=== PATIENT | female | born 1950 | race Caucasian/White ===

== ENCOUNTER → 2019-12-17 10:20 | Outpatient (CLI) | payer MEDICARE, OTHER, SELFPAY ==
--- NOTE | 2019-12-17 10:40 | RAD_ITS ---
STUDY: X-RAY - LUMBAR SPINE REASON FOR EXAM: Female, 69 years old. pain in lower back for approx 2 weeks; worsening with sleeping and sitting TECHNIQUE: 3 view(s) of the lumbar spine were obtained. COMPARISON: None FINDINGS: Normal lumbar lordosis. There is no substantial scoliosis. There is a normal alignment of the vertebrae. Normal vertebral bodies. There is multilevel spondylosis.. There is multi-level degenerative disc disease with multi-level disc space narrowing. There is multilevel degenerative arthrosis of the facet joints, most prominent at the L5-S1 level. The soft tissue structures are unremarkable. RAD/Lumbar Spine 2 or 3 Views IMPRESSION: Degenerative changes of the spine, as detailed above. No demonstrated fracture or subluxation. Electronically Signed: Real Castro MD at 5:15 EDT , Service support ,
== END ==
PROVIDERS: PCP Internal Medicine; Referring Provider Anesthesiology Pain Medicine; Visit Provider Anesthesiology Pain Medicine
DX: M54.9 Dorsalgia, unspecified (principal)
CPT/HCPCS: 72100

== ENCOUNTER 2021-03-04 16:58 | Emergency (ER) | payer MEDICARE, OTHER, SELFPAY ==
[2021-03-02 09:26] VITALS: BMI 29.7
[2021-03-04 16:59] VITALS: BP 126/66; PULSE 88; RESP 16; TEMP 36.2; O2SAT 95; BMI 30.2
--- NOTE | 2021-03-04 18:00 | EX.ED.DYSGE1 ---
HPI History of Present Illness Chief Complaint: Palpitations Informant: patient Onset/Context/Timing Timing: Intermittent Quality: Palpitations Current Severity: Gone Worsened by: Nothing Relieved by: Nothing Associated Symptoms Associated Symptoms: None Narrative Narrative: Patient was referred to the emergency department by her dieing out machine operator for palpitations. He saw her when she arrived to the ED. He noted that she had atrial fibrillation. He is planning to work this up as an outpatient. He would like a Holter monitor. He will be calling in a prescription for Toprol to her pharmacy. He is planning to follow-up with her tomorrow. She has an echo scheduled for tomorrow. He did not want any diagnostic testing. The patient symptoms have currently resolved. 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) Osteopenia Paroxysmal atrial fibrillation (03/04/21) Home Medications alendronate 70 mg tablet 70 mg PO QWEEK 07/21/20 [History Last Taken Unknown] aspirin 81 mg tablet,delayed release 81 mg PO DAILY 07/21/20 [History Last Taken Unknown] atorvastatin 80 mg tablet 80 mg PO DAILY 07/21/20 [History Last Taken Unknown] coenzyme Q10 30 mg capsule 30 mg PO DAILY 07/21/20 [History Last Taken Unknown] ezetimibe 10 mg tablet 10 mg PO DAILY 07/21/20 [History Last Taken Unknown] levothyroxine 100 mcg tablet 100 mcg PO DAILY 07/21/20 [History Last Taken Unknown] lisinopril 2.5 mg tablet 2.5 mg PO DAILY 07/21/20 [History Last Taken Unknown] nitroglycerin 0.4 mg sublingual tablet 0.4 mg SUBLINGUAL Q5M PRN 07/21/20 [History Last Taken Unknown] anastrozole 1 mg tablet 1 mg PO DAILY tab 03/02/21 [History Last Taken Unknown] pantoprazole 40 mg tablet,delayed release 40 mg PO DAILY tab 03/02/21 [History Last Taken Unknown] metoprolol tartrate 25 mg tablet 25 mg PO BID #60 tab 03/04/21 [Rx Last Taken Unknown] Allergy/AdvReac Type Severity Reaction Status Date / Time iodine AdvReac Intermediate Itching Verified 03/04/21 17:02 tamoxifen AdvReac hair Verified 03/04/21 17:02 loss/abnormal discharge Surgical History H/O left mastectomy (03/2018) History of coronary artery stent placement (03/22/17) History of tonsillectomy Social History Smoking Status: Former smoker alcohol intake: never substance use type: does not use ROS ROS ED Constitutional Constitutional ED: Denies chills or fever(s) Eyes Eyes: Denies change in vision ENT ENT ED: Denies ear pain Cardiovascular Cardiovascular: Reports palpitations; Denies chest pain or racing heartbeat Respiratory/Chest Respiratory/Chest: Denies cough or dyspnea Gastrointestinal Gastrointestinal: Denies abdominal pain, nausea or vomiting Genitourinary Genitourinary ED: Denies dysuria Musculoskeletal Musculoskeletal: Denies myalgias Integumentary Denies rash Neurologic Neurologic: Denies headache(s) Psychiatric Psychiatric: Denies depression Endocrine Endocrinology: Denies polyuria Allergic/Immunologic Allergic/Immunologic ED: Denies urticaria EXAM Physical Exam Const Vital Signs: 03/04/21 16:59 03/04/21 17:40 Temperature 97.2 F L Temperature Source Temporal Pulse Rate 88 Respiratory Rate 16 Respiratory Effort Normal Non-Labored Blood Pressure 126/66 H Blood Pressure Mean 86 Pulse Ox 95 Oxygen Delivery Method Room Air Positive well nourished and well developed General Appearance ED: well developed HEENT Negative for trauma Eyes EOMs intact bilaterally Neck supple Resp normal respiratory effort and clear to auscultation bilaterally Cardio regular rate and regular rhythm Extremity normal to inspection General Extremety ED: Negative for edema, tenderness or other findings General Extremity: Negative for edema or other findings Neuro oriented x3 Sensorium / Orientation: alert Psych mental status grossly normal Skin no rashes or lesions noted MDM MDM MDM Narrative Medical decision making narrative: Patient is currently in sinus rhythm. She has no symptoms. She has a new diagnosis of atrial fibrillation. She is on aspirin. Her dieing out machine operator is going to start her on rate control medication. He will follow up with her tomorrow. She has an echo tomorrow. We will order the Holter monitor. Patient will return for any complications. Discharge Plan Triage Chief Complaint: Palpitations ED Provider: Braulio Nathan Dx/Rx/DC Orders Clinical Impression: Paroxysmal atrial fibrillation Instructions: ED AFIB Prescriptions: No Action alendronate 70 mg tablet 70 mg PO QWEEK RF: 0 aspirin 81 mg tablet,delayed release (DR/EC) 81 mg PO DAILY RF: 0 atorvastatin 80 mg tablet 80 mg PO DAILY RF: 0 coenzyme Q10 [CoQ-10] 30 mg capsule 30 mg PO DAILY RF: 0 ezetimibe 10 mg tablet 10 mg PO DAILY RF: 0 levothyroxine 100 mcg tablet 100 mcg PO DAILY RF: 0 lisinopril 2.5 mg tablet 2.5 mg PO DAILY RF: 0 nitroglycerin 0.4 mg tablet, sublingual 0.4 mg SUBLINGUAL Q5M PRN (Reason: Pain) RF: 0 pantoprazole 40 mg tablet,delayed release (DR/EC) 40 mg PO DAILY RF: 0 anastrozole 1 mg tablet 1 mg PO DAILY RF: 0 metoprolol tartrate 25 mg tablet 25 mg PO BID Qty: 60 RF: 8 Primary Care Provider: Christopher Abreu Referrals: Narendra Triplett MD [STAFF PHYSICIAN] - (follow up tomorrow) Disposition Disposition: Home, self care
== END 2021-03-04 19:01 | disposition home or self-care (01) ==
LOC: ED 18:15
PROVIDERS: Emergency Provider Emergency Medicine; PCP Internal Medicine
DX: I48.0 Paroxysmal atrial fibrillation (principal); I25.10 Atherosclerotic heart disease of native coronary artery without angina pectoris; E03.9 Hypothyroidism, unspecified; E78.5 Hyperlipidemia, unspecified; K21.9 Gastro-esophageal reflux disease without esophagitis; Z87.891 Personal history of nicotine dependence; Z79.82 Long term (current) use of aspirin; Z79.899 Other long term (current) drug therapy
CPT/HCPCS: 99282

== ENCOUNTER → 2021-03-04 18:03 | Outpatient (CLI) | payer MEDICARE, OTHER, SELFPAY ==
[2021-03-04 16:59] VITALS: BMI 30.2
== END ==
PROVIDERS: PCP Internal Medicine; Visit Provider Internal Medicine Interventional Cardiology
DX: R00.2 Palpitations (principal); I48.0 Paroxysmal atrial fibrillation; I25.10 Atherosclerotic heart disease of native coronary artery without angina pectoris; E03.9 Hypothyroidism, unspecified; E78.5 Hyperlipidemia, unspecified; K21.9 Gastro-esophageal reflux disease without esophagitis; Z87.891 Personal history of nicotine dependence; Z79.82 Long term (current) use of aspirin; Z79.899 Other long term (current) drug therapy
CPT/HCPCS: 93225; 93226; 99282

== ENCOUNTER → 2021-03-05 08:58 | Outpatient (CLI) | payer MEDICARE, OTHER, SELFPAY ==
[2021-03-02 09:26] VITALS: BMI 29.7
[2021-03-02 11:04] LABS: Anion Gap 5 (5-15); BUN 11 mg/dL (7-18); BUN/Creat Ratio 11.1 RATIO (10-20); Calcium,Total 9.4 mg/dL (8.5-10.1); Chloride 109 mmol/L (98-107); Creatinine, Serum 0.99 mg/dL (0.55-1.02); EST Glomerular Filtration Rate 58 mL/min (>60); Est Glom Filt Rate - Afr Amer 71 mL/min (>60); Glucose 107 mg/dL (74-106); Magnesium 2.2 mg/dL (1.6-2.6); Potassium 3.8 mmol/L (3.5-5.1); Sodium Level 141 mmol/L (136-145); Thyroid Stim Hormone (TSH) 0.75 uIU/mL (0.358-3.74)
[2021-03-04 16:59] VITALS: BMI 30.2
--- NOTE | 2021-03-05 09:00 | ECHOD_ITS ---
Version 2 Reason For Study: Arrhythmia Procedure This was a 2D Doppler, Color Flow transthoracic echocardiogram. Exam performed in department. Left Ventricle Normal LV size. Left ventricular systolic function is normal. The estimated ejection fraction is 60 %. No regional wall motion abnormalities noted. Right Ventricle Normal RV size. Normal systolic function. Atria Normal left atrium. Normal right atrium. Mitral Valve Normal mitral valve. Tricuspid Valve Normal tricuspid valve. Mild tricuspid valve insufficiency. Aortic Valve Normal aortic valve. Trisinus/trileaflet aortic valve. Pulmonic Valve Normal pulmonic valve. Great Vessels Normal aortic root. The pulmonary artery is normal size. Normal inferior vena cava. Pericardium/Pleural No pericardial effusion. MMode/2D Measurements & Calculations LVIDd: 4.2 cm IVSd: 1.3 cm LA dimension: 3.5 cm LVIDs: 2.7 cm LVPWd: 1.1 cm FS: 35.2 % LAV(MOD-bp): 49.7 ml LA A4 area: 18.0 cm2 RA A4 area: 16.4 cm2 LAV(MOD-bp) Indexed: 26.8 ml/m2 LAV(MOD-sp2): 46.9 ml LAV(MOD-sp4): 50.8 ml Time Measurements MV dec time: 0.24 sec Doppler Measurements & Calculations MV E max holden: 101.9 cm/sec Lat Peak E' Holden: 9.0 cm/sec Med Peak E' Holden: 8.8 cm/sec MV A max holden: 76.6 cm/sec E/E' lat: 11.4 E/E' med: 11.6 MV E/A: 1.3 MV V2 max: 126.8 cm/sec MV P1/2t max holden: 127.5 cm/sec Ao V2 max: 126.8 cm/sec MV max P.4 mmHg MV P1/2t: 77.1 msec Ao max P.4 mmHg MV V2 mean: 61.3 cm/sec MV dec slope: 484.5 cm/sec2 MV mean P.8 mmHg MVA(P1/2t): 2.9 cm2 MV V2 VTI: 35.3 cm LV V1 max: 114.6 cm/sec PA V2 max: 87.6 cm/sec TR max holden: 271.3 cm/sec LV V1 max P.3 mmHg TR max P.4 mmHg ECHO/Echo Complete Interpretation Summary Normal LV size. Left ventricular systolic function is normal. The estimated ejection fraction is 60 %. Mild tricuspid valve insufficiency. Structurally normal valves. Ordering Physician: Narendra Triplett Referring Physician: Christopher Abreu Performed By: Leandro Meadows RCS
== END ==
PROVIDERS: PCP Internal Medicine; Referring Provider Internal Medicine Cardiovascular Disease; Visit Provider Internal Medicine Cardiovascular Disease
DX: I25.10 Atherosclerotic heart disease of native coronary artery without angina pectoris (principal); R00.2 Palpitations; E03.9 Hypothyroidism, unspecified; I25.2 Old myocardial infarction
CPT/HCPCS: 36415; 80048; 83735; 84443; 93306

== ENCOUNTER → 2021-03-18 09:45 | Outpatient (CLI) | payer MEDICARE, OTHER, SELFPAY ==
[2021-03-18 08:52] VITALS: BMI 30.4
--- NOTE | 2021-03-18 09:49 | RAD_ITS ---
STUDY: X-RAY CHEST REASON FOR EXAM: Female, 70 years old. cad TECHNIQUE: PA and lateral views of the chest. COMPARISON: None. FINDINGS: The lungs are clear and expanded. There is no demonstrated pleural abnormality. Normal size heart. Normal mediastinum and michelle. Normal visualized pulmonary arteries. Normal visualized aortic arch and descending thoracic aorta. Normal visualized thoracic spine. Normal visualized ribs, clavicles, and shoulders. There is no demonstrated abnormality of the visualized soft tissue structures of the upper abdomen. RAD/Chest PA and Lateral IMPRESSION: Normal x-ray examination of the chest. Electronically Signed: Lorenzo Carmen DO at 6:33 EDT Tel , Service support ,
[2021-03-18 10:47] LABS: AST(SGOT) 46 U/L (15-37); Alanine Aminotransfer ALT/SGPT 61 U/L (13-56); Albumin, Serum 3.6 g/dL (3.2-5.0); Alkaline Phosphatase 96 U/L (45-117); Bilirubin, Direct 0.23 mg/dL (0.00-0.30); Cholesterol 124 mg/dL (200); Globulin 3.3 g/dL (2.2-4.2); High Density Lipoprotein 63 mg/dL; Protein, Total 6.9 g/dL (6.4-8.2); Triglycerides 42 mg/dL; Very Low Density Lipoprotein 8 mg/dL (5-40)
== END ==
PROVIDERS: PCP Internal Medicine; Referring Provider Internal Medicine Cardiovascular Disease; Visit Provider Internal Medicine Cardiovascular Disease
DX: E78.00 Pure hypercholesterolemia, unspecified (principal); E78.5 Hyperlipidemia, unspecified; Z95.5 Presence of coronary angioplasty implant and graft
CPT/HCPCS: 36415; 71046; 80061; 80076

== ENCOUNTER → 2021-05-24 | Outpatient (CLI) | payer MEDICARE, OTHER, SELFPAY ==
[2021-05-24 10:05] VITALS: BMI 30.4
== END | disposition home or self-care (01) ==
PROVIDERS: PCP Internal Medicine; Referring Provider Obstetrics & Gynecology; Visit Provider Obstetrics & Gynecology
DX: N76.0 Acute vaginitis (principal)
CPT/HCPCS: 87070; 87205

== ENCOUNTER → 2021-06-01 10:12 | Outpatient (CLI) | payer MEDICARE, OTHER, SELFPAY ==
[2021-06-01 12:29] LABS: Absolute Lymphocyte Count 2.03 X10^3/uL (0.83-4.51); Absolute Neutrophil Count 4.9 X10^3/uL (2.0-7.7); Basophil# 0.04 X10^3/uL; Basophil% 0.5 % (0-1); Eosinophil# 0.16 X10^3/uL; Eosinophils% 2.1 % (0-5); Hematocrit 38.6 % (37-47); Hemoglobin 12.2 g/dL (12.0-15.0); Lymphocyte # 2.03 X10^3/ul (0.83-4.51); Mean Corp Hgb Conc 31.6 g/dL (32-36); Mean Corpuscular Hgb 28.8 pg (27.0-32.0); Mean Corpuscular Volume 91.3 fL (81-99); Mean Platelet Vol. 10.2 fl (6.2-12.0); Monocyte# 0.67 X10^3/uL; Monocyte% 8.6 % (0-10); NRBC Flagged by Analyzer 0 % (0-5); Neutrophil # 4.86 X10^3/uL (2.7-7.7); Neutrophil % 62.3 % (47-70); Platelet Count 255 K/mm3 (150-450); RBC Distribution Width CV 14.1 % (11.6-14.6); RBC Distribution Width SD 47.4 fl (35.1-43.9); Red Blood Count 4.23 M/mm3 (4.2-5.4); White Blood Count 7.8 K/mm3 (4.4-11.0)
== END ==
PROVIDERS: PCP Internal Medicine; Referring Provider Internal Medicine; Visit Provider Internal Medicine
DX: E78.5 Hyperlipidemia, unspecified (principal); E03.9 Hypothyroidism, unspecified
CPT/HCPCS: 36415; 85025

== ENCOUNTER → 2021-06-02 08:30 | Outpatient (CLI) | payer MEDICARE, OTHER, SELFPAY ==
[2021-05-24 10:05] VITALS: BMI 30.4
--- NOTE | 2021-06-02 08:33 | US_ITS ---
STUDY: ULTRASOUND TRANSVAGINAL CLINICAL: Female, 70 years old. RLQ pain TECHNIQUE: Transvaginal COMPARISON: None. FINDINGS: Normal uterine size measuring 8.4 x 4.6 x 4.5 cm in maximal craniocaudal dimension. There is a fibroid measuring 1.6 x 1.2 x 1 cm. Normal endometrial thickness measuring 9 mm. There are no endometrial masses, and there is no fluid in the endometrial cavity. Normal uterine cervix. Normal right ovary, measuring 3.3 x 2.8 x 1.6 cm. There are multiple follicles without a dominant cyst. Normal left ovary, measuring 3 x 2.6 x 2 cm. There are multiple follicles without a dominant cyst. There is no free fluid in the pelvis. US/Pelvic (Non ) IMPRESSION: Thickened endometrial lining for stated age and small intrauterine fibroid.. Normal size bilateral ovaries Electronically Signed: Anam Calderon MD at 16:52 EDT , Service support ,
--- NOTE | 2021-06-02 08:33 | US_ITS ---
STUDY: ULTRASOUND TRANSVAGINAL CLINICAL: Female, 70 years old. RLQ pain TECHNIQUE: Transvaginal COMPARISON: None. FINDINGS: Normal uterine size measuring 8.4 x 4.6 x 4.5 cm in maximal craniocaudal dimension. There is a fibroid measuring 1.6 x 1.2 x 1 cm. Normal endometrial thickness measuring 9 mm. There are no endometrial masses, and there is no fluid in the endometrial cavity. Normal uterine cervix. Normal right ovary, measuring 3.3 x 2.8 x 1.6 cm. There are multiple follicles without a dominant cyst. Normal left ovary, measuring 3 x 2.6 x 2 cm. There are multiple follicles without a dominant cyst. There is no free fluid in the pelvis. US/Transvaginal Non- IMPRESSION: Thickened endometrial lining for stated age and small intrauterine fibroid.. Normal size bilateral ovaries Electronically Signed: Anam Calderon MD at 16:52 EDT , Service support ,
== END ==
PROVIDERS: PCP Internal Medicine; Referring Provider Obstetrics & Gynecology; Visit Provider Obstetrics & Gynecology
DX: R10.31 Right lower quadrant pain (principal)
CPT/HCPCS: 76830; 76856; 93976

== ENCOUNTER → 2021-08-10 08:06 | Outpatient (CLI) | payer MEDICARE, OTHER, SELFPAY ==
--- NOTE | 2021-08-11 14:23 | PFT ---
INTRODUCTION: The patient is a 71-year-old female that presents for pulmonary function studies secondary to a diagnosis of high risk medication use. Respiratory therapy reported good patient effort. Bronchodilators were used during testing. INTERPRETATION: Forced expiration spirometry demonstrates no evidence of a large airways obstructive ventilatory defect. There was no significant response to aerosolized bronchodilators. Spirograms are of good quality and plateau normally. Body plethysmography was performed and reveals lung volumes to be within normal limits. Diffusing capacity by single breath CO is also within normal limits. IMPRESSION: Grossly normal pulmonary function studies.
== END ==
PROVIDERS: PCP Internal Medicine; Referring Provider Internal Medicine Cardiovascular Disease; Visit Provider Internal Medicine Cardiovascular Disease
DX: I48.0 Paroxysmal atrial fibrillation (principal)
CPT/HCPCS: 94060; 94726; 94729

== ENCOUNTER → 2021-09-13 11:25 | Outpatient (CLI) | payer MEDICARE, OTHER, SELFPAY ==
--- NOTE | 2021-09-13 11:26 | US_ITS ---
STUDY: ULTRASOUND OF THE FEMALE PELVIS - COMPLETE REASON FOR EXAM: Female, 71 years old. Postmenopausal bleeding. LMP: Patient is postmenopausal. TECHNIQUE: Transabdominal and Transvaginal TECHNICAL QUALITY: Adequate. COMPARISON: Comparison is made with prior study dated 06/02/2021. FINDINGS: The uterus is anteverted and is in a midline position. The uterus measures 7.5 cm x 5 cm x 3.4 cm. Normal uterine cervix. The endometrium measures 6.4 mm in thickness, and is hyperechoic. There is no demonstrated endometrial mass. There is a 1.3 cm x 0.9 cm fundal fibroid. I.U.D. - The patient does not have an I.U.D. The right ovary is non-visualized. The left ovary is visualized. The left ovary measures 3 cm x 1.5 cm x 0.9 cm. There is no left ovarian cyst or ovarian mass. There is no visualized left adnexal mass or complex lesion. There is normal arterial and normal venous vascularity. There is no fluid in the cul-de-sac. The pre void volume of the bladder was 480 ml. US/Pelvic (Non ) IMPRESSION: Endometrial thickening. Small uterine fibroid. Electronically Signed: Deniz Esqueda MD at 15:44 EST , Service support ,
--- NOTE | 2021-09-13 11:26 | US_ITS ---
STUDY: ULTRASOUND OF THE FEMALE PELVIS - COMPLETE REASON FOR EXAM: Female, 71 years old. Postmenopausal bleeding. LMP: Patient is postmenopausal. TECHNIQUE: Transabdominal and Transvaginal TECHNICAL QUALITY: Adequate. COMPARISON: Comparison is made with prior study dated 06/02/2021. FINDINGS: The uterus is anteverted and is in a midline position. The uterus measures 7.5 cm x 5 cm x 3.4 cm. Normal uterine cervix. The endometrium measures 6.4 mm in thickness, and is hyperechoic. There is no demonstrated endometrial mass. There is a 1.3 cm x 0.9 cm fundal fibroid. I.U.D. - The patient does not have an I.U.D. The right ovary is non-visualized. The left ovary is visualized. The left ovary measures 3 cm x 1.5 cm x 0.9 cm. There is no left ovarian cyst or ovarian mass. There is no visualized left adnexal mass or complex lesion. There is normal arterial and normal venous vascularity. There is no fluid in the cul-de-sac. The pre void volume of the bladder was 480 ml. US/Transvaginal Non- IMPRESSION: Endometrial thickening. Small uterine fibroid. Electronically Signed: Deniz Esqueda MD at 15:44 EST , Service support ,
== END ==
PROVIDERS: PCP Internal Medicine; Referring Provider Obstetrics & Gynecology; Visit Provider Obstetrics & Gynecology
DX: N76.0 Acute vaginitis (principal)
CPT/HCPCS: 76830; 76856

== ENCOUNTER 2021-12-28 20:02 | Outpatient (CLI) | payer MEDICARE, OTHER, SELFPAY | END 2021-12-28 23:59 | disposition home or self-care (01) | PROVIDERS: PCP Internal Medicine; Visit Provider Internal Medicine | DX: G47.33 Obstructive sleep apnea (adult) (pediatric) (principal) | CPT/HCPCS: 95810 ==

== ENCOUNTER → 2022-04-20 | Outpatient (CLI) | payer MEDICARE, OTHER, SELFPAY ==
--- NOTE | 2022-04-20 11:15 | RAD_ITS ---
STUDY: X-RAY - PELVIS AND RIGHT HIP REASON FOR EXAM: Female, 71 years old. HIP PAIN TECHNIQUE: 3 views of the pelvis and hip. COMPARISON: None. FINDINGS: There is a non-specific bowel gas pattern. Normal visualized soft tissue structures. Normal bilateral iliac wings, sacroiliac joints and visualized sacrum. Normal bilateral superior and inferior pubic rami. Normal pubic symphysis. Normal bilateral ischial tuberosities. Normal visualized femoral head. Normal acetabulum. There is moderate articular joint space narrowing of the hip. RAD/HIP, UNI W/ Pelvis 2-3 Views IMPRESSION: Moderate] joint space narrowing with no evidence of underlying acute osseous fracture. Electronically Signed: Jaspal Martínez DO at 18:18 EDT ,
== END | disposition home or self-care (01) ==
LOC: RAD 11:12
PROVIDERS: PCP Internal Medicine; Referring Provider Anesthesiology Pain Medicine; Visit Provider Anesthesiology Pain Medicine
DX: M25.551 Pain in right hip (principal)
CPT/HCPCS: 73502

== ENCOUNTER → 2022-05-17 | Outpatient (CLI) | payer MEDICARE, OTHER, SELFPAY ==
[2022-05-17 12:16] LABS: Absolute Lymphocyte Count 1.87 X10^3/uL (0.83-4.51); Absolute Neutrophil Count 5.3 X10^3/uL (2.0-7.7); Basophil# 0.05 X10^3/uL; Basophil% 0.6 % (0-1); Eosinophil# 0.22 X10^3/uL; Eosinophils% 2.7 % (0-5); Hematocrit 36.8 % (37-47); Hemoglobin 12.1 g/dL (12.0-15.0); Lymphocyte # 1.87 X10^3/ul (0.83-4.51); Lymphocyte % 23.1 % (19-41); Mean Corp Hgb Conc 32.9 g/dL (32-36); Mean Corpuscular Hgb 31.3 pg (27.0-32.0); Mean Corpuscular Volume 95.3 fL (81-99); Monocyte# 0.63 X10^3/uL; Monocyte% 7.8 % (0-10); NRBC Flagged by Analyzer 0 % (0-5); Neutrophil % 65.4 % (47-70); Platelet Count 261 K/mm3 (150-450); RBC Distribution Width CV 13.8 % (11.6-14.6); RBC Distribution Width SD 48.3 fl (35.1-43.9); Red Blood Count 3.86 M/mm3 (4.2-5.4); White Blood Count 8.1 K/mm3 (4.4-11.0)
[2022-05-17 12:54] LABS: AST(SGOT) 22 U/L (15-37); Alanine Aminotransfer ALT/SGPT 36 U/L (13-56); Albumin, Serum 3.3 g/dL (3.2-5.0); Alkaline Phosphatase 88 U/L (45-117); Anion Gap 5 (5-15); BUN 14 mg/dL (7-18); BUN/Creat Ratio 11.2 RATIO (10-20); Calcium,Total 8.8 mg/dL (8.5-10.1); Chloride 109 mmol/L (98-107); Cholesterol 154 mg/dL (200); Creatinine, Serum 1.25 mg/dL (0.55-1.02); EST Glomerular Filtration Rate 45 mL/min (>60); Est Glom Filt Rate - Afr Amer 54 mL/min (>60); Globulin 3.4 g/dL (2.2-4.2); Glucose 115 mg/dL (74-106); High Density Lipoprotein 69 mg/dL; Potassium 4.4 mmol/L (3.5-5.1); Protein, Total 6.7 g/dL (6.4-8.2); Sodium Level 139 mmol/L (136-145); Thyroid Stim Hormone (TSH) 2.46 uIU/mL (0.358-3.74); Triglycerides 49 mg/dL; Very Low Density Lipoprotein 10 mg/dL (5-40)
== END | disposition home or self-care (01) ==
LOC: BIMLAB 10:05
PROVIDERS: PCP Internal Medicine; Referring Provider Internal Medicine; Visit Provider Internal Medicine
DX: E03.9 Hypothyroidism, unspecified (principal); E78.5 Hyperlipidemia, unspecified
CPT/HCPCS: 36415; 80053; 80061; 84443; 85025

== ENCOUNTER → 2022-09-22 | Outpatient (CLI) | payer MEDICARE, OTHER, SELFPAY ==
--- NOTE | 2022-09-22 12:53 | PFT ---
INTRODUCTION: The patient is a 72-year-old female that presents for pulmonary function studies secondary to a diagnosis of atrial fibrillation. Respiratory therapy reported good patient effort. Bronchodilators were used during testing. INTERPRETATION: Forced expiration spirometry demonstrates no evidence of a large airways obstructive ventilatory defect. There was no significant response to aerosolized bronchodilators. Spirograms are of good quality and plateau normally. Body plethysmography was performed and demonstrated lung volumes to be within normal limits. Diffusing capacity by single breath CO was also within normal limits. IMPRESSION: Grossly normal pulmonary function studies.
== END | disposition home or self-care (01) ==
LOC: PSN 08:06
PROVIDERS: PCP Internal Medicine; Visit Provider Physician Assistant Medical
DX: I48.0 Paroxysmal atrial fibrillation (principal)
CPT/HCPCS: 94060; 94726; 94729

== ENCOUNTER → 2022-11-30 | Outpatient (CLI) | payer MEDICARE, OTHER, SELFPAY ==
[2022-11-30 13:25] LABS: ALB/GLOB Ratio 1.2 RATIO (0.9-2.4); AST(SGOT) 29 U/L (15-37); Alanine Aminotransfer ALT/SGPT 36 U/L (13-56); Albumin, Serum 3.6 g/dL (3.2-5.0); Alkaline Phosphatase 99 U/L (45-117); Anion Gap 8 (5-15); BUN 15 mg/dL (7-18); BUN/Creat Ratio 14.7 RATIO (10-20); Calcium,Total 9.2 mg/dL (8.5-10.1); Chloride 107 mmol/L (98-107); Creatinine, Serum 1.02 mg/dL (0.55-1.02); EST Glomerular Filtration Rate 56 mL/min (>60); Est Glom Filt Rate - Afr Amer 68 mL/min (>60); Glucose 127 mg/dL (74-106); Potassium 4.3 mmol/L (3.5-5.1); Protein, Total 6.6 g/dL (6.4-8.2); Sodium Level 141 mmol/L (136-145)
== END | disposition home or self-care (01) ==
LOC: BIMLAB 10:11
PROVIDERS: PCP Internal Medicine; Referring Provider Internal Medicine; Visit Provider Internal Medicine
DX: N18.30 Chronic kidney disease, stage 3 unspecified (principal); E78.5 Hyperlipidemia, unspecified
CPT/HCPCS: 36415; 80053

== ENCOUNTER → 2023-06-14 | Outpatient (CLI) | payer MEDICARE, OTHER, SELFPAY ==
[2023-06-14 16:40] LABS: Absolute Lymphocyte Count 2.18 X10^3/uL (0.83-4.51); Absolute Neutrophil Count 4.9 X10^3/uL (2.0-7.7); Basophil# 0.05 X10^3/uL; Basophil% 0.6 % (0-1); Eosinophil# 0.15 X10^3/uL; Eosinophils% 1.9 % (0-5); Hematocrit 38.1 % (37-47); Hemoglobin 12.4 g/dL (12.0-15.0); Lymphocyte # 2.18 X10^3/ul (0.83-4.51); Lymphocyte % 27.9 % (19-41); Mean Corp Hgb Conc 32.5 g/dL (32-36); Mean Corpuscular Volume 95.3 fL (81-99); Mean Platelet Vol. 10.3 fl (6.2-12.0); Monocyte# 0.54 X10^3/uL; Monocyte% 6.9 % (0-10); NRBC Flagged by Analyzer 0 % (0-5); Neutrophil # 4.86 X10^3/uL (2.7-7.7); Neutrophil % 62.3 % (47-70); Platelet Count 230 K/mm3 (150-450); RBC Distribution Width CV 13.5 % (11.6-14.6); RBC Distribution Width SD 48.1 fl (35.1-43.9); White Blood Count 7.8 K/mm3 (4.4-11.0)
[2023-06-14 17:11] LABS: Vitamin B12 327 pg/mL (211-911)
[2023-06-14 17:29] LABS: AST(SGOT) 61 U/L (15-37); Alanine Aminotransfer ALT/SGPT 92 U/L (13-56); Albumin, Serum 3.6 g/dL (3.2-5.0); Alkaline Phosphatase 96 U/L (45-117); Anion Gap 8 (5-15); BUN 16 mg/dL (7-18); BUN/Creat Ratio 13.7 RATIO (10-20); Chloride 104 mmol/L (98-107); Cholesterol 129 mg/dL (200); Creatinine, Serum 1.17 mg/dL (0.55-1.02); EST Glomerular Filtration Rate 48 mL/min (>60); Est Glom Filt Rate - Afr Amer 58 mL/min (>60); Globulin 3.5 g/dL (2.2-4.2); Glucose 90 mg/dL (74-106); High Density Lipoprotein 58 mg/dL; Potassium 3.8 mmol/L (3.5-5.1); Protein, Total 7.1 g/dL (6.4-8.2); Sodium Level 137 mmol/L (136-145); Thyroid Stim Hormone (TSH) 1.28 uIU/mL (0.358-3.74); Triglycerides 74 mg/dL; Very Low Density Lipoprotein 15 mg/dL (5-40)
== END | disposition home or self-care (01) ==
LOC: BIMLAB 15:20
PROVIDERS: PCP Internal Medicine; Visit Provider Internal Medicine
DX: E03.9 Hypothyroidism, unspecified (principal); E78.5 Hyperlipidemia, unspecified
CPT/HCPCS: 36415; 80053; 80061; 82607; 84443; 85025

== ENCOUNTER → 2023-09-21 | Outpatient (CLI) | payer MEDICARE, OTHER, SELFPAY ==
[2023-09-21 16:35] LABS: AST(SGOT) 40 U/L (15-37); Alanine Aminotransfer ALT/SGPT 54 U/L (13-56); Albumin, Serum 3.6 g/dL (3.2-5.0); Alkaline Phosphatase 101 U/L (45-117); Anion Gap 4 (5-15); BUN 13 mg/dL (7-18); Calcium,Total 9.1 mg/dL (8.5-10.1); Chloride 104 mmol/L (98-107); Creatinine, Serum 1.18 mg/dL (0.55-1.02); EST Glomerular Filtration Rate 47 mL/min (>60); Est Glom Filt Rate - Afr Amer 57 mL/min (>60); Globulin 3.5 g/dL (2.2-4.2); Glucose 103 mg/dL (74-106); Protein, Total 7.1 g/dL (6.4-8.2); Sodium Level 136 mmol/L (136-145)
== END | disposition home or self-care (01) ==
LOC: BIMLAB 13:35
PROVIDERS: PCP Internal Medicine; Visit Provider Internal Medicine
DX: R74.8 Abnormal levels of other serum enzymes (principal)
CPT/HCPCS: 36415; 80053

== ENCOUNTER → 2023-12-04 | Outpatient (CLI) | payer MEDICARE, OTHER, SELFPAY ==
--- OUTSIDE RECORDS SUMMARY | 2023-12-04 07:20 | XMS RPT_ITS | CCD ---
Author Name Unknown Address [address] [place] [address] [address] [place] [address] Organization [facility] Care Team Providers Care Environmental Management Specialist Name Role Phone RADHAMES VELAZQUEZ Unavailable Unavailable IMCA Unavailable Unavailable IMCA Unavailable Unavailable RADHAMES VELAZQUEZ Unavailable Unavailable SHAYY GALINDO Unavailable Unavailable IMCA Unavailable Unavailable KEI RODRIGUEZ Unavailable Unavailable KEI RODRIGUEZ Unavailable Unavailable Christopher bAreu MD Primary Care Provider [phone] Unavailable Primary Care Provider UnavailCaterina Richter MD Primary Care Provider [phone] JIMI MORSE Attending Unavailable OLEGHE, EFEWONGBE B Primary Care Unavailable MATTO, HASEEB Referring Unavailable OLEGHE, EFEWONGBE B Primary Care Unavailable MATCARLA, HASEEB Attending Unavailable OLEGHE, EFEWONGBE B Primary Care Unavailable ALI, WAN BRENT Referring Unavailable OLEGHE, EFEWONGBE B Primary Care Unavailable ALI, WAN BRENT Referring Unavailable OLEGHE, EFEWONGBE B Primary Care Unavailable OLEGHE, EFEWONGBE B Primary Care Unavailable ALI, WAN BRENT Attending Unavailable ALI, WAN BRENT Referring Unavailable OLEGHE, EFEWONGBE B Primary Care Unavailable ALI, WAN BRENT Attending Unavailable ALI, WAN BRENT Referring Unavailable Allergies Allergy Classification Reported Allergen(s) Allergy Type Date of Onset Reaction(s) Facility (20 sources) iodine; Translations: [IODINE] Drug Allergy 12-15-2017 Itching [facility] Repository Medications Current Medications Medication Drug Class(es) Dates Sig (Normalized) Sig (Original) anastrozole 1 mg oral tablet (16 sources) Aromatase Inhibitor Start: 11-26-2021 End: 11-09-2023 take 1 tablet by mouth once daily anastrozole (ARIMIDEX) 1 mg tablet Take 1 tablet by mouth once daily. 90 tablet 3 11/14/2022 11/09/2023 Active Completed/Discontinued Medications Medication Drug Class(es) Dates Sig (Normalized) Sig (Original) alendronic acid 70 mg oral tablet (3 sources) Bisphosphonate Start: 05-21-2021 End: 05-21-2022 take 1 tablet by mouth every week alendronate (FOSAMAX) 70 mg tablet Take 1 tablet by mouth one time a week. 12 tablet 3 05/21/2021 03/25/2022 Discontinued (Course of therapy completed) Problems Active Problems Problem Classification Problem Date Documented Da te Episodic/Chronic Cancer of breast (20 sources) Malignant neoplasm of female breast; Translations: [Malignant neoplasm of nipple and areola, left female breast] Onset: 01-12-2018 Chronic Cardiac dysrhythmias (12 sources) Paroxysmal atrial fibrillation; Translations: [Paroxysmal atrial fibrillation] Onset: 09-21-2022 Chronic Coronary atherosclerosis and other heart disease (19 sources) Coronary atherosclerosis; Translations: [Atherosclerotic heart disease of [place] coronary artery without angina pectoris] Onset: 03-22-2017 03-28-2017 Chronic Disorders of lipid metabolism (20 sources) Mixed hyperlipidemia; Translations: [Mixed hyperlipidemia] Onset: 03-22-2017 03-27-2017 Chronic Osteoporosis (2 sources) Senile osteoporosis; Translations: [Age-related osteoporosis without current pathological fracture] Onset: 07-17-2023 Chronic Other aftercare (1 source) Long-term current use of aromatase inhibitor; Translations: [joint terminal attack controller (current) use of aromatase inhibitors] Episodic Other lower respiratory disease (1 source) Multiple nodules of lung; Translations: [Other nonspecific abnormal finding of lung field] Episodic Other nutritional; endocrine; and metabolic disorders (18 sources) Obese class I; Translations: [Obesity, unspecified] Onset: 11-11-2019 11-11-2019 Chronic Other nutritional; endocrine; and metabolic disorders (1 source) Obesity, unspecified; Translations: [Obesity, Class I, BMI 30-34.9] Onset: 11-11-2019 Chronic Other screening for suspected conditions (not mental disorders or infectious disease) (8 sources) Patient encounter status; Translations: [Encounter for screening mammogram for malignant neoplasm of breast] Onset: 07-17-2023 Episodic Other skin disorders (2 sources) Mass of thoracic structure; Translations: [Localized swelling, mass and lump, trunk] Episodic Residual codes; unclassified (19 sources) Obstructive sleep apnea syndrome; Translations: [Obstructive sleep apnea (adult) (pediatric)] Onset: 09-25-2017 09-25-2017 Chronic Residual codes; unclassified (1 source) Obstructive sleep apnea (adult) (pediatric); Translations: [SNEHA (obstructive sleep apnea)] Onset: 09-25-2017 Chronic Thyroid disorders (17 sources) Acquired hypothyroidism; Translations: [Hypothyroidism, unspecified] Onset: 03-22-2017 03-27-2017 Chronic Unclassified (1 source) Unknown / UNK(Unknown) Onset: 01-03-2018 Past or Other Problems Problem Classification Problem Date Documented Da te Episodic/Chronic Coronary atherosclerosis and other heart disease (18 sources) Patient post percutaneous transluminal coronary angioplasty; Translations: [Coronary angioplasty status] Onset: 03-28-2017 03-28-2017 Episodic Inflammation; infection of eye (except that caused by tuberculosis or sexually transmitteddisease) (17 sources) Superficial keratitis of right eye; Translations: [Unspecified superficial keratitis, right eye] Onset: 11-21-2018 11-21-2018 Episodic Malaise and fatigue (17 sources) Fatigue; Translations: [Other fatigue] Onset: 03-27-2017 03-28-2017 Episodic Residual codes; unclassified (7 sources) Other specified personal risk factors, not elsewhere classified; Translations: [Other specified personal history presenting hazards to health] Onset: 11-18-2022 Episodic Residual codes; unclassified (2 sources) Estrogen receptor positive status [ER+]; Translations: [Malignant neoplasm of left breast in female, estrogen receptor positive, unspecified site of breast (HCC)] Onset: 01-12-2018 Episodic Results Test Name Value Interpretation Reference Range Facil ity Vital Signs Date Time Vital Sign Value Performing Clinician Faci lity 11-18-2022 09:57-0500 Body height 162.6 cm Jimi Morse APRN.CNP Work Phone: [facility] 11-18-2022 09:57-0500 Body weight 83.01 kg Jimi Morse APRN.CNP Work Phone: [facility] 11-18-2022 09:57-0500 Diastolic blood pressure 82 mm[Hg] Jimi Morse APRN.CNP Work Phone: [facility] 11-18-2022 09:57-0500 Heart rate 64 /min Jimi Linardi SUPERVISOR [employer].BLOOD BANK CALENDAR CONTROL CLERK Work Phone: [facility] 11-18-2022 09:57-0500 Respiratory rate 18 /min Jimi Red SUPERVISOR [employer]ATTO[employer].BLOOD BANK CALENDAR CONTROL CLERK Work Phone: [facility] 11-18-2022 09:57-0500 SaO2% (BldA) [Mass fraction] 98 % Jimi Linardi SUPERVISOR [employer]ATTO[employer].BLOOD BANK CALENDAR CONTROL CLERK Work Phone: [facility] 11-18-2022 09:57-0500 Systolic blood pressure 126 mm[Hg] Jimi Linardi SUPERVISOR ABATTOIR.BLOOD BANK CALENDAR CONTROL CLERK Work Phone: [facility] 11-14-2022 09:43-0500 Body weight 83.46 kg Wan Knight MD Work Phone: [facility] 11-14-2022 09:43-0500 Diastolic blood pressure 80 mm[Hg] Wan Knight MD Work Phone: [facility] 11-14-2022 09:43-0500 Heart rate 66 /min Wan Knight MD Work Phone: [facility] 11-14-2022 09:43-0500 Respiratory rate 18 /min Wan Knight MD Work Phone: [facility] 11-14-2022 09:43-0500 SaO2% (BldA) [Mass fraction] 99 % Wan Knight MD Work Phone: [facility] 11-14-2022 09:43-0500 Systolic blood pressure 133 mm[Hg] Wan Knight MD Work Phone: [facility] 09-21-2022 08:12-0500 Body height 162.6 cm Haseeb Ibanez MD Work Phone: [facility] 09-21-2022 08:12-0500 Body weight 80.29 kg Haseeb Ibanez MD Work Phone: [facility] 09-21-2022 08:12-0500 Diastolic blood pressure 85 mm[Hg] Haseeb Ibanez MD Work Phone: [facility] 09-21-2022 08:12-0500 Heart rate 63 /min Haseeb Ibanez MD Work Phone: [facility] 09-21-2022 08:12-0500 SaO2% (BldA) [Mass fraction] 96 % Haseeb Ibanez MD Work Phone: [facility] 09-21-2022 08:12-0500 Systolic blood pressure 143 mm[Hg] Haseeb Ibanez MD Work Phone: [facility] 05-12-2022 08:41-0400 Body weight 78.47 kg Wan Knight MD Work Phone: [facility] 05-12-2022 08:41-0400 Diastolic blood pressure 75 mm[Hg] Wan Knight MD Work Phone: [facility] 05-12-2022 08:41-0400 Heart rate 54 /min Wan Knight MD Work Phone: [facility] 05-12-2022 08:41-0400 Respiratory rate 18 /min Wan Knight MD Work Phone: [facility] 05-12-2022 08:41-0400 SaO2% (BldA) [Mass fraction] 98 % Wan Knight MD Work Phone: [facility] 05-12-2022 08:41-0400 Systolic blood pressure 127 mm[Hg] Wan Knight MD Work Phone: [facility] 03-25-2022 08:59-0400 Body temperature 98.01 [degF] Aleida Roca MD Work Phone: [facility] 03-25-2022 08:59-0400 Body weight 81.65 kg Aleida Roca MD Work Phone: [facility] 03-25-2022 08:59-0400 Diastolic blood pressure 70 mm[Hg] Aleida Roca MD Work Phone: [facility] 03-25-2022 08:59-0400 Heart rate 68 /min Aleida Roca MD Work Phone: [facility] 03-25-2022 08:59-0400 Respiratory rate 18 /min Aleida Roca MD Work Phone: [facility] 03-25-2022 08:59-0400 SaO2% (BldA) [Mass fraction] 99 % Aleida Roca MD Work Phone: [facility] 03-25-2022 08:59-0400 Systolic blood pressure 136 mm[Hg] Aleida Roca MD Work Phone: [facility] 12-30-2021 11:01-0400 Body temperature 97.59 [degF] Wan Knight MD Work Phone: [facility] 12-30-2021 11:01-0400 Diastolic blood pressure 75 mm[Hg] Wan Knight MD Work Phone: [facility] 12-30-2021 11:01-0400 Heart rate 58 /min Wan Knight MD Work Phone: [facility] 12-30-2021 11:01-0400 Respiratory rate 14 /min Wan Knight MD Work Phone: [facility] 12-30-2021 11:01-0400 SaO2% (BldA) [Mass fraction] 99 % Wan Knight MD Work Phone: [facility] 12-30-2021 11:01-0400 Systolic blood pressure 125 mm[Hg] Wan Knight MD Work Phone: [facility] Encounters Encounter Date Encounter Type Care Provider Facility Start: 08-07-2023 End: 08-07-2023 ambulatory CATERINA GARCIA Facility:[facility] Start: 07-26-2023 Documentation procedure Mammog luis Coordinator [facility] Start: 07-26-2023 Letter encounter Mammography Coordinator [facility] Department Start: 07-25-2023 ambulatory WAN KNIGHT Facility :[facility] Start: 07-25-2023 End: 07-25-2023 Subsequent hospital visit by physician Screen/Diagnostic Mammo 2 [facility] Work Phone: Mammography Procedures Date Procedure Procedure Detail Performing Clinician Start: 11-18-2022 Ecg routine ecg w/le ast 12 lds w/i&r Jimi Pinondiane CRISTOBAL Work Phone: Start: 04-15-2022 Ct thorax w/o contra st material Aleida Roca MD Work Phone: Start: 04-01-2022 DEV SCREENING W MILI Mi r Brent Knight MD Work Phone: Start: 04-01-2022 Mammography [facility] Work Phone: Start: 03-24-2022 Adult depression screening assessment [facility] Work Phone: Start: 12-29-2021 Adult depression screening assessment Wan Knight MD Work Phone: Start: 03-19-2021 Mammography Wan Knight MD Work Phone: Start: 10-05-2020 Lipid 1996 panel - Serum or Plasma [facility] Work Phone: Start: 12-05-2018 Colonoscopy Wan Knight MD Work Phone: Start: 04-27-2017 History of placement of stent for coronary artery disease S/P primary angioplasty with coronary stent Wan Knight MD Work Phone: History of placement of stent for coronary artery disease S/P primary angioplasty with coronary stent Haseeb Ibanez MD Work Phone: Plan of Treatment Date Care Activity Detail Author Start: 10-23-2029 Urine microalbumin profile [facility] Start: 10-05-2025 Lipid 1996 panel - Serum or Plasma Lipid Screening [facility] Start: 10-05-2025 LIPID SCREEN LIPID SCREEN [facility] Start: 12-30-2024 DIABETES SCREEN DIABETES SCREEN [facility] Start: 12-30-2024 Diabetes Screening Diabetes Screening [facility] Start: 04-01-2024 Mammography MAMMOGRAM [facility] Start: 07-14-2023 End: 09-13-2023 CBC W Auto Differential panel - Blood CBC + DIFF Lab Routine Malignant neoplasm of left breast in female, estrogen receptor positive, unspecified site of breast (HCC) Encounter for screening for osteoporosis Expected: 07/14/2023, Expires: 09/13/2023 [facility] Work Phone: Immunizations Immunization Date Immunization Notes Care Provider Fa cility 06-14-2021 influenza virus vacc ine, unspecified formulation Wan Knight MD Work Phone: [facility] 06-19-2020 influenza, injectabl e, quadrivalent, contains preservative Wan Knight MD Work Phone: [facility] 10-23-2019 tetanus toxoid, redu gill diphtheria toxoid, and acellular pertussis vaccine, adsorbed Wan Knight MD Work Phone: [facility] 09-27-2017 influenza, high dose seasonal, preservative-free Wan Knight MD Work Phone: [facility] 08-29-2016 influenza, seasonal, injectable, preservative free Wan Knight MD Work Phone: [facility] 08-18-2015 influenza, seasonal, injectable, preservative free Wan Knight MD Work Phone: [facility] 08-18-2015 pneumococcal conjuga te vaccine, 13 valent Wan Knight MD Work Phone: [facility] 08-07-2014 influenza, seasonal, injectable Wan Knight MD Work Phone: [facility] 08-26-2013 pneumococcal polysaccharide vaccine, 23 valent Wan Knight MD Work Phone: [facility] 12-07-2007 tetanus and diphther ia toxoids, adsorbed, preservative free, for adult use (2 Lf of tetanus toxoid and 2 Lf of diphtheria toxoid) Wan Knight MD Work Phone: [facility] Payers Date Payer Category Payer Private Health Insurance [facility] AARP SUPPLEMENT [id number] 2018-Present [phone] [address] [place] [address] Indemnity [id number] 2018 Private Health Insurance [facility] A[employer] SUPPLEMENT [id number] 2018-Present [phone] [address] [place] [address] Indemnity [id number] 2018 Unknown [id number] 2013 Medicare MEDICARE MEDICAR E A AND B [id number] 2013-Present [phone] [place] [address] Medicare [id number] 2013 Medicare MEDICARE MEDICAR E A AND B [id number] 2013-Present [phone] [place] [address] Medicare [id number] 2013 Medicare [id number] Medicare [id number] Social History Date Type Detail Facility Start: 03-27-2017 End: 09-21-2022 Tobacco smoking status NHIS Ex-smoker [facility] End: 03-27-1989 History of tobacco use Current smoker [facility] End: 03-27-1989 History of tobacco use Cigarette Smoker [facility] Start: 03-27-2017 End: 07-25-2023 Cigarettes smoked current (pack per day) - Reported 1 [facility] Start: 03-27-2017 End: 09-21-2022 Tobacco use and exposure Smokeless tobacco non-user [facility] Start: 09-07-2020 End: 11-18-2022 Alcohol intake Current non-drinker of alcohol (finding) [facility] Start: 1950 Sex Assigned At Not on file C [facility] Start: 12-20-2021 End: 04-15-2022 Exposure to SARS-CoV-2 (event) Not sure [facility] Start: 11-18-2022 End: 07-25-2023 Tobacco use panel [facility] Adult Depression Scr eening Assessment 0 [facility] Clinical Notes 12-06-2018 to 09-02-2023 Letter - Coordinator, Mammography - 07/26/2023 9:39 PM EDTTelephone Encounter - Jimi Morse APRN.JOAN - 11/18/2022 10:30 AM Radha Morse APRN.BLOOD BANK CALENDAR CONTROL CLERK - 11/18/2022 10:00 AM ESTPatient Instructions Note Date & Type Note Facility 09-02-2023 Note HNO ID: [id number] Author: Wan Knight MD Service: ? Author Type: Physician Type: Progress Notes Filed: 09/02/2023 9:21 AM Note Text: Part of this note is carried forward from note dictated: 11/14/22. It is appropriately updated. Melissa Mitchell is a 73 year old female a diagnosis of left-sided breast cancer. ER ND positive HER-2 negative disease. Oncotype DX score of 11. Status post mastectomy. The patient diagnosed in December 2017. She was put on a 3-month course of a aromatase inhibitor as the patient had a repeat myocardial infarction with stent placements. At that time they wanted dual antiplatelet therapy. She was taken off her antiplatelet therapy and taken for surgery. Underwent a left-sided mastectomy. She was noted to have 2 nodules 1 of them measuring 1.1 cm in size and the other measured 2.8 cm in size. The lesions were ER ND positive HER-2 negative. Oncotype DX testing from both of these lesions showed a recurrence score of 11. The patient did not get any adjuvant radiation. She was put on the aromatase inhibitor. Subsequently developed GI bleed with a drop of hemoglobin secondary to a bleeding AVM lesion that was cauterized. Then switched to tamoxifen because the Arimidex was causing vaginal dryness. She could not handle the tamoxifen because of increased vaginal discharge which she did not like. She was switched back on the aromatase inhibitor in late 2019. She has been on this tolerating it relatively well. Recently noticed to have a nodule or a growth along the lower left chest wall area. She was evaluated by my partner. No abnormality was identified on physical exam. A CAT scan of the chest was performed by the emergency room [04/15/2022]. This was personally reviewed and no abnormality identified both on the subcutaneous plane as well as no evidence of any bone lesions to suggest metastasis. The patient had a CTA dated 11/10/2022 of the chest. This was reviewed. No evidence of any bony destructive lesions. No evidence of any pulmonary nodules. No evidence of any liver metastasis. No intra-abdominal abnormality noted. Tolerating the aromatase inhibitor well. Mammogram from 07/25/2023 reviewed. Negative for any malignancy. Bone density of -1.6 as of 07/17/2023. Review Of Systems: General: Denies any fatigue. No fever, chills, night sweats, weight loss, headaches or loss of appetite. Stamina intact. HEENT/Neck: No hearing/vision changes; no pain, masses, or swelling. No evidence of sores in the mouth. Respiratory: No cough, productive sputum, hemoptysis, chest pain, shortness of breath or wheezing. Cardiovascular: No palpatations, chest pain,shotness or breath, exertional dyspnea or leg swelling. Gastrointestinal: No nausea, vomiting, dysphagia, abdominal pain,melana or hematochezia. No diahrea orconstipation. No change in the bowel habbits. Genitourinary: No dysuria, nocturia, frequency, urgency, hematuria or incontinence. Musculoskeletal: No joint or pain bone pain: No limitation of motion. No problems with the gait. Neurological: No sensory or motor abnormalities; no headaches or dizziness. Dermatologic: No rash, skin lesions or itching. Psychiatric: No sleep disturbances, mood disorders, depression, etc. Hematologic: No bleeding, bruising or echymisis. Lymphatic System: No new lymph gland enlargement or and new lumps of bumps in the body. Endocrine: No heat or cold intolerance, diabetes or other abnormalities The rest of systems reviewed and essentially unremarkable. Physical Examination: BP 132/78 Pulse 60 Temp 36.7 ?C (98.1 ?F) Wt 71.4 kg (157 lb 6.5 oz) LMP (LMP Unknown) SpO2 98% BMI 27.02 kg/m? The patient was awake alert oriented. Didn't appear to be in acute distress. HEENT: No pallor, icterus, cyanosis, oral cavity shows no evidence of mucositis, lesions, or ulcers. Trachea midline. No JVD, carotid bruit, thyromegaly, cervical lymphadenopathy or supra-infraclavicular lymphadenopathy. CVS: S1-S2 heard no S3 no murmurs or pericardial rub. No peripheral edema. Lungs: Chest wall nontender. No dullness to percussion. Clear to auscultation bilaterally. No rhonchi or rales noted. No pleural rub or at it sounds noted. Abdomen: Normal inspection, nondistended no dilated veins. Soft nontender no organomegaly. No palpable masses noted. Hem/ Lymph: No peripheral lymphadenopathy or any palpable masses. Neuro Exam: High mental functions were normal. Cranial nerves II through XII are normal. No gross abnormality noted on sensory or motor system exam. Musculoskeletal: No joint deformities noted. No evidence of synovitis, swelling or tenderness in the joints or bursitis. Skin: No evidence to suggest any bruising, ecchymosis, petechiae and symptoms of hand-foot syndrome. Breast examination. Scar of mastectomy noted along the left chest wall. No cutaneous lesions identified. No lymphadenopathy in the left axilla. (more content not included)... [facility] 08-07-2023 Note HNO ID: [id number] Author: Georgina Hernandez Ma Service: ? Author Type: ? Type: Progress Notes Filed: 09/02/2023 9:21 AM Note Text: Sign and Print RX for patient. [facility] 07-26-2023 Miscellaneous Notes July 27, 2023 PID: [id number] Melissa Mitchell [address] [place] [address] [place] [address] Dear Ms. Mitchell, We are pleased to inform you that the results of your recent breast imaging exam on 07/25/2023 are normal. Your mammogram demonstrates that you have dense breast tissue, which could hide abnormalities. Dense breast tissue, in and of itself, is a relatively common condition. Therefore, this information is not provided to cause undue concern; rather, it is to raise your awareness and promote discussion with your health care provider regarding the presence of dense breast tissue in addition to other risk factors. Early detection of cancer is very important. We also understand recommendations regarding breast cancer screening are controversial. Please discuss with your primary care provider which strategy is best for you and whether a mammogram is right for you. Your imaging studies and report will be kept on file at [facility] as part of your permanent medical record and are available for your continuing care. Thank you for allowing us to help in meeting your health care needs. Sincerely, Dr. Gross Interpreting Radiologist [facility] (Normal over 40) documented in this encounter [facility] 07-17-2023 Note HNO ID: [id number] Author: Karly Gunn CT Service: Radiology Author Type: Technologist Type: Progress Notes Filed: 07/17/2023 8:39 AM Note Text: Radiology Service Progress Note PATIENT NAME: Melissa Mitchell DATE OF SERVICE: July 17, 2023 TIME: 8:39 AM PATIENT IDENTITY VERIFICATION COMPLETED USING TWO (2) IDENTIFIERS: Name and Date of confirmed by patient verbally. FALL SCREENING: Has the patient had 2 falls in the last year or 1 fall with injury or currently using an Ambulatory Assistive Device (Walker, Cane, Wheelchair, Crutches, etc.)? No PATIENT GENDER DATA: Female. status: : No status: NO. PATIENT RELEVANT IMPLANT DATA REVIEWED: Not Applicable RADIOLOGY DEPARTMENT: Bone Density PERIPHERAL IV DATA: Not applicable SIGNED BY: CHRISTINA Yoon July 17, 2023 8:39 AM [facility] 11-18-2022 Note HNO ID: [id number] Author: Jimi Morse APRN.JOAN Service: ? Author Type: Nurse Practitioner Type: Progress Notes Filed: 11/18/2022 10:29 AM Note Text: [facility] General Cardiology Electrophysiology PRIMARY CARE PHYSICIAN: Caterina Garcia (Jacquelyn) [phone] [phone] CHIEF COMPLAINT: History and physical update for PVI on 11/[address] Ibanez. HISTORY OF PRESENT ILLNESS (copied from Dr. Ibanez's office note on 09/21/2022): Ms. Mitchell is a 72 year old female who presents today to establish care with EP clinic at [facility] [facility]. 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 She was started on eliquis and amiodarone at this time. She had an echocardiogram prior to this which demonstrated a normal ejection fraction of 60% and a Holter monitor demonstrated 8.9% A. fib burden. She has not had any breakthrough episodes of atrial fibrillation while on the amiodarone. She however continues to complain of shortness of breath with exertion, mostly while climbing stairs or with moderate exertion. She is using an oral device for sleep apnea. She had a recent discussion with her seo engineer, she has decided to proceed to ablation with the goal of getting off amiodarone. She reports a cough that has been bothering her for the last 9 days and she is supposed to get imaging and PFT for further evaluation. She did have a inferior wall STEMI in March 2017 and had a PCI of her left circumflex. She also has a history of left-sided breast carcinoma and had a left-sided mastectomy and remains on aromatase inhibitor. She denies chest pain, orthopnea, edema, palpitations, PND, lightheadedness or syncope. I have confirmed and edited as necessary, the PFSH and ROS obtained by others. Interval History: Melissa is a pleasant 72-year-old female who presents today for history and physical update prior to PVI on 11/21/[address] Ibanez. Patient reports overall she has felt quite well. She denies any episodes of AF. Previously her amiodarone was reduced to 100 mg daily. She is also compliant with her Lopressor and Eliquis. She wears a mouthguard for SNEHA. Twelve-lead performed in office showed normal sinus rhythm with a ventricular rate of 65. Upon discussing overview of procedure patient inquired if she could come off of her Eliquis after the PVI. I informed her that it is normal for us to keep patients on their medications after an ablation. Specifically mentioned she is a [id number] of 3 secondary to age, NV, and gender. Discussed importance of remaining on Eliquis secondary to stroke prevention. Patient appeared to become frustrated. She indicated she saw no point in having ablation if she cannot come off of her medications. Despite reiterating several times that undergoing PVI would make her less likely to go out of rhythm long-term patient indicated she was no longer interested. Patient was not receptive and indicated she no longer wanted to have the procedure done. She is requesting attending reach out to her personally to discuss. 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 use of blood thinners 2017 on Plavix NV 03/2017 off 09/26 Hypercholesteremia Hypothyroid Migraine, intractable SNEHA (obstructive sleep apnea) Osteopenia Sleep apnea with use of continuous positive airway pressure (CPAP) Venous insufficiency PAST SURGICAL HISTORY Procedure Laterality Date COLONOSCOPY 2018 no polyps previous one due 2017 but had NV not completed ([facility]) LAPAROSCOPIC TUBAL LIGATION/RING/CLIP Bilateral 1980 MAMMOTOME BIOPSY LEFT Left 12/25/2017 MASTECTOMY HX Left 03/19/2018 NEUROPLASTY AND/TRANSPOS MEDIAN NRV CARPAL TUNNE Bilateral 1993 OSTECTOMY CALCANEUS SPUR W/WO PLNTAR FASCIAL RLS Bilateral REVISE MEDIAN N/CARPAL TUNNEL SURG STENT - CORONARY 03/22/2017 100% blockage, w clot visible, cath'd on mar 22. TONSILLECTOMY HX Childhood Social History Tobacco Use Smoking status: Former Packs/day: 1.00 Years: 15.00 Pack years: 15.00 Types: Cigarettes Quit date: 03/27/1989 Years since quittin.6 Smokeless tobacco: Never Vaping Use Vaping Use: Never used Substance Use Topics Alcohol use: No Drug use: No Family History Problem Relation Age of Onse (more content not included)... [facility] 11-18-2022 Miscellaneous Notes Please see my note from 11/18/2022. Upon reviewing procedure patient became frustrated upon learning that she would have to remain on her medications including her Eliquis. I attempted to reason. Explained that she is a [id number] of 3 and this warrants oral anticoagulation. I advised her it is standard protocol to keep patients on their medications post PVI. Advised her the one we would likely stop eventually being amiodarone. Despite several attempts patient became frustrated and voiced that she did not want to have the ablation since she could not come off of her medications. She is requesting a call from attending. Thanks, Jimi Morse APRN.[employer] BANK CALENDAR CONTROL CLERK November 18, 2022 10:31 AM documented in this encounter [facility] 11-18-2022 History of Present illness Narrative [facility] General Cardiology Electrophysiology PRIMARY CARE PHYSICIAN: Caterina Garcia ([facility]) [address] [place] [address] CHIEF COMPLAINT: History and physical update for PVI on 11/[address] Ibanez. HISTORY OF PRESENT ILLNESS (copied from Dr. Ibanez's office note on 09/21/2022): Ms. Mitchell is a 72 year old female who presents today to establish care with EP clinic at [facility]. 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 She was started on eliquis and amiodarone at this time. She had an echocardiogram prior to this which demonstrated a normal ejection fraction of 60% and a Holter monitor demonstrated 8.9% A. fib burden. She has not had any breakthrough episodes of atrial fibrillation while on the amiodarone. She however continues to complain of shortness of breath with exertion, mostly while climbing stairs or with moderate exertion. She is using an oral device for sleep apnea. She had a recent discussion with her seo engineer, she has decided to proceed to ablation with the goal of getting off amiodarone. She reports a cough that has been bothering her for the last 9 days and she is supposed to get imaging and PFT for further evaluation. She did have a inferior wall STEMI in March 2017 and had a PCI of her left circumflex. She also has a history of left-sided breast carcinoma and had a left-sided mastectomy and remains on aromatase inhibitor. She denies chest pain, orthopnea, edema, palpitations, PND, lightheadedness or syncope. I have confirmed and edited as necessary, the PFSH and ROS obtained by others. Interval History: Melissa is a pleasant 72-year-old female who presents today for history and physical update prior to PVI on 11/21/[address] Ibanez. Patient reports overall she has felt quite well. She denies any episodes of AF. Previously her amiodarone was reduced to 100 mg daily. She is also compliant with her Lopressor and Eliquis. She wears a mouthguard for SNEHA. Twelve-lead performed in office showed normal sinus rhythm with a ventricular rate of 65. Upon discussing overview of procedure patient inquired if she could come off of her Eliquis after the PVI. I informed her that it is normal for us to keep patients on their medications after an ablation. Specifically mentioned she is a [id number] of 3 secondary to age, NV, and gender. Discussed importance of remaining on Eliquis secondary to stroke prevention. Patient appeared to become frustrated. She indicated she saw no point in having ablation if she cannot come off of her medications. Despite reiterating several times that undergoing PVI would make her less likely to go out of rhythm long-term patient indicated she was no longer interested. Patient was not receptive and indicated she no longer wanted to have the procedure done. She is requesting attending reach out to her personally to discuss. 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 use of blood thinners 2017 on Plavix NV 03/2017 off 09/26 Hypercholesteremia Hypothyroid Migraine, intractable SNEHA (obstructive sleep apnea) Osteopenia Sleep apnea with use of continuous positive airway pressure (CPAP) Venous insufficiency PAST SURGICAL HISTORY Procedure Laterality Date COLONOSCOPY 2018 no polyps previous one due 2017 but had NV not completed ([facility]) LAPAROSCOPIC TUBAL LIGATION/RING/CLIP Bilateral 1980 MAMMOTOME BIOPSY LEFT Left 12/25/2017 MASTECTOMY HX Left 03/19/2018 NEUROPLASTY &/TRANSPOS MEDIAN NRV CARPAL TUNNE Bilateral 1993 OSTECTOMY CALCANEUS SPUR W/WO PLNTAR FASCIAL RLS Bilateral REVISE MEDIAN N/CARPAL TUNNEL SURG STENT - CORONARY 03/22/2017 100% blockage, w clot visible, cath'd on mar 22. TONSILLECTOMY HX Childhood Social History Tobacco Use Smoking status: Former Packs/day: 1.00 Years: 15.00 Pack years: 15.00 Types: Cigarettes Quit date: 03/27/1989 Years since quittin.6 Smokeless tobacco: Never Vaping Use Vaping Use: Never used Substance Use Topics Alcohol use: No Drug use: No Family History Problem Relation Age of Onset Coronary Artery Disease Sister 54 [id number] Coronary Artery Disease Brother 47 fatal NV at 47 Alzheimer's Disease Mother age 81 Ischemic Heart Disease Father age 67 (NV) Coronary Artery Disease Brother 47 fatal NV at 47 Cervical Cancer No Family History Ovarian cancer No Family History Uterine Cancer No Family History Colon Cancer No Family History Pancreatic Cancer No Family History Prostate Cancer No Family History ALLERGIES Allergen Reactions Iodine Itching MEDICATIONS: MULTI-VITAMIN ORAL Take by mouth once daily. anastrozole (ARIMIDEX) 1 mg tablet Take 1 tablet by mouth once daily. pantoprazole DR (PROTONIX) 40 mg tablet Take 1 tablet by mouth once daily. amiodarone (PACERONE) 200 mg tablet Take 200 mg by mouth once daily. ELIQUIS 5 mg tab(s) Take 5 mg by mouth twice daily. metoprolol tartrate, short acting, (LOPRESSOR) 25 mg tablet Take 25 mg by mouth twice daily. ezetimibe (ZETIA) 10 mg tablet Take 1 tablet by mouth once daily. levothyroxine (SYNTHROID) 100 mcg tablet Take 1 tablet by mouth DAILY (6 AM). atorvastatin (LIPITOR) 80 mg tablet Take 1 tablet by mouth once daily. ubidecarenone (COQ-10 ORAL) Take by mouth once daily. aspirin, enteric coated (ASPIR-LOW) 81 mg EC tablet Take 1 tablet by mouth once daily. REVIEW OF SYSTEMS: Review of Systems Constitutional: Negative for chills, fatigue and fever. Respiratory: Negative for apnea, cough, chest tightness, shortness of breath and wheezing. Cardiovascular: Negative for chest pain, palpitations and leg swelling. Gastrointestinal: Negative for abdominal distention, abdominal pain, constipation, diarrhea, nausea and vomiting. Genitourinary: Negative for difficulty urinating, dysuria and hematuria. Musculoskeletal: Negative for arthralgias. Neurological: Negative for dizziness, weakness, light-headedness and headaches. Psychiatric/Behavioral: Negative for agitation, behavioral problems, confusion and suicidal ideas. PHYSICAL EXAMINATION: BP 126/82 Pulse 64 Resp 18 Ht 5' 4 (1.63m) Wt 183 lb (83.0kg) SpO2 98[room air]% BMI 31.40 kg/(m^2). Physical Exam Constitutional: Appearance: Normal appearance. She is obese. Cardiovascular: Rate and Rhythm: Normal rate and regular rhythm. Pulses: Normal pulses. Radial pulses are 2+ on the right side and 2+ on the left side. Posterior tibial pulses are 2+ on the right side and 2+ on the left side. Heart sounds: Normal heart sounds, S1 normal and S2 normal. Comments: Normal sinus rhythm with a ventricular rate of 65. Pulmonary: Effort: Pulmonary effort is normal. Breath sounds: Normal breath sounds. Abdominal: General: Bowel sounds are normal. Palpations: Abdomen is soft. Musculoskeletal: Right lower leg: No edema. Left lower leg: No edema. Skin: General: Skin is warm and dry. Neurological: Mental Status: She is alert and oriented to person, place, and time. Psychiatric: Mood and Affect: Mood normal. Behavior: Behavior normal. CARDIOVASCULAR MEDICINE TESTING: EKG 09/21/2022 Sinus bradycardia with a ventricular rate of 59. ND 208. QRS 90. QT/QTc 452/447. Echo 03/05/2021 Normal LV size. Left ventricular systolic function is normal with an ejection fraction of 60%. Mild tricuspid valve insufficiency. Structurally normal valves. I have personally reviewed the EKG and echo PLAN AND RECOMMENDATIONS: ASSESSMENT/PLAN: 1. Paroxysmal atrial fibrillation (HCC) - ICD9: 427.31, ICD10: I48.0 (primary diagnosis) [id number] of 3 secondary to gender, age, and history of CAD. Current treatment regimen includes amiodarone 200 mg daily, Eliquis 5 mg twice daily, and Lopressor 25 mg twice daily. Echo from 03/05/2021 revealed an ejection fraction of 60%. 2. SNEHA (obstructive sleep apnea) - ICD9: 327.23, ICD10: G47.33 Patient wears mouthguard at night. 3. Obesity, Class I, BMI 30-34.9 - ICD9: 278.00, ICD10: E66.9 Historical BMI listed at 31.58 4. At risk for stroke - ICD9: V15.89, ICD10: Z91.89 As above. Return in about 3 months (around 02/15/2023) for Follow up with Dr. Ibanez.. Jimi Morse APRN.BLOOD BANK CALENDAR CONTROL CLERK documented in this encounter [facility] 11-18-2022 Nurse Note Patient denies any cardiac issues or symptoms. documented in this encounter [facility] 11-14-2022 Note HNO ID: [id number] Author: Wan Knight MD Service: ? Author Type: Physician Type: Progress Notes Filed: 11/14/2022 10:21 AM Note Text: Part of this note is carried forward from note dictated: 05/12/22. It is appropriately updated. Melissa Mitchell is a 70 year old female a diagnosis of left-sided breast cancer. ER ND positive HER-2 negative disease. Oncotype DX score of 11. Status post mastectomy. The patient diagnosed in December 2017. She was put on a 3-month course of a aromatase inhibitor as the patient had a repeat myocardial infarction with stent placements. At that time they wanted dual antiplatelet therapy. She was taken off her antiplatelet therapy and taken for surgery. Underwent a left-sided mastectomy. She was noted to have 2 nodules 1 of them measuring 1.1 cm in size and the other measured 2.8 cm in size. The lesions were ER ND positive HER-2 negative. Oncotype DX testing from both of these lesions showed a recurrence score of 11. The patient did not get any adjuvant radiation. She was put on the aromatase inhibitor. Subsequently developed GI bleed with a drop of hemoglobin secondary to a bleeding AVM lesion that was cauterized. Then switched to tamoxifen because the Arimidex was causing vaginal dryness. She could not handle the tamoxifen because of increased vaginal discharge which she did not like. She was switched back on the aromatase inhibitor in late 2019. She has been on this tolerating it relatively well. Recently noticed to have a nodule or a growth along the lower left chest wall area. She was evaluated by my partner. No abnormality was identified on physical exam. A CAT scan of the chest was performed by the emergency room [04/15/2022]. This was personally reviewed and no abnormality identified both on the subcutaneous plane as well as no evidence of any bone lesions to suggest metastasis. Screening mammogram dated was reviewed. Unremarkable. The patient had a CTA of the chest. This was reviewed. No evidence of any bony destructive lesions. No evidence of any pulmonary nodules. No evidence of any liver metastasis. No intra-abdominal abnormality noted. Tolerating the aromatase inhibitor well. Review Of Systems: General: Denies any fatigue. No fever, chills, night sweats, weight loss, headaches or loss of appetite. Stamina intact. HEENT/Neck: No hearing/vision changes; no pain, masses, or swelling. No evidence of sores in the mouth. Respiratory: No cough, productive sputum, hemoptysis, chest pain, shortness of breath or wheezing. Cardiovascular: No palpatations, chest pain,shotness or breath, exertional dyspnea or leg swelling. Gastrointestinal: No nausea, vomiting, dysphagia, abdominal pain,melana or hematochezia. No diahrea orconstipation. No change in the bowel habbits. Genitourinary: No dysuria, nocturia, frequency, urgency, hematuria or incontinence. Musculoskeletal: No joint or pain bone pain: No limitation of motion. No problems with the gait. Neurological: No sensory or motor abnormalities; no headaches or dizziness. Dermatologic: No rash, skin lesions or itching. Psychiatric: No sleep disturbances, mood disorders, depression, etc. Hematologic: No bleeding, bruising or echymisis. Lymphatic System: No new lymph gland enlargement or and new lumps of bumps in the body. Endocrine: No heat or cold intolerance, diabetes or other abnormalities The rest of systems reviewed and essentially unremarkable. Physical Examination: BP 133/80 Pulse 66 Resp 18 Wt 83.5 kg (184 lb) LMP (LMP Unknown) SpO2 99% BMI 31.58 kg/m? The patient was awake alert oriented. Didn't appear to be in acute distress. HEENT: No pallor, icterus, cyanosis, oral cavity shows no evidence of mucositis, lesions, or ulcers. Trachea midline. No JVD, carotid bruit, thyromegaly, cervical lymphadenopathy or supra-infraclavicular lymphadenopathy. CVS: S1-S2 heard no S3 no murmurs or pericardial rub. No peripheral edema. Lungs: Chest wall nontender. No dullness to percussion. Clear to auscultation bilaterally. No rhonchi or rales noted. No pleural rub or at it sounds noted. Abdomen: Normal inspection, nondistended no dilated veins. Soft nontender no organomegaly. No palpable masses noted. Hem/ Lymph: No peripheral lymphadenopathy or any palpable masses. Neuro Exam: High mental functions were normal. Cranial nerves II through XII are normal. No gross abnormality noted on sensory or motor system exam. Musculoskeletal: No joint deformities noted. No evidence of synovitis, swelling or tenderness in the joints or bursitis. Skin: No evidence to suggest any bruising, ecchymosis, petechiae and symptoms of hand-foot syndrome. Breast examination. Scar of mastectomy noted along the left chest wall. No cutaneous lesions. No evidence of any lymphadenopathy in the left axilla. The right breast normal inspection palpation without any evidence of right (more content not included)... [facility] 11-14-2022 Instructions Wan Brent Knight MD - 11/14/2022 10:13 AM EST BONE MINERAL DENSITY PATIENT INSTRUCTIONS ======= Bone mineral density testing measures the amount of calcium in certain parts of your bones. This information determines how strong your bones are. The test is used to detect osteoporosis, a disease in which the bone's mineral content and density are low, increasing a person's risk of fractures. The lumbar spine (lower back) and the hip are the skeletal sites usually examined. For the test, remember that: 1. You cannot take this test if you are . 2. Eat a normal diet on the day of the test. 3. Take your medications as you normally would. 4. DO NOT take calcium supplements (such as Tums) for 24 hours before the test. 5. On the day of the test, leave valuables (jewelry or credit cards) at home. 6. The test should be performed prior to oral, rectal or IV contrast studies, or at least 7 days after any of these studies. For the test, you may be asked to wear a hospital gown. You will lie on your back, on a padded table, in a comfortable position. Generally, you can resume your usual activities immediately. documented in this encounter [facility] 11-14-2022 History of Present illness Narrative Part of this note is carried forward from note dictated: 05/12/22. It is appropriately updated. Melissa Mitchell is a 70 year old female a diagnosis of left-sided breast cancer. ER ND positive HER-2 negative disease. Oncotype DX score of 11. Status post mastectomy. The patient diagnosed in December 2017. She was put on a 3-month course of a aromatase inhibitor as the patient had a repeat myocardial infarction with stent placements. At that time they wanted dual antiplatelet therapy. She was taken off her antiplatelet therapy and taken for surgery. Underwent a left-sided mastectomy. She was noted to have 2 nodules 1 of them measuring 1.1 cm in size and the other measured 2.8 cm in size. The lesions were ER ND positive HER-2 negative. Oncotype DX testing from both of these lesions showed a recurrence score of 11. The patient did not get any adjuvant radiation. She was put on the aromatase inhibitor. Subsequently developed GI bleed with a drop of hemoglobin secondary to a bleeding AVM lesion that was cauterized. Then switched to tamoxifen because the Arimidex was causing vaginal dryness. She could not handle the tamoxifen because of increased vaginal discharge which she did not like. She was switched back on the aromatase inhibitor in late 2019. She has been on this tolerating it relatively well. Recently noticed to have a nodule or a growth along the lower left chest wall area. She was evaluated by my partner. No abnormality was identified on physical exam. A CAT scan of the chest was performed by the emergency room [04/15/2022]. This was personally reviewed and no abnormality identified both on the subcutaneous plane as well as no evidence of any bone lesions to suggest metastasis. Screening mammogram dated was reviewed. Unremarkable. The patient had a CTA of the chest. This was reviewed. No evidence of any bony destructive lesions. No evidence of any pulmonary nodules. No evidence of any liver metastasis. No intra-abdominal abnormality noted. Tolerating the aromatase inhibitor well. Review Of Systems: General: Denies any fatigue. No fever, chills, night sweats, weight loss, headaches or loss of appetite. Stamina intact. HEENT/Neck: No hearing/vision changes; no pain, masses, or swelling. No evidence of sores in the mouth. Respiratory: No cough, productive sputum, hemoptysis, chest pain, shortness of breath or wheezing. Cardiovascular: No palpatations, chest pain,shotness or breath, exertional dyspnea or leg swelling. Gastrointestinal: No nausea, vomiting, dysphagia, abdominal pain,melana or hematochezia. No diahrea orconstipation. No change in the bowel habbits. Genitourinary: No dysuria, nocturia, frequency, urgency, hematuria or incontinence. Musculoskeletal: No joint or pain bone pain: No limitation of motion. No problems with the gait. Neurological: No sensory or motor abnormalities; no headaches or dizziness. Dermatologic: No rash, skin lesions or itching. Psychiatric: No sleep disturbances, mood disorders, depression, etc. Hematologic: No bleeding, bruising or echymisis. Lymphatic System: No new lymph gland enlargement or and new lumps of bumps in the body. Endocrine: No heat or cold intolerance, diabetes or other abnormalities The rest of systems reviewed and essentially unremarkable. Physical Examination: BP 133/80 Pulse 66 Resp 18 Wt 83.5 kg (184 lb) LMP (LMP Unknown) SpO2 99% BMI 31.58 kg/m The patient was awake alert oriented. Didn't appear to be in acute distress. HEENT: No pallor, icterus, cyanosis, oral cavity shows no evidence of mucositis, lesions, or ulcers. Trachea midline. No JVD, carotid bruit, thyromegaly, cervical lymphadenopathy or supra-infraclavicular lymphadenopathy. CVS: S1-S2 heard no S3 no murmurs or pericardial rub. No peripheral edema. Lungs: Chest wall nontender. No dullness to percussion. Clear to auscultation bilaterally. No rhonchi or rales noted. No pleural rub or at it sounds noted. Abdomen: Normal inspection, nondistended no dilated veins. Soft nontender no organomegaly. No palpable masses noted. Hem/ Lymph: No peripheral lymphadenopathy or any palpable masses. Neuro Exam: High mental functions were normal. Cranial nerves II through XII are normal. No gross abnormality noted on sensory or motor system exam. Musculoskeletal: No joint deformities noted. No evidence of synovitis, swelling or tenderness in the joints or bursitis. Skin: No evidence to suggest any bruising, ecchymosis, petechiae and symptoms of hand-foot syndrome. Breast examination. Scar of mastectomy noted along the left chest wall. No cutaneous lesions. No evidence of any lymphadenopathy in the left axilla. The right breast normal inspection palpation without any evidence of right axillary lymphadenopathy. Labs: DATA: Diagnostic tests reviewed for today's visit: Most recent labs and imaging results. CBC: WBC (k/uL) Date Value 12/30/2021 7.20 07/01/2021 7.76 RBC (m/uL) Date Value 12/30/2021 3.86 07/01/2021 4.13 Hemoglobin (g/dL) Date Value 12/30/2021 11.8 07/01/2021 12.3 Hematocrit (%) Date Value 12/30/2021 36.7 07/01/2021 37.8 Platelet Count (k/uL) Date Value 12/30/2021 213 07/01/2021 229 MCV (fL) Date Value 12/30/2021 95.1 07/01/2021 91.5 MCH Date Value 12/30/2021 30.6 pg 07/01/2021 29.8 pG MPV (fL) Date Value 12/30/2021 9.8 07/01/2021 9.5 CMP: Sodium (mmol/L) Date Value 12/30/2021 138 07/01/2021 139 Chloride (mmol/L) Date Value 12/30/2021 104 07/01/2021 104 CO2 (mmol/L) Date Value 12/30/2021 25 07/01/2021 23 BUN (mg/dL) Date Value 12/30/2021 14 07/01/2021 18 Creatinine (mg/dL) Date Value 12/30/2021 1.06 07/01/2021 1.12 Glucose (mg/dL) Date Value 12/30/2021 123 07/01/2021 94 Protein, Total (g/dL) Date Value 12/30/2021 6.8 07/01/2021 7.2 Calcium (mg/dL) Date Value 07/01/2021 9.5 Calcium, Total (mg/dL) Date Value 12/30/2021 9.5 Magnesium (mg/dL) Date Value 03/28/2017 2.1 Bilirubin, Total (mg/dL) Date Value 12/30/2021 0.5 07/01/2021 0.9 Alkaline Phosphatase (U/L) Date Value 12/30/2021 95 07/01/2021 74 ALT (U/L) Date Value 12/30/2021 31 07/01/2021 23 AST (U/L) Date Value 12/30/2021 32 07/01/2021 26 Anion Gap (mmol/L) Date Value 12/30/2021 9 07/01/2021 12 Imaging Studies: Reviewed Assessment: 1. 72 year old female with a diagnosis of a left-sided breast cancer. T2 disease. Largest lesion 2.8 cm in size. Total of 2 of them noted. ER/ND positive HER2 negative disease. Oncotype DX score of 11. S/p neoadjuvant aromatase inhibitor for 3 months followed by surgery followed by continuation of antiestrogen therapy. 2. The patient doing relatively well. Scans reviewed. No abnormality noted along the ribs. No abnormality within the chest abdomen or pelvis. Repeat bone density and blood work along with a mammogram on her next visit. Wan Knight MD documented in this encounter [facility] 11-03-2022 Miscellaneous Notes Pt's name has been added to waters procedure board. Monique Bro RN Patient is scheduled for a PVAI Ablation on 11/[address] Ibanez. The hospital will call the day before between 2-5pm with your arrival time. Patient should not eat or drink after midnight the day before the procedure. Patient will need a shuttle truck driver when released from the hospital. You will stay overnight for observation. Patient should continue to take medications as prescribed the morning of the procedure with just a sip of water unless otherwise instructed. H&P update on 11/18 at 10am with Jimi Morse. Spoke with patient and she verbalized understanding of all instructions Meghann Coles documented in this encounter [facility] 09-27-2022 Miscellaneous Notes Patient needs Chest CT (already ordered) complete prior to procedure. Kathryn Houston Patient is scheduled for Complete EPS & PVI Ablation on 10/13/[address] Ibanez. The hospital will call the day before between 2-5pm with your arrival time. Patient should not eat or drink after midnight the day before the procedure. Patient will need a shuttle truck driver when released from the hospital. You will stay overnight for observation. Patient should continue to take medications as prescribed the morning of the procedure with just a sip of water unless otherwise instructed. LVM for patient to return call to confirm. Kathryn Houston documented in this encounter [facility] 09-21-2022 Note HNO ID: [id number] Author: Haseeb Ibanez MD Service: ? Author Type: Physician Type: Progress Notes Filed: 09/21/2022 4:27 PM Note Text: PRIMARY CARE PHYSICIAN: To use this Smartlink, specify the provider ID whose address you want to display, e.g., .[email or web address][1 (where 1 is the provider ID). REFERRING PHYSICIAN: SELF Patient Care Team: Caterina Garcia MD as PCP - General (Internal Medicine) Dwight Vera as Physician (Radiation Oncology) CHIEF COMPLAINT: Paroxysmal AF HISTORY OF PRESENT ILLNESS: Ms. Mitchell is a 72 year old female who presents today to establish care with EP clinic at [facility]. 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 She was started on eliquis and amiodarone at this time. She had an echocardiogram prior to this which demonstrated a normal ejection fraction of 60% and a Holter monitor demonstrated 8.9% A. fib burden. She has not had any breakthrough episodes of atrial fibrillation while on the amiodarone. She however continues to complain of shortness of breath with exertion, mostly while climbing stairs or with moderate exertion. She is using an oral device for sleep apnea. She had a recent discussion with her seo engineer, she has decided to proceed to ablation with the goal of getting off amiodarone. She reports a cough that has been bothering her for the last 9 days and she is supposed to get imaging and PFT for further evaluation. She did have a inferior wall STEMI in March 2017 and had a PCI of her left circumflex. She also has a history of left-sided breast carcinoma and had a left-sided mastectomy and remains on aromatase inhibitor. She denies chest pain, orthopnea, edema, palpitations, PND, lightheadedness or syncope. I have confirmed and edited as necessary, the PFSH and ROS obtained by others. 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 use of blood thinners 2017 on Plavix NV 03/2017 off 09/26 Hypercholesteremia Hypothyroid Migraine, intractable SNEHA (obstructive sleep apnea) Osteopenia Sleep apnea with use of continuous positive airway pressure (CPAP) Venous insufficiency PAST SURGICAL HISTORY Procedure Laterality Date COLONOSCOPY 2018 no polyps previous one due 2017 but had NV not completed (Latesha) LAPAROSCOPIC TUBAL LIGATION/RING/CLIP Bilateral 1980 MAMMOTOME BIOPSY LEFT Left 12/25/2017 MASTECTOMY HX Left 03/19/2018 NEUROPLASTY AND/TRANSPOS MEDIAN NRV CARPAL TUNNE Bilateral 1993 OSTECTOMY CALCANEUS SPUR W/WO PLNTAR FASCIAL RLS Bilateral REVISE MEDIAN N/CARPAL TUNNEL SURG STENT - CORONARY 03/22/2017 100% blockage, w clot visible, cath'd on mar 22. TONSILLECTOMY HX Childhood SOCIAL HISTORY Social History Tobacco Use Smoking status: Former Packs/day: 1.00 Years: 15.00 Pack years: 15.00 Types: Cigarettes Quit date: 03/27/1989 Years since quittin.5 Smokeless tobacco: Never Vaping Use Vaping Use: Never used Substance Use Topics Alcohol use: No Drug use: No FAMILY HISTORY Problem Relation Age of Onset Coronary Artery Disease Sister 54 [id number] Coronary Artery Disease Brother 47 fatal NV at 47 Alzheimer's Disease Mother age 81 Ischemic Heart Disease Father age 67 (NV) Coronary Artery Disease Brother 47 fatal NV at 47 Cervical Cancer No Family History Ovarian cancer No Family History Uterine Cancer No Family History Colon Cancer No Family History Pancreatic Cancer No Family History Prostate Cancer No Family History ALLERGIES: ALLERGIES Allergen Reactions Iodine Itching MEDICATIONS: anastrozole (ARIMIDEX) 1 mg tablet Take 1 tablet by mouth once daily. ELIQUIS 5 mg tab(s) Take 5 mg by mouth twice daily. metoprolol tartrate, short acting, (LOPRESSOR) 25 mg tablet Take 25 mg by mouth twice daily. ezetimibe (ZETIA) 10 mg tablet Take 1 tablet by mouth once daily. levothyroxine (SYNTHROID) 100 mcg tablet Take 1 tablet by mouth DAILY (6 AM). atorvastatin (LIPITOR) 80 mg tablet Take 1 tablet by mouth once daily. ubidecarenone (COQ-10 ORAL) Take by mouth once daily. aspirin, enteric coated (ASPIR-LOW) 81 mg EC tablet Take 1 tablet by mouth once daily. pantoprazole DR (PROTONIX) 40 mg tablet Take 1 tablet by mouth once daily. amiodarone (PACERONE) 200 mg tablet Take 200 mg by mouth once daily. REVIEW OF SYSTEMS: GENERAL: Negati (more content not included)... [facility] 09-21-2022 Instructions Haseeb Ibanez MD - 09/21/2022 8:50 AM EST Atrial Fibrillation What is atrial fibrillation? Atrial fibrillation (also called A-fib) is a fast or irregular heartbeat that starts in the upper chambers of the heart. The abnormal heartbeat affects the ability of the heart to pump blood to the rest of the body. What is the cause? An electrical signal in your heart starts each heartbeat, causing the heart muscle to squeeze (contract). Normally, this signal starts in the upper right chamber of the heart (the right atrium) at a place called the sinus node. The signal then follows normal pathways to the upper left atrium and to the lower chambers of the heart (the ventricles). When you have atrial fibrillation, electrical signals don t start in the normal place in the right atrium and don t travel normally. This can cause the upper chambers of the heart (atria) to beat very fast and not in a normal pattern. Common causes of heart rhythm problems are conditions that damage the heart, like coronary artery disease, heart attack, or heart failure. Problems with the heart valves are another common cause. The heart has 4 valves that open and close with each heartbeat to help blood flow in the right direction through the heart. Other causes of atrial fibrillation include: Health problems, such as a stroke, lung disease, diabetes, overactive thyroid gland, or high blood pressure Abuse of alcohol or drugs, such as cocaine Sometimes no cause can be found. What are the symptoms? Some people don t have any symptoms. When atrial fibrillation does cause symptoms, the most common ones are: Feeling like your heart is beating too fast or too hard or skipping beats or fluttering Feeling tired or weak all the time Symptoms that are more serious include: Chest pain Trouble breathing Lightheadedness or dizziness Confusion How is it diagnosed? Your healthcare provider will ask about your symptoms and medical history and examine you. Tests may include: An ECG (also called an EKG), which measures and records your heartbeat. You may have an ECG while you are resting or while you exercise on a treadmill. You may also be asked to wear a small portable ECG monitor for a few days or sometimes a couple weeks. Blood tests An echocardiogram, which uses sound waves (ultrasound) to show the structures of the heart, like the valves How is it treated? The goal of treatment is to help the heart keep a normal rhythm. Your treatment depends on the cause of the atrial fibrillation, how often you have symptoms, and the severity of your symptoms. If you have no symptoms, or your symptoms are fairly mild, you may not need treatment. For some people atrial fibrillation lasts just a short time and the heart goes back to a normal rhythm on its own. If you keep having spells of atrial fibrillation, treatment may help keep you from having so many spells. If a health problem like a leaky heart valve is causing the atrial fibrillation, treating the health problem may also treat the fast or irregular heartbeat. Other possible treatments are: Medicine: Your provider may prescribe medicine to slow or restore a normal heart rate and rhythm. You may also need medicine to prevent blood clots because when the heart beats irregularly, some of the blood can stay in the upper chambers too long. This makes it easier for blood clots to form, increasing your risk of having a stroke or heart attack. Electrical cardioversion: First, you will be given medicine called anesthesia to keep you from feeling pain during the procedure. Then your chest will be given an electrical shock. The electrical shock should make your heart start beating normally again. You may need medicine to keep your heart rhythm normal after this procedure. Ablation: Ablation is a procedure that uses a small tube called a catheter to deliver energy to the inside of the heart. The energy (usually radio waves) scars small areas of heart tissue. The scars block abnormal electrical pathways and help you have a normal heart rhythm. With some types of ablation treatment, you will also need a pacemaker. A pacemaker is an electronic device put under the skin of your chest to help control the heartbeat. How can I take care of myself? Take your medicines as prescribed. Keep your appointments for follow-up blood tests. Make sure your healthcare provider knows about changes in your diet or medical condition. Your provider also needs to know about all prescription and nonprescription medicines, herbs, or supplements that you are taking. Some medicines may interact with your heart medicine or increase your risk for atrial fibrillation. If you want to drink alcohol, ask your provider how much is safe for you to drink. Follow your healthcare provider's instructions. Ask your provider: ?How and when you will hear your test results ?How long it will take to recover ?What activities you should avoid and when you can return to your normal activities ?How to take care of yourself at home ?What symptoms or problems you should watch for and what to do if you have them Make sure you know when you should come back for a checkup. How can I help prevent atrial fibrillation? The best prevention is to have a heart-healthy lifestyle. Keep a healthy weight. Eat a healthy diet that is low in sodium and saturated and trans fat. Stay fit with the right kind of exercise for you. Decrease stress. Don t smoke. Limit your use of alcohol. If you have heart disease or high blood pressure, follow your healthcare provider's instructions for treatment. Developed by [employer]. Published by [employer]. Copyright 2014 [employer] and/or one of its subsidiaries. All rights reserved. documented in this encounter [facility] 09-21-2022 History of Present illness Narrative Images from the original note were not included. PRIMARY CARE PHYSICIAN: To use this Smartlink, specify the provider ID whose address you want to display, e.g., .PROVADDR[1 (where 1 is the provider ID). REFERRING PHYSICIAN: SELF Patient Care Team: Caterina Garcia MD as PCP - General (Internal Medicine) Dwight Vera as Physician (Radiation Oncology) CHIEF COMPLAINT: Paroxysmal AF HISTORY OF PRESENT ILLNESS: Ms. Mitchell is a 72 year old female who presents today to establish care with EP clinic at [facility]. 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 She was started on eliquis and amiodarone at this time. She had an echocardiogram prior to this which demonstrated a normal ejection fraction of 60% and a Holter monitor demonstrated 8.9% A. fib burden. She has not had any breakthrough episodes of atrial fibrillation while on the amiodarone. She however continues to complain of shortness of breath with exertion, mostly while climbing stairs or with moderate exertion. She is using an oral device for sleep apnea. She had a recent discussion with her seo engineer, she has decided to proceed to ablation with the goal of getting off amiodarone. She reports a cough that has been bothering her for the last 9 days and she is supposed to get imaging and PFT for further evaluation. She did have a inferior wall STEMI in March 2017 and had a PCI of her left circumflex. She also has a history of left-sided breast carcinoma and had a left-sided mastectomy and remains on aromatase inhibitor. She denies chest pain, orthopnea, edema, palpitations, PND, lightheadedness or syncope. I have confirmed and edited as necessary, the PFSH and ROS obtained by others. 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 use of blood thinners 2017 on Plavix NV 03/2017 off 09/26 Hypercholesteremia Hypothyroid Migraine, intractable SNEHA (obstructive sleep apnea) Osteopenia Sleep apnea with use of continuous positive airway pressure (CPAP) Venous insufficiency PAST SURGICAL HISTORY Procedure Laterality Date COLONOSCOPY 2018 no polyps previous one due 2017 but had NV not completed (Latesha) LAPAROSCOPIC TUBAL LIGATION/RING/CLIP Bilateral 1980 MAMMOTOME BIOPSY LEFT Left 12/25/2017 MASTECTOMY HX Left 03/19/2018 NEUROPLASTY &/TRANSPOS MEDIAN NRV CARPAL TUNNE Bilateral 1993 OSTECTOMY CALCANEUS SPUR W/WO PLNTAR FASCIAL RLS Bilateral REVISE MEDIAN N/CARPAL TUNNEL SURG STENT - CORONARY 03/22/2017 100% blockage, w clot visible, cath'd on mar 22. TONSILLECTOMY HX Childhood SOCIAL HISTORY Social History Tobacco Use Smoking status: Former Packs/day: 1.00 Years: 15.00 Pack years: 15.00 Types: Cigarettes Quit date: 03/27/1989 Years since quittin.5 Smokeless tobacco: Never Vaping Use Vaping Use: Never used Substance Use Topics Alcohol use: No Drug use: No FAMILY HISTORY Problem Relation Age of Onset Coronary Artery Disease Sister 54 3VCABG Coronary Artery Disease Brother 47 fatal NV at 47 Alzheimer's Disease Mother age 81 Ischemic Heart Disease Father age 67 (NV) Coronary Artery Disease Brother 47 fatal NV at 47 Cervical Cancer No Family History Ovarian cancer No Family History Uterine Cancer No Family History Colon Cancer No Family History Pancreatic Cancer No Family History Prostate Cancer No Family History ALLERGIES: ALLERGIES Allergen Reactions Iodine Itching MEDICATIONS: anastrozole (ARIMIDEX) 1 mg tablet Take 1 tablet by mouth once daily. ELIQUIS 5 mg tab(s) Take 5 mg by mouth twice daily. metoprolol tartrate, short acting, (LOPRESSOR) 25 mg tablet Take 25 mg by mouth twice daily. ezetimibe (ZETIA) 10 mg tablet Take 1 tablet by mouth once daily. levothyroxine (SYNTHROID) 100 mcg tablet Take 1 tablet by mouth DAILY (6 AM). atorvastatin (LIPITOR) 80 mg tablet Take 1 tablet by mouth once daily. ubidecarenone (COQ-10 ORAL) Take by mouth once daily. aspirin, enteric coated (ASPIR-LOW) 81 mg EC tablet Take 1 tablet by mouth once daily. pantoprazole DR (PROTONIX) 40 mg tablet Take 1 tablet by mouth once daily. amiodarone (PACERONE) 200 mg tablet Take 200 mg by mouth once daily. REVIEW OF SYSTEMS: GENERAL: Negative for: Weight loss or gain, Fever or Chills, Weakness and Sleep difficulties. HEENT: Negative for: Headache, Impaired Vision, Glasses, Hearing Impairment, Ringing in Ears, Nosebleeds, Poor dental care, Bleeding Gums, Dentures NECK: Negative for: Swelling, Pain, Stiffness RESPIRATORY: Negative for: Blood in Sputum, Wheezing, Apnea. + for Cough, SOB GASTROINTESTINAL: Negative for: Trouble swallowing, Heartburn, Change in bowel habits, Blood in stool, Dark black stools MUSCULOSKELETAL: Negative for: Muscle or joint pain, Stiffness , Joint swelling NEUROLOGIC/PSYCHIATRIC: Negative for: Weakness, Paralysis, Numbness, Tingling, Tremor, Nervousness, Depressed mood, Memory loss SKIN: Negative for: Rashes, Itching HEMATOLOGICAL/LYMPHATIC: Negative for: Easy bruising , Easy bleeding ENDOCRINE: Negative for: Heat or cold intolerance, Excessive sweating, Frequent urination, Frequent thirst PHYSICAL EXAMINATION: BP 143/85 Pulse 63 Ht 5' 4 (1.63m) Wt 177 lb (80.3kg) SpO2 96% BMI 30.37 kg/(m^2). General: Well appearing, in no acute distress. Skin: No clubbing, no cyanosis. Eyes: Extra ocular movements intact Oropharynx: Teeth in good repair. Neck: No jugular venous distention, no carotid bruits, carotids have a normal upstroke, no palpable thyromegaly. Lungs: Clear to auscultation bilaterally, no wheezing or rhonchi. Heart: Regular rhythm, PMI not displaced, S1, S2 normal, no S3, no S4, no heaves, no rub and no murmur. Abdomen: Soft, nontender, bowel sounds normal, no palpable organomegaly, no bruits. Extremities: No peripheral edema . Grade 2/4 distal pulses bilaterally. Neuro: Oriented to person, place and time, alert, cooperative, gait coordinated. CARDIOVASCULAR MEDICINE TESTING: Electrocardiogram: Sinus Bradycardia Echocardiogram: 02/2021 Holter Monitor: I have personally reviewed the Electrocardiogram, Echocardiogram, and Holter. ASSESSMENT/PLAN: 1. Paroxysmal atrial fibrillation (HCC) - ICD9: 427.31, ICD10: I48.0 (primary diagnosis) - ECG B/O W INTERP (MED OFFICE) - CTA CHEST (GATED) W IVCON - CREATININE BLD - SURGICAL REQUEST - ELECTIVE (05/2020) 2. Atherosclerosis of [place] coronary artery of [place] heart without angina pectoris - ICD9: 414.01, ICD10: I25.10 3. Mixed hyperlipidemia - ICD9: 272.2, ICD10: E78.2 4. S/P primary angioplasty with coronary stent - ICD9: V45.82, ICD10: Z95.5 5. SNEHA (obstructive sleep apnea) - ICD9: 327.23, ICD10: G47.33 6. Hypothyroidism IMPRESSION: Ms. Mitchell is a 72 year old female with PMH significant for Hypothyroidism, Hyperlipidemia, Inferior wall NV(02/22), SNEHA, paroxysmal atrial fibrillation(02/2021) on amiodarone and eliquis. AF remains well controlled on amiodarone. She is interested in pursuing an ablation procedure with the goal of stopping amiodarone therapy, as she has been lately developing worsening side effects as SOB and intractable cough. PLAN AND RECOMMENDATIONS: -Plan for cryoablation, CT chest to review PV anatomy and AMY appendage prior. -Continue amiodarone 100 mg daily and hold 2 weeks prior to ablation procedure. Will need 1 month of amiodarone post ablation and a 30 day event monitor evaluation 6 weeks after. -Continue metoprolol 25 mg bid. -Continue eliquis and hold 1 day prior. INFORMED CONSENT The risks, benefits and anticipated outcomes of the procedure, the risks and benefits of the alternatives to the procedure and the roles and tasks of the personnel to be involved were discussed with the patient. Consent for the procedure and agreement to proceed has been obtained. Return for Afib follow up. Haseeb Ibanez MD documented in this encounter [facility] 05-12-2022 History of Present illness Narrative Part of this note is carried forward from note dictated: 07/01/2021. It is appropriately updated. Melissa Mitchell is a 70 year old female a diagnosis of left-sided breast cancer. ER ND positive HER-2 negative disease. Oncotype DX score of 11. Status post mastectomy. The patient diagnosed in December 2017. She was put on a 3-month course of a aromatase inhibitor as the patient had a repeat myocardial infarction with stent placements. At that time they wanted dual antiplatelet therapy. She was taken off her antiplatelet therapy and taken for surgery. Underwent a left-sided mastectomy. She was noted to have 2 nodules 1 of them measuring 1.1 cm in size and the other 1 2.8 cm in size. The lesions were ER ND positive HER-2 negative. Oncotype DX testing from both of these lesions showed a recurrence score of 11. The patient did not get any adjuvant radiation. She was put on the aromatase inhibitor. Subsequently developed GI bleed with a drop of hemoglobin secondary to a bleeding AVM lesion that was cauterized. Then switched to tamoxifen because the Arimidex was causing vaginal dryness. She could not handle the tamoxifen because of increased vaginal discharge which she did not like. She was switched back on the aromatase inhibitor in late 2019. She has been on this tolerating it relatively well. Recently noticed to have a nodule or a growth along the lower left chest wall area. She was evaluated by my partner. No abnormality was identified on physical exam. A CAT scan of the chest was performed by the emergency room [04/15/2022]. This was personally reviewed and no abnormality identified both on the subcutaneous plane as well as no evidence of any bone lesions to suggest metastasis. Screening mammogram dated 04/01 22 was reviewed. Unremarkable. Review Of Systems: General: Denies any fatigue. No fever, chills, night sweats, weight loss, headaches or loss of appetite. Stamina intact. HEENT/Neck: No hearing/vision changes; no pain, masses, or swelling. No evidence of sores in the mouth. Respiratory: No cough, productive sputum, hemoptysis, chest pain, shortness of breath or wheezing. Cardiovascular: No palpatations, chest pain,shotness or breath, exertional dyspnea or leg swelling. Gastrointestinal: No nausea, vomiting, dysphagia, abdominal pain,melana or hematochezia. No diahrea orconstipation. No change in the bowel habbits. Genitourinary: No dysuria, nocturia, frequency, urgency, hematuria or incontinence. Musculoskeletal: No joint or pain bone pain: No limitation of motion. No problems with the gait. Neurological: No sensory or motor abnormalities; no headaches or dizziness. Dermatologic: No rash, skin lesions or itching. Psychiatric: No sleep disturbances, mood disorders, depression, etc. Hematologic: No bleeding, bruising or echymisis. Lymphatic System: No new lymph gland enlargement or and new lumps of bumps in the body. Endocrine: No heat or cold intolerance, diabetes or other abnormalities The rest of systems reviewed and essentially unremarkable. Physical Examination: BP 127/75 Pulse (!) 54 Resp 18 Wt 78.5 kg (173 lb) LMP (LMP Unknown) SpO2 98% BMI 29.70 kg/m The patient was awake alert oriented. Didn't appear to be in acute distress. HEENT: No pallor, icterus, cyanosis, oral cavity shows no evidence of mucositis, lesions, or ulcers. Trachea midline. No JVD, carotid bruit, thyromegaly, cervical lymphadenopathy or supra-infraclavicular lymphadenopathy. CVS: S1-S2 heard no S3 no murmurs or pericardial rub. No peripheral edema. Lungs: Chest wall nontender. No dullness to percussion. Clear to auscultation bilaterally. No rhonchi or rales noted. No pleural rub or at it sounds noted. Abdomen: Normal inspection, nondistended no dilated veins. Soft nontender no organomegaly. No palpable masses noted. Hem/ Lymph: No peripheral lymphadenopathy or any palpable masses. Neuro Exam: High mental functions were normal. Cranial nerves II through XII are normal. No gross abnormality noted on sensory or motor system exam. Musculoskeletal: No joint deformities noted. No evidence of synovitis, swelling or tenderness in the joints or bursitis. Skin: No evidence to suggest any bruising, ecchymosis, petechiae and symptoms of hand-foot syndrome. Breast examination. Scar of mastectomy noted along the left chest wall. No cutaneous lesions. No tenderness along the rib cage. Slightly prominent left rib anteriorly [clinically appears to be the ninth rib] no lymphadenopathy in the left axilla. The right breast normal inspection palpation without any evidence of right axillary lymphadenopathy. Labs: DATA: Diagnostic tests reviewed for today's visit: Most recent labs and imaging results. CBC: WBC (k/uL) Date Value 12/30/2021 7.20 07/01/2021 7.76 RBC (m/uL) Date Value 12/30/2021 3.86 07/01/2021 4.13 Hemoglobin (g/dL) Date Value 12/30/2021 11.8 07/01/2021 12.3 Hematocrit (%) Date Value 12/30/2021 36.7 07/01/2021 37.8 Platelet Count (k/uL) Date Value 12/30/2021 213 07/01/2021 229 MCV (fL) Date Value 12/30/2021 95.1 07/01/2021 91.5 MCH Date Value 12/30/2021 30.6 pg 07/01/2021 29.8 pG MPV (fL) Date Value 12/30/2021 9.8 07/01/2021 9.5 CMP: Sodium (mmol/L) Date Value 12/30/2021 138 07/01/2021 139 Chloride (mmol/L) Date Value 12/30/2021 104 07/01/2021 104 CO2 (mmol/L) Date Value 12/30/2021 25 07/01/2021 23 BUN (mg/dL) Date Value 12/30/2021 14 07/01/2021 18 Creatinine (mg/dL) Date Value 12/30/2021 1.06 07/01/2021 1.12 Glucose (mg/dL) Date Value 12/30/2021 123 07/01/2021 94 Protein, Total (g/dL) Date Value 12/30/2021 6.8 07/01/2021 7.2 Calcium (mg/dL) Date Value 07/01/2021 9.5 Calcium, Total (mg/dL) Date Value 12/30/2021 9.5 Magnesium (mg/dL) Date Value 03/28/2017 2.1 Bilirubin, Total (mg/dL) Date Value 12/30/2021 0.5 07/01/2021 0.9 Alkaline Phosphatase (U/L) Date Value 12/30/2021 95 07/01/2021 74 ALT (U/L) Date Value 12/30/2021 31 07/01/2021 23 AST (U/L) Date Value 12/30/2021 32 07/01/2021 26 Anion Gap (mmol/L) Date Value 12/30/2021 9 07/01/2021 12 Imaging Studies: Scans reviewed as highlighted above Assessment: 1. 71 year old female with a diagnosis of a left-sided breast cancer. T2 disease 2 primaries 1 being 2.8 the other being 1.1 cm in size both of them being ER/ND positive and HER2 negative. Oncotype DX score of 11 for both of them. S/p neoadjuvant aromatase inhibition for 3 months followed by surgery followed by the antiestrogen therapy. The patient 5 years from his surgery. 2. Clinically no evidence of any recurrence of disease. The growth/abnormality that the patient is feeling appears to be a prominent rib. 3. Had a lengthy discussion with her today. In my opinion she should continue with prolonged aromatase inhibitor for a total of 10 years. Wan Knight MD documented in this encounter [facility] 04-28-2022 Miscellaneous Notes As instructed by Dr Roca, pt was called and a message was left Chanelle had said, On clinical exam there was no mass: I described as nonspecific nodularity at the rib area under mastectomy scar. CT chest on 04/15/2022 showed no evidence of cancer. Please let her know. Left this message with a phone number to return call if further questions. documented in this encounter [facility] 04-15-2022 Miscellaneous Notes Radiology Service Progress Note PATIENT NAME: Melissa Mitchell DATE OF SERVICE: April 15, 2022 TIME: 8:44 AM PATIENT IDENTITY VERIFICATION COMPLETED USING TWO (2) IDENTIFIERS: Name and Date of confirmed by patient verbally and Name and Date of confirmed by identification band. FALL SCREENING: Has the patient had 2 falls in the last year or 1 fall with injury or currently using an Ambulatory Assistive Device (Walker, Cane, Wheelchair, Crutches, etc.)? No PATIENT GENDER DATA: Female. status: : No status: NO. PATIENT RELEVANT IMPLANT DATA REVIEWED: Not Applicable RADIOLOGY DEPARTMENT: CT; Exam(s) Completed: Chest PERIPHERAL IV DATA: Not applicable SIGNED BY: RT Adrianna(R) April 15, 2022 8:44 AM documented in this encounter [facility] 04-01-2022 Miscellaneous Notes April 01, 2022 PID: [id number] Melissa Morelelise [address] [place] [address] [place] [address] Dear Ms. Morelelise, We are pleased to inform you that the results of your recent breast imaging exam on 04/01/2022 are normal. Your mammogram demonstrates that you have dense breast tissue, which could hide abnormalities. Dense breast tissue, in and of itself, is a relatively common condition. Therefore, this information is not provided to cause undue concern; rather, it is to raise your awareness and promote discussion with your health care provider regarding the presence of dense breast tissue in addition to other risk factors. Early detection of cancer is very important. We also understand recommendations regarding breast cancer screening are controversial. Please discuss with your primary care provider which strategy is best for you and whether a mammogram is right for you. Your imaging studies and report will be kept on file at [facility] as part of your permanent medical record and are available for your continuing care. Thank you for allowing us to help in meeting your health care needs. Sincerely, Dr. Cline Interpreting Radiologist [facility] (Normal over 40) documented in this encounter [facility] 04-01-2022 History of Present illness Narrative Radiology Service Progress Note PATIENT NAME: Melissa Mitchell DATE OF SERVICE: April 01, 2022 TIME: 10:09 AM PATIENT IDENTITY VERIFICATION COMPLETED USING TWO (2) IDENTIFIERS: Name and Date of confirmed by patient verbally. FALL SCREENING: Has the patient had 2 falls in the last year or 1 fall with injury or currently using an Ambulatory Assistive Device (Walker, Cane, Wheelchair, Crutches, etc.)? No PATIENT GENDER DATA: Female. status: : No status: NO. PATIENT RELEVANT IMPLANT DATA REVIEWED: Not Applicable RADIOLOGY DEPARTMENT: Mammography PERIPHERAL IV DATA: Not applicable SIGNED BY: RT Chiquis(R) April 01, 2022 10:09 AM documented in this encounter [facility] 03-25-2022 History of Present illness Narrative Primary hem/oncologist: Wan Knight MD Presenting complaint: Patient Melissa Mitchell returns for follow-up on breast cancer. She called on 03/22/2022 because she found the lump where she had her mastectomy. ASSESSMENT: (C50.012, Z17.0) Malignant neoplasm of nipple of left breast in female, estrogen receptor positive (HCC) (primary encounter diagnosis) Comment: Patient is a delightful 71 year old lady who had screening mammogram on 11/28/2017 with multiple indeterminate lesions in the left breast mediolateral oblique view. Diagnostic mammogram no 12/08/2017 showed multiple microcalcifications in left breast upper central and upper outer quadrant. US left breast showed multiple hypoechoic areas of 2 largest measuring 11 mm [address] Rodriguez with surgery performed a stereotactic core biopsy on 12/25/2017 revealing invasive ductal carcinoma with grade 1, ER+ status at 95%, ND+ status at 90%, HER2 non amplified status by FISH. MRI breast on 01/03/2018 showed biopsy proven breast cancer at 3:00 position, multiple enhancing masses scattered throughout the upper left breast. There was incidental note of probably lymph node anterior to liver with recommendations for CT imaging. CT chest abdomen and pelvis on 01/19/2018 showed indeterminate pulmonary nodules with largest measuring 6 mm, tree in bud right upper lobe changes. There were no abnormalities in abdomen or pelvis. PET/CT on 01/30/2018 showed hypermetabolic left breast nodule, non-hypermetabolic lung nodules and diffuse thyroid update suggestive thyroiditis or abnormal thyroid function. Prior TSH was normal on 03/22/2017. Oncotype DX score was low at 11. Patient began anastrozole on 02/02/2018 as neoadjuvant systemic endocrine therapy. Patient underwent left simple mastectomy with sentinel lymph node biopsy on 03/19/2018. Pathology revealed multifocal invasive ductal carcinoma with two foci: 2.8 cm and 1.1 cm. Grade was 2. Surgical margins were negative. There was no lymphovascular invasion. One sentinel lymph node was negative. Patient called on 03/22/2022 because she found the lump where she had her mastectomy. On clinical exam nonspecific nodularity at the rib area under mastectomy scar Plan: CT CHEST WO IVCON in 2-3 weeks. Follow-up wit Dr. Knight on 05/12/2022. (R22.2) Lump in chest Comment: Patient called on 03/22/2022 because she found the lump where she had her mastectomy. On clinical exam nonspecific nodularity at the rib area under mastectomy scar Plan: CT CHEST WO IVCON in 2-3 weeks. Follow-up with Dr. Knight on 05/12/2022. (R91.8) Lung nodules Comment: CT chest abdomen and pelvis on 01/19/2018 showed indeterminate pulmonary nodules with largest measuring 6 mm, tree in bud right upper lobe changes. There were no abnormalities in abdomen or pelvis. PET/CT on 01/30/2018 showed hypermetabolic left breast nodule, non-hypermetabolic lung nodules and diffuse thyroid update suggestive thyroiditis or abnormal thyroid function. CT chest on 11/05/2018 with stable lung nodules Plan: obtain CT chest in 2-3 weeks (Z79.811) [facility] (current) use of aromatase inhibitors Comment: on anastrozole since 02/02/2018 Plan: continue anastrozole. Return in about 7 weeks (around 05/12/2022) for follow-up with provider. Follow-up with Dr. Knight on 05/12/2022 Moderate complexity decision making/ counseling/ care I spent 30 minutes in the visit, with more than 50% of the total [id number] time of the visit in counseling / coordination of care. HPI: Patient is a delightful 71 year old lady who had screening mammogram on 11/28/2017 with multiple indeterminate lesions in the left breast mediolateral oblique view. Diagnostic mammogram no 12/08/2017 showed multiple microcalcifications in left breast upper central and upper outer quadrant. US left breast showed multiple hypoechoic areas of 2 largest measuring 11 mm [address] Rodriguez with surgery performed a stereotactic core biopsy on 12/25/2017 revealing invasive ductal carcinoma with grade 1, ER+ status at 95%, ND+ status at 90%, HER2 non amplified status by FISH. MRI breast on 01/03/2018 showed biopsy proven breast cancer at 3:00 position, multiple enhancing masses scattered throughout the upper left breast. There was incidental note of probably lymph node anterior to liver with recommendations for CT imaging. CT chest abdomen and pelvis on 01/19/2018 showed indeterminate pulmonary nodules with largest measuring 6 mm, tree in bud right upper lobe changes. There were no abnormalities in abdomen or pelvis. PET/CT on 01/30/2018 showed hypermetabolic left breast nodule, non-hypermetabolic lung nodules and diffuse thyroid update suggestive thyroiditis or abnormal thyroid function. Prior TSH was normal on 03/22/2017. Oncotype DX score was low at 11. Patient began anastrozole on 02/02/2018 as neoadjuvant systemic endocrine therapy. Patient underwent left simple mastectomy with sentinel lymph node biopsy on 03/19/2018. Pathology revealed multifocal invasive ductal carcinoma with two foci: 2.8 cm and 1.1 cm. Grade was 2. Surgical margins were negative. There was no lymphovascular invasion. One sentinel lymph node was negative. Patient called on 03/22/2022 because she found the lump where she had her mastectomy. On clinical exam nonspecific nodularity at the rib area under mastectomy scar PAST MEDICAL HISTORY Diagnosis Date Aromatase inhibitor use Arimadex 01/24 to 09/26 Arthritis Breast cancer (HCC) 03/2018 left Constipation Coronary artery disease Former smoker 1 PPDx15 years quit 1988 Heart attack (HCC) 03/2017 Hemorrhoids History of postmenopausal HRT 3 years Hx of half-way use of blood thinners 2016 on Plavix [place] 03/2017 off 09/26 Hypercholesteremia Hypothyroid Sleep apnea with use of continuous positive airway pressure (CPAP) PAST SURGICAL HISTORY Procedure Laterality Date COLONOSCOPY 2018 no polyps previous one due 2017 but had NV not completed ([place]) LAPAROSCOPIC TUBAL LIGATION/RING/CLIP Bilateral 1980 MAMMOTOME BIOPSY LEFT Left 12/25/2017 MASTECTOMY HX Left 03/19/2018 NEUROPLASTY &/TRANSPOS MEDIAN NRV CARPAL TUNNE Bilateral 1993 OSTECTOMY CALCANEUS SPUR W/WO PLNTAR FASCIAL RLS Bilateral STENT - CORONARY 03/22/2017 100% blockage, w clot visible, cath'd on mar 22. TONSILLECTOMY HX Childhood FAMILY HISTORY Problem Relation Age of Onset Coronary Artery Disease Sister 54 [id number] Coronary Artery Disease Brother 47 fatal NV at 47 Alzheimer's Disease Mother age 81 Ischemic Heart Disease Father age 67 (NV) Coronary Artery Disease Brother 47 fatal NV at 47 Cervical Cancer No Family History Ovarian cancer No Family History Uterine Cancer No Family History Colon Cancer No Family History Pancreatic Cancer No Family History Prostate Cancer No Family History SOCIAL HISTORY Social History Tobacco Use Smoking status: Former Smoker Packs/day: 1.00 Years: 15.00 Pack years: 15.00 Types: Cigarettes Quit date: 03/27/1989 Years since quittin.0 Smokeless tobacco: Never Used Vaping Use Vaping Use: Never used Substance Use Topics Alcohol use: No Drug use: No ALLERGIES: ALLERGIES Allergen Reactions Iodine Itching MEDICATIONS: Current Outpatient Medications Medication Sig amiodarone (PACERONE) 200 mg tablet Take 200 mg by mouth once daily. ELIQUIS 5 mg tab(s) Take 5 mg by mouth twice daily. metoprolol tartrate, short acting, (LOPRESSOR) 25 mg tablet Take 25 mg by mouth twice daily. anastrozole (ARIMIDEX) 1 mg tablet Take 1 tablet by mouth once daily. ezetimibe (ZETIA) 10 mg tablet Take 1 tablet by mouth once daily. levothyroxine (SYNTHROID) 100 mcg tablet Take 1 tablet by mouth DAILY (6 AM). atorvastatin (LIPITOR) 80 mg tablet Take 1 tablet by mouth once daily. nitroglycerin sublingual (NITROSTAT) 0.4 mg SL tablet Dissolve 1 tablet under the tongue every 5 minutes as needed. pantoprazole DR (PROTONIX) 20 mg tablet Take 1 tablet by mouth once daily. ubidecarenone (COQ-10 ORAL) Take by mouth once daily. aspirin, enteric coated (ASPIR-LOW) 81 mg EC tablet Take 1 tablet by mouth once daily. No current facility-administered medications for this visit. REVIEW OF SYSTEMS: Review of Systems Constitutional: Negative for chills and fatigue. HENT: Negative for mouth sores and trouble swallowing. Eyes: Negative for eye problems and icterus. Respiratory: Negative for chest tightness, cough, hemoptysis and shortness of breath. Cardiovascular: Negative for chest pain and palpitations. Lump where she had her mastectomy. Gastrointestinal: Negative for abdominal pain and blood in stool. Endocrine: Negative for hot flashes. Genitourinary: Negative for difficulty urinating and hematuria. Musculoskeletal: Negative for back pain, gait problem and neck pain. Skin: Negative for itching, rash and wound. Neurological: Negative for gait problem and light-headedness. Hematological: Negative for adenopathy. Does not bruise/bleed easily. Psychiatric/Behavioral: Negative for decreased concentration and depression. PHYSICAL EXAMINATION: VITALS: BP 136/70 Pulse 68 Temp (Src) 98 (Temporal) Resp 18 Wt 180 lb (81.6kg) SpO2 99% Physical Exam Vitals and nursing note reviewed. Constitutional: General: She is not in acute distress. Appearance: She is not toxic-appearing or diaphoretic. HENT: Head: Normocephalic and atraumatic. Eyes: General: No scleral icterus. Conjunctiva/sclera: Conjunctivae normal. Cardiovascular: Rate and Rhythm: Normal rate and regular rhythm. Heart sounds: Normal heart sounds. No murmur heard. Comments: On clinical exam nonspecific nodularity at the rib area under mastectomy scar Pulmonary: Effort: Pulmonary effort is normal. No respiratory distress. Breath sounds: Normal breath sounds. Abdominal: General: There is no distension. Tenderness: There is no abdominal tenderness. Musculoskeletal: General: Tenderness present. No swelling. Cervical back: Neck supple. Skin: Coloration: Skin is not jaundiced or pale. Neurological: Mental Status: She is alert. Mental status is at baseline. Psychiatric: Mood and Affect: Mood normal. Behavior: Behavior normal. Thought Content: Thought content normal. Judgment: Judgment normal. LABS: 1. WBC Date Value Ref Range Status 12/30/2021 7.20 3.70 - 11.00 k/uL Final RBC Date Value Ref Range Status 12/30/2021 3.86 (L) 3.90 - 5.20 m/uL Final Hemoglobin Date Value Ref Range Status 12/30/2021 11.8 11.5 - 15.5 g/dL Final Hematocrit Date Value Ref Range Status 12/30/2021 36.7 36.0 - 46.0 % Final MCV Date Value Ref Range Status 12/30/2021 95.1 80.0 - 100.0 fL Final MCH Date Value Ref Range Status 12/30/2021 30.6 26.0 - 34.0 pg Final MCHC Date Value Ref Range Status 12/30/2021 32.2 30.5 - 36.0 g/dL Final RDW-CV Date Value Ref Range Status 12/30/2021 13.3 11.5 - 15.0 % Final Platelet Count Date Value Ref Range Status 12/30/2021 213 150 - 400 k/uL Final MPV Date Value Ref Range Status 12/30/2021 9.8 9.0 - 12.7 fL Final Abs Neut Date Value Ref Range Status 12/30/2021 4.31 1.45 - 7.50 k/uL Final Lymph% Date Value Ref Range Status 12/30/2021 28.9 % Final Abs Lymph Date Value Ref Range Status 12/30/2021 2.08 1.00 - 4.00 k/uL Final Jerome% Date Value Ref Range Status 12/30/2021 7.1 % Final Abs Jerome Date Value Ref Range Status 12/30/2021 0.51 <0.87 k/uL Final Eosin% Date Value Ref Range Status 12/30/2021 2.9 % Final Abs Eosin Date Value Ref Range Status 12/30/2021 0.21 <0.46 k/uL Final Baso% Date Value Ref Range Status 12/30/2021 0.7 % Final Abs Baso Date Value Ref Range Status 12/30/2021 0.05 <0.11 k/uL Final 2. Glucose (mg/dL) Date Value 12/30/2021 123 07/01/2021 94 Potassium (mmol/L) Date Value 12/30/2021 4.4 07/01/2021 4.4 Sodium (mmol/L) Date Value 12/30/2021 138 07/01/2021 139 Chloride (mmol/L) Date Value 12/30/2021 104 07/01/2021 104 CO2 (mmol/L) Date Value 12/30/2021 25 07/01/2021 23 Creatinine (mg/dL) Date Value 12/30/2021 1.06 07/01/2021 1.12 BUN (mg/dL) Date Value 12/30/2021 14 07/01/2021 18 Anion Gap (mmol/L) Date Value 12/30/2021 9 07/01/2021 12 Calcium (mg/dL) Date Value 07/01/2021 9.5 Calcium, Total (mg/dL) Date Value 12/30/2021 9.5 Protein, Total (g/dL) Date Value 12/30/2021 6.8 07/01/2021 7.2 Albumin (g/dL) Date Value 12/30/2021 4.3 07/01/2021 4.5 Bilirubin, Total (mg/dL) Date Value 12/30/2021 0.5 07/01/2021 0.9 Alkaline Phosphatase (U/L) Date Value 12/30/2021 95 07/01/2021 74 AST (U/L) Date Value 12/30/2021 32 07/01/2021 26 ALT (U/L) Date Value 12/30/2021 31 07/01/2021 23 Aleida Roca MD Cc: Wan Knight MD documented in this encounter [facility] 03-22-2022 Miscellaneous Notes Summary: Lump found Sada, Unsure who to get this PT with. She said she found a lump where she had her masectomy and since Antonia is out for 3 weeks, what do we do or who do we get her in with? or Chanelle? Mireya, Mikey documented in this encounter [facility] 12-30-2021 History of Present illness Narrative Melissa Mitchell is a 71 year old female diagnosis of a left-sided breast cancer. ER/ND positive HER-2 negative disease. S/p mastectomy. Oncotype DX score of 11. Currently on Arimidex. Patient was changed over back from tamoxifen to Arimidex because of vaginal discharge. Complaining of occasional headaches in the occipital area. Symptoms suggestive of tension headaches. Part of this note is carried forward from note dictated: 07/01/2021. It is appropriately updated. Melissa Mitchell is a 70 year old female a diagnosis of left-sided breast cancer. ER ND positive HER-2 negative disease. Oncotype DX score of 11. Status post mastectomy. The patient diagnosed in December 2017. She was put on a 3-month course of a aromatase inhibitor as the patient had a repeat myocardial infarction with stent placements. At that time they wanted dual antiplatelet therapy. She was taken off her antiplatelet therapy and taken for surgery. Underwent a left-sided mastectomy. She was noted to have 2 nodules 1 of them measuring 1.1 cm in size and the other 1 2.8 cm in size. The lesions were ER ND positive HER-2 negative. Oncotype DX testing from both of these lesions showed a recurrence score of 11. The patient did not get any adjuvant radiation. She was put on the aromatase inhibitor. Subsequently developed GI bleed with a drop of hemoglobin secondary to a bleeding AVM lesion that was cauterized. Then switched to tamoxifen because the Arimidex was causing vaginal dryness. She could not handle the tamoxifen because of increased vaginal discharge which she did not like. On her last visit 6 months ago the patient was changed back to Armidex. No acute issues at this time. Review Of Systems: General: Denies any fatigue. No fever, chills, night sweats, weight loss, headaches or loss of appetite. Stamina intact. HEENT/Neck: No hearing/vision changes; no pain, masses, or swelling. No evidence of sores in the mouth. Respiratory: No cough, productive sputum, hemoptysis, chest pain, shortness of breath or wheezing. Cardiovascular: No palpatations, chest pain,shotness or breath, exertional dyspnea or leg swelling. Gastrointestinal: No nausea, vomiting, dysphagia, abdominal pain,melana or hematochezia. No diahrea orconstipation. No change in the bowel habbits. Genitourinary: No dysuria, nocturia, frequency, urgency, hematuria or incontinence. Musculoskeletal: No joint or pain bone pain: No limitation of motion. No problems with the gait. Neurological: No sensory or motor abnormalities; no headaches or dizziness. Dermatologic: No rash, skin lesions or itching. Psychiatric: No sleep disturbances, mood disorders, depression, etc. Hematologic: No bleeding, bruising or echymisis. Lymphatic System: No new lymph gland enlargement or and new lumps of bumps in the body. Endocrine: No heat or cold intolerance, diabetes or other abnormalities The rest of systems reviewed and essentially unremarkable. Physical Examination: BP 125/75 Pulse (!) 58 Temp 36.4 C (97.6 F) Resp 14 LMP (LMP Unknown) SpO2 99% The patient was awake alert oriented. Didn't appear to be in acute distress. HEENT: No pallor, icterus, cyanosis, oral cavity shows no evidence of mucositis, lesions, or ulcers. Trachea midline. No JVD, carotid bruit, thyromegaly, cervical lymphadenopathy or supra-infraclavicular lymphadenopathy. CVS: S1-S2 heard no S3 no murmurs or pericardial rub. No peripheral edema. Lungs: Chest wall nontender. No dullness to percussion. Clear to auscultation bilaterally. No rhonchi or rales noted. No pleural rub or at it sounds noted. Abdomen: Normal inspection, nondistended no dilated veins. Soft nontender no organomegaly. No palpable masses noted. Hem/ Lymph: No peripheral lymphadenopathy or any palpable masses. Neuro Exam: High mental functions were normal. Cranial nerves II through XII are normal. No gross abnormality noted on sensory or motor system exam. Musculoskeletal: No joint deformities noted. No evidence of synovitis, swelling or tenderness in the joints or bursitis. Skin: No evidence to suggest any bruising, ecchymosis, petechiae and symptoms of hand-foot syndrome. Breast examination. S/p left-sided mastectomy. No evidence of any palpable skin nodules. No lymphadenopathy in the left axilla. The right breast normal inspection palpation without any evidence of right axillary lymphadenopathy. Labs: DATA: Diagnostic tests reviewed for today's visit: Most recent labs and imaging results. CBC: WBC (k/uL) Date Value 07/01/2021 7.76 RBC (m/uL) Date Value 07/01/2021 4.13 Hemoglobin (g/dL) Date Value 07/01/2021 12.3 Hematocrit (%) Date Value 07/01/2021 37.8 Platelet Count (k/uL) Date Value 07/01/2021 229 MCV (fL) Date Value 07/01/2021 91.5 MCH (pG) Date Value 07/01/2021 29.8 MPV (fL) Date Value 07/01/2021 9.5 CMP: Sodium (mmol/L) Date Value 07/01/2021 139 Chloride (mmol/L) Date Value 07/01/2021 104 CO2 (mmol/L) Date Value 07/01/2021 23 BUN (mg/dL) Date Value 07/01/2021 18 Creatinine (mg/dL) Date Value 07/01/2021 1.12 Glucose (mg/dL) Date Value 07/01/2021 94 Protein, Total (g/dL) Date Value 07/01/2021 7.2 Calcium (mg/dL) Date Value 07/01/2021 9.5 Magnesium (mg/dL) Date Value 03/28/2017 2.1 Bilirubin, Total (mg/dL) Date Value 07/01/2021 0.9 Alkaline Phosphatase (U/L) Date Value 07/01/2021 74 ALT (U/L) Date Value 07/01/2021 23 AST (U/L) Date Value 07/01/2021 26 Anion Gap (mmol/L) Date Value 07/01/2021 12 Imaging Studies: Mammogram has been ordered. Assessment: 1. 71 year old female with a diagnosis of a left-sided breast cancer. 2 primaries one of them 2.8 and the other 1.1 cm in size both of them being ER/ND positive HER-2 negative. Oncotype score of 11 for both of them. The patient underwent neoadjuvant aromatase inhibitors for about 3 months which we continue to her surgery. 2. The patient doing relatively well. 3. Having symptoms of tension headaches which we have educated her about. Wan Knight MD Melisas Mitchell is a 71 year old female diagnosis of a left-sided breast cancer. ER/ND positive HER-2 negative disease Oncotype score of 11. S/p mastectomy. Aromatase inhibitor. Part of this note is carried forward from note dictated: December 31, 2020. It is appropriately updated. Melissa Mitchell is a 70 year old female a diagnosis of left-sided breast cancer. ER ND positive HER-2 negative disease. Oncotype DX score of 11. Status post mastectomy. The patient diagnosed in December 2017. She was put on a 3-month course of a aromatase inhibitor as the patient had a repeat myocardial infarction with stent placements. At that time they wanted dual antiplatelet therapy. She was taken off her antiplatelet therapy and taken for surgery. Underwent a left-sided mastectomy. She was noted to have 2 nodules 1 of them measuring 1.1 cm in size and the other 1 2.8 cm in size. The lesions were ER ND positive HER-2 negative. Oncotype DX testing from both of these lesions showed a recurrence score of 11. The patient did not get any adjuvant radiation. She was put on the aromatase inhibitor. Subsequently developed GI bleed with a drop of hemoglobin secondary to a bleeding AVM lesion that was cauterized. Then switched to tamoxifen because the Arimidex was causing vaginal dryness. The patient is currently doing relatively well. Energy level fair no loss of appetite. No acute issues. Review Of Systems: General: Denies any fatigue. No fever, chills, night sweats, weight loss, headaches or loss of appetite. Stamina intact. HEENT/Neck: No hearing/vision changes; no pain, masses, or swelling. No evidence of sores in the mouth. Respiratory: No cough, productive sputum, hemoptysis, chest pain, shortness of breath or wheezing. Cardiovascular: No palpatations, chest pain,shotness or breath, exertional dyspnea or leg swelling. Gastrointestinal: No nausea, vomiting, dysphagia, abdominal pain,melana or hematochezia. No diahrea orconstipation. No change in the bowel habbits. Genitourinary: No dysuria, nocturia, frequency, urgency, hematuria or incontinence. Musculoskeletal: No joint or pain bone pain: No limitation of motion. No problems with the gait. Neurological: No sensory or motor abnormalities; no headaches or dizziness. Dermatologic: No rash, skin lesions or itching. Psychiatric: No sleep disturbances, mood disorders, depression, etc. Hematologic: No bleeding, bruising or echymisis. Lymphatic System: No new lymph gland enlargement or and new lumps of bumps in the body. Endocrine: No heat or cold intolerance, diabetes or other abnormalities The rest of systems reviewed and essentially unremarkable. Physical Examination: BP 125/75 Pulse (!) 58 Temp 36.4 C (97.6 F) Resp 14 LMP (LMP Unknown) SpO2 99% The patient was awake alert oriented. Didn't appear to be in acute distress. HEENT: No pallor, icterus, cyanosis, oral cavity shows no evidence of mucositis, lesions, or ulcers. Trachea midline. No JVD, carotid bruit, thyromegaly, cervical lymphadenopathy or supra-infraclavicular lymphadenopathy. CVS: S1-S2 heard no S3 no murmurs or pericardial rub. No peripheral edema. Lungs: Chest wall nontender. No dullness to percussion. Clear to auscultation bilaterally. No rhonchi or rales noted. No pleural rub or at it sounds noted. Abdomen: Normal inspection, nondistended no dilated veins. Soft nontender no organomegaly. No palpable masses noted. Hem/ Lymph: No peripheral lymphadenopathy or any palpable masses. Neuro Exam: High mental functions were normal. Cranial nerves II through XII are normal. No gross abnormality noted on sensory or motor system exam. Musculoskeletal: No joint deformities noted. No evidence of synovitis, swelling or tenderness in the joints or bursitis. Skin: No evidence to suggest any bruising, ecchymosis, petechiae and symptoms of hand-foot syndrome. Breast examination. Scar of mastectomy noted along the left chest wall. No cutaneous lesions. No evidence of lymphadenopathy in the left axilla. The right breast normal inspection palpation without any evidence of lymphadenopathy. Labs: DATA: Diagnostic tests reviewed for today's visit: Most recent labs and imaging results. CBC: WBC (k/uL) Date Value 07/01/2021 7.76 RBC (m/uL) Date Value 07/01/2021 4.13 Hemoglobin (g/dL) Date Value 07/01/2021 12.3 Hematocrit (%) Date Value 07/01/2021 37.8 Platelet Count (k/uL) Date Value 07/01/2021 229 MCV (fL) Date Value 07/01/2021 91.5 MCH (pG) Date Value 07/01/2021 29.8 MPV (fL) Date Value 07/01/2021 9.5 CMP: Sodium (mmol/L) Date Value 07/01/2021 139 Chloride (mmol/L) Date Value 07/01/2021 104 CO2 (mmol/L) Date Value 07/01/2021 23 BUN (mg/dL) Date Value 07/01/2021 18 Creatinine (mg/dL) Date Value 07/01/2021 1.12 Glucose (mg/dL) Date Value 07/01/2021 94 Protein, Total (g/dL) Date Value 07/01/2021 7.2 Calcium (mg/dL) Date Value 07/01/2021 9.5 Magnesium (mg/dL) Date Value 03/28/2017 2.1 Bilirubin, Total (mg/dL) Date Value 07/01/2021 0.9 Alkaline Phosphatase (U/L) Date Value 07/01/2021 74 ALT (U/L) Date Value 07/01/2021 23 AST (U/L) Date Value 07/01/2021 26 Anion Gap (mmol/L) Date Value 07/01/2021 12 Imaging Studies: Mamogram from 03/19/21 IMPRESSION: NEGATIVE There is no mammographic evidence of malignancy. A 1 year screening mammogram is recommended. Assessment: 1. 71 year old female with diagnosis of a left-sided breast cancer. 2 primary lesions. One of them 2.8 the other 1.1 cm in size both of them ER/ND positive HER-2 negative. Both of them having an Oncotype DX score of 11. She underwent neoadjuvant aromatase inhibitor therapy followed by a mastectomy. She then went on to receive post surgical antiestrogen therapy currently on a aromatase inhibitor. 2. A bone density study was ordered. Shows a T score of -1.4. Continue with the Fosamax. Wan Knight MD documented in this encounter [facility] documented as of this encounter (statuses as of 12/30/2021) [facility] History of Past illness Narrative* Problem Noted Date Resolved Date Trigger finger 12/06/2018 12/06/2018 Chronic diastolic heart failure 03/28/2017 03/12/2018 Overview: Recent NV w echo showing normal systolic function and stage I DD. Admitted with fatigue, exertional short of breath but CXR does not suggest decompensated heart failure. NT pro BNP is 1454. Most likely s/p from NV last week. Does not need diuretic Plan: Attend heart failure class, continue BB. No ACEI due to borderline BP NSVT (nonsustained ventricular tachycardia) 03/0911/20/2017 Overview: Hx of NSVT started on metoprolol last admission Plan: Monitor, continue metoprolol at reduced dose due to fatigue. 03/28/2017 only asymptomatic 4 beat PVC seen on tele. PLan: continue metoprolol. SUMMARY 03/22/2017 05/17/2017 Overview: 60 yo F with PMHx of HLD, former smoker (20 pack years), hypothyroidism who presented to [place] [facility] with STEMI and was transferred to [facility] for further management documented as of this encounter (statuses as of 03/23/2022) [facility] History of Past illness Narrative* Problem Noted Date Resolved Date Trigger finger 12/06/2018 12/06/2018 Chronic diastolic heart failure 03/28/2017 03/12/2018 Overview: Recent NV w echo showing normal systolic function and stage I DD. Admitted with fatigue, exertional short of breath but CXR does not suggest decompensated heart failure. NT pro BNP is 1454. Most likely s/p from NV last week. Does not need diuretic Plan: Attend heart failure class, continue BB. No ACEI due to borderline BP NSVT (nonsustained ventricular tachycardia) 03/0911/20/2017 Overview: Hx of NSVT started on metoprolol last admission Plan: Monitor, continue metoprolol at reduced dose due to fatigue. 03/28/2017 only asymptomatic 4 beat PVC seen on tele. PLan: continue metoprolol. SUMMARY 03/22/2017 05/17/2017 Overview: 60 yo F with PMHx of HLD, former smoker (20 pack years), hypothyroidism who presented to [place] [facility] with STEMI and was transferred to [facility] for further management documented as of this encounter (statuses as of 04/02/2022) [facility] History of Past illness Narrative* Problem Noted Date Resolved Date Trigger finger 12/06/2018 12/06/2018 Chronic diastolic heart failure 03/28/2017 03/12/2018 Overview: Recent NV w echo showing normal systolic function and stage I DD. Admitted with fatigue, exertional short of breath but CXR does not suggest decompensated heart failure. NT pro BNP is 1454. Most likely s/p from NV last week. Does not need diuretic Plan: Attend heart failure class, continue BB. No ACEI due to borderline BP NSVT (nonsustained ventricular tachycardia) 03/0911/20/2017 Overview: Hx of NSVT started on metoprolol last admission Plan: Monitor, continue metoprolol at reduced dose due to fatigue. 03/28/2017 only asymptomatic 4 beat PVC seen on tele. PLan: continue metoprolol. SUMMARY 03/22/2017 05/17/2017 Overview: 60 yo F with PMHx of HLD, former smoker (20 pack years), hypothyroidism who presented to [place] [facility] with STEMI and was transferred to [facility] for further management documented as of this encounter (statuses as of 04/05/2022) [facility] History of Past illness Narrative* Problem Noted Date Resolved Date Trigger finger 12/06/2018 12/06/2018 Chronic diastolic heart failure 03/28/2017 03/12/2018 Overview: Recent NV w echo showing normal systolic function and stage I DD. Admitted with fatigue, exertional short of breath but CXR does not suggest decompensated heart failure. NT pro BNP is 1454. Most likely s/p from NV last week. Does not need diuretic Plan: Attend heart failure class, continue BB. No ACEI due to borderline BP NSVT (nonsustained ventricular tachycardia) 03/0911/20/2017 Overview: Hx of NSVT started on metoprolol last admission Plan: Monitor, continue metoprolol at reduced dose due to fatigue. 03/28/2017 only asymptomatic 4 beat PVC seen on tele. PLan: continue metoprolol. SUMMARY 03/22/2017 05/17/2017 Overview: 60 yo F with PMHx of HLD, former smoker (20 pack years), hypothyroidism who presented to [place] [facility] with STEMI and was transferred to [facility] for further management documented as of this encounter (statuses as of 04/11/2022) [facility] History of Past illness Narrative* Problem Noted Date Resolved Date Trigger finger 12/06/2018 12/06/2018 Chronic diastolic heart failure 03/28/2017 03/12/2018 Overview: Recent NV w echo showing normal systolic function and stage I DD. Admitted with fatigue, exertional short of breath but CXR does not suggest decompensated heart failure. NT pro BNP is 1454. Most likely s/p from NV last week. Does not need diuretic Plan: Attend heart failure class, continue BB. No ACEI due to borderline BP NSVT (nonsustained ventricular tachycardia) 03/0911/20/2017 Overview: Hx of NSVT started on metoprolol last admission Plan: Monitor, continue metoprolol at reduced dose due to fatigue. 03/28/2017 only asymptomatic 4 beat PVC seen on tele. PLan: continue metoprolol. SUMMARY 03/22/2017 05/17/2017 Overview: 60 yo F with PMHx of HLD, former smoker (20 pack years), hypothyroidism who presented to [place] [facility] with STEMI and was transferred to [facility] for further management documented as of this encounter (statuses as of 04/16/2022) [facility] History of Past illness Narrative* Problem Noted Date Resolved Date Trigger finger 12/06/2018 12/06/2018 Chronic diastolic heart failure 03/28/2017 03/12/2018 Overview: Recent NV w echo showing normal systolic function and stage I DD. Admitted with fatigue, exertional short of breath but CXR does not suggest decompensated heart failure. NT pro BNP is 1454. Most likely s/p from NV last week. Does not need diuretic Plan: Attend heart failure class, continue BB. No ACEI due to borderline BP NSVT (nonsustained ventricular tachycardia) 03/0911/20/2017 Overview: Hx of NSVT started on metoprolol last admission Plan: Monitor, continue metoprolol at reduced dose due to fatigue. 03/28/2017 only asymptomatic 4 beat PVC seen on tele. PLan: continue metoprolol. SUMMARY 03/22/2017 05/17/2017 Overview: 60 yo F with PMHx of HLD, former smoker (20 pack years), hypothyroidism who presented to [place] [facility] with STEMI and was transferred to [facility] for further management documented as of this encounter (statuses as of 04/28/2022) [facility] History of Past illness Narrative* Problem Noted Date Resolved Date Trigger finger 12/06/2018 12/06/2018 Chronic diastolic heart failure 03/28/2017 03/12/2018 Overview: Recent NV w echo showing normal systolic function and stage I DD. Admitted with fatigue, exertional short of breath but CXR does not suggest decompensated heart failure. NT pro BNP is 1454. Most likely s/p from NV last week. Does not need diuretic Plan: Attend heart failure class, continue BB. No ACEI due to borderline BP NSVT (nonsustained ventricular tachycardia) 03/0911/20/2017 Overview: Hx of NSVT started on metoprolol last admission Plan: Monitor, continue metoprolol at reduced dose due to fatigue. 03/28/2017 only asymptomatic 4 beat PVC seen on tele. PLan: continue metoprolol. SUMMARY 03/22/2017 05/17/2017 Overview: 60 yo F with PMHx of HLD, former smoker (20 pack years), hypothyroidism who presented to [place] [facility] with STEMI and was transferred to [facility] for further management documented as of this encounter (statuses as of 05/12/2022) [facility] History of Past illness Narrative* Problem Noted Date Resolved Date Trigger finger 12/06/2018 12/06/2018 Chronic diastolic heart failure 03/28/2017 03/12/2018 Overview: Recent NV w echo showing normal systolic function and stage I DD. Admitted with fatigue, exertional short of breath but CXR does not suggest decompensated heart failure. NT pro BNP is 1454. Most likely s/p from NV last week. Does not need diuretic Plan: Attend heart failure class, continue BB. No ACEI due to borderline BP NSVT (nonsustained ventricular tachycardia) 03/0911/20/2017 Overview: Hx of NSVT started on metoprolol last admission Plan: Monitor, continue metoprolol at reduced dose due to fatigue. 03/28/2017 only asymptomatic 4 beat PVC seen on tele. PLan: continue metoprolol. SUMMARY 03/22/2017 05/17/2017 Overview: 60 yo F with PMHx of HLD, former smoker (20 pack years), hypothyroidism who presented to [place] [facility] with STEMI and was transferred to [facility] for further management documented as of this encounter (statuses as of 09/21/2022) [facility] History of Past illness Narrative* Problem Noted Date Resolved Date Trigger finger 12/06/2018 12/06/2018 Chronic diastolic heart failure 03/28/2017 03/12/2018 Overview: Recent NV w echo showing normal systolic function and stage I DD. Admitted with fatigue, exertional short of breath but CXR does not suggest decompensated heart failure. NT pro BNP is 1454. Most likely s/p from NV last week. Does not need diuretic Plan: Attend heart failure class, continue BB. No ACEI due to borderline BP NSVT (nonsustained ventricular tachycardia) 03/0911/20/2017 Overview: Hx of NSVT started on metoprolol last admission Plan: Monitor, continue metoprolol at reduced dose due to fatigue. 03/28/2017 only asymptomatic 4 beat PVC seen on tele. PLan: continue metoprolol. SUMMARY 03/22/2017 05/17/2017 Overview: 60 yo F with PMHx of HLD, former smoker (20 pack years), hypothyroidism who presented to [place] [facility] with STEMI and was transferred to [facility] for further management documented as of this encounter (statuses as of 09/27/2022) [facility] History of Past illness Narrative* Problem Noted Date Resolved Date Trigger finger 12/06/2018 12/06/2018 Chronic diastolic heart failure 03/28/2017 03/12/2018 Overview: Recent NV w echo showing normal systolic function and stage I DD. Admitted with fatigue, exertional short of breath but CXR does not suggest decompensated heart failure. NT pro BNP is 1454. Most likely s/p from NV last week. Does not need diuretic Plan: Attend heart failure class, continue BB. No ACEI due to borderline BP NSVT (nonsustained ventricular tachycardia) 03/0911/20/2017 Overview: Hx of NSVT started on metoprolol last admission Plan: Monitor, continue metoprolol at reduced dose due to fatigue. 03/28/2017 only asymptomatic 4 beat PVC seen on tele. PLan: continue metoprolol. SUMMARY 03/22/2017 05/17/2017 Overview: 60 yo F with PMHx of HLD, former smoker (20 pack years), hypothyroidism who presented to [place] [facility] with STEMI and was transferred to [facility] for further management documented as of this encounter (statuses as of 11/03/2022) [facility] History of Past illness Narrative* Problem Noted Date Resolved Date Trigger finger 12/06/2018 12/06/2018 Chronic diastolic heart failure 03/28/2017 03/12/2018 Overview: Recent NV w echo showing normal systolic function and stage I DD. Admitted with fatigue, exertional short of breath but CXR does not suggest decompensated heart failure. NT pro BNP is 1454. Most likely s/p from NV last week. Does not need diuretic Plan: Attend heart failure class, continue BB. No ACEI due to borderline BP NSVT (nonsustained ventricular tachycardia) 03/0911/20/2017 Overview: Hx of NSVT started on metoprolol last admission Plan: Monitor, continue metoprolol at reduced dose due to fatigue. 03/28/2017 only asymptomatic 4 beat PVC seen on tele. PLan: continue metoprolol. SUMMARY 03/22/2017 05/17/2017 Overview: 60 yo F with PMHx of HLD, former smoker (20 pack years), hypothyroidism who presented to [place] [facility] with STEMI and was transferred to [facility] for further management documented as of this encounter (statuses as of 11/14/2022) [facility] History of Past illness Narrative* Problem Noted Date Resolved Date Trigger finger 12/06/2018 12/06/2018 Chronic diastolic heart failure 03/28/2017 03/12/2018 Overview: Recent NV w echo showing normal systolic function and stage I DD. Admitted with fatigue, exertional short of breath but CXR does not suggest decompensated heart failure. NT pro BNP is 1454. Most likely s/p from NV last week. Does not need diuretic Plan: Attend heart failure class, continue BB. No ACEI due to borderline BP NSVT (nonsustained ventricular tachycardia) 03/0911/20/2017 Overview: Hx of NSVT started on metoprolol last admission Plan: Monitor, continue metoprolol at reduced dose due to fatigue. 03/28/2017 only asymptomatic 4 beat PVC seen on tele. PLan: continue metoprolol. SUMMARY 03/22/2017 05/17/2017 Overview: 60 yo F with PMHx of HLD, former smoker (20 pack years), hypothyroidism who presented to [place] [facility] with STEMI and was transferred to [facility] for further management documented as of this encounter (statuses as of 11/18/2022) [facility] History of Past illness Narrative* Problem Noted Date Resolved Date Trigger finger 12/06/2018 12/06/2018 Chronic diastolic heart failure 03/28/2017 03/12/2018 Overview: Recent NV w echo showing normal systolic function and stage I DD. Admitted with fatigue, exertional short of breath but CXR does not suggest decompensated heart failure. NT pro BNP is 1454. Most likely s/p from NV last week. Does not need diuretic Plan: Attend heart failure class, continue BB. No ACEI due to borderline BP NSVT (nonsustained ventricular tachycardia) 03/0911/20/2017 Overview: Hx of NSVT started on metoprolol last admission Plan: Monitor, continue metoprolol at reduced dose due to fatigue. 03/28/2017 only asymptomatic 4 beat PVC seen on tele. PLan: continue metoprolol. SUMMARY 03/22/2017 05/17/2017 Overview: 60 yo F with PMHx of HLD, former smoker (20 pack years), hypothyroidism who presented to [place] [facility] with STEMI and was transferred to [facility] for further management documented as of this encounter (statuses as of 11/18/2022) [facility] History of Past illness Narrative* Problem Noted Date Resolved Date Trigger finger 12/06/2018 12/06/2018 Chronic diastolic heart failure 03/28/2017 03/12/2018 Overview: Recent NV w echo showing normal systolic function and stage I DD. Admitted with fatigue, exertional short of breath but CXR does not suggest decompensated heart failure. NT pro BNP is 1454. Most likely s/p from NV last week. Does not need diuretic Plan: Attend heart failure class, continue BB. No ACEI due to borderline BP NSVT (nonsustained ventricular tachycardia) 03/0911/20/2017 Overview: Hx of NSVT started on metoprolol last admission Plan: Monitor, continue metoprolol at reduced dose due to fatigue. 03/28/2017 only asymptomatic 4 beat PVC seen on tele. PLan: continue metoprolol. SUMMARY 03/22/2017 05/17/2017 Overview: 60 yo F with PMHx of HLD, former smoker (20 pack years), hypothyroidism who presented to [place] [facility] with STEMI and was transferred to [facility] for further management documented as of this encounter (statuses as of 04/10/2023) [facility] History of Past illness Narrative* Problem Noted Date Diagnosed Date Resolved Date Trigger finger 12/06/2018 12/06/2018 Chronic diastolic heart failure 03/28/2017 03/12/2018 Overview: Recent NV w echo showing normal systolic function and stage I DD. Admitted with fatigue, exertional short of breath but CXR does not suggest decompensated heart failure. NT pro BNP is 1454. Most likely s/p from NV last week. Does not need diuretic Plan: Attend heart failure class, continue BB. No ACEI due to borderline BP NSVT (nonsustained ventricular tachycardia) 03/24/2017 11/20/2017 Overview: Hx of NSVT started on metoprolol last admission Plan: Monitor, continue metoprolol at reduced dose due to fatigue. 03/28/2017 only asymptomatic 4 beat PVC seen on tele. PLan: continue metoprolol. SUMMARY 03/22/2017 05/17/2017 Overview: 60 yo F with PMHx of HLD, former smoker (20 pack years), hypothyroidism who presented to [place] [facility] with STEMI and was transferred to [facility] for further management documented as of this encounter (statuses as of 07/26/2023) [facility] History of Past illness Narrative* Problem Noted Date Diagnosed Date Resolved Date Trigger finger 12/06/2018 12/06/2018 Chronic diastolic heart failure 03/28/2017 03/12/2018 Overview: Recent NV w echo showing normal systolic function and stage I DD. Admitted with fatigue, exertional short of breath but CXR does not suggest decompensated heart failure. NT pro BNP is 1454. Most likely s/p from NV last week. Does not need diuretic Plan: Attend heart failure class, continue BB. No ACEI due to borderline BP NSVT (nonsustained ventricular tachycardia) 03/24/2017 11/20/2017 Overview: Hx of NSVT started on metoprolol last admission Plan: Monitor, continue metoprolol at reduced dose due to fatigue. 03/28/2017 only asymptomatic 4 beat PVC seen on tele. PLan: continue metoprolol. SUMMARY 03/22/2017 05/17/2017 Overview: 60 yo F with PMHx of HLD, former smoker (20 pack years), hypothyroidism who presented to [place] [facility] with STEMI and was transferred to [facility] for further management documented as of this encounter (statuses as of 07/28/2023) [facility] Diagnosis Malignant neoplasm of nipple of left breast in female, estrogen receptor positive (HCC)- Primary Encounter for screening mammogram for malignant neoplasm of breast Other screening mammogram [facility] Diagnosis Malignant neoplasm of nipple of left breast in female, estrogen receptor positive (HCC) Encounter for screening mammogram for malignant neoplasm of breast Other screening mammogram [facility] Diagnosis Malignant neoplasm of nipple of left breast in female, estrogen receptor positive (HCC)- Primary Lump in chest Swelling, mass, or lump in chest Lung nodules Other nonspecific abnormal finding of lung field [facility] (current) use of aromatase inhibitors [facility] Diagnosis Malignant neoplasm of nipple of left breast in female, estrogen receptor positive (HCC) Lump in chest Swelling, mass, or lump in chest [facility] Diagnosis Malignant neoplasm of nipple of left breast in female, unspecified estrogen receptor status (HCC)- Primary [facility] [place] [facility]* Diagnosis Paroxysmal atrial fibrillation (HCC)- Primary Atrial fibrillation Atherosclerosis of [place] coronary artery of [place] heart without angina pectoris Mixed hyperlipidemia S/P primary angioplasty with coronary stent Postsurgical percutaneous transluminal coronary angioplasty status SNEHA (obstructive sleep apnea) Obstructive sleep apnea (adult) (pediatric) documented [facility] [place] [facility]* Diagnosis Malignant neoplasm of left breast in female, estrogen receptor positive, unspecified site of breast (HCC)- Primary Encounter for screening for osteoporosis Special screening for osteoporosis Age-related osteoporosis without current pathological fracture Senile osteoporosis Encounter for screening mammogram for malignant neoplasm of breast Other screening mammogram Paroxysmal atrial fibrillation (HCC) Atrial fibrillation [facility] [place] [facility]* Diagnosis Paroxysmal atrial fibrillation (HCC)- Primary Atrial fibrillation SNEHA (obstructive sleep apnea) Obstructive sleep apnea (adult) (pediatric) Obesity, Class I, BMI 30-34.9 Obesity, unspecified At risk for stroke Other specified personal history presenting hazards to health Pre-operative cardiovascular examination [facility] Diagnosis Malignant neoplasm of left breast in female, estrogen receptor positive, unspecified site of breast (HCC) Encounter for screening for osteoporosis Special screening for osteoporosis Encounter for screening mammogram for malignant neoplasm of breast Other screening mammogram documented in this encounter [facility] for referral (narrative)* Diagnostic Procedure Only (Routine) - Authorized Specialty Diagnoses / Procedures Referred By Contac t Referred To Contact [facility] Diagnoses Malignant neoplasm of nipple of left breast in female, estrogen receptor positive (HCC) Encounter for screening mammogram for malignant neoplasm of breast Procedures DEV SCREENING W MILI SCREENING DIGITAL BREAST TOMOSYNTHESIS BI SCREENING MAMMOGRAPHY BI 2-[place] [address] [place] [address] [facility] [address] [place] [address] Referral ID Status Reason Start Date Expiration Date Visits Requested Visits Authorized [id number] Authorized Auto-Generat ed Referral 12/30/2021 01/29/2023 1 1 T [facility] for referral (narrative)* Diagnostic Procedure Only (Routine) - Closed Specialty Diagnoses / Procedures Referred By Jarek quinonez Referred To Contact [facility] Diagnoses Malignant neoplasm of nipple of left breast in female, estrogen receptor positive (HCC) Encounter for screening mammogram for malignant neoplasm of breast Procedures DEV SCREENING W MILI SCREENING DIGITAL BREAST TOMOSYNTHESIS BI SCREENING MAMMOGRAPHY BI 2-[place] [address] [id number] [facility] [address] [place] [address] Referral ID Status Reason Start Date Expiration Date V isits Requested Visits Authorized [id number] Closed Auto-Generate d Referral 12/30/2021 01/29/2023 1 1 T [facility] for referral (narrative)* Diagnostic Procedure Only (Routine) - Authorized Specialty Diagnoses / Procedures Referred By Jarek quinonez Referred To Contact [facility] Diagnoses Malignant neoplasm of left breast in female, estrogen receptor positive, unspecified site of breast (HCC) Encounter for screening for osteoporosis Encounter for screening mammogram for malignant neoplasm of breast Procedures DEV SCREENING W MILI SCREENING DIGITAL BREAST TOMOSYNTHESIS BI SCREENING MAMMOGRAPHY BI 2-[place] [address] [place] [address] [facility] [address] [place] [address] Referral ID Status Reason Start Date Expiration Date Visits Requested Visits Authorized [id number] Authorized Auto-Generat ed Referral 07/14/2023 12/14/2023 1 1 [facility] for visit Narrative* Diagnostic Procedure Only (Routine) - Closed Specialty Diagnoses / Procedures Referred By Jarek quinonez Referred To Contact [facility] Diagnoses Malignant neoplasm of nipple of left breast in female, estrogen receptor positive (HCC) Encounter for screening mammogram for malignant neoplasm of breast Procedures DEV SCREENING W MILI SCREENING DIGITAL BREAST TOMOSYNTHESIS BI SCREENING MAMMOGRAPHY BI 2-[place] [address] [place] [address] [facility] [address] [facility] [place] [address] Referral ID Status Reason Start Date Expiration Date V isits Requested Visits Authorized [id number] Closed Auto-Generate d Referral 12/30/2021 01/29/2023 1 1 [facility] for visit Narrative* Diagnostic Procedure Only (Routine) - Closed Specialty Diagnoses / Procedures Referred By Jarek quinonez Referred To Contact [facility] Diagnoses Malignant neoplasm of left breast in female, estrogen receptor positive, unspecified site of breast (HCC) Encounter for screening for osteoporosis Encounter for screening mammogram for malignant neoplasm of breast Procedures DEV SCREENING W MILI SCREENING DIGITAL BREAST TOMOSYNTHESIS BI SCREENING MAMMOGRAPHY BI 2-[place] [address] [place] [address] [facility] [address] [place] [address] Referral ID Status Reason Start Date Expiration Date V isits Requested Visits Authorized [id number] Closed Auto-Generate d Referral 07/14/2023 12/14/2023 1 1 [facility] Summary Purpose Family History No Family History Records FoundNo Family History Records FoundNo Family History Records FoundNo Family History Records FoundNo Family History Records Found Advance Directives No Advanced Directives Records FoundDocuments on File Type Date Recorded 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 Advance Directive(s) Advance Directive(s) 03/10/2021 8:07 AM Advance Directive(s) 12/06/2018 11:21 AM Advance Directive(s) 09/19/2018 1:45 AM Advance Directive(s) 03/19/2018 7:35 AM Advance Directive(s) 03/28/2017 3:33 PM Advance Directive(s) 03/27/2017 9:19 AM Advance Directive(s) 03/23/2017 2:57 PM Advance Directive(s) 03/22/2017 5:17 PM Documents on File Type Date Recorded 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 Advance Directive(s) Advance Directive(s) 03/10/2021 8:07 AM Advance Directive(s) 12/06/2018 11:21 AM Advance Directive(s) 09/19/2018 1:45 AM Advance Directive(s) 03/19/2018 7:35 AM Advance Directive(s) 03/28/2017 3:33 PM Advance Directive(s) 03/27/2017 9:19 AM Advance Directive(s) 03/23/2017 2:57 PM Advance Directive(s) 03/22/2017 5:17 PM Reason for Referral Specialty Diagnoses / Procedures Referred By Contac t Referred To Contact CT IMAGING Diagnoses Malignant neoplasm of nipple of left breast in female, estrogen receptor positive (HCC) Lump in chest Procedures CT CHEST WO IVCON DIAGNOSTIC COMPUTED TOMOGRAPHY THORAX W/[place] [id number] [facility] Referral ID Status Reason Start Date Expiration Date Visits Requested Visits Authorized [id number] Authorized Auto-Generat ed Referral 04/08/2022 04/24/2023 1 1 Referral ID Status Reason Start Date Expiration Date V isits Requested Visits Authorized [id number] Closed Auto-Generate d Referral 04/08/2022 04/24/2023 1 1 Specialty Diagnoses / Procedures Referred By Contac t Referred To Contact CT IMAGING Diagnoses Paroxysmal atrial fibrillation (HCC) Procedures CTA CHEST (GATED) W IVCON CT ANGIOGRAPHY CHEST W/CONTRAST/NONCONTRAST Haseeb Ibanez MD [address] [place] [address] Ct Imaging Referral ID Status Reason Start Date Expiration Date Visits Requested Visits Authorized [id number] Pending Review Auto-Generat ed Referral 2 10/21/2023 1 1 Additional Source Comments INFORMATION SOURCE (unrecogn ized section and content) DATE CREATED AUTHOR AUTHOR'S ORGANIZ ATION 03/30/2018 [facility] DATE CREATED AUTHOR AUTHOR'S ORGANIZ ATION 11/22/2022 [facility] DATE CREATED AUTHOR AUTHOR'S ORGANIZ ATION 07/28/2023 [facility] DATE CREATED AUTHOR AUTHOR'S ORGANIZ ATION 09/03/2023 [facility] Source Comments (unrecognize d section and content) In the event this informatio n is protected by the Federal Confidentiality of Alcohol and Drug Abuse Patient Records regulations: The Federal rules restrict any use of the information to criminally investigate or prosecute any alcohol or drug abuse patient.[facility] the event this information is protected by the Federal Confidentiality of Alcohol and Drug Abuse Patient Records regulations: The Federal rules restrict any use of the information to criminally investigate or prosecute any alcohol or drug abuse patient.[facility] the event this information is protected by the Federal Confidentiality of Alcohol and Drug Abuse Patient Records regulations: The Federal rules restrict any use of the information to criminally investigate or prosecute any alcohol or drug abuse patient.[facility] the event this information is protected by the Federal Confidentiality of Alcohol and Drug Abuse Patient Records regulations: The Federal rules restrict any use of the information to criminally investigate or prosecute any alcohol or drug abuse patient.[facility] the event this information is protected by the Federal Confidentiality of Alcohol and Drug Abuse Patient Records regulations: The Federal rules restrict any use of the information to criminally investigate or prosecute any alcohol or drug abuse patient.[facility] the event this information is protected by the Federal Confidentiality of Alcohol and Drug Abuse Patient Records regulations: The Federal rules restrict any use of the information to criminally investigate or prosecute any alcohol or drug abuse patient.[facility] the event this information is protected by the Federal Confidentiality of Alcohol and Drug Abuse Patient Records regulations: The Federal rules restrict any use of the information to criminally investigate or prosecute any alcohol or drug abuse patient.[facility] the event this information is protected by the Federal Confidentiality of Alcohol and Drug Abuse Patient Records regulations: The Federal rules restrict any use of the information to criminally investigate or prosecute any alcohol or drug abuse patient.[facility] the event this information is protected by the Federal Confidentiality of Alcohol and Drug Abuse Patient Records regulations: The Federal rules restrict any use of the information to criminally investigate or prosecute any alcohol or drug abuse patient.[facility] the event this information is protected by the Federal Confidentiality of Alcohol and Drug Abuse Patient Records regulations: The Federal rules restrict any use of the information to criminally investigate or prosecute any alcohol or drug abuse patient.[facility] the event this information is protected by the Federal Confidentiality of Alcohol and Drug Abuse Patient Records regulations: The Federal rules restrict any use of the information to criminally investigate or prosecute any alcohol or drug abuse patient.[facility] the event this information is protected by the Federal Confidentiality of Alcohol and Drug Abuse Patient Records regulations: The Federal rules restrict any use of the information to criminally investigate or prosecute any alcohol or drug abuse patient.[facility] the event this information is protected by the Federal Confidentiality of Alcohol and Drug Abuse Patient Records regulations: The Federal rules restrict any use of the information to criminally investigate or prosecute any alcohol or drug abuse patient.[facility] the event this information is protected by the Federal Confidentiality of Alcohol and Drug Abuse Patient Records regulations: The Federal rules restrict any use of the information to criminally investigate or prosecute any alcohol or drug abuse patient.[facility] the event this information is protected by the Federal Confidentiality of Alcohol and Drug Abuse Patient Records regulations: The Federal rules restrict any use of the information to criminally investigate or prosecute any alcohol or drug abuse patient.[facility] the event this information is protected by the Federal Confidentiality of Alcohol and Drug Abuse Patient Records regulations: The Federal rules restrict any use of the information to criminally investigate or prosecute any alcohol or drug abuse patient.[facility] the event this information is protected by the Federal Confidentiality of Alcohol and Drug Abuse Patient Records regulations: The Federal rules restrict any use of the information to criminally investigate or prosecute any alcohol or drug abuse patient.[facility] Reason for Visit (unrecogniz ed section and content) Reason Comments Lump found at Masectomy Site Reason Comments Breast Cancer Established Patient Specialty Diagnoses / Procedures Referred By Contac t Referred To Contact CT IMAGING Diagnoses Malignant neoplasm of nipple of left breast in female, estrogen receptor positive (HCC) Lump in chest Procedures CT CHEST WO IVCON DIAGNOSTIC COMPUTED TOMOGRAPHY THORAX W/[place] [address] [place] [address] Ct Imaging Referral ID Status Reason Start Date Expiration Date V isits Requested Visits Authorized [id number] Closed Auto-Generate d Referral 04/08/2022 04/24/2023 1 1 Reason Comments Results Reason Comments Follow Up Reason Comments New Patient Evaluation afib Reason Comments Preparations For Procedures Complete EPS & PVI Ablation Reason Comments Preparations For Procedures Reason Comments Follow Up Reason Comments Cardiology Follow Up PRE OP UDATE Reason Comments Appointment Reason Onset Date Comments Refill Request 04/09/2023 Care Teams (unrecognized sec tion and content) Environmental Management Specialist Relationship Specialty Start Date End Date Dwight Vassil Physician Radiation Oncology 02/07/18 Environmental Management Specialist Relationship Specialty Start Date End Date Dwight Vassil Physician Radiation Oncology 02/07/18 Environmental Management Specialist Relationship Specialty Start Date End Date Dwight Vassil Physician Radiation Oncology 02/07/18 Environmental Management Specialist Relationship Specialty Start Date End Date Dwight Vassil Physician Radiation Oncology 02/07/18 Environmental Management Specialist Relationship Specialty Start Date End Date Dwight Vassil Physician Radiation Oncology 02/07/18 Environmental Management Specialist Relationship Specialty Start Date End Date Dwight Vassil Physician Radiation Oncology 02/07/18 Environmental Management Specialist Relationship Specialty Start Date End Date Caterina Garcia MD [address] [place], [place] [id number] PCP - General Internal Medicine 09/21/22 Dwight Vassil Physician Radiation Oncology 02/07/18 Environmental Management Specialist Relationship Specialty Start Date End Date Caterina Garcia MD [address] [place], [place] [id number] PCP - General Internal Medicine 09/21/22 Dwight Vassil Physician Radiation Oncology 02/07/18 Environmental Management Specialist Relationship Specialty Start Date End Date Caterina Garcia MD [address] [place] [address] PCP - General Internal Medicine 09/21/22 Dwight Vassil Physician Radiation Oncology 02/07/18 Environmental Management Specialist Relationship Specialty Start Date End Date Caterina Garcia MD [address] [place] [address] PCP - General Internal Medicine 09/21/22 Dwight Vassil Physician Radiation Oncology 02/07/18 Environmental Management Specialist Relationship Specialty Start Date End Date Caterina Garcia MD [address] [place] [address] PCP - General Internal Medicine 09/21/22 Dwight Vassil Physician Radiation Oncology 02/07/18 Environmental Management Specialist Relationship Specialty Start Date End Date Caterina Garcia MD [address] [place] [address] PCP - General Internal Medicine 09/21/22 Dwight Vassil Physician Radiation Oncology 02/07/18 Environmental Management Specialist Relationship Specialty Start Date End Date Caterina Garcia MD [address] [place] [address] PCP - General Internal Medicine 09/21/22 Dwight Vassil Physician Radiation Oncology 02/07/18 Environmental Management Specialist Relationship Specialty Start Date End Date Caterina Garcia MD [address] [place] [address] PCP - General Internal Medicine 09/21/22 Dwight Vera Physician Radiation Oncology 02/07/18 FOR RECORDS PERTAINING TO PATIENTS WHO ARE OR HAVE BEEN ENROLLED IN A CHEMICAL DEPENDENCY/SUBSTANCEABUSE PROGRAM, SOME INFORMATION MAY BE OMITTED. This clinical summary was aggregated from multiple sources. Caution should be exercised in using it in the provision of clinical care. This summary normalizes information from multiple sources, and as a consequence, information in this document may materially change the coding, format and clinical context of patient data. In addition, data may be omitted in some cases. CLINICAL DECISIONS SHOULD BE BASED ON THE PRIMARY CLINICAL RECORDS. [facility] [employer] [facility]. provides no warranty or guarantee of the accuracy or completeness of information in this document.
--- NOTE | 2023-12-04 10:54 | STRESSREP_ITS ---
Stress Test Report Exercise myocardial perfusion stress test. 73-year-old lady with a history of coronary disease Stress protocol: Resting EKG demonstrates normal sinus rhythm with a rate of 64 bpm resting blood pressure is 122/70 mmHg. The patient exercised according to the regular Axel protocol for a total duration of 9 minutes attaining a maximum heart rate of 137 bpm which was 94% of maximum predicted heart rate; the maximum workload was 10.1 metabolic equivalents. At rest there were no ST or T wave changes noted to suggest ischemia and at peak exercise upsloping and nonspecific ST changes only were noted which did not meet the criteria for ischemia. No clinical angina was noted the test was terminated due to the target heart rate being achiev ed/fatigue. The peak blood pressure was 168/70 mmHg. Rate-pressure product was 22,500. Myocardial perfusion protocol. 11.3 mCi of technetium 99m sestamibi was injected at rest. The patient exercis ed according to regular Axel protocol for total duration of 9 minutes and at peak exercise 33.9 mCi of technetium 99m sestamibi was injected stress images were obtained stress and rest images were reconstructed in comparing the short axis vertical long and horizontal long axis. Gated images were also obtained. Perfusion SPECT analysis: Review of the stress images demonstrate normal uptake of tracer noted in all areas of the myocardium. The resting images similarly demonstrate normal uptake of tracer noted in all areas of the myocardium. No areas of reversibility are noted to suggest ischemia no previous infarct was noted. Gated SPECT analysis: The gated ejection fraction is 71%. Conclusion: Normal exercise myocardial perfusion stress test at a high workload Preserved ejection fraction.
== END | disposition home or self-care (01) ==
LOC: CVS 07:04
PROVIDERS: PCP Internal Medicine; Referring Provider Internal Medicine Cardiovascular Disease; Visit Provider Internal Medicine Cardiovascular Disease
DX: I25.10 Atherosclerotic heart disease of native coronary artery without angina pectoris (principal); I48.0 Paroxysmal atrial fibrillation; I25.2 Old myocardial infarction; E78.5 Hyperlipidemia, unspecified; Z95.5 Presence of coronary angioplasty implant and graft
CPT/HCPCS: 78452; 93017; A9500; A4216

== ENCOUNTER → 2024-03-22 | Outpatient (CLI) | payer MEDICARE, OTHER, SELFPAY ==
[2024-03-22 15:44] LABS: Absolute Lymphocyte Count 2.35 X10^3/uL (0.83-4.51); Absolute Neutrophil Count 3.3 X10^3/uL (2.0-7.7); Basophil# 0.05 X10^3/uL; Basophil% 0.8 % (0-1); Eosinophil# 0.18 X10^3/uL; Eosinophils% 2.8 % (0-5); Hematocrit 35.6 % (37-47); Hemoglobin 11.4 g/dL (12.0-15.0); Lymphocyte # 2.35 X10^3/ul (0.83-4.51); Lymphocyte % 36.5 % (19-41); Mean Corpuscular Hgb 30.2 pg (27.0-32.0); Mean Corpuscular Volume 94.2 fL (81-99); Mean Platelet Vol. 9.7 fl (6.2-12.0); Monocyte# 0.57 X10^3/uL; Monocyte% 8.9 % (0-10); NRBC Flagged by Analyzer 0 % (0-5); Neutrophil # 3.27 X10^3/uL (2.7-7.7); Neutrophil % 50.8 % (47-70); Platelet Count 238 K/mm3 (150-450); RBC Distribution Width SD 44.7 fl (35.1-43.9); Red Blood Count 3.78 M/mm3 (4.2-5.4); White Blood Count 6.4 K/mm3 (4.4-11.0)
[2024-03-22 16:13] LABS: Vitamin D,25 Hydroxy 41.8 ng/mL
[2024-03-23 01:43] LABS: ALB/GLOB Ratio 1.2 RATIO (0.9-2.4); AST(SGOT) 30 U/L (15-37); Alanine Aminotransfer ALT/SGPT 31 U/L (13-56); Albumin, Serum 3.7 g/dL (3.2-5.0); Alkaline Phosphatase 94 U/L (45-117); Anion Gap 8 (5-15); BUN 18 mg/dL (7-18); BUN/Creat Ratio 17.1 RATIO (10-20); Calcium,Total 9.1 mg/dL (8.5-10.1); Chloride 102 mmol/L (98-107); Cholesterol 128 mg/dL (200); Creatinine, Serum 1.05 mg/dL (0.55-1.02); EST Glomerular Filtration Rate 54 mL/min (>60); Est Glom Filt Rate - Afr Amer 66 mL/min (>60); Globulin 3.2 g/dL (2.2-4.2); Glucose 87 mg/dL (74-106); High Density Lipoprotein 59 mg/dL; Protein, Total 6.9 g/dL (6.4-8.2); Sodium Level 136 mmol/L (136-145); Thyroid Stim Hormone (TSH) 1.89 uIU/mL (0.358-3.74); Triglycerides 38 mg/dL; Very Low Density Lipoprotein 8 mg/dL (5-40)
== END | disposition home or self-care (01) ==
LOC: BIMLAB 14:08
PROVIDERS: PCP Internal Medicine; Visit Provider Internal Medicine
DX: E03.9 Hypothyroidism, unspecified (principal); M85.80 Other specified disorders of bone density and structure, unspecified site
CPT/HCPCS: 36415; 80053; 80061; 82306; 84443; 85025

== ENCOUNTER → 2024-09-23 | Outpatient (CLI) | payer MEDICARE, OTHER, SELFPAY ==
[2024-09-23 15:07] LABS: Absolute Lymphocyte Count 2.14 X10^3/uL (0.83-4.51); Absolute Neutrophil Count 4.3 X10^3/uL (2.0-7.7); Basophil# 0.05 X10^3/uL; Basophil% 0.7 % (0-1); Eosinophil# 0.15 X10^3/uL; Eosinophils% 2.1 % (0-5); Hematocrit 35.9 % (37-47); Hemoglobin 11.6 g/dL (12.0-15.0); Lymphocyte # 2.14 X10^3/ul (0.83-4.51); Lymphocyte % 30.1 % (19-41); Mean Corp Hgb Conc 32.3 g/dL (32-36); Mean Corpuscular Hgb 30.7 pg (27.0-32.0); Mean Platelet Vol. 10.1 fl (6.2-12.0); Monocyte# 0.51 X10^3/uL; Monocyte% 7.2 % (0-10); NRBC Flagged by Analyzer 0 % (0-5); Neutrophil # 4.25 X10^3/uL (2.7-7.7); Neutrophil % 59.6 % (47-70); Platelet Count 217 K/mm3 (150-450); RBC Distribution Width SD 44.9 fl (35.1-43.9); Red Blood Count 3.78 M/mm3 (4.2-5.4); White Blood Count 7.1 K/mm3 (4.4-11.0)
[2024-09-23 15:58] LABS: ALB/GLOB Ratio 1.2 RATIO (0.9-2.4); AST(SGOT) 26 U/L (15-37); Alanine Aminotransfer ALT/SGPT 31 U/L (13-56); Albumin, Serum 3.5 g/dL (3.2-5.0); Alkaline Phosphatase 88 U/L (45-117); Anion Gap 6 (5-15); BUN 12 mg/dL (7-18); BUN/Creat Ratio 10.7 RATIO (10-20); Calcium,Total 8.9 mg/dL (8.5-10.1); Chloride 107 mmol/L (98-107); Creatinine, Serum 1.12 mg/dL (0.55-1.02); EST Glomerular Filtration Rate 50 mL/min (>60); Est Glom Filt Rate - Afr Amer 61 mL/min (>60); Glucose 97 mg/dL (74-106); Potassium 3.9 mmol/L (3.5-5.1); Protein, Total 6.5 g/dL (6.4-8.2); Sodium Level 138 mmol/L (136-145)
== END | disposition home or self-care (01) ==
LOC: BIMLAB 13:24
PROVIDERS: PCP Internal Medicine; Referring Provider Internal Medicine; Visit Provider Internal Medicine
DX: D64.9 Anemia, unspecified (principal); N18.30 Chronic kidney disease, stage 3 unspecified; E03.9 Hypothyroidism, unspecified
CPT/HCPCS: 36415; 80053; 84443; 85025

== ENCOUNTER → 2024-10-31 | Outpatient (CLI) | payer MEDICARE, OTHER, SELFPAY ==
--- NOTE | 2024-10-31 10:41 | RAD_ITS ---
STUDY: X-RAY - PELVIS AND LEFT HIP REASON FOR EXAM: Female, 74 years old. Hip injury. TECHNIQUE: 3 views of the pelvis and left hip. COMPARISON: None. FINDINGS: There is a non-specific bowel gas pattern. Normal visualized soft tissue structures. Normal bilateral iliac wings, sacroiliac joints and visualized sacrum. Normal bilateral superior and inferior pubic rami. 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 Normal bilateral ischial tuberosities. Normal visualized femoral head. Normal acetabulum. Normal hip joint. There is no demonstrated acute fracture. RAD/HIP, UNI W/ Pelvis 2-3 Views IMPRESSION: Mild pubic symphysis arthrosis. No demonstrated acute fracture. Electronically Signed: Tello Ledesma MD at 10:53 EST ,
== END | disposition home or self-care (01) ==
LOC: MTRAD 10:40
PROVIDERS: PCP Internal Medicine; Referring Provider Physician Assistant Surgical; Visit Provider Physician Assistant Surgical
DX: S76.912A Strain of unspecified muscles, fascia and tendons at thigh level, left thigh, initial encounter (principal)
CPT/HCPCS: 73502

== ENCOUNTER → 2025-01-22 | Outpatient (CLI) | payer MEDICARE, OTHER, SELFPAY ==
[2025-01-24 08:08] LABS: Rubeola IgG Ab > 300.0 AU/mL (Immune >16.4)
== END | disposition home or self-care (01) ==
LOC: BIMLAB 13:22
PROVIDERS: PCP Internal Medicine; Referring Provider Internal Medicine; Visit Provider Internal Medicine
DX: Z01.84 Encounter for antibody response examination (principal)
CPT/HCPCS: 36415; 86765

== ENCOUNTER → 2025-04-22 | Outpatient (CLI) | payer MEDICARE, OTHER, SELFPAY ==
--- NOTE | 2025-04-22 15:27 | MRI_ITS ---
PROCEDURE: SPINE LUMBAR (ROUTINE) 04/22/2025 REASON FOR EXAM: PAIN, DDD TECHNIQUE: SPINE LUMBAR (ROUTINE) COMPARISON: Lumbar spine x-ray, 04/16/2025. FINDINGS: Vertebrae: There are no compression fractures. Alignment: There is loss of the normal lumbar lordosis. Conus Medullaris: The conus medullaris terminates normally at the T12-L1 level. There are Schmorl's nodes on both of the vertebral endplates T11-12 and T12-L1 with associated loss of disc height. There are Tarlov cysts, bilaterally, at the T11-12 and T12-L1 levels. L1-2: There is mild disc degeneration. There are Schmorl's nodes in the vertebral endplates endplate with associated disc height loss. There is a broad-based central and left central disc protrusion. There is bilateral facet arthropathy with ligamentum flavum bulging. There is mild compression of the thecal sac. There is a Tarlov cyst on the left. L2-3: There is mild disc degeneration. There are Schmorl's nodes in the vertebral endplates on either side of the intervertebral disc. There is almost complete loss of the intervertebral disc height. There is a broad-based central disc protrusion. There is moderate bilateral facet arthropathy with ligamentum flavum bulging. There is a centrally oriented spur from the right facet joint. There is compression of the thecal sac, and there is central canal stenosis with the AP dimension of the spinal canal measuring 9 mm. There is moderate lateral recess stenosis and foraminal narrowing bilaterally. L3-4: There is a broad-based central disc protrusion. There is a left lateral recess disc extrusion which extends 6 mm inferiorly behind the L4 vertebral body. The disc extrusion measures 9 mm in transverse dimension and 6 mm in AP dimension. There is moderate bilateral facet arthropathy with ligamentum flavum bulging. There is compression of the thecal sac without central canal stenosis. There is 4 mm of degenerative retrolisthesis of L3 on L4. There is abnormal endplate signal on either side of the intervertebral disc consistent with bone marrow edema (type 1 Modic signal). There is severe lateral recess stenosis and medial displacement of the left L4 nerve root sleeve. There is moderate lateral recess stenosis on the right. There is moderate foraminal narrowing, bilaterally. L4-5: There is moderate disc degeneration. There is a broad-based central disc protrusion. There is moderate bilateral facet arthropathy with ligamentum flavum bulging. There is compression of the thecal sac without central canal stenosis. There is mild lateral recess stenosis and moderate foraminal narrowing bilaterally. L5-S1: There is minimal disc degeneration. There is moderate bilateral facet arthropathy with ligamentum flavum bulging. There is no central canal stenosis, lateral recess stenosis or foraminal narrowing. Sacrum: The visualized portion of the sacrum is unremarkable. The paravertebral soft tissues appear unremarkable. MRI/Spine Lumbar (Routine) IMPRESSION: 1. Schmorl's nodes at the vertebral endplates T11-12 through L2-3 with associa aure loss in disc height. 2. There are disc protrusions at L2-3 through L4-5 with central canal stenosis at the L2-3 level. 3. There is multilevel facet arthropathy with compression of the thecal sac. 4. There is degenerative grade 1 retrolisthesis of L3 on L4 with associated en dplate bone marrow edema, which can be symptomatic. 5. There is lateral recess stenosis and/or foraminal narrowing at multiple lev els as described. 6. There are Tarlov cysts, on the left, at the T11-12 through L1-2 levels and on the right at the T11-12 and T12-L1 levels. These are perineural cysts which are usually asymptomatic, but which can cause neurologic symptoms. Reading Location: [place] [id number]
== END | disposition home or self-care (01) ==
LOC: MRI 15:26
PROVIDERS: PCP Internal Medicine; Referring Provider Student in an Organized Health Care Education/Training Program; Visit Provider Student in an Organized Health Care Education/Training Program
DX: M51.362 Other intervertebral disc degeneration, lumbar region with discogenic back pain and lower extremity pain (principal)
CPT/HCPCS: 72148

== ENCOUNTER → 2025-05-22 | Outpatient (CLI) | payer MEDICARE, OTHER, SELFPAY ==
--- OUTSIDE RECORDS SUMMARY | 2025-05-22 06:54 | XMS RPT_ITS | CCD ---
Author Organization [facility]iniSym[facility] Care Team Providers Care Soaker Helper Name Role Phone RADHAMES VELAZQUEZ Unavailable Unavailable IMCA Unavailable Unavailable IMCA Unavailable Unavailable RADHAMES VELAZQUEZ Unavailable Unavailable DANITZA GALINDO Unavailable Unavailable IMCA Unavailable Unavailable KEI RODRIGUEZ Unavailable Unavailable KEI RODRIGUEZ Unavailable Unavailable Christopher Abreu MD Primary Care Provider [phone] Dr. Caterina Garcia Primary Care Provider [phone] Dr. Caterina Garcia Referring Provider [phone] Dr. Charlene Mckenzie Attending Provider [phone] Dr. Caterina Garcia Attending Provider [phone] Unavailable Primary Care Provider Unavailabl e Dr. Caterina Garcia Primary Care Provider [phone] Dr. Caterina Garcia Referring Provider [phone] Dixon HONG, WEB USER EXPERIENCE STRATEGIST-C Jose David Attending Provider [phone] Dr. Naerndra Triplett Attending Provider Dr. Caterina Garcia Attending Provider [phone] Dr. Caterina Garcia Primary Care Provider [phone] Dr. Caterina Garcia Referring Provider [phone] Dr. Mery Casas Attending Provider Caterina Garcia MD Primary Care Provider [phone] Dr. Caterina Garcia Primary Care Provider [phone] Dr. Caterina Garcia Referring Provider [phone] Dr. Mery Casas Attending Provider JOSSELIN Ureña Attending Provider JOSSELIN Ureña Referring Provider JOSSELIN Ureña Other Provider Dr. Michael Lima Attending Provider JIMI MOON Attending Unavailable OLEGHE, EFEWONGBE B Primary Care Unavailable MATTO, HASEEB Referring Unavailable OLEGHE, EFEWONGBE B Primary Care Unavailable MATTO, HASEEB Attending Unavailable JOSE, EFEWONGBE B Primary Care Unavailable Dr. Caterina Garcia Primary Care Provider [phone] Dr. Caterina Garcia Referring Provider [phone] Dr. Caterina Garcia Attending Provider [phone] Dr. Caterina Garcia Primary Care Provider [phone]) Dr. Caterina Garcia Attending Provider [phone] Dr. Caterina Garcia Referring Provider [phone] Dr. Caterina Garcia Primary Care Provider [phone]) Dr. Caterina Garcia Attending Provider [phone] Dr. Caterina Garcia Referring Provider [phone] Dr. Narendra Triplett Attending Provider [phone] Dr. Narendra Triplett Referring Provider [phone] Dr. Narendra Triplett Other Provider Caterina Garcia MD Primary Care Provider 1([phone] Caterina Garcia MD Primary Care Provider [phone] Dr. Caterina Garcia MD Primary Care Provider Dr. Caterina Garcia MD Referring Provider [phone] Dr. Narendra Triplett MD Attending Provider Titus Ambriz Attending Provider Titus Ambriz Referring Provider Drake Waddell Attending Provider [phone] Jose LESLIE, Dr. Diggs Attending Provider [phone] Jose LESLIE, Dr. Diggs Primary Care Provider Jose LESLIE, Dr. Diggs Referring Provider [phone] Uziel LESLIE, Dr. Mackey Attending Provider [phone] Jose LESLIE, Dr. Diggs Primary Care Provider Jose LESLIE, Dr. Diggs Referring Provider [phone] Corie Reddy Attending Provider [phone] Uziel LESLIE, Dr. Mackey Attending Provider MOIZ, TANVI Referring Unavailable OLEGHE, EFEWONGBE B Primary Care Unavailable URI HARRINGTON Attending Unavailable OLEGHE, EFEWONGBE B Primary Care Unavailable Corie Reddy Referring Provider OLEGHE, EFEWONGBE B Primary Care Unavailable RIHCIE KNIGHT Attending Unavailable YISSEL ELLSWORTH Attending Unavailable OLEGHE, EFEWONGBE B Primary Care Unavailable MOIZ, TANVI Referring Unavailable OLEGHE, EFEWONGBE B Primary Care Unavailable MOIZ, TANVI Attending Unavailable OLEGHE, EFEWONGBE B Primary Care Unavailable Richardson LESLIE, Dr. Juarez Attending Provider Oleghe, Efewongbe Primary Care Unavailable Carlos A Gonzalez Attending Unavailabl e Carlos A Gonzalez Referring Unavailabl Corie Canas Attending Unavailable Corie Mulligan Referring Unavailable Oleghe, Efewongbe Primary Care Unavailable Oleghe, Efewongbe Primary Care Unavailable Oleghe, Efewongbe Attending Unavailable Oleghe, Efewongbe Referring Unavailable Oleghe, Efewongbe Primary Care Unavailable Titus Ambriz Attending Unavailable Titus Ambriz Referring Unavailable Oleghe, Efewongbe Primary Care Unavailable Oleghe, Efewongbe Attending Unavailable Oleghe, Efewongbe Referring Unavailable Oleghe, Efewongbe Primary Care Unavailable Oleghe, Efewongbe Attending Unavailable Oleghe, Efewongbe Referring Unavailable Oleghe, Efewongbe Referring Unavailable Corie Mulligan Attending Unavailable Oleghe, Efewongbe Primary Care Unavailable Uziel, [place] Attending Unavailable Oleghe, Efewongbe Primary Care Unavailable Oleghe, Efewongbe Primary Care Unavailable Oleghe, Efewongbe Referring Unavailable Ngoc Baiag Attending Unavailable Oleghe, Efewongbe Primary Care Unavailable Oleghe, Efewongbe Attending Unavailable Oleghe, Efewongbe Referring Unavailable Uziel, [place] Attending Unavailable Oleghe, Efewongbe Primary Care Unavailable Oleghe, Efewongbe Referring Unavailable Oleghe, Efewongbe Primary Care Unavailable Titus Ambriz Attending Unavailable Oleghe, Efewongbe Referring Unavailable Drake Waddell Attending Unavailable Oleghe, Efewongbe Primary Care Unavailable Oleghe, Efewongbe Referring Unavailable Oleghe, Efewongbe Primary Care Unavailable Uziel, [place] Attending Unavailable Allergies Allergy Classification Reported Allergen(s) Allergy Type Date of Onset Reaction(s) Facility (20 sources) iodine; Translations: [IODINE] Drug Allergy 8 Itching [facility] (14 sources) Tamoxifen Drug Allergy 2 hair loss/abnormal discharge [facility] (1 source) Tamoxifen Drug Allergy 5 [facility] Medications Current Medications Medication Drug Class(es) Dates Sig (Normalized) Sig (Original) anastrozole 1 mg oral tablet (20 sources) Aromatase Inhibitor Start: 03-02-2021 End: 02-21-2026 take 1 tablet by mouth once daily Anastrozole 1 mg tablet Active 1 mg PO DAILY May 24, 2021 10:00am Comment on above: Take 1 tablet by michaela th once daily. aspirin 81 mg delayed release oral tablet (20 sources) Platelet Aggregation Inhibitor, Nonsteroidal Anti-inflammatory Drug Start: 05-17-2017 take 1 tablet by mouth once daily Aspirin 81 mg tablet,delayed release (DR/EC) Active 81 mg PO DAILY July 21, 2020 12:00am Comment on above: Take 1 tablet by michaela th once daily. exemestane 25 mg oral tablet (1 source) Aromatase Inhibitor Start: 05-02-2025 End: 07-31-2025 take 1 tablet by mouth once daily exemestane (AROMASIN) 25 mg tablet Take 1 tablet by mouth once daily. 90 tablet 3 05/02/2025 07/31/2025 Active MULTI-VITAMIN ORAL (11 sources) MULTI-VITAMIN ORAL Take by mouth once daily. Active MULTI-VITAMIN OR AL Take by mouth once daily. 0 Active Comment on above: Take by mouth once d aily. Oral Sleep Appliance (14 sources) Start: 07-13-2021 Oral Sleep Appliance Active 0 .Route .MEDSUPPLY 1 July 13, 2021 3:50pm As directed Start: 07-13-2021 Oral Sleep Nakita liance Active 0 .Route .MEDSUPPLY 1 July 13, 2021 12:00am Obstructive sleep apnea syndrome Obstructive sleep apnea (adult) (pediatric) As directed Start: 07-13-2021 Oral Sleep Nakita liance Active 0 .Route .MEDSUPPLY July 12, 2021 11:00pm As directed Start: 07-13-2021 Oral Sleep Nakita liance Active 0 .Route .MEDSUPPLY July 13, 2021 12:00am As directed pantoprazole 40 mg delayed release oral tablet (20 sources) Proton Pump Inhibitor Start: 03-24-2025 take 1 tablet by mouth once daily Pantoprazole 40 mg tablet,delayed release (DR/EC) Active 40 mg PO DAILY March 24, 2025 1:09pm Start: 03-21-2023 End: 03-24-2025 Pantoprazole 40 mg tablet,de layed release (DR/EC) Discontinued 20 mg PO DAILY March 21, 2023 2:45pm March 24, 2025 1:09pm Start: 03-21-2023 take 20 mg by mouth once daily Pantoprazole Active 20 MG PO DAILY March 21, 2023 1:45pm Start: 09-21-2022 End: 03-21-2023 take 1 tablet by mouth once daily Pantoprazole 40 mg tablet,delayed release (DR/EC) Discontinued 40 mg PO DAILY October 14, 2022 1:00am March 21, 2023 2:45pm Start: 03-02-2021 End: 07-13-2022 take 1 tablet by mouth once daily Pantoprazole 40 mg tablet,delayed release (DR/EC) Discontinued 40 mg PO DAILY March 02, 2021 12:00am July 13, 2022 3:41pm Start: 04-03-2018 End: 10-14-2022 take 1 tablet by mouth once daily Pantoprazole 20 mg tablet,delayed release (DR/EC) Discontinued 20 mg PO DAILY July 13, 2022 12:00am October 14, 2022 2:37pm Comment on above: Take 1 tablet by michaela th once daily. ubidecarenone 30 mg oral capsule (14 sources) Start: 07-21-2020 Coenzyme Q10 (Coq-10) 30 mg capsule Active 30 mg PO DAILY July 21, 2020 12:00am ubidecarenone (COQ-10 ORAL) (20 sources) ubidecarenone (C OQ-10 ORAL) Take by mouth once daily. Active ubidecarenone (C OQ-10 ORAL) Take by mouth once daily. 0 Active Comment on above: Take by mouth once d aily. Completed/Discontinued Medications Medication Drug Class(es) Dates Sig (Normalized) Sig (Original) acetaminophen 500 mg oral tablet (13 sources) Start: 01-27-2022 End: 09-07-2022 take 1 tablet by mouth every six hours as needed Acetaminophen (Tylenol Extra Strength) 500 mg tablet Discontinued 500 mg PO EVERY 6 HOURS as needed January 27, 2022 12:00am September 07, 2022 11:50am alendronic acid 70 mg oral tablet (17 sources) Bisphosphonate Start: 07-21-2020 End: 05-21-2022 take 1 tablet by mouth every week Alendronate 70 mg tablet Discontinued 70 mg PO EVERY WEEK July 21, 2020 12:00am July 28, 2021 9:04am Comment on above: Take 1 tablet by michaela one time a week. amiodarone hydrochloride 200 mg oral tablet (20 sources) Antiarrhythmic Start: 09-07-2022 End: 08-13-2024 Amiodarone 200 mg tablet Discontinued 100 mg PO DAILY 45 3 August 24, 2023 1:39pm August 13, 2024 1:47pm Start: 09-07-2022 End: 08-24-2023 take 100 mg by mouth once daily Amiodarone Discontinue d 100 MG PO DAILY February 16, 2023 12:49pm August 24, 2023 12:39pm Start: 03-05-2021 End: 09-07-2022 take 1 tablet by mouth once daily Amiodarone 200 mg tablet Discontinued 200 mg PO DAILY 90 March 08, 2022 11:11am September 07, 2022 12:21pm Start: 03-05-2021 End: 03-18-2021 take 1 tablet by mouth twice daily, then take 1 tablet by mouth once daily Amiodarone 200 mg tablet Discontinued 200 mg PO TWICE A DAY 28 March 05, 2021 12:00am March 18, 2021 9:05am Take one tablet by mouth twice daily for 14 days then one tablet daily Comment on above: Take 200 mg by mouth once daily. apixaban 5 mg oral tablet (20 sources) Factor Xa Inhibitor Start: End: take 1 tablet by mouth twice daily Apixaban (Eliquis) 5 mg tablet Discontinued 5 mg PO TWICE A DAY 180 November 17, 2023 11:45am October 29, 2024 11:09am Comment on above: Take 5 mg by mouth t wice daily. atorvastatin 40 mg oral tablet (20 sources) HMG-CoA Reductase Inhibitor Start: End: take 1 tablet by mouth once daily Atorvastatin 40 mg tablet Discontinued 40 mg PO DAILY 90 November 17, 2023 2:05pm November 04, 2024 10:40am Start: 03-08-2022 End: 09-07-2022 take 1 tablet by mouth once daily Atorvastatin 20 mg tablet Discontinued 20 mg PO DAILY March 08, 2022 11:10am September 07, 2022 12:21pm Start: 04-06-2020 End: 03-08-2022 take 1 tablet by mouth once daily Atorvastatin 80 mg tablet Discontinued 80 mg PO DAILY March 18, 2021 9:06am March 08, 2022 11:11am Comment on above: Take 1 tablet by michaela th once daily. biotin 5 mg oral capsule (17 sources) Start: 04-14-2021 End: 05-24-2021 take 1 capsule by mouth once daily Biotin 5 mg capsule Discontinued 5 mg PO DAILY April 14, 2021 12:00am May 24, 2021 9:59am End: 03-25-2022 BIOTIN ORAL Take by mouth. 0 03/25/2022 Discontinued (Course of therapy completed) BIOTIN ORAL Take by mouth. 0 Active Comment on above: Take by mouth. COMPOUNDED PRESCRIPTION (3 sources) Start: 07-21-2017 End: 03-25-2022 COMPOUNDED PRESCRIPTION CPAP 8 cmH2O with humidification. A small ResMed AirFit F10 full face mask without chin strap is preferred but patient preference is ok. INclude all related material tubing, filters, etc. Refills: lifetime 1 Device 07/21/2017 03/25/2022 Discontinued (Course of therapy completed) Start: 07-21-2017 COMPOUNDED PRE SCRIPTION CPAP 8 cmH2O with humidification. A small ResMed AirFit F10 full face mask without chin strap is preferred but patient preference is ok. INclude all related material tubing, filters, etc. Refills: lifetime 1 Device 07/21/2017 Active Comment on above: CPAP 8 cmH2O with hu midification. A small ResMed AirFit F10 full face mask without chin strap is preferred but patient preference is ok. INclude all related material tubing, filters, etc. Refills: lifetime cyclobenzaprine hydrochloride 10 mg oral tablet (14 sources) Muscle Relaxant Start: 022 End: 023 take 5-10 mg by mouth at bedtime as needed for muscle spasms Cyclobenzaprine 10 mg tablet Discontinued 5 - 10 mg PO BEDTIME as needed for muscle spasm 30 January 27, 2022 12:00am March 21, 2023 2:45pm Start: 01-27-2022 End: 03-21-2023 take 5-10 mg by mouth at bedtime Cyclobenzaprine Discontinued 5 - 10 MG PO BEDTIME January 26, 2022 11:00pm March 21, 2023 1:45pm Comment on above: Take by mouth. ezetimibe 10 mg oral tablet (20 sources) Dietary Cholesterol Absorption Inhibitor Start: 2019 End: 2024 take 1 tablet by mouth once daily Ezetimibe 10 mg tablet Discontinued 10 mg PO DAILY 90 3 November 17, 2023 2:34pm January 21, 2025 9:04am Comment on above: Take 1 tablet by michaela th once daily. levothyroxine sodium 0.1 mg oral tablet (20 sources) l-Thyroxine Start: 2019 End: 2023 take 1 tablet by mouth once daily Levothyroxine 100 mcg tablet Discontinued 100 ug PO DAILY 90 3 October 12, 2023 12:45pm September 25, 2024 1:20pm Comment on above: Take 1 tablet by michaela th DAILY (6 AM). lisinopril 2.5 mg oral tablet (17 sources) Angiotensin Converting Enzyme Inhibitor Start: 2019 End: 2021 take 1 tablet by mouth once daily Lisinopril 2.5 mg tablet Discontinued 2.5 mg PO DAILY July 21, 2020 12:00am March 18, 2021 9:08am Comment on above: Take 1 tablet by michaela th once daily. methylPREDNISolone 4 mg oral tablet (6 sources) Corticosteroid Start: 2024 End: 2024 take 1 tablet by mouth once Methylprednisolone (Medrol (Gatito)) 4 mg tablets,dose pack Discontinued 4 mg PO per package directions 21 6 0 October 31, 2024 1:00am November 05, 2024 1:00am November 06, 2024 1:09am metoprolol tartrate 25 mg oral tablet (20 sources) beta-Adrenergic Bree Start: 2020 End: 2024 take 1 tablet by mouth twice daily Metoprolol Tartrate 25 mg tablet Discontinued 25 mg PO TWICE A DAY 180 3 April 01, 2024 8:24am March 10, 2025 9:02am Comment on above: Take 25 mg by mouth twice daily. metroNIDAZOLE 500 mg oral tablet (20 sources) Nitroimidazole Antimicrobial Start: 2020 End: 2020 take 1 tablet by mouth twice daily Metronidazole 500 mg tablet Discontinued 500 mg PO TWICE A DAY 14 7 0 September 20, 2021 1:00am September 26, 2021 1:00am September 27, 2021 1:01am Start: 05-24-2021 End: 05-31-2021 take 1 tablet by mouth twice daily Metronidazole (Flagyl) 500 mg tablet Discontinued 500 mg PO TWICE A DAY 14 7 0 May 24, 2021 12:00am May 30, 2021 12:00am May 31, 2021 12:01am nitroglycerin 0.4 mg sublingual tablet (20 sources) Nitrate Vasodilator Start: 09-03-2019 End: 04-16-2025 Nitroglycerin 0.4 mg tablet, sublingual Discontinued 0.4 mg SL every 5 to 15 minutes as needed for chest pain 25 2 March 21, 2023 2:46pm April 16, 2025 2:05pm do not exceed 3 doses per episode Comment on above: Dissolve 1 tablet un pérez the tongue every 5 minutes as needed. ofloxacin 3 mg/ml ophthalmic solution (14 sources) Quinolone Antimicrobial Start: 07-28-2021 End: 05-17-2022 take 0.3 drop(s) into the eye(s) twice daily Ofloxacin 0.3 % drops Discontinued 1 NMA OPHTHALMIC TWICE A DAY July 28, 2021 12:00am May 17, 2022 9:40am tamoxifen 20 mg oral tablet (14 sources) Estrogen Agonist/Antagonist Start: 07-21-2020 End: 03-02-2021 take 1 tablet by mouth once daily Tamoxifen 20 mg tablet Discontinued 20 mg PO DAILY July 21, 2020 12:00am March 02, 2021 9:10am Problems Active Problems Problem Classification Problem Date Documented Date Episodic/Chronic Abdominal pain (14 sources) Right lower quadrant pain; Translations: [Right lower quadrant pain] 06-20-2021 Episodic Comment on above: pelvic us reviewed, pain resolved Cancer of breast (20 sources) Malignant neoplasm of female breast; Translations: [Malignant neoplasm of nipple and areola, left female breast] Onset: 01-12-2018 Chronic Comment on above: Left Cardiac dysrhythmias (20 sources) Paroxysmal atrial fibrillation; Translations: [Paroxysmal atrial fibrillation] Onset: 03-24-2017 Resolved: 11-20-2017 Chronic Cardiac dysrhythmias (14 sources) Intermittent palpitations; Translations: [Palpitations] 07-26-2021 Episodic Chronic kidney disease (15 sources) Chronic kidney disease stage 3; Translations: [Stage 3 chronic kidney disease] Chronic Chronic kidney disease (1 source) Chronic kidney disease; Translations: [Chronic kidney disease, stage 3 unspecified] Onset: 09-23-2024 Congestive heart failure; nonhypertensive (6 sources) Chronic diastolic heart failure; Translations: [Chronic diastolic (congestive) heart failure] Onset: 03-28-2017 Resolved: 03-12-2018 03-12-2018 Chronic Coronary atherosclerosis and other heart disease (20 sources) Coronary atherosclerosis; Translations: [Atherosclerotic heart disease of [place] coronary artery without angina pectoris] Onset: 03-22-2017 03-28-2017 Chronic Deficiency and other anemia (6 sources) Anemia; Translations: [Anemia, unspecified] 03-25-2024 Episodic Diseases of mouth; excluding dental (9 sources) Oral lesion; Translations: [Unspecified lesions of oral mucosa] 06-14-2023 Episodic Disorders of lipid metabolism (20 sources) Mixed hyperlipidemia; Translations: [Mixed hyperlipidemia] Onset: 03-22-2017 03-27-2017 Chronic Esophageal disorders (11 sources) Gastroesophageal reflux disease; Translations: [Gastro-esophageal reflux disease without esophagitis] Onset: 09-23-2024 09-23-2024 Chronic Headache; including migraine (15 sources) Chronic tension-type headache; Translations: [Chronic tension-type headache, not intractable] Chronic Inflammatory diseases of female pelvic organs (15 sources) Vaginitis; Translations: [Acute vaginitis] Episodic Comment on above: ? sec to SERM. ie wed US and declined surgery at this time. Osteoporosis (3 sources) Senile osteoporosis; Translations: [Age-related osteoporosis without current pathological fracture] Onset: 02-26-2025 Chronic Other acquired deformities (2 sources) Retrolisthesis; Translations: [Spondylolisthesis, site unspecified] 05-06-2025 Episodic Other aftercare (2 sources) Long-term current use of aromatase inhibitor; Translations: [exterminator (current) use of aromatase inhibitors] Episodic Other aftercare (1 source) halfway (current) use of aromatase inhibitors; Translations: [halfway (current) use of aromatase inhibitors] Onset: 02-26-2025 Episodic Other bone disease and musculoskeletal deformities (14 sources) Osteopenia with high fracture risk; Translations: [Other specified disorders of bone density and structure, unspecified site] 11-30-2021 Episodic Other bone disease and musculoskeletal deformities (2 sources) Other specified disorders of bone density and structure, unspecified site; Translations: [Disorder of bone and cartilage, unspecified] Episodic Other bone disease and musculoskeletal deformities (4 sources) Bone density below reference range; Translations: [Disorder of bone density and structure, unspecified] 04-16-2025 Episodic Other connective tissue disease (6 sources) Thigh pain; Translations: [Pain in left thigh] 02-20-2024 Episodic Other connective tissue disease (8 sources) Trochanteric bursitis; Translations: [Trochanteric bursitis, left hip] 12-11-2024 Episodic Other connective tissue disease (8 sources) Iliotibial band friction syndrome of left knee; Translations: [Iliotibial band syndrome, left leg] 12-11-2024 Episodic Other diseases of veins and lymphatics (14 sources) Vascular insufficiency; Translations: [Venous insufficiency (chronic) (peripheral)] 04-14-2021 Episodic Other liver diseases (8 sources) Elevated liver enzymes level; Translations: [Abnormal levels of other serum enzymes] 2023 Episodic Other liver diseases (2 sources) Abnormal levels of other serum enzymes; Translations: [Other nonspecific abnormal serum enzyme levels] 09-21-2023 Episodic Other lower respiratory disease (1 source) Multiple nodules of lung; Translations: [Other nonspecific abnormal finding of lung field] Episodic Other nervous system disorders (1 source) Other chronic pain; Translations: [Other chronic pain] Onset: 12-11-2024 Chronic Other nervous system disorders (11 sources) Other disturbances of skin sensation; Translations: [Burning sensation of mouth] 09-21-2023 Episodic Other non-traumatic joint disorders (8 sources) Hip pain; Translations: [Pain in left hip] 12-11-2024 Episodic Other nutritional; endocrine; and metabolic disorders (20 sources) Obese class I; Translations: [Obesity, unspecified] Onset: 11-11-2019 11-11-2019 Chronic Other nutritional; endocrine; and metabolic disorders (1 source) Obesity, unspecified; Translations: [Obesity, Class I, BMI 30-34.9] Onset: 11-11-2019 Chronic Other screening for suspected conditions (not mental disorders or infectious disease) (15 sources) Endometrium thickened; Translations: [Abnormal findings on diagnostic imaging of other specified body structures] Chronic Comment on above: 05/29- 8mm 09/28- 6.5 heterogenous. desires exp management. repeat us in 4-6 mo, d and c hysteroscopy if desired, has any bleeding, or increased thickness Other screening for suspected conditions (not mental disorders or infectious disease) (9 sources) Patient encounter status; Translations: [Encounter for screening mammogram for malignant neoplasm of breast] Onset: 02-26-2025 Episodic Other skin disorders (2 sources) Mass of thoracic structure; Translations: [Localized swelling, mass and lump, trunk] Episodic Residual codes; unclassified (20 sources) Obstructive sleep apnea syndrome; Translations: [Obstructive sleep apnea (adult) (pediatric)] Onset: 09-25-2017 09-25-2017 Chronic Residual codes; unclassified (4 sources) Obstructive sleep apnea (adult) (pediatric); Translations: [Obstructive sleep apnea (adult)(pediatric)] Onset: 09-25-2017 Chronic Spondylosis; intervertebral disc disorders; other back problems (5 sources) Degeneration of lumbar intervertebral disc; Translations: [Degenerative disc disease (DDD) of lumbar region with discogenic back pain and leg pa] 04-16-2025 Chronic Spondylosis; intervertebral disc disorders; other back problems (20 sources) Low back pain; Translations: [Low back pain] Onset: 04-16-2025 12-11-2024 Episodic Superficial injury; contusion (8 sources) Contusion of hip; Translations: [Contusion of left hip, initial encounter] Onset: 10-21-2024 11-01-2024 Episodic Thyroid disorders (20 sources) Acquired hypothyroidism; Translations: [Hypothyroidism, unspecified] Onset: 03-22-2017 03-27-2017 Chronic Unclassified (1 source) Unknown / UNK(Unknown) Onset: 01-03-2018 Unclassified (2 sources) M76.32 - Iliotibial band syndrome, left leg,M70.62 - Trochanteric bursitis, left hip,M54.50 - Low back pain, unspecified,G89.29 - Other chronic pain Unclassified (1 source) Other intervertebral disc degeneration, lumbar region with discogenic back pain and lower extremity pain; Translations: [Other intervertebral disc degeneration, lumbar region with discogenic back pain and lower extremity pain] Onset: 04-28-2025 Unclassified (1 source) Low back pain, unspecified; Translations: [Low back pain, unspecified] Onset: 12-16-2024 Past or Other Problems Problem Classification Problem Date Documented Da te Episodic/Chronic Coronary atherosclerosis and other heart disease (20 sources) Patient post percutaneous transluminal coronary angioplasty; Translations: [Coronary angioplasty status] Onset: 03-22-2017 03-28-2017 Episodic Deficiency and other anemia (1 source) Anemia, unspecified; Translations: [Anemia, unspecified] Onset: 10-22-2024 Episodic Inflammation; infection of eye (except that caused by tuberculosis or sexually transmitteddisease) (20 sources) Superficial keratitis of right eye; Translations: [Unspecified superficial keratitis, right eye] Onset: 11-21-2018 11-21-2018 Episodic Malaise and fatigue (20 sources) Fatigue; Translations: [Other fatigue] Onset: 03-27-2017 03-28-2017 Episodic Other connective tissue disease (6 sources) Triggering of digit; Translations: [Trigger finger, unspecified finger] Onset: 12-06-2018 Resolved: 12-06-2018 12-06-2018 Episodic Other connective tissue disease (1 source) Iliotibial band syndrome, left leg; Translations: [Iliotibial band syndrome, left leg] Onset: 12-11-2024 Episodic Other connective tissue disease (1 source) Trochanteric bursitis, left hip; Translations: [Trochanteric bursitis, left hip] Onset: 12-11-2024 Episodic Other injuries and conditions due to external causes (1 source) Unspecified injury of head, initial encounter; Translations: [Injury of head, initial encounter] Onset: 10-21-2024 Episodic Other injuries and conditions due to external causes (1 source) Unspecified injury of unspecified hip, initial encounter; Translations: [Unspecified injury of unspecified hip, initial encounter] Onset: 10-31-2024 Episodic Other non-traumatic joint disorders (9 sources) Pain in left knee; Translations: [Left knee pain] Onset: 12-16-2024 12-11-2024 Episodic Residual codes; unclassified (13 sources) Other specified personal risk factors, not elsewhere classified; Translations: [Other specified personal history presenting hazards to health] Onset: 11-18-2022 Episodic Residual codes; unclassified (2 sources) Estrogen receptor positive status [ER+]; Translations: [Malignant neoplasm of left breast in female, estrogen receptor positive, unspecified site of breast (HCC)] Onset: 01-12-2018 Episodic Sprains and strains (1 source) Strain of unspecified muscles, fascia and tendons at thigh level, left thigh, initial encounter; Translations: [Strain of unspecified muscles, fascia and tendons at thigh level, left thigh, initial encounter] Onset: 11-18-2024 Episodic Unclassified (6 sources) SUMMARY Onset: 03-22-2017 Resolved: 05-17-2017 05-17-2017 Results Test Name Value Interpretation Reference Range Facility Orthopedic Visit Reporton Orthopedic Visit Report [facility] [address] [place] [address] [address] [place] [address] OFFICE VISIT Date of Service: 05/06/25 MR#: [id number] Acct: [id number] Name: MELISSA PERRY Rep #: [id number] : 1950 Provider: Dr. Larry Bai MD Age/Sex: 74/F Location: [facility] Status: Signed Intake Vital Signs 04/16/25 14:04 05/06/25 10:25 Height 5 ft 4 in 5 ft 4 in Weight: 158 lb 6 oz 160 lb BMI 27.1 27.4 Intake Visit Reasons: LUMBAR SPINE Chief Complaint: Lumbar Spine Pain Accompanied by: Self Is patient in pain?: Yes Pain scale (1-10): 8 Allergies tamoxifen Adverse Reaction (Mild, Verified 05/06/25 10:30) hair loss/abnormal discharge Medications ???Medication ???Instructions ???Recorded ???Confirmed ???Type aspirin 81 mg tablet,delayed 81 mg PO DAILY 07/21/20 05/06/25 H istory release coenzyme Q10 30 mg capsule (CoQ-10) 30 mg PO DAILY 07/21/20 5 History anastrozole 1 mg tablet 1 mg PO DAILY 05/24/21 05/06/25 Hi story Oral Sleep Appliance #1 ea 07/13/21 05/06/25 Rx amiodarone 200 mg tablet 100 mg (1/2 x 200 mg) PO DAILY #45 08/13/24 05/06/25 Rx tabs levothyroxine 100 mcg tablet 100 mcg PO DAILY #90 tabs 09/25/24 05/06/25 Rx apixaban 5 mg tablet (Eliquis) 5 mg PO BID #180 tabs 10/29/24 Rx atorvastatin 40 mg tablet 40 mg PO DAILY #90 tabs 11/04/24 0 05/06/25 Rx ezetimibe 10 mg tablet 10 mg PO DAILY #90 tabs 01/21/25 0 05/06/25 Rx metoprolol tartrate 25 mg tablet 25 mg PO BID #180 tabs 03/10/25 Rx pantoprazole 40 mg tablet,delayed 40 mg PO DAILY 03/24/25 05/06/25 History release Have you fallen in the past year?: Yes PFSH Medical History (Updated 05/06/25 @ 10:58 by Danitza Rockwell RN) Foraminal stenosis of lumbar region Retrolisthesis Immunity status testing Left thigh pain Elevated liver enzymes Burning sensation of mouth Oral lesion 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 CKD (chronic kidney disease), stage III Tension headache, chronic Osteopenia with high risk of fracture SNEHA (obstructive sleep apnea) Venous insufficiency Paroxysmal atrial fibrillation (03/04/21) 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) History of ST elevation myocardial infarction (STEMI) (03/22/17) Atherosclerotic heart disease of [place] coronary artery without angina pectoris Hypothyroidism Carpal tunnel syndrome Heel spur GERD (gastroesophageal reflux disease) Osteopenia Hyperlipidemia Migraine Breast cancer Breast lump Hx of back injury Arthritis Anemia Surgical History History of carpal tunnel release of both wrists History of tubal ligation H/O left mastectomy (03/2018) History of coronary artery stent placement (03/22/17) History of tonsillectomy Family History Mother Alzheimer disease Brother Heart disease Myocardial infarction Sister S/P triple vessel bypass Breast cancer, Onset Age: 80 Father Myocardial infarction Heart disease Grandmother Heart disease Myocardial infarction Uncle Myocardial infarction Heart disease Unknown Heart disease Myocardial infarction nephew cousin Other History of coronary artery stent placement Social History household members: spouse number of children: 1 current occupational status: retired Smoking Status: Former smoker quit date: 10/09/88 pack-years: 15 Tobacco: How many years used: 15 how long ago did patient quit smoking: >30 years, [id number] alcohol intake: never substance use type: does not use caffeine: Yes what type of physical activity do you participate in: none seatbelt use: always do you feel safe at home: Yes additional social history: Gale- both are retired HPI LUMBAR SPINE Details: This documentation accurately reflects the service provided and the decisions made by me, Dr. Larry Bai MD 05/06/25 1025. Part of today???s visit was documented by Jenaro Ulrich MA and Danitza Rockwell RN, acting as scribe. MELISSA PERRY is a 74 year old F here today for lumbar spine MRI review. Patient would like to go over the MRI results to discuss what the next step would be. She saw Dr. Rock for an injections about 4-5 months ago. Patient states that the injection she had worked for about 2 days, and then the pain came back. She hasn't done any physical therapy. Patient looked up some exercises on the internet to do, and none of them work. She states that she is starting to get sharp pains in her lower back. Last night was a bad night. Everyday when she gets up, she states that it's hard for her to stand up straight. She states that when she lays down that's when the pain starts to act u (more content not included)... Normal [facility] CNOVSPon 05-02-2025 CNOVS Visit (SP) Office (HEMMED) -------- MELISSA PERRY ([id number]) 1950 F Date Time Provider Department 05/02/25 8:40 AM RICHIE KNIGHT [place] During your visit today, we recorded the following information about you: Pulse Respiration Blood pressure Weight 53/minute 20/minute 124/67 72.6 kg Richie Knight MD 05/02/2025 3:45 PM Signed History of Diagnosis: Patient was diagnosed with left-sided breast cancer in 2018. Tumors were ER/MD positive and HER2 negative, with two lesions measuring 2.8 cm and 1 cm. She underwent three months of neoadjuvant aromatase inhibitor therapy, followed by a left-sided mastectomy. Oncotype DX score was 11. Recent History: Patient was initially started on anastrozole but experienced significant vaginal discharge, leading to a switch to tamoxifen. Due to intolerable side effects, she was transitioned back to anastrozole. Four weeks ago, anastrozole was discontinued to assess if it was the cause of severe thigh pain, which subsequently resolved. She is currently taking iron supplements every other day. Recent lab work showed a hemoglobin level of 12 g/dL and a creatinine level of 0.98 mg/dL. Assessment and Plan: 1. 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 Treated with 3 months of neoadjuvant aromatase inhibitor followed by left-sided mastectomy. Oncotype DX score of 11. Initially on Arimidex, then tamoxifen due to side effects, but returned to Arimidex. Recently experienced severe thigh pain, likely a side effect of Arimidex, which resolved after discontinuation for 4 weeks. - Educated patient on recent studies showing that 7 years of anti-estrogen therapy may be as effective as 10 years. - Advised a 4-week hiatus from Arimidex to ensure complete resolution of symptoms. - Prescribed Aromasin to be started after the 4-week hiatus. - Discussed potential side effects of Aromasin and the importance of maintaining quality of life. - Reviewed recent lab work showing creatinine at 0.98 mg/dL and hemoglobin at 12 g/dL; no evidence of anemia. - Continue current iron supplementation every other day. - Scheduled follow-up appointment in August to assess tolerance to Aromasin and overall progress. 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 - anastrozole (ARIMIDEX) 1 mg tablet Take 1 tablet by mouth once daily. - MULTI-VITAMIN ORAL Take by mouth once daily. - pantoprazole DR (PROTONIX) 40 mg tablet Take 1 tablet by mouth once daily. - amiodarone (PACERONE) 200 mg tablet Take 200 mg by mouth once daily. - ELIQUIS 5 mg tab(s) Take 5 mg by mouth twice daily. - metoprolol tartrate, short acting, (LOPRESSOR) 25 mg tablet Take 25 mg by mouth twice daily. - ezetimibe (ZETIA) 10 mg tablet Take 1 tablet by mouth once daily. - levothyroxine (SYNTHROID) 100 mcg tablet Take 1 tablet by mouth DAILY (6 AM). - atorvastatin (LIPITOR) 80 mg tablet Take 1 tablet by mouth once daily. - ubidecarenone (COQ-10 ORAL) Take by mouth once daily. - aspirin, enteric coated (ASPIR-LOW) 81 mg EC tablet Take 1 tablet by mouth once daily. Meds Comments as of 03/27/2017: meds given back to spouse Problem List As Of Date 05/02/2025 Noted Resolved Atherosclerosis of [place] coronary artery of na*03/22/2017 SUMMARY 03/22/2017 05/17/2017 Acquired hypothyroidism [E03.9] 03/22/2017 Mixed hyperlipidemia [E78.2] 03/22/2017 NSVT (nonsustained ventricular tachycardia) (HC*03/24/2017 11/20/2017 Fatigue [R53.83] 03/27/2017 Chronic diastolic heart failure (HCC) [I50.32] 03/28/2017 03/12/2018 Post PTCA [Z98.61] 03/28/2017 Pure hypercholesterolemia [E78.00] 04/27/2017 S/P primary angioplasty with coronary stent [Z9*04/27/2017 SNEHA (obstructive sleep apnea) [G47.33] 09/25/2017 Breast cancer (HCC) [C50.919] 01/12/2018 Breast cancer, left breast (HCC) [C50.912] 02/15/2018 Superficial keratitis of right eye [H16.101] 11/21/2018 Trigger finger [M65.30] 12/06/2018 12/06/2018 Obesity, Class I, BMI 30-34.9 [E66.811] 11/11/2019 Paroxysmal atrial fibrillation (HCC) [I48 (more content not included)... Normal [facility] Magnetic resonance imaging r eportOrdered By: Judson Moulton on 04-25-2025 Study report [facility] Imaging Services [address] [place] [address] Spine Lumbar (Routine) MR#: [id number] Acct: [id number] Name: MELISSA PERRY Rep #: [id number] : 1950 F 74 From: Edi Moulton MD PCP: Dr. Caterina Garcia MD Status: R EG CLI Study:Spine Lumbar (Routine) Date of Exam: 04/22/25 Exam# [id number] Ordering Dr: David Mulligan PROCEDURE: SPINE LUMBAR (ROUTINE) 04/22/2025 REASON FOR EXAM: PAIN, DDD TECHNIQUE: SPINE LUMBAR (ROUTINE) COMPARISON: Lumbar spine x-ray, 04/16/2025. FINDINGS: Vertebrae: There are no compression fractures. Alignment: There is loss of the normal lumbar lordosis. Conus Medullaris: The conus medullaris terminates normally at the T12-L1 level. There are Schmorl's nodes on both of the vertebral endplates T11-12 and T12-L1 with associated loss of disc height. There are Tarlov cysts, bilaterally, at the T11-12 and T12-L1 levels. L1-2: There is mild disc degeneration. There are Schmorl's nodes in the vertebral endplates endplate with associated disc height loss. There is a broad-based central and left central disc protrusion. There is bilateral facet arthropathy with ligamentum flavum bulging. There is mild compression of the thecal sac. There is a Tarlovcyst on the left. L2-3: There is mild disc degeneration. There are Schmorl's nodes in the vertebral endplates on either side of the intervertebral disc. There is almost complete loss of the intervertebral disc height. There is a broad-based central disc protrusion. There is moderate bilateral facet arthropathy with ligamentum flavum bulging. There is a centrally oriented spur from the right facet joint. There is compression of the thecal sac, and there is central canal stenosis with the AP dimension of the spinal canal measuring 9 mm. There is moderate lateral recess stenosis and foraminal narrowing bilaterally. L3-4: There is a broad-based central disc protrusion. There is a left lateral recess disc extrusion which extends 6 mm inferiorly behind the L4 vertebral body. The disc extrusion measures 9 mm in transverse dimension and 6 mm in AP dimension. There is moderate bilateral facet arthropathy with ligamentum flavum bulging. There is compression of the thecal sac without central canal stenosis. There is 4 mm of degenerative retrolisthesis of L3 on L4. There is abnormal endplate signal on either side of the intervertebral disc consistent with bone marrow edema (type 1 Modic signal). There is severe lateral recess stenosis and medial displacement of the left L4 nerve root sleeve. There is moderate lateral recess stenosis on the right. There is moderate foraminal narrowing, bilaterally. L4-5: There is moderate disc degeneration. There is a broad-based central disc protrusion. There is moderate bilateral facet arthropathy with ligamentum flavum bulging. There is compression of the thecal sac without central canal stenosis. There is mild lateral recess stenosis and moderate foraminal narrowing bilaterally. L5-S1: There is minimal disc degeneration. There is moderate bilateral facet arthropathy with ligamentum flavum bulging. There is no central canal stenosis, lateral recess stenosis or foraminal narrowing. Sacrum: The visualized portion of the sacrum is unremarkable. The paravertebral soft tissues appear unremarkable. MRI/Spine Lumbar (Routine) IMPRESSION: 1. Schmorl's nodes at the vertebral endplates T11-12 through L2-3 with associated loss in disc height. 2. There are disc protrusions at L2-3 through L4-5 with central canal stenosis at the L2-3 level. 3. There is multilevel facet arthropathy with compression of the thecal sac. 4. There is degenerative grade 1 retrolisthesis of L3 on L4 with associated endplate bone marrow edema, which can be symptomatic. 5. There is lateral recess stenosis and/or foraminal narrowing at multiple levels as described. 6. There are Tarlov cysts, on the left, at the T11-12 through L1-2 levels and on the right at the T11-12 and T12-L1 levels. These are perineural cysts which are usually asymptomatic, but which can cause neurologic symptoms. Reading Location: [place] [address] CC: JOSSELIN Chambers; Dr. Caterina Garcia MD ~ Clinical Resource Coordinator: Signed [facility] Work Phone: CBC W Auto Differential pane l (Bld)on 04-22-2025 Basophils (Bld) [#/Vol] 0.05 10*3/uL Normal <0.11 [facility] Comment on above: Order Comment: Speci men Type: BLOOD SPECIMEN Ordering Facility: [facility] Address: [address] [place] [address] Performed By: #### 5 7021-8 #### [facility] CLIA [id number] [address] [place] [address] [place] Basophils/100 WBC (Bld) 0.7 % Normal [facility] Comment on above: Order Comment: Speci men Type: BLOOD SPECIMEN Ordering Facility: [facility] Address: [address] [place] [address] Performed By: #### 5 7021-8 #### [facility] CLIA [id number] [address] [place] [address] [place] Differential cell count method Nom (Bld) Auto Normal [facility] Comment on above: Order Comment: Speci men Type: BLOOD SPECIMEN Ordering Facility: [facility] Address: [address] [place] [address] Performed By: #### 5 7021-8 #### [facility] CLIA [id number] [address] [place] [address] [place] Eosinophils (Bld) [#/Vol] 0.12 10*3/uL Normal <0.46 [facility] Comment on above: Order Comment: Speci men Type: BLOOD SPECIMEN Ordering Facility: [facility] Address: [address] [place] [address] Performed By: #### 5 7021-8 #### [facility] CLIA [id number] [address] [place] [address] [place] Eosinophils/100 WBC (Bld) 1.8 % Normal [facility] Comment on above: Order Comment: Speci men Type: BLOOD SPECIMEN Ordering Facility: [facility] Address: [address] [place] [address] Performed By: #### 5 7021-8 #### [facility] CLIA [id number] [address] [place] [address] [place] Erythrocyte distribution width (RBC) [Ratio] 12.5 % Normal 11.5-15.0 [facility] Comment on above: Order Comment: Speci men Type: BLOOD SPECIMEN Ordering Facility: [facility] Address: [address] [place] [address] Performed By: #### 5 7021-8 #### [facility] CLIA [id number] [address] [place] Hematocrit (Bld) [Volume fraction] 36.6 % Normal 36.0-46.0 [facility] Comment on above: Order Comment: Speci men Type: BLOOD SPECIMEN Ordering Facility: [facility] Address: [address] [place] [address] Performed By: #### 5 7021-8 #### [facility] CLIA [id number] [address] [place] Hemoglobin (Bld) [Mass/Vol] 12.0 g/dL Normal 11.5-15.5 [facility] Comment on above: Order Comment: Speci men Type: BLOOD SPECIMEN Ordering Facility: [facility] Address: [address] [place] [address] Performed By: #### 5 7021-8 #### [facility] CLIA [id number] [address] [place] Immature granulocytes (Bld) [#/Vol] 10*3/uL Normal <0.10 [facility] Comment on above: Order Comment: Speci men Type: BLOOD SPECIMEN Ordering Facility: [facility] Address: [address] [place] [address] Performed By: #### 5 7021-8 #### [facility] CLIA [id number] [address] Immature granulocytes/100 WBC (Bld) 0.3 % Normal [facility] Comment on above: Order Comment: Speci men Type: BLOOD SPECIMEN Ordering Facility: [facility] Address: [address] [place] [address] Performed By: #### 5 7021-8 #### [facility] CLIA [id number] [address] [place] Lymphocytes (Bld) [#/Vol] 1.99 10*3/uL Normal 1.00-4.00 [facility] Comment on above: Order Comment: Speci men Type: BLOOD SPECIMEN Ordering Facility: [facility] Address: [address] [place] [address] Performed By: #### 5 7021-8 #### [facility] CLIA [id number] [address] Lymphocytes/100 WBC (Bld) 29.8 % Normal [facility] Comment on above: Order Comment: Speci men Type: BLOOD SPECIMEN Ordering Facility: [facility] Address: [address] [place] [address] Performed By: #### 5 7021-8 #### [facility] CLIA [id number] [address] MCH (RBC) [Entitic mass] 30.5 pg Normal 26.0-34.0 [facility] Comment on above: Order Comment: Speci men Type: BLOOD SPECIMEN Ordering Facility: [facility] Address: [address] [place] [address] Performed By: #### 5 7021-8 #### [facility] CLIA [id number] [address] STATES OF [facility] MCHC (RBC) [Mass/Vol] 32.8 g/dL Normal 30.5-36.0 [facility] Comment on above: Order Comment: Speci men Type: BLOOD SPECIMEN Ordering Facility: [facility] Address: [address] [place] [address] Performed By: #### 5 7021-8 #### [facility] CLIA [id number] [address] [place] MCV (RBC) [Entitic vol] 93.1 fL Normal 80.0-100.0 [facility] Comment on above: Order Comment: Speci men Type: BLOOD SPECIMEN Ordering Facility: [facility] Address: [address] [place] [address] Performed By: #### 5 7021-8 #### [facility] CLIA [id number] [address] [place] Monocytes (Bld) [#/Vol] 0.57 10*3/uL Normal <0.87 [facility] Comment on above: Order Comment: Speci men Type: BLOOD SPECIMEN Ordering Facility: [facility] Address: [address] [place] [address] Performed By: #### 5 7021-8 #### [facility] CLIA [id number] [address] Monocytes/100 WBC (Bld) 8.5 % Normal [facility] Comment on above: Order Comment: Speci men Type: BLOOD SPECIMEN Ordering Facility: [facility] Address: [address] [place] [address] Performed By: #### 5 7021-8 #### [facility] CLIA [id number] [address] [place] Neutrophils (Bld) [#/Vol] 3.92 10*3/uL Normal 1.45-7.50 [facility] Comment on above: Order Comment: Speci men Type: BLOOD SPECIMEN Ordering Facility: [facility] Address: [address] [place] [address] Performed By: #### 5 7021-8 #### [facility] CLIA [id number] [address] Neutrophils/100 WBC (Bld) 58.9 % Normal [facility] Comment on above: Order Comment: Speci men Type: BLOOD SPECIMEN Ordering Facility: [facility] Address: [address] [place] [address] Performed By: #### 5 7021-8 #### [facility] CLIA [id number] [address] [place] [address] [place] Nucleated RBC (Bld) [#/Vol] 10*3/uL Normal <0.01 [facility] Comment on above: Order Comment: Speci men Type: BLOOD SPECIMEN Ordering Facility: [facility] Address: [address] [place] [address] Performed By: #### 5 7021-8 #### [facility] CLIA [id number] [address] [place] [address] [place] Nucleated RBC/100 WBC (Bld) [Ratio] 0.0 /100 WBC Normal [facility] Comment on above: Order Comment: Speci men Type: BLOOD SPECIMEN Ordering Facility: [facility] Address: [address] [place] [address] Performed By: #### 5 7021-8 #### [facility] CLIA [id number] [address] [place] [address] [place] Platelet mean volume (Bld) [Entitic vol] 9.3 fL Normal 9.0-12.7 [facility] Comment on above: Order Comment: Speci men Type: BLOOD SPECIMEN Ordering Facility: [facility] Address: [address] [place] [address] Performed By: #### 5 7021-8 #### [facility] CLIA [id number] [address] [place] Platelets (Bld) [#/Vol] 199 10*3/uL Normal 150-400 [facility] Comment on above: Order Comment: Speci men Type: BLOOD SPECIMEN Ordering Facility: [facility] Address: [address] [place] [address] Performed By: #### 5 7021-8 #### [facility] CLIA [id number] [address] [place] [address] [place] RBC (Bld) [#/Vol] 3.93 10*6/uL Normal 3.90-5.20 [facility] Comment on above: Order Comment: Speci men Type: BLOOD SPECIMEN Ordering Facility: [facility] Address: [address] [place] [address] Performed By: #### 5 7021-8 #### [facility] CLIA [id number] [address] [place] [address] [place] WBC (Bld) [#/Vol] 6.67 10*3/uL Normal 3.70-11.00 [facility] Comment on above: Order Comment: Speci men Type: BLOOD SPECIMEN Ordering Facility: [facility] Address: [address] [place] [address] Performed By: #### 5 7021-8 #### [facility] CLIA [id number] [address] [place] Comprehensive metabolic 2000 panelon 04-22-2025 Albumin [Mass/Vol] 4.2 g/dL Normal 3.9-4.9 [facility] Comment on above: Order Comment: Speci men Type: BLOOD SPECIMEN Ordering Facility: [facility] Address: [address] [place] [address] Performed By: #### 2 4323-8 #### [facility] CLIA [id number] [address] ALP [Catalytic activity/Vol] 89 U/L Normal 34-123 [facility] Comment on above: Order Comment: Speci men Type: BLOOD SPECIMEN Ordering Facility: [facility] Address: [address] [place] [address] Performed By: #### 2 4323-8 #### [facility] CLIA [id number] [address] ALT [Catalytic activity/Vol] 25 U/L Normal 7-38 [facility] Comment on above: Order Comment: Speci men Type: BLOOD SPECIMEN Ordering Facility: [facility] Address: [address] [place] [address] Performed By: #### 2 4323-8 #### [facility] CLIA [id number] [address] Anion gap [Moles/Vol] 9 mmol/L Normal 8-15 [facility] Comment on above: Order Comment: Speci men Type: BLOOD SPECIMEN Ordering Facility: [facility] Address: [address] [place] [address] Performed By: #### 2 4323-8 #### [facility] CLIA [id number] 1000 [place] [address] [place] AST [Catalytic activity/Vol] 24 U/L Normal 13-35 [facility] Comment on above: Order Comment: Speci men Type: BLOOD SPECIMEN Ordering Facility: [facility] Address: [address] [place] [address] Performed By: #### 2 4323-8 #### [facility] CLIA [id number] 1000 [place] [address] [place] Bilirubin [Mass/Vol] 0.7 mg/dL Normal 0.2-1.3 [facility] Comment on above: Order Comment: Speci men Type: BLOOD SPECIMEN Ordering Facility: [facility] Address: [address] [place] [address] Performed By: #### 2 4323-8 #### [facility] CLIA [id number] 1000 [place] [address] [place] Calcium [Mass/Vol] 9.1 mg/dL Normal 8.5-10.2 [facility] Comment on above: Order Comment: Speci men Type: BLOOD SPECIMEN Ordering Facility: [facility] Address: [address] [place] [address] Performed By: #### 2 4323-8 #### [facility] CLIA [id number] 1000 [place] [address] [place] Chloride [Moles/Vol] 102 mmol/L Normal 98-107 [facility] Comment on above: Order Comment: Speci men Type: BLOOD SPECIMEN Ordering Facility: [facility] Address: [address] [place] [address] Performed By: #### 2 4323-8 #### [facility] CLIA [id number] 1000 [place] [address] [place] CO2 [Moles/Vol] 26 mmol/L Normal 22-30 [facility] Comment on above: Order Comment: Speci men Type: BLOOD SPECIMEN Ordering Facility: [facility] Address: [address] [place] [address] Performed By: #### 2 4323-8 #### [facility] CLIA [id number] [address] STATES [facility] Creatinine [Mass/Vol] 0.98 mg/dL High 0.58-0.96 [facility] Comment on above: Order Comment: Serena jordan Type: BLOOD SPECIMEN Ordering Facility: [facility] Address: [address] [place] [address] Performed By: #### 2 4323-8 #### [facility] CLIA [id number] [address] eGFRcr SerPlBld CKD-EPI 2020 60 mL/min/1.73m??? Normal >=60 [facility] Comment on above: Order Comment: Serena jordan Type: BLOOD SPECIMEN Ordering Facility: [facility] Address: [address] [place] [address] Result Comment: Ericka mated Glomerular Filtration Rate (eGFR) is calculated using the 2020 CKD-EPI creatinine equation. This equation utilizes serum creatinine, sex, and age as parameters. The creatinine assay has traceable calibration to isotope dilution-mass spectrometry. Refer to KDIGO guidelines for clinical interpretation. In patients with unstable renal function, e.g. those with acute kidney injury, the eGFR may not accurately reflect actual GFR. Performed By: #### 2 4323-8 #### [facility] CLIA [id number] [address] Glucose [Mass/Vol] 95 mg/dL Normal 74-99 [facility] Comment on above: Order Comment: Serena jordan Type: BLOOD SPECIMEN Ordering Facility: [facility] Address: [address] [place] [address] Result Comment: The [place] Diabetes Association (ADA) provides guidance for cutoff values for fasting glucose and random glucose. The ADA defines fasting as no caloric intake for at least 8 hours. Fasting plasma glucose results between 100 to 125 mg/dL indicate increased risk for diabetes (prediabetes). Fasting plasma glucose results greater than or equal to 126 mg/dL meet the criteria for diagnosis of diabetes. In the absence of unequivocal hyperglycemia, results should be confirmed by repeat testing. In a patient with classic symptoms of hyperglycemia or hyperglycemic crisis, random plasma glucose results greater than or equal to 200 mg/dL meet the criteria for diagnosis of diabetes. Reference: Standards of Medical Care in Diabetes 2016, [place] [employer] Association. Diabetes Care. 2016.39(Suppl 1). Performed By: #### 2 4323-8 #### [facility] CLIA [id number] 1000 [place] [address] [place] Potassium [Moles/Vol] 4.5 mmol/L Normal 3.7-5.1 [facility] Comment on above: Order Comment: Speci men Type: BLOOD SPECIMEN Ordering Facility: [facility] Address: [address] [place] [address] Performed By: #### 2 4323-8 #### [facility] CLIA [id number] 1000 [place] [address] [place] Protein [Mass/Vol] 6.5 g/dL Normal 6.3-8.0 [facility] Comment on above: Order Comment: Speci men Type: BLOOD SPECIMEN Ordering Facility: [facility] Address: [address] [place] [address] Performed By: #### 2 4323-8 #### [facility] CLIA [id number] [address] [place] Sodium [Moles/Vol] 137 mmol/L Normal 136-144 [facility] Comment on above: Order Comment: Speci men Type: BLOOD SPECIMEN Ordering Facility: [facility] Address: [address] [place] [address] Performed By: #### 2 4323-8 #### [facility] CLIA [id number] [address] [place] Urea nitrogen [Mass/Vol] 15 mg/dL Normal 7-21 [facility] Comment on above: Order Comment: Speci men Type: BLOOD SPECIMEN Ordering Facility: [facility] Address: [address] [place] [address] Performed By: #### 2 4323-8 #### [facility] CLIA [id number] 1000 [place] [address] [place] Spine Lumbar (Routine)on Spine Lumbar (Routine) [facility] Imaging Services [address] [place] [address] Spine Lumbar (Routine) MR#: [id number] Acct: [id number] Name: MELISSA PERRY Rep #: [id number] : 1950 F 74 From: Judson Moulton MD PCP: Dr. Caterina Garcia MD Status: REG CLI Study: Spine Lumbar (Routine) Date of Exam: 04/22/25 Exam# [id number] Ordering Dr: Corie Mulligan PROCEDURE: SPINE LUMBAR (ROUTINE) 04/22/2025 REASON FOR EXAM: PAIN, DDD TECHNIQUE: SPINE LUMBAR (ROUTINE) COMPARISON: Lumbar spine x-ray, 04/16/2025. FINDINGS: Vertebrae: There are no compression fractures. Alignment: There is loss of the normal lumbar lordosis. Conus Medullaris: The conus medullaris terminates normally at the T12-L1 level. There are Schmorl's nodes on both of the vertebral endplates T11-12 and T12-L1 with associated loss of disc height. There are Tarlov cysts, bilaterally, at the T11-12 and T12-L1 levels. L1-2: There is mild disc degeneration. There are Schmorl's nodes in the vertebral endplates endplate with associated disc height loss. There is a broad-based central and left central disc protrusion. There is bilateral facet arthropathy with ligamentum flavum bulging. There is mild compression of the thecal sac. There is a Tarlov cyst on the left. L2-3: There is mild disc degeneration. There are Schmorl's nodes in the vertebral endplates on either side of the intervertebral disc. There is almost complete loss of the intervertebral disc height. There is a broad-based central disc protrusion. There is moderate bilateral facet arthropathy with ligamentum flavum bulging. There is a centrally oriented spur from the right facet joint. There is compression of the thecal sac, and there is central canal stenosis with the AP dimension of the spinal canal measuring 9 mm. There is moderate lateral recess stenosis and foraminal narrowing bilaterally. L3-4: There is a broad-based central disc protrusion. There is a left lateral recess disc extrusion which extends 6 mm inferiorly behind the L4 vertebral body. The disc extrusion measures 9 mm in transverse dimension and 6 mm in AP dimension. There is moderate bilateral facet arthropathy with ligamentum flavum bulging. There is compression of the thecal sac without central canal stenosis. There is 4 mm of degenerative retrolisthesis of L3 on L4. There is abnormal endplate signal on either side of the intervertebral disc consistent with bone marrow edema (type 1 Modic signal). There is severe lateral recess stenosis and medial displacement of the left L4 nerve root sleeve. There is moderate lateral recess stenosis on the right. There is moderate foraminal narrowing, bilaterally. L4-5: There is moderate disc degeneration. There is a broad-based central disc protrusion. There is moderate bilateral facet arthropathy with ligamentum flavum bulging. There is compression of the thecal sac without central canal stenosis. There is mild lateral recess stenosis and moderate foraminal narrowing bilaterally. L5-S1: There is minimal disc degeneration. There is moderate bilateral facet arthropathy with ligamentum flavum bulging. There is no central canal stenosis, lateral recess stenosis or foraminal narrowing. Sacrum: The visualized portion of the sacrum is unremarkable. The paravertebral soft tissues appear unremarkable. MRI/Spine Lumbar (Routine) IMPRESSION: 1. Schmorl's nodes at the vertebral endplates T11-12 through L2-3 with associated loss in disc height. 2. There are disc protrusions at L2-3 through L4-5 with central canal stenosis at the L2-3 level. 3. There is multilevel facet arthropathy with compression of the thecal sac. 4. There is degenerative grade 1 retrolisthesis of L3 on L4 with associated endplate bone marrow edema, which can be symptomatic. 5. There is lateral recess stenosis and/or foraminal narrowing at multiple levels as described. 6. There are Tarlov cysts, on the left, at the T11-12 through L1-2 levels and on the right at the T11-12 and T12-L1 levels. These are perineural cysts which are usually asymptomatic, but which can cause neurologic symptoms. Reading Location: [place] [address] CC: JOSSELIN Chambers; Dr. Caterina Garcia MD Clinical Resource Coordinator: Signed Normal [facility] L/S Spine Bending Flex/[place] 04-16-2025 L/S Spine Bending Flex/Ext [facility] Imaging Services [address] [place], [place] [id number] L/S Spine Bending Flex/Ext MR#: [id number] Acct: [id number] Name: MELISSA PERRY Rep #: [id number] : 1950 F 74 From: Drake Lama MD PCP: Dr. Caterina Garcia MD Status: DEP AMB Study: L/S Spine Bending Flex/Ext Date of Exam: 04/16 Exam# [id number] Ordering Dr: Corie Mulligan PROCEDURE: L/S SPINE BENDING FLEX/EXT 04/16/2025 REASON FOR EXAM: ONGOING BACK PAIN TECHNIQUE: L/S SPINE BENDING FLEX/EXT COMPARISON: 12/23/2024. FINDINGS: No evidence of acute fracture or dislocation. Vertebral body heights are maintained. Moderate discogenic degenerative changes of the visualized spine. Grade 1 retrolisthesis of L3 on L4 with 5 mm of retrolisthesis on flexion views and 10 mm of retrolisthesis on extension views. RAD/L/S Spine Bending Flex/Ext IMPRESSION: Retrolisthesis as above. Spondylosis. Reading Location: [id number] CC: JOSSELIN Chambers; Dr. Caterina Garcia MD Clinical Resource Coordinator: Signed Normal [facility] Orthopedic Visit Reporton Orthopedic Visit Report [facility] [address] [place] [address] [address] [place] [address] OFFICE VISIT Date of Service: 04/16/25 MR#: [id number] Acct: [id number] Name: MELISSA PERRY Rep #: [id number] : 1950 Provider: JOSSELIN Chambers Age/Sex: 74/F Location: [facility] Status: Signed with Addenda ADDENDUM by JOSSELIN Chambers on 04/16/25 at 1614 Assessment and Plan Assessment and Plan (1) 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 04/16/25 1614 Date Corie Mulligan cc: * Signed Intake Vital Signs 03/24/25 13:10 04/16/25 14:04 Height 5 ft 4 in 5 ft 4 in Weight: 159 lb 158 lb 6 oz BMI 27.3 27.1 BP 116/74 Blood Pressure Location Lt brachial Position Sitting Respiration 16 Pulse 58 L Pulse Source Monitor Temp 97.9 F Temp Source Temporal Pulse Oximetry (%) 97 Oxygen Delivery Method room air Intake Visit Reasons: LUMBAR SPINE Chief Complaint: Lumbar Spine Pain Accompanied by: Self Is patient in pain?: Yes Pain scale (1-10): 2 Allergies tamoxifen Adverse Reaction (Mild, Verified 04/16/25 14:04) hair loss/abnormal discharge Medications ???Medication ???Instructions ???Recorded ???Confirmed ???Type aspirin 81 mg tablet,delayed 81 mg PO DAILY 07/21/20 04/16/25 H istory release coenzyme Q10 30 mg capsule (CoQ-10) 30 mg PO DAILY 07/21/20 5 History anastrozole 1 mg tablet 1 mg PO DAILY 05/24/21 04/16/25 Hi story Oral Sleep Appliance #1 ea 07/13/21 03/24/25 Rx amiodarone 200 mg tablet 100 mg (1/2 x 200 mg) PO DAILY #45 08/13/24 04/16/25 Rx tabs levothyroxine 100 mcg tablet 100 mcg PO DAILY #90 tabs 09/25/24 04/16/25 Rx apixaban 5 mg tablet (Eliquis) 5 mg PO BID #180 tabs 10/29/2407/03 Rx atorvastatin 40 mg tablet 40 mg PO DAILY #90 tabs 11/04/24 0 04/16/25 Rx ezetimibe 10 mg tablet 10 mg PO DAILY #90 tabs 01/21/25 0 04/16/25 Rx metoprolol tartrate 25 mg tablet 25 mg PO BID #180 tabs 03/10/25 Rx pantoprazole 40 mg tablet,delayed 40 mg PO DAILY 03/24/25 04/16/25 History release Have you fallen in the past year?: Yes (slipped on ice) [facility] Medical History Immunity status testing Left thigh pain Elevated liver enzymes Burning sensation of mouth Oral lesion 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 CKD (chronic kidney disease), stage III Tension headache, chronic Osteopenia with high risk of fracture SNEHA (obstructive sleep apnea) Venous insufficiency Paroxysmal atrial fibrillation (03/04/21) 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) History of ST elevation myocardial infarction (STEMI) (03/22/17) Atherosclerotic heart disease of [place] coronary artery without angina pectoris Hypothyroidism Carpal tunnel syndrome Heel spur GERD (gastroesophageal reflux disease) Osteopenia Hyperlipidemia Migraine Breast cancer Breast lump Hx of back injury Arthritis Anemia Surgical History History of carpal tunnel release of both wrists History of tubal ligation H/O left mastectomy (03/2018) History of coronary artery stent placement (03/22/17) History of tonsillectomy Family History Mother Alzheimer disease Brother Heart disease Myocardial infarction Sister S/P triple vessel bypass Breast cancer, Onset Age: 80 Father Myocardial infarction Heart disease Grandmother Heart disease Myocardial infarction Uncle Myocardial infarction Heart disease Unknown Heart disease Myocardial infarction nephew cousin Other History of coronary artery stent placement Social History household members: spouse number of children: 1 current occupational status: retired Smoking Status: Former smoker quit date: 10/09/88 pack-years: 15 Tobacco: How many years used: 15 how long ago did patient quit smoking: >30 years, [id number] alcohol intake: never substance use type: does not use caffeine: Yes what type of physical activity do you participate in: none seatbelt use: always do you feel safe at home: Yes additional social history: Gale- both are retired HPI LUMBAR SPINE Details: This documentation accurately reflects the service provided and the (more content not included)... Normal [facility] Internal Medicine Office Vis lenin 03-24-2025 Internal Medicine Office Visit [facility] [address] [place], [place] [address] OFFICE VISIT Date of Service: 03/24/25 MR#: [id number] Acct: [id number] Name: MELISSA PERRY Rep #: [id number] : 1950 Provider: Dr. Caterina arboleda MD Age/Sex: 74/F Location: [facility] Status: Signed Intake Vital Signs 09/23/24 13:06 12/16/24 12:39 03/24/25 13:10 Height 5 ft 4 in 5 ft 4 in 5 ft 4 in Weight: 159 lb BMI 27.3 BP 116/74 Blood Pressure Location Lt brachial Position Sitting Respiration 16 Pulse 58 L Pulse Source Monitor Temp 97.9 F Temp Source Temporal Pulse Oximetry (%) 97 Oxygen Delivery Method room air Intake Visit Reasons: 6 M FU Chief Complaint: Follow-up chronic conditions [employer] Supervisor Required: No Is patient in pain?: No Allergies tamoxifen Adverse Reaction (Mild, Verified 03/24/25 13:05) hair loss/abnormal discharge Medications ???Medication ???Instructions ???Recorded ???Confirmed ???Type aspirin 81 mg tablet,delayed 81 mg PO DAILY 07/21/20 03/24/25 H istory release coenzyme Q10 30 mg capsule (CoQ-10) 30 mg PO DAILY 07/21/20 5 History anastrozole 1 mg tablet 1 mg PO DAILY 05/24/21 03/24/25 Hi story Oral Sleep Appliance #1 ea 07/13/21 03/24/25 Rx nitroglycerin 0.4 mg sublingual 0.4 mg sublingual Q5-15M PRN chest 03/21/23 03/24/25 Rx tablet pain #25 tabs amiodarone 200 mg tablet 100 mg (1/2 x 200 mg) PO DAILY #45 11/05/24 06/16/25 Rx tabs levothyroxine 100 mcg tablet 100 mcg PO DAILY #90 tabs 09/25/24 03/24/25 Rx apixaban 5 mg tablet (Eliquis) 5 mg PO BID #180 tabs 10/29/24 Rx atorvastatin 40 mg tablet 40 mg PO DAILY #90 tabs 11/04/24 0 03/24/25 Rx ezetimibe 10 mg tablet 10 mg PO DAILY #90 tabs 01/21/25 0 03/24/25 Rx metoprolol tartrate 25 mg tablet 25 mg PO BID #180 tabs 03/10/25 Rx pantoprazole 40 mg tablet,delayed 40 mg PO DAILY 03/24/25 03/24/25 History release Have you fallen in the past year?: Yes (10/2024 slipped on ice) [facility] Medical History Immunity status testing Left thigh pain Elevated liver enzymes Burning sensation of mouth Oral lesion 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 CKD (chronic kidney disease), stage III Tension headache, chronic Osteopenia with high risk of fracture SNEHA (obstructive sleep apnea) Venous insufficiency Paroxysmal atrial fibrillation (03/04/21) 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) History of ST elevation myocardial infarction (STEMI) (03/22/17) Atherosclerotic heart disease of [place] coronary artery without angina pectoris Hypothyroidism Carpal tunnel syndrome Heel spur GERD (gastroesophageal reflux disease) Osteopenia Hyperlipidemia Migraine Breast cancer Breast lump Hx of back injury Arthritis Anemia Surgical History History of carpal tunnel release of both wrists History of tubal ligation H/O left mastectomy (03/2018) History of coronary artery stent placement (03/22/17) History of tonsillectomy Family History Mother Alzheimer disease Brother Heart disease Myocardial infarction Sister S/P triple vessel bypass Breast cancer, Onset Age: 80 Father Myocardial infarction Heart disease Grandmother Heart disease Myocardial infarction Uncle Myocardial infarction Heart disease Unknown Heart disease Myocardial infarction nephew cousin Other History of coronary artery stent placement Social History household members: spouse number of children: 1 current occupational status: retired Smoking Status: Former smoker quit date: 10/09/88 pack-years: 15 Tobacco: How many years used: 15 how long ago did patient quit smoking: >30 years, [id number] alcohol intake: never substance use type: does not use caffeine: Yes what type of physical activity do you participate in: none seatbelt use: always do you feel safe at home: Yes additional social history: Gale- both are retired HPI HPI Chief Complaint: Follow-up chronic conditions Details: MELISSA PERRY, is a 74 F who presents to the office today for follow-up of her chronic medical conditions. History of breast cancer currently on anastrozole. Follows up with oncology. Lately, has noted more joint pain and believes that this is related to anastrozole. It was held for 5 days with improvement in her symptoms which since returned after she restarted. Plans to discuss with her oncologist. History of reflux, currently on Protonix. Tolerating medication well. No dark or bloody stool or unintentional weight changes. Also history of hyperlipidemia, stable l (more content not included)... Normal [facility] 02-26-2025 [facility] Visit (SP) Office (HEMMED) -------- MELISSA PERRY ([id number]) 1950 F Date Time Provider Department 02/26/25 2:00 PM [facility] During your visit today, we recorded the following information about you: Temperature Pulse Respiration Blood pressure 99 degrees 53/minute 12/minute 137/81 Weight 72.4 kg Yissel Ellsworth, PRODUCT SUPPORT SPECIALIST.[employer]ER 02/26/2025 2:37 PM Signed Chief Complaint: Established patient follow up History of Present Illness: Melissa is a 74 year old female who presents here today for follow up breast cancer Patient feeling well She denies new lumps or bumps, breast pain or drainage, or skin texture changes She is taking arimidex once daily, tolerating well She has occasional vaginal dryness that is relieved with Vitamin E Hematology/Oncology History: - Past medical history is carried forward from previous note: 08/20/2024 with Tanvi Rockwell CNP and updated appropriately Attending: Dr Knight Diagnosis: Left breast cancer Treatment History: - patient diagnosis in 12/2017 with left-sided breast cancer, ER+/MD+/HER2- disease, Oncotype DX score of 11. - She was put on a 3-month course of a aromatase inhibitor as the patient had a repeat myocardial infarction with stent placements, at that time they wanted dual antiplatelet therapy. - She was taken off her antiplatelet therapy and taken for surgery. - s/p left-sided mastectomy on 03/19/2018 and she was noted to have 2 nodules (1.1 cm and 2.8 cm), both lesions were ER+/MD+/HER2- and showed Oncotype DX score of 11 from both of these lesions - she did not receive any adjuvant radiation. 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 - she was switched to Tamoxifen because Arimidex was causing vaginal dryness, however, she could not handle the Tamoxifen because of increased vaginal discharge and she switched back to Arimidex in late 2019 and has been tolerating it relatively well since - she was noticed to have a nodule or a growth along the lower left chest wall area and was evaluated by Dr. Roca, however no abnormality was identified on physical exam. - CT chest on 04/15/2022 showed no abnormality identified both on the subcutaneous plane, as well as, no evidence of any bone lesions to suggest metastasis. - CTA chest on 11/10/2022 showed evidence of any bony destructive lesions, no evidence of any pulmonary nodules, no evidence of any liver metastasis, no intra-abdominal abnormality noted. - patient remains on Anastrazole and she is tolerating it relatively well with plans for 10 years of therapy - Mammogram on 07/25/2023 was negative for any malignancy. - DXA scan on 07/17/2023 showed lowest bone density of -1.6 - Mammogram on 08/23/2024 was negative for any malignancy. Current Treatment: Anastrazole, 1 mg daily - initiated 01/2018 (plan for [address] Knight) Subjective/ Review of Systems: See HPI HEENT- denies any vision/hearing changes or headaches. 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 SKIN- denies new rashes MUSCULAR- no new muscular/skeletal pain or weakness NEURO- denies new neuropathy PAIN- denies acute pain concerns Objective/ Exam: BP 137/81 Pulse (!) 53 Temp 37.2 ?C (99 ?F) (Temporal) Resp 12 Wt 72.4 kg (159 lb 9.8 oz) LMP (LMP Unknown) SpO2 96% BMI 27.40 kg/m? GENERAL: Patient is a well developed, well nourished. Alert, oriented, pleasant and cooperative. NECK: Supple MOUTH - no redness, sores, or white patches BREAST: Right breast with no dominant masses/nodules, no nipple discharge and no adenopathy Left breast s/p mastectomy with surgical changes noted, no nodule, no skin changes, no adenopathy, no pain on exam Tool And Production Planner offered:Patient declines HEART- regular rate and rhythm LUNGS: clear to auscultation ABDOMEN: Abdomen soft, non-tender, + BS LOWER EXTREMITIES: No pitting edema. Recent Testing Reviewed in Epic: - LABS - IMAGING Latest Ref Rng AND Units 07/01/2021 12/30/2021 02/12/2024 CBC WBC 3.70 - 11.00 k/uL 7.76 7.20 6.46 RBC 3.90 - 5.20 m/uL 4.13 3.86 3.78 Hemoglobin 11.5 - 15.5 g/dL 12.3 11.8 11.4 Hematocrit 36.0 - 46.0 % 37.8 36.7 35.4 MCV 80.0 - 100.0 fL 91.5 95.1 93.7 MCH 26.0 - 34.0 pg 29.8 30.6 30.2 MCHC 30.5 - 36.0 g/dL 32.5 32.2 32.2 RDW-CV 11.5 - 15.0 % 14.0 13.3 13.2 Platelet Count 150 - 400 k/uL 229 213 214 MPV 9.0 - 12.7 fL 9.5 9.8 9.4 Baso% % 0.8 0.7 0.6 Abs Neut (ANC) 1.45 - 7.50 k/uL 4.59 4.31 3.83 Abs Lymph 1.00 - 4.00 k/uL 2.31 2.08 2.02 Abs [place] <0.87 k/uL 0.63 0.51 0.43 Abs Eosin <0.46 k/uL 0.15 0.21 (more content not included)... Normal [facility] Rubeola IgG Abon 01-24-2025 RUBEOLA Ab, IgG > 300.0 Normal Immune >16.4 [facility] Comment on above: Result Comment: Nega tive <13.5 Equivocal 13.5 - 16.4 Positive >16.4 Presence of antibodies to Rubeola is presumptive evidence of immunity except when acute infection is suspected. Performed at: [facility] [id number] Event Designer: Ramesh Cardoza PhD, Phone: [phone] Performed By: #### L 3100.3300 #### [facility] [place], [address] MeV IgG IA Qn (S)Ordered By: Caterina Garcia on 01-22-2025 Rubeola (Measles) IgG Antibody > 300.0 AU/mL Immune >16.4 [facility] Comment on above: Negative <13.5 Equiv ocal 13.5 - 16.4 Positive >16.4Presence of antibodies to [place] is presumptive evidenceof immunity except when acute infection is suspected.Performed at: [facility] [id number] Director: Ramesh Cardoza PhD, Phone: [phone] Serum measles virus IgG anti body assay by immunoassay (units/volume)Ordered By: Caterina Garcia on 01-22-2025 MeV IgG IA Qn (S) > 300.0 AU/mL Immune >16.4 [facility] Comment on above: Negative <13.5 Equiv ocal 13.5 - 16.4 Positive >16.4Presence of antibodies to Rube[place] is presumptive evidenceof immunity except when acute infection is suspected.Performed at: [address] [id number] Director: Ramesh Cardoza PhD, Phone: [phone] Knee 4 or More Viewson 12-16 Knee 4 or More Views [facility] Imaging Services [address] [place] [id number] Knee 4 or More Views MR#: [id number] Acct: [id number] Name: MELISSA PERRY Rep #: [id number] : 1950 F 74 From: Jose David Joyce MD PCP: Dr. Caterina Garcia MD Status: DEP AMB Study: Knee 4 or More Views Date of Exam: 12/16/24 Exam# [id number] Ordering Dr: Drake Emanuel PROCEDURE: KNEE 4 OR MORE VIEWS (RADKN), 12/16/2024 REASON FOR EXAM: chronic pain, recent fall TECHNIQUE: AP, lateral, AP tunnel, and sunrise views of the left knee were obtained. COMPARISON: None FINDINGS: Fracture/dislocation: No visible acute displaced fracture. Question an old posttraumatic deformity of the proximal fibula. Joint space(s): Preserved. Soft tissues: Mild loss of medial compartment joint space with tiny osteophyte. Foreign bodies: None visible. Bone mineralization: Demineralization. RAD/Knee 4 or More Views IMPRESSION: 1. Demineralization without visible acute displaced fracture. 2. Additional description as above. Reading Location: [facility] CC: Dr. Caterina Garcia MD; JOSSELIN Sequeira Clinical Resource Coordinator: Signed Normal [facility] Lumbar Spine 2 or 3 Viewson 12-16-2024 Lumbar Spine 2 or 3 Views [facility] Imaging Services [address] [place] [address] Lumbar Spine 2 or 3 Views MR#: [id number] Acct: [id number] Name: MELISSA PERRY Rep #: [id number] : 1950 F 74 From: Jose David Joyce MD PCP: Dr. Caterina Garcia MD Status: DEP AMB Study: Lumbar Spine 2 or 3 Views Date of Exam: Exam# [id number] Ordering Dr: Drake Emanuel PROCEDURE: LUMBAR SPINE 2 OR 3 VIEWS ([facility]), 12/16/2024 REASON FOR EXAM: Chronic pain TECHNIQUE: AP and lateral views of the lumbar spine were obtained COMPARISON: None FINDINGS: Fracture/dislocation: None visible. Vertebral body heights: Preserved. Alignment: Mild grade 1 likely degenerative retrolisthesis at L3-L4. Mild lumbar levoscoliosis. Disc spaces: Variable disc height loss up to moderate/severe at L2-L4 with small osteophytes. Facets: Suspect facet arthropathy from L3-S1. Soft tissues: Atherosclerosis.. Foreign bodies: None visible. Bone mineralization: Demineralization. Other: Partially imaged coronary stent suspected. RAD/Lumbar Spine 2 or 3 Views IMPRESSION: 1. Demineralization without visible acute displaced fracture 2. Overall moderate radiographically evident multilevel spondylosis as detailed. 3. Additional description as above. Reading Location: [id number] CC: Dr. Caterina Garcia MD; JOSSELIN Sequeira Clinical Resource Coordinator: Signed Normal [facility] Internal Medicine Office Vis ito 12-11-2024 Internal Medicine Office Visit [facility] [address] [place] [address] [address] [place] [address] OFFICE VISIT Date of Service: 12/11/24 MR#: [id number] Acct: [id number] Name: MELISSA PERRY Rep #: [id number] : 1950 Provider: JOSSELIN Sequeira Age/Sex: 74/F Location: [facility] Status: Signed Intake Vital Signs 10/31/24 10:31 12/11/24 12:56 Height 5 ft 4 in 5 ft 4 in Weight: 161 lb 2 oz 161 lb 6 oz BMI 27.6 27.6 BP 118/66 122/76 H Blood Pressure Location Lt brachial Rt brachial Position Sitting Sitting Respiration 16 12 Pulse 60 55 L Pulse Source NIBP Monitor Temp 98.1 F 97.6 F L Temp Source Oral Temporal Pulse Oximetry (%) 97 95 Oxygen Delivery Method room air room air Intake Visit Reasons: acute - lft hip pain Chief Complaint: lft hip pain [employer] Supervisor Required: No Accompanied by: Self Is patient in pain?: Yes (waking up is horrible has to use heat to get moving ) Allergies tamoxifen Adverse Reaction (Mild, Verified 12/11/24 12:52) hair loss/abnormal discharge Medications ???Medication ???Instructions ???Recorded ???Confirmed ???Type aspirin 81 mg tablet,delayed 81 mg PO DAILY 07/21/20 12/11/24 H istory release coenzyme Q10 30 mg capsule (CoQ-10) 30 mg PO DAILY 07/21/20 5 History anastrozole 1 mg tablet 1 mg PO DAILY 05/24/21 12/11/24 Hi story Oral Sleep Appliance #1 ea 07/13/21 12/11/24 Rx nitroglycerin 0.4 mg sublingual 0.4 mg sublingual Q5-15M PRN chest 03/21/23 12/11/24 Rx tablet pain #25 tabs pantoprazole 40 mg tablet,delayed 20 mg PO DAILY 03/21/23 12/11/24 History release ezetimibe 10 mg tablet 10 mg PO DAILY #90 tabs 11/17/23 0 12/11/24 Rx metoprolol tartrate 25 mg tablet 25 mg PO BID #180 tabs 04/01/24 Rx amiodarone 200 mg tablet 100 mg (1/2 x 200 mg) PO DAILY #45 08/13/24 12/11/24 Rx tabs levothyroxine 100 mcg tablet 100 mcg PO DAILY #90 tabs 09/25/24 12/11/24 Rx apixaban 5 mg tablet (Eliquis) 5 mg PO BID #180 tabs 10/29/2403/02 Rx atorvastatin 40 mg tablet 40 mg PO DAILY #90 tabs 11/04/24 0 12/11/24 Rx Have you fallen in the past year?: No PFSH Medical History Left thigh pain Elevated liver enzymes Burning sensation of mouth Oral lesion 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 CKD (chronic kidney disease), stage III Tension headache, chronic Osteopenia with high risk of fracture SNEHA (obstructive sleep apnea) Venous insufficiency Paroxysmal atrial fibrillation (03/04/21) 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) History of ST elevation myocardial infarction (STEMI) (03/22/17) Atherosclerotic heart disease of [place] coronary artery without angina pectoris Hypothyroidism Carpal tunnel syndrome Heel spur GERD (gastroesophageal reflux disease) Osteopenia Hyperlipidemia Migraine Breast cancer Breast lump Hx of back injury Arthritis Anemia Surgical History History of carpal tunnel release of both wrists History of tubal ligation H/O left mastectomy (03/2018) History of coronary artery stent placement (03/22/17) History of tonsillectomy Family History Mother Alzheimer disease Brother Heart disease Myocardial infarction Sister S/P triple vessel bypass Breast cancer, Onset Age: 80 Father Myocardial infarction Heart disease Grandmother Heart disease Myocardial infarction Uncle Myocardial infarction Heart disease Unknown Heart disease Myocardial infarction nephew cousin Other History of coronary artery stent placement Social History household members: spouse number of children: 1 current occupational status: retired Smoking Status: Former smoker quit date: 10/09/88 pack-years: 15 Tobacco: How many years used: 15 how long ago did patient quit smoking: >30 years, [id number] alcohol intake: never substance use type: does not use caffeine: Yes what type of physical activity do you participate in: none seatbelt use: always do you feel safe at home: Yes additional social history: Gale- both are retired [employer] Chief Complaint: lft hip pain Details: MELISSA PERRY, is a 74 F who presents to the office today for left sided low back, left hip, and left knee pain. Patient states that she has chronic low back pains on the right side that she has seen pain management for. She states that she would have some pains on the left but that was mainly the right. She started to have some pains in the left side for a couple months now. She states that she fell after slipping on the ice which she states made the pains in the lower back worse. She states that the pains in the hip started after a fall where she slipped on (more content not included)... Normal [facility] HIP, UNI W/ Pelvis 2-3 Views on 10-31-2024 HIP, UNI W/ Pelvis 2-3 Views [facility] Imaging Services [address] [place] [address] HIP, UNI W/ Pelvis 2-3 Views MR#: [id number] Acct: [id number] Name: MELISSA PERRY Rep #: [id number] : 1950 F 74 From: Tello Ledesma MD PCP: Dr. Caterina Garcia MD Status: REG CLI Study: HIP, UNI W/ Pelvis 2-3 Views Date of Exam: Exam# [id number] Ordering Dr: Titus Franco [place] [id number] STUDY: X-RAY - PELVIS AND LEFT HIP REASON FOR EXAM: Female, 74 years old. Hip injury. TECHNIQUE: 3 views of the pelvis and left hip. COMPARISON: None. FINDINGS: There is a non-specific bowel gas pattern. Normal visualized soft tissue structures. Normal bilateral iliac wings, sacroiliac joints and visualized sacrum. Normal bilateral superior and inferior pubic rami. 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 Normal bilateral ischial tuberosities. Normal visualized femoral head. Normal acetabulum. Normal hip joint. There is no demonstrated acute fracture. RAD/HIP, UNI W/ Pelvis 2-3 Views IMPRESSION: Mild pubic symphysis arthrosis. No demonstrated acute fracture. Electronically Signed: Tello Ledesma MD at 10:53 EST , CC: JOSSELIN Mccormack; Dr. Caterina Garcia MD Clinical Resource Coordinator: Signed Normal [facility] Urgent Care Visit Reporton 0 10-31-2024 Urgent Care Visit Report [facility] [address], [address] [place] [address] OFFICE VISIT Date of Service: 10/31/24 MR#: [id number] Acct: [id number] Name: MELISSA PERRY Rep #: [id number] : 1950 Provider: JOSSELIN Mccormack Age/Sex: 74/F Location: [facility] Status: Signed Intake Vital Signs 10/29/24 09:59 10/31/24 10:31 Height 5 ft 4 in 5 ft 4 in Weight: 158 lb 161 lb 2 oz BMI 27.1 27.6 BP 112/68 118/66 Blood Pressure Location Rt brachial Lt brachial Position Sitting Sitting Respiration 16 16 Pulse 57 L 60 Pulse Source Monitor NIBP Temp 98.1 F Temp Source Oral Pulse Oximetry (%) 97 Oxygen Delivery Method room air Intake Visit Reasons: L HIP INJURY FROM FALL 10 DAYS AGO Chief Complaint: fall [employer] Supervisor Required: No Is patient in pain?: Yes Allergies tamoxifen Adverse Reaction (Mild, Verified 10/31/24 10:32) hair loss/abnormal discharge Is last menstrual period known: No Post menopausal: Yes Patient : No Have you fallen in the past year?: Yes Nurse's Note: fall on ice approx 10 days ago. seen in ED that day for CT scan head. did not report left hip pain at that time, pain began later same evening. today pain continues but has improved per pt. pt ambulates unassisted without limp. 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) History of ST elevation myocardial infarction (STEMI) (03/22/17) Atherosclerotic heart disease of [place] coronary artery without angina pectoris Hypothyroidism Carpal tunnel syndrome Heel spur GERD (gastroesophageal reflux disease) Osteopenia Hyperlipidemia Migraine Breast cancer Breast lump Hx of back injury Arthritis Anemia Surgical History History of carpal tunnel release of both wrists History of tubal ligation H/O left mastectomy (03/2018) History of coronary artery stent placement (03/22/17) History of tonsillectomy Family History Mother Alzheimer disease Brother Heart disease Myocardial infarction Sister S/P triple vessel bypass Breast cancer, Onset Age: 80 Father Myocardial infarction Heart disease Grandmother Heart disease Myocardial infarction Uncle Myocardial infarction Heart disease Unknown Heart disease Myocardial infarction nephew cousin Other History of coronary artery stent placement Social History household members: spouse number of children: 1 current occupational status: retired Smoking Status: Former smoker quit date: 10/09/88 pack-years: 15 Tobacco: How many years used: 15 how long ago did patient quit smoking: >30 years, [id number] alcohol intake: never substance use type: does not use caffeine: Yes what type of physical activity do you participate in: none seatbelt use: always do you feel safe at home: Yes additional social history: Gale- both are retired [employer] Chief Complaint: fall Details: MELISSA PERRY, is a 74 F who presents to the office today for complaint of ongoing left hip pain after a fall 10 days ago. Patient was initially evaluated at [facility] ED and had a negative CT of the head however states that she was not aware of her hip pain at that time and did not have it looked into. She states that her pain has improved however persists that she wants to make sure that there is no fracture. She denies numbness, tingling or loss of range of motion other than secondary to pain. No previous injuries to the same. No other associated symptoms or alleviating/aggravating factors. ROS Const Constitutional: No other (6 system ROS completed with pertinent findings in the HPI otherwise normal.) Exam Const General: cooperative and healthy appearing Skin General: no rashes or lesions noted Neuro General: patient alert Extrem General: full ROM and capillary refill normal Other: Pain to palpation left greater trochanter without deformity. Full range of motion with no shortening. Psych Appearance: grossly normal Mental Status: mental status grossly normal Coding Level of Care Code Off vis,new,level 4 Diagnoses Contusion of left hip S70.02XA Assessment and Plan Assessment and Plan (1) Contusion of left hip: Status: Acute Medications: New methylprednisolone (Medrol (Gatito)) 4 mg PO PER PKG DIR 6 days 21 tabs 0RF Plan (more content not included)... Normal [facility] Cardiology Visit Reporton Cardiology Visit Report [facility] [address] [place] [address] OFFICE VISIT Date of Service: 10/29/24 MR#: [id number] Acct: [id number] Name: MELISSA PERRY Rep #: [id number] : 1950 Provider: Dr. Narendra Triplett MD Age/Sex: 74/F Location: [facility] Status: Signed HPI HPI History of Present Illness Details: Melissa Perry is a 74-year-old lady who presents to the office today for a cardiovascular follow up visit. She has a history of an inferior wall myocardial infarction in March [address] elevation myocardial infarction. Cardiac catheterization actually demonstrated a total occlusion of the circumflex artery, 50% LAD stenosis and 30% right coronary artery stenosis. She was successfully stented with a 3.0 x 28 mm Synergy stent. She was placed on ticagrelor which caused fatigue and was switched to clopidogrel. Her metoprolol dose was also subsequently decreased and then stopped. She was subsequently diagnosed with left-sided breast carcinoma ER positive and she was put on a 3-month course of an aromatase inhibitor and had her dual antiplatelet therapy discontinued and she underwent a left-sided mastectomy. She presented to us with palpitations and was noted to have a Holter monitor placed which demonstrated episodes of atrial fibrillation. With a chads vas score of 2 she was started on Eliquis and amiodarone and has done well since then. She did have an echocardiogram demonstrating preserved ejection fraction of 60% in February 2021 and a Holter monitor in February demonstrating 8.9% atrial fibrillation episodes. She underwent stress testing in November 2023 which demonstrated no evidence of ischemia at a high workload. From a cardiac standpoint, the patient is doing well. She however fell on the ice a few days ago and has a bruised left eye. She denies any palpitations, chest pain, pressure or heaviness. She does have an occasional SOB with climbing stairs-this is nothing new or worsening. She denies Orthopnea, and PND. She does not have bleeding issues; no blood in urine, stool or nosebleeds. She denies any decrease in energy level, or claudication. She does acknowledge myalgias. She does not have edema, or sudden weight gain. She denies dizziness, lightheadedness, syncopal or near syncopal episodes, and headaches. 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 [employer] Supervisor Required: No Accompanied by: Self Is patient in pain?: No Allergies tamoxifen Adverse Reaction (Verified 10/29/24 10:01) hair loss/abnormal discharge Medications ???Medication ???Instructions ???Recorded ???Confirmed ???Type aspirin 81 mg tablet,delayed 81 mg PO DAILY 07/21/20 10/29/24 History release coenzyme Q10 30 mg capsule (CoQ-10) 30 mg PO DAILY 07/21/20 10/29/24 History anastrozole 1 mg tablet 1 mg PO DAILY 05/24/21 10/29/24 History Oral Sleep Appliance #1 ea 07/13/21 09/23/24 Rx nitroglycerin 0.4 mg sublingual 0.4 mg sublingual Q5-15M PRN chest 03/21/23 10/29/24 Rx tablet pain #25 tabs pantoprazole 40 mg tablet,delayed 20 mg PO DAILY 03/21/23 10/29/24 History release atorvastatin 40 mg tablet 40 mg PO DAILY #90 tabs 11/17/23 10/29/24 Rx ezetimibe 10 mg tablet 10 mg PO DAILY #90 tabs 11/17/23 10/29/24 Rx metoprolol tartrate 25 mg tablet 25 mg PO BID #180 tabs 04/01/24 10/29/24 Rx amiodarone 200 mg tablet 100 mg (1/2 x 200 mg) PO DAILY #45 08/13/24 10/29/24 Rx tabs levothyroxine 100 mcg tablet 100 mcg PO DAILY #90 tabs 09/25/24 10/29/24 Rx apixaban 5 mg tablet (Eliquis) 5 mg PO BID #180 tabs 10/29/24 10/29/24 Rx Have you fallen in the past year?: Yes PFSH Medical History Left thigh pain Elevated liver enzymes Burning sensation of mouth Oral lesion 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 CKD (chronic kidney disease), stage III Tension headache, chronic Osteopenia with high risk of fracture SNEHA (obstructive sleep apnea) Venous insufficiency Paroxysmal atrial fibrillation (03/04/21) 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 Normal [facility] 10-21-2024 [facility] HNO ID: [id number] Author: CARLOS HAYWARD CT Service: Radiology Author Type: Technologist Type: Allied Health Filed: 10/21/2024 11:52 Note Text: Radiology Service Progress Note PATIENT NAME: Melissa Perry DATE OF SERVICE: October 21, 2024 TIME: 11:52 AM PATIENT IDENTITY VERIFICATION COMPLETED USING TWO (2) IDENTIFIERS: Name and Date of confirmed by patient verbally and Name and Date of confirmed by identification band. FALL SCREENING: Has the patient had 2 falls in the last year or 1 fall with injury or currently using an Ambulatory Assistive Device (Walker, Cane, Wheelchair, Crutches, etc.)? Emergency Room Patient: Screened in ED PATIENT GENDER DATA: Assigned female at . status: : No status: NO. PATIENT RELEVANT IMPLANT DATA REVIEWED: Not Applicable PATIENT PRESENTS WITH AN IMPLANTABLE OR ATTACHED HONEY GRADER AND BLENDER: No RADIOLOGY DEPARTMENT: CT; Exam(s) Completed: Brain and Spine PERIPHERAL IV DATA: Not applicable SIGNED BY: CHRISTINA Hough October 21, 2024 11:[address] [facility] [address] BRAIN WO IVCONon 10-21-19 CT BRAIN WO IVCON * * *Final Report* * * DATE OF EXAM: Oct 21 2024 12:00PM [facility] [place] [place] [address] - CT BRAIN WO IVCON / PROCEDURE REASON: Head trauma, moderate-severe * * * * Physician Interpretation * * * * EXAMINATION: CT BRAIN WO IVCON, CT CERVICAL SPINE WO IVCON CLINICAL HISTORY: Head trauma, moderate-severe.. . pt slipped on ice hit head no LOC hematoma to forehead. on Eloquis TECHNIQUE: Serial axial unenhanced images were obtained from the vertex to the foramen magnum. Spiral, high resolution axial unenhanced images were obtained from the skull base to the cervicothoracic junction with sagittal and coronal planar reconstructions. MQ: [id number] Dose-Length Product (DLP): 985 mGy*cm. CT Dose Reduction Employed: Automated exposure control(AEC) and iterative recon COMPARISON: None. RESULT: BRAIN: Post operative change: none Acute change: No evidence of an acute contusion or other acute parenchymal process. Hemorrhage: No evidence of acute intracranial hemorrhage. Mass lesion / Mass effect: There is no evidence of an intracranial mass or extraaxial fluid collection. No significant mass effect. Chronic change: None apparent. Parenchyma: There is no significant volume loss. The brain parenchyma is otherwise within normal limits for age. Ventricles: The ventricles are within normal limits of size and configuration for age. Paranasal sinuses and skull base: The visualized paranasal sinuses are grossly clear. Left frontal scalp hematoma. No fracture. CERVICAL: Counting reference: Craniocervical junction. Anatomic Variants: None. Alignment: Mild C4-5 anterolisthesis Craniocervical junction: Craniocervical junction is normal. Osseous structures/fracture: No evidence of a lytic or blastic process in the visualized spine. No evidence of acute or chronic fracture. Cervical soft tissues: The paraspinal soft tissues planes are maintained. Degenerative changes: Moderate to advanced degenerative disc disease C5-6 and C6-7. Advanced facet arthrosis bilaterally at multiple levels. Right-sided facet ankylosis at C2-3. Mild central canal and bilateral foraminal stenosis at C5-6. IMPRESSION: No evidence of an acute intracranial process. Left frontal scalp hematoma. No evidence of acute cervical spine fracture. Degenerative changes. Anatomic Variant: None. Assume 7 cervical vertebrae with counting from the craniocervical junction. Clinical Resource Coordinator: PSCB Transcribe Date/Time: Oct 21 2024 12:53P Dictated by : GALE RICHARD MD This examination was interpreted and the report reviewed and electronically signed by: GALE RICHARD MD on Oct 21 2024 12:57PM EST [id number] [facility] CT CERVICAL SPINE WO IVCONon 10-21-2024 CT CERVICAL SPINE WO IVCON * * *Final Report* * * DATE OF EXAM: Oct 21 2024 12:00PM [facility] – [place] [address] - CT CERVICAL SPINE WO IVCON / PROCEDURE REASON: Spine fracture, cervical, traumatic * * * * Physician Interpretation * * * * EXAMINATION: CT BRAIN WO IVCON, CT CERVICAL SPINE WO IVCON CLINICAL HISTORY: Head trauma, moderate-severe.. . pt slipped on ice hit head no LOC hematoma to forehead. on [employer] TECHNIQUE: Serial axial unenhanced images were obtained from the vertex to the foramen magnum. Spiral, high resolution axial unenhanced images were obtained from the skull base to the cervicothoracic junction with sagittal and coronal planar reconstructions. MQ: [id number] Dose-Length Product (DLP): 985 mGy*cm. CT Dose Reduction Employed: Automated exposure control(AEC) and iterative recon COMPARISON: None. RESULT: BRAIN: Post operative change: none Acute change: No evidence of an acute contusion or other acute parenchymal process. Hemorrhage: No evidence of acute intracranial hemorrhage. Mass lesion / Mass effect: There is no evidence of an intracranial mass or extraaxial fluid collection. No significant mass effect. Chronic change: None apparent. Parenchyma: There is no significant volume loss. The brain parenchyma is otherwise within normal limits for age. Ventricles: The ventricles are within normal limits of size and configuration for age. Paranasal sinuses and skull base: The visualized paranasal sinuses are grossly clear. Left frontal scalp hematoma. No fracture. CERVICAL: Counting reference: Craniocervical junction. Anatomic Variants: None. Alignment: Mild C4-5 anterolisthesis Craniocervical junction: Craniocervical junction is normal. Osseous structures/fracture: No evidence of a lytic or blastic process in the visualized spine. No evidence of acute or chronic fracture. Cervical soft tissues: The paraspinal soft tissues planes are maintained. Degenerative changes: Moderate to advanced degenerative disc disease C5-6 and C6-7. Advanced facet arthrosis bilaterally at multiple levels. Right-sided facet ankylosis at C2-3. Mild central canal and bilateral foraminal stenosis at C5-6. IMPRESSION: No evidence of an acute intracranial process. Left frontal scalp hematoma. No evidence of acute cervical spine fracture. Degenerative changes. Anatomic Variant: None. Assume 7 cervical vertebrae with counting from the craniocervical junction. Clinical Resource Coordinator: PSCB Transcribe Date/Time: Oct 21 2024 12:53P Dictated by : GALE RICHARD MD This examination was interpreted and the report reviewed and electronically signed by: GALE RICHARD MD on Oct 21 2024 12:57PM EST [id number] [facility] ED NOTEon 10-21-2024 ED NOTE HNO ID: [id number] Author: CARTER KANG RN Service: ? Author Type: Registered Nurse Type: ED Notes Filed: 10/21/2024 11:19 Note Text: Bed: ED-19 Expected date: Expected time: Means of arrival: [facility] Comments: 74 F Fell on ice NO LOC, on [facility] ED PROV NOTEon 10-21-2024 ED PROV NOTE HNO ID: [id number] Author: URI HARRINGTON MD Service: Emergency Medicine Author Type: Physician Type: ED Provider Notes Filed: 10/21/2024 13:21 Note Text: ED Provider Note Patient Name: Melissa Perry : 1950 SERVICE DATE: 10/21/24 History Patient presents with: Fall: pt slipped on ice hit head no LOC hematoma to forehead.on Ms. Perry is a 74 yo F with history of atrial fibrillation on now presenting after she slipped in the [employer] parking lot and hit the front left part of her head. She did not lose consciousness. This was about an hour ago. She has minimal neck pain. No unilateral weakness or numbness or trouble speaking or swallowing or back pain or chest pain or abdominal pain. She does have a small abrasion to the left dorsal hand near the second metacarpal phalangeal joint, but this really does not hurt much and she does not suspect it is broken. PAST MEDICAL HISTORY Diagnosis Date Afib (HCC) Anemia Aromatase inhibitor use Arimadex 01/24 to 09/26 Arthritis At risk for stroke 11/18/2022 Breast cancer (HCC) 03/2018 left Carpal tunnel syndrome CKD (chronic kidney disease) Constipation Coronary artery disease Former smoker 1 PPDx15 years quit 1988 GERD (gastroesophageal reflux disease) Heart attack (HCC) 03/2017 Heel spur Hemorrhoids History of postmenopausal HRT 3 years Hx of prison use of blood thinners 2016 on Plavix [place] 03/2017 off 09/26 Hypercholesteremia Hypothyroid Migraine, intractable SNEHA (obstructive sleep apnea) Osteopenia Sleep apnea with use of continuous positive airway pressure (CPAP) Venous insufficiency PAST SURGICAL HISTORY Procedure Laterality Date COLONOSCOPY 2018 no polyps previous one due 2017 but had [place] not completed ([facility]) LAPAROSCOPIC TUBAL LIGATION/RING/CLIP Bilateral 1980 MAMMOTOME BIOPSY [...] 3VCABG Coronary Artery Disease Brother 47 fatal AL at 47 Alzheimer's Disease Mother age 81 Ischemic Heart Disease Father age 67 (AL) Coronary Artery Disease Brother 47 fatal AL at 47 Cervical Cancer No Family History Ovarian cancer No Family History Uterine Cancer No Family History Colon Cancer No Family History Pancreatic Cancer No Family History Prostate Cancer No Family History Social History Tobacco Use Smoking status: Former Current packs/day: 0.00 Average packs/day: 1 pack/day for 15.0 years (15.0 ttl pk-yrs) Types: Cigarettes Start date: 03/27/1974 Quit date: 03/27/1989 Years since quittin.5 Smokeless tobacco: Never Vaping Use Vaping status: Never Used Substance and Sexual Activity Alcohol use: No Drug use: No Sexual activity: Not Currently ALLERGIES Allergen Reactions Iodine Itching Review of Systems Constitutional: Negative for chills and fever. HENT: Negative for ear pain, rhinorrhea and sore throat. Respiratory: Negative for cough and shortness of breath. Cardiovascular: Negative for chest pain and leg swelling. Gastrointestinal: Negative for abdominal pain, diarrhea, nausea and vomiting. Genitourinary: Negative for dysuria, flank pain, frequency and hematuria. Musculoskeletal: Positive for neck pain. Negative for back pain. Skin: Positive for wound. Negative for rash. Neurological: Positive for headaches. Negative for speech difficulty, weakness, light-headedness and numbness. Physical Exam Vitals [10/21/24 1119] BP Pulse Temp Temp src Resp SpO2 Weight Height 136/76 (!) 53 36.4 ?C (97.6 ?F) Oral 18 98 % 71.7 kg (158 lb) -- Physical Exam Vitals and nursing note reviewed. Constitutional: General: She is not in acute distress. Appearance: She is well-developed. HENT: Head: Comments: L frontal hematoma, no laceration amenable to sutures Eyes: Pupils: Pupils are equal, round, and reactive to light. Neck: Trachea: No tracheal deviation. Comments: No focal c spine tenderness or step off, reasonable ROM Cardiovascular: Rate and Rhythm: Normal rate. Heart sounds: No murmur heard. No friction rub. No gallop. Pulmonary: Effort: Pulmonary effort is normal. No respiratory distress. Breath sounds: Normal breath sounds. No wheezing or rales. Abdominal: General: Bowel sounds are normal. There is no distension. Palpations: Abdomen is soft. Tenderness: There is no abdominal tenderness. There is no guarding or rebound. Musculoskeletal: General: Normal range of motion. Cervical back: Normal range of motion and neck supple. Comments: No T or L-spine tenderness or s (more content not included)... Normal [facility] CBC W/Diff, Automatedon 12-1 Absolute Lymph 2.14 X10 3/uL Normal 0.83-4.51 [facility] Comment on above: Performed By: #### L 501.2811, L500.4050, L100.0100 #### [facility] [address] [place], [address] Absolute Neut 4.3 X10 3/uL Normal 2.0-7.7 [facility] Comment on above: Performed By: #### L [id number], [id number], L100.0100 #### [facility] [address] [place], [address] Basophils/100 WBC (Bld) 0.7 % Normal 0-1 [facility] Comment on above: Performed By: #### L [id number], [id number], L100.0100 #### [facility] [address] [place], [address] Eosinophils/100 WBC (Bld) 2.1 % Normal 0-5 [facility] Comment on above: Performed By: #### L [id number], [id number], L100.0100 #### [facility] [address] [place], [address] Erythrocyte distribution width (RBC) [Ratio] 13.0 % Normal 11.6-14.6 [facility] Comment on above: Performed By: #### L [id number], L500.4050, L100.0100 #### [facility] [address] [place], [address] Hematocrit (Bld) [Volume fraction] 35.9 % Low 37-47 [facility] Comment on above: Performed By: #### L [id number], [id number], L100.0100 #### [facility] [address] [place], [address] Hemoglobin (Bld) [Mass/Vol] 11.6 g/dL Low 12.0-15.0 [facility] Comment on above: Performed By: #### L 501.9520, L500.4050, L100.0100 #### [facility] [address] [place], [address] IG% 0.300 Normal 0.0-0.9 [facility] Comment on above: Result Comment: IG% - Immature Granulocytes (promyelocytes, myelocytes and metamyelocytes) > 1% indicates that a LEFT SHIFT is Present. Performed By: #### L 501.9520, L500.4050, L100.0100 #### [facility] [address] [place], [address] Lymphocytes/100 WBC (Bld) 30.1 % Normal 19-41 [facility] Comment on above: Performed By: #### L 501.9520, [id number], L100.0100 #### [facility] [address] [place], [address] MCH (RBC) [Entitic mass] 30.7 pg Normal 27.0-32.0 [facility] Comment on above: Performed By: #### L 501.9520, [id number], L100.0100 #### [facility] [address] [place], [address] MCHC (RBC) [Mass/Vol] 32.3 g/dL Normal 32-36 [facility] Comment on above: Performed By: #### L 501.9520, [id number], L100.0100 #### [facility] [address] [place], [address] MCV (RBC) [Entitic vol] 95.0 fL Normal 81-99 [facility] Comment on above: Performed By: #### L 501.9520, [id number], L100.0100 #### [facility] [address] [place], [address] Monocytes/100 WBC (Bld) 7.2 % Normal 0-10 [facility] Comment on above: Performed By: #### L [id number], [id number], L100.0100 #### [facility] [address] [place], [address] Neutrophils/100 WBC (Bld) 59.6 % Normal 47-70 [facility] Comment on above: Performed By: #### L 501.9520, [id number], L100.0100 #### [facility] [address] [place], [address] Nucleated RBC (Bld) [#/Vol] 0 10*3/uL Normal 0-5 [facility] Comment on above: Performed By: #### L 501.9520, [id number], L100.0100 #### [facility] [address] [place], [address] Platelet mean volume (Bld) [Entitic vol] 10.1 fL Normal 6.2-12.0 [facility] Comment on above: Performed By: #### L 501.9520, L500.4050, L100.0100 #### [facility] [address] [place], [address] Platelets (Bld) [#/Vol] 217 10*3/uL Normal 150-450 [facility] Comment on above: Performed By: #### L 501.9520, [id number], L100.0100 #### [facility] [address] [place], [address] RBC (Bld) [#/Vol] 3.78 10*6/uL Low 4.2-5.4 [facility] Comment on above: Performed By: #### L 501.9520, [id number], L100.0100 #### [facility] [address] [place], [address] RDW SD 44.9 fl High 35.1-43.9 [facility] Comment on above: Performed By: #### L 501.9520, [id number], L100.0100 #### [facility] [address] [place], [address] WBC (Bld) [#/Vol] 7.1 10*3/uL Normal 4.4-11.0 [facility] Comment on above: Performed By: #### L 501.9520, [id number], L100.0100 #### [facility] [address] [place], [address] Comprehensive Metabolic Prof ilon 09-23-2024 Albumin [Mass/Vol] 3.5 g/dL Normal 3.2-5.0 [facility] Comment on above: Performed By: #### L 501.9520, [id number], L100.0100 #### [facility] [address] [place], [address] Albumin/Globulin [Mass ratio] 1.2 {ratio} Normal 0.9-2.4 [facility] Comment on above: Performed By: #### L 501.9520, L500.4050, L100.0100 #### [facility] [address] [place], [address] ALK P 88 U/L Normal 45-117 [facility] Comment on above: Performed By: #### L 501.9520, [id number], L100.0100 #### [facility] [address] [place], [address] ALT [Catalytic activity/Vol] 31 U/L Normal 13-56 [facility] Comment on above: Performed By: #### L 501.9520, [id number], L100.0100 #### [facility] [address] [place], [address] AST [Catalytic activity/Vol] 26 U/L Normal 15-37 [facility] Comment on above: Performed By: #### L 501.9520, [id number], L100.0100 #### [facility] [address] [place], [address] Bilirubin [Mass/Vol] 0.60 mg/dL Normal 0.20-1.00 [facility] Comment on above: Result Comment: For patients on eltrombopag therapy, use of Dimension [place] TBIL is not recommended. Performed By: #### L 501.9520, L500.4050, L100.0100 #### [facility] [address] [place], [address] BUN/CRE 10.7 RATIO Normal 10-20 [facility] Comment on above: Performed By: #### L 501.9520, L500.4050, L100.0100 #### [facility] [address] [place], [address] CA,Total 8.9 mg/dL Normal 8.5-10.1 [facility] Comment on above: Performed By: #### L 501.9520, L500.4050, L100.0100 #### [facility] [address] [place], [address] Chloride [Moles/Vol] 107 mmol/L Normal 98-107 [facility] Comment on above: Performed By: #### L 501.9520, L500.4050, L100.0100 #### [facility] [address] [place], [address] CO2 [Moles/Vol] 25.0 mmol/L Normal 21.0-32.0 [facility] Comment on above: Performed By: #### L 501.9520, L500.4050, L100.0100 #### [facility] [address] [place], [address] Creatinine [Mass/Vol] 1.12 mg/dL High 0.55-1.02 [facility] Comment on above: Result Comment: The validity of the calculated GFR GFRAA in patients over 70 years has not been determined. Clinical correlation is essential. Performed By: #### L 501.9520, L500.4050, L100.0100 #### [facility] [address] [place], [address] EST GFR - AA 61 mL/min Normal >60 [facility] Comment on above: Result Comment: Afri can [place] GFR Calc Performed By: #### L 501.9520, L500.4050, L100.0100 #### [facility] [address] [place], [address] GAP 6 Normal 5-15 [facility] Comment on above: Performed By: #### L 501.9520, L500.4050, L100.0100 #### [facility] [address] [place], [address] GFR/1.73 sq M.predicted among non-blacks MDRD (S/P/Bld) [Vol rate/Area] 50 mL/min/{1.73_m2} Low >60 [facility] Comment on above: Result Comment: Non- GFR Calc Performed By: #### L 501.9520, L500.4050, L100.0100 #### [facility] [address] [place], [address] Globulin (S) [Mass/Vol] 3.0 g/dL Normal 2.2-4.2 [facility] Comment on above: Performed By: #### L 501.9520, L500.4050, L100.0100 #### [facility] [address] [place], [address] Glucose [Mass/Vol] 97 mg/dL Normal 74-106 [facility] Comment on above: Performed By: #### L 501.9520, L500.4050, L100.0100 #### [facility] [address] [place], [address] Potassium [Moles/Vol] 3.9 mmol/L Normal 3.5-5.1 [facility] Comment on above: Performed By: #### L 501.9520, L500.4050, L100.0100 #### [facility] [address] [place], [address] Sodium [Moles/Vol] 138 mmol/L Normal 136-145 [facility] Comment on above: Performed By: #### L 501.9520, L500.4050, L100.0100 #### [facility] [address] [place], [address] T PROT 6.5 g/dL Normal 6.4-8.2 [facility] Comment on above: Performed By: #### L 501.9520, L500.4050, L100.0100 #### [facility] [address] [place], [address] Urea nitrogen [Mass/Vol] 12 mg/dL Normal 7-18 [facility] Comment on above: Performed By: #### L 501.9520, L500.4050, L100.0100 #### [facility] [address] [place], [address] Internal Medicine Office Vis lenin 09-23-2024 Internal Medicine Office Visit [facility] [address] [place] [address] [place] [address] OFFICE VISIT Date of Service: 09/23/24 MR#: [id number] Acct: [id number] Name: MELISSA PERRY Rep #: [id number] : 1950 Provider: Dr. Caterina arboleda MD Age/Sex: 74/F Location: [facility] Status: Signed Intake Vital Signs 03/22/24 13:39 09/23/24 13:06 Height 5 ft 4 in 5 ft 4 in Weight: 158 lb BMI 27.1 BP 118/70 Blood Pressure Location Rt brachial Position Sitting Respiration 16 Pulse 58 L Pulse Source Monitor Temp 98.1 F Temp Source Temporal Pulse Oximetry (%) 98 Oxygen Delivery Method room air Intake Visit Reasons: 6 M FU Chief Complaint: 6m f/u [employer] Required: No Is patient in pain?: No Allergies tamoxifen Adverse Reaction (Verified 09/23/24 13:00) hair loss/abnormal discharge Medications ???Medication ???Instructions ???Recorded ???Confirmed ???Type aspirin 81 mg tablet,delayed 81 mg PO DAILY 07/21/20 09/23/24 History release coenzyme Q10 30 mg capsule (CoQ-10) 30 mg PO DAILY 07/21/20 09/23/24 History anastrozole 1 mg tablet 1 mg PO DAILY 05/24/21 09/23/24 History Oral Sleep Appliance #1 ea 07/13/21 09/23/24 Rx nitroglycerin 0.4 mg sublingual 0.4 mg sublingual Q5-15M PRN chest 03/21/23 09/23/24 Rx tablet pain #25 tabs pantoprazole 40 mg tablet,delayed 20 mg PO DAILY 03/21/23 09/23/24 History release levothyroxine 100 mcg tablet 100 mcg PO DAILY #90 tabs 10/12/23 09/23/24 Rx apixaban 5 mg tablet (Eliquis) 5 mg PO BID #180 tabs 11/17/23 09/23/24 Rx atorvastatin 40 mg tablet 40 mg PO DAILY #90 tabs 11/17/23 09/23/24 Rx ezetimibe 10 mg tablet 10 mg PO DAILY #90 tabs 11/17/23 09/23/24 Rx metoprolol tartrate 25 mg tablet 25 mg PO BID #180 tabs 04/01/24 09/23/24 Rx amiodarone 200 mg tablet 100 mg (1/2 x 200 mg) PO DAILY #45 08/13/24 09/23/24 Rx tabs Have you fallen in the past year?: No [facility] History (Updated 09/23/24 @ 13:[address] 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) History of ST elevation myocardial infarction (STEMI) (03/22/17) Atherosclerotic heart disease of [place] coronary artery without angina pectoris Hypothyroidism Carpal tunnel syndrome Heel spur GERD (gastroesophageal reflux disease) Osteopenia Hyperlipidemia Migraine Breast cancer Breast lump Hx of back injury Arthritis Anemia Surgical History History of carpal tunnel release of both wrists History of tubal ligation H/O left mastectomy (03/2018) History of coronary artery stent placement (03/22/17) History of tonsillectomy Family History Mother Alzheimer disease Brother Heart disease Myocardial infarction Sister S/P triple vessel bypass Breast cancer, Onset Age: 80 Father Myocardial infarction Heart disease Grandmother Heart disease Myocardial infarction Uncle Myocardial infarction Heart disease Unknown Heart disease Myocardial infarction nephew cousin Other History of coronary artery stent placement Social History household members: spouse number of children: 1 current occupational status: retired Smoking Status: Former smoker quit date: 10/09/88 pack-years: 15 Tobacco: How many years used: 15 how long ago did patient quit smoking: >30 years, [id number] alcohol intake: never substance use type: does not use caffeine: Yes what type of physical activity do you participate in: none seatbelt use: always do you feel safe at home: Yes additional social history: Gale- both are retired HPI HPI Chief Complaint: 6m f/u Details: MELISSA PERRY, is a 74 F who presents to the office today for follow-up of her chronic conditions. No acute concerns at this time. History of hypothyroidism on levothyroxine. Taking medication as prescribed. No heat or cold intolerance or unintentional weight changes. Also history of CKD 3, she states that she has not been as compliant/consistent with her fluid intake. Drinks a lot of coffee. Other chronic medical conditions are stable. ROS Const Constitutional: No body ache, chills, excessive sweating, fatigue, fever(s), frequent falls, headache(s), snoring, weakness, sleep problems or change in appetite Eyes Eyes: No blurry vision, change in vision, bulging eyes, floaters, visual disturbances, eye pain or Lig (more content not included)... Normal [facility] Thyroid Stim Hormone (TSH)on 09-23-2024 TSH 1.720 uIU/mL Normal 0.358-3.740 [facility] Comment on above: Performed By: #### L 501.9520, L500.4050, L100.0100 #### [facility] [address] [place], [place], [id number] DEV SCREENING W TOMOon 08-23 DEV SCREENING W MILI * * *Final Report* * * DATE OF EXAM: Aug 23 2024 9:38AM [id number] - DEV SCREENING W MILI / PROCEDURE REASON: multiple diagnoses * * * * Physician Interpretation * * * * RESULT: [facility] [address] [place] [address] HISTORY: Patient is 74 years old and is seen for screening and is asymptomatic in both breasts. The patient has a history of left breast cancer. COMPARISON STUDIES: The present examination has been compared to prior imaging studies dated 03/19/2021 (mammogram), 04/01/2022 (mammogram) and 07/25/2023 (mammogram). MAMMOGRAM TECHNIQUE: The study was acquired using full field digital technology and interpreted from soft copy. Digital Breast Tomosynthesis (DBT) images were obtained and used to assist in the interpretation of this examination. Computer-aided detection was utilized by the radiologist in the interpretation of this examination. MAMMOGRAM FINDINGS: The breast is heterogeneously dense, which may obscure small masses. No suspicious masses, calcifications or other abnormalities are seen in the right breast. There are no significant changes from the prior study. Vascular calcifications are present. IMPRESSION: There is no mammographic evidence of malignancy in the right breast. Routine screening mammogram is recommended. Annual mammogram will be due in 1 year. BI-RADS Category 1: Negative Interpreting Radiologist: Erinn Guevara M.D. Electronically signed on: 08/25/2024 Clinical Resource Coordinator: ROD Transcribe Date/Time: Aug 23 2024 9:26A Dictated by: ERINN GUEVARA MD This examination was interpreted and the report reviewed and electronically signed by: ERINN GUEVARA MD on Aug 25 2024 10:53AM EST [id number] Normal [facility] CNOVSPon 08-20-2024 CNOVSP Visit (SP) Office (HEMMED) -------- MELISSA PERRY ([id number]) 1950 F Date Time Provider Department 08/20/24 3:00 PM TANVI ROCKWELL During your visit today, we recorded the following information about you: Temperature Pulse Weight 98.6 degrees 60/minute 71.7 kg Tanvi Rockwell APRN.CNP 08/20/2024 5:03 PM Signed Chief Complaint: Established patient follow up History of Present Illness: Melissa is a 74 year old female who presents here today for follow up Feeling fatigued But frustrated waiting for her appointment She reports some mild vaginal dryness, but does not feel that she needs a moisturizer No new breast complaints or concerns Denies fevers or chills No sob or chest pain No bleeding or dark stool No urinary complaints No new lumps or bumps No new pains No rash or itching Hematology/Oncology History: Past medical history is carried forward from Dr. Knight's previous note: 02/12/2024 and updated appropriately Attending: Dr Knight Diagnosis: Left breast cancer Treatment History: - patient diagnosis in 12/2017 with left-sided breast cancer, ER+/MD+/HER2- disease, Oncotype DX score of 11. - She was put on a 3-month course of a aromatase inhibitor as the patient had a repeat myocardial infarction with stent placements, at that time they wanted dual antiplatelet therapy. - She was taken off her antiplatelet therapy and taken for surgery. - s/p left-sided mastectomy on 03/19/2018 and she was noted to have 2 nodules (1.1 cm and 2.8 cm), both lesions were ER+/MD+/HER2- and showed Oncotype DX score of 11 from both of these lesions - she did not receive any adjuvant radiation. 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 - she was switched to Tamoxifen because Arimidex was causing vaginal dryness, however, she could not handle the Tamoxifen because of increased vaginal discharge and she switched back to Arimidex in late 2019 and has been tolerating it relatively well since - she was noticed to have a nodule or a growth along the lower left chest wall area and was evaluated by Dr. Roca, however no abnormality was identified on physical exam. - CT chest on 04/15/2022 showed no abnormality identified both on the subcutaneous plane, as well as, no evidence of any bone lesions to suggest metastasis. - CTA chest on 11/10/2022 showed evidence of any bony destructive lesions, no evidence of any pulmonary nodules, no evidence of any liver metastasis, no intra-abdominal abnormality noted. - patient remains on Anastrazole and she is tolerating it relatively well with plans for 10 years of therapy - Mammogram on 07/25/2023 was negative for any malignancy. - DXA scan on 07/17/2023 showed lowest bone density of -1.6 Current Treatment: Anastrazole, 1 mg daily - initiated 01/2018 (plan for [address] Knight) Subjective/ Review of Systems: See HPI HEENT- denies any vision/hearing changes or headaches. 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 No vaginal concerns except mild dryness but does not want to try moisturizers at this time SKIN- denies new rashes MUSCULAR- no new muscular/skeletal pain or weakness NEURO- denies new neuropathy PAIN- denies acute pain concerns Objective/ Exam: Pulse 60 Temp 37 ?C (98.6 ?F) (Temporal) Wt 71.7 kg (158 lb 1.1 oz) LMP (LMP Unknown) SpO2 98% BMI 27.13 kg/m? GENERAL: Patient is a well developed, well nourished. Alert, oriented, pleasant and cooperative. NECK: Supple MOUTH: no redness, sores, or white patches BREAST: Right breast with no dominant masses/nodules, no nipple discharge and no adenopathy Left breast s/p mastectomy with surgical changes noted, no nodule, no skin changes, no adenopathy, no pain on exam Tool And Production Planner offered: Patient declines The sensitive examination was discussed with the Patient or Patient's Authorized Cable Engineer Outside Plant. As applicable, any other physician, advance practice provider, medical student, or other health professional student that will be observing or involved in the sensitive examination for educational or training purposes was discussed with the Patient or Authorized Cable Engineer Outside Plant. The Patient or Authorized Cable Engineer Outside Plant has agreed to proceed with the sensitive examination. (Sensitive examination includes inspection and/or palpation of the breasts, pelvis, prostate and anorectal regions) HEART: regular rate and rhythm LUNGS: clear to auscultation ABDOMEN: Abdomen soft, non-tender, + BS LOWER EXTREMITIES: No pitting edema. Recent Testing Reviewe (more content not included)... Normal [facility] Benigno 08-08-2024 CNPN Telephone (HEMMED) -------- MELISSA PERRY ([id number]) 1950 F Date Time Provider Department 08/08/24 RICHIE KNIGHT HEMMED During your visit today, we recorded the following information about you: Mirna Rodrigues 08/13/2024 8:54 AM Signed Called patient and LVM to call our office back to reschedule appt. 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 Mirna Gomes Allergies As of Date: 08/08/2024 Noted Allergy Reaction IODINE 12/15/2017 9 - Itching Date Reviewed: 02/12/2024 Reviewed by: Duc Connell MA - Fully Assessed Reason for Visit: Appointment [[id number]] Cmt: Has appointment on 08/15 and would like to change the appointment Prescriptions as of 10/03/2024 - anastrozole (ARIMIDEX) 1 mg tablet Take 1 tablet by mouth once daily. - MULTI-VITAMIN ORAL Take by mouth once daily. - pantoprazole DR (PROTONIX) 40 mg tablet Take 1 tablet by mouth once daily. - amiodarone (PACERONE) 200 mg tablet Take 200 mg by mouth once daily. - ELIQUIS 5 mg tab(s) Take 5 mg by mouth twice daily. - metoprolol tartrate, short acting, (LOPRESSOR) 25 mg tablet Take 25 mg by mouth twice daily. - ezetimibe (ZETIA) 10 mg tablet Take 1 tablet by mouth once daily. - levothyroxine (SYNTHROID) 100 mcg tablet Take 1 tablet by mouth DAILY (6 AM). - atorvastatin (LIPITOR) 80 mg tablet Take 1 tablet by mouth once daily. - ubidecarenone (COQ-10 ORAL) Take by mouth once daily. - aspirin, enteric coated (ASPIR-LOW) 81 mg EC tablet Take 1 tablet by mouth once daily. Meds Comments as of 03/27/2017: meds given back to spouse Problem List As Of Date 08/08/2024 Noted Resolved Atherosclerosis of [place] coronary artery of na*03/22/2017 SUMMARY 03/22/2017 05/17/2017 Acquired hypothyroidism [E03.9] 03/22/2017 Mixed hyperlipidemia [E78.2] 03/22/2017 NSVT (nonsustained ventricular tachycardia) (HC*03/24/2017 11/20/2017 Fatigue [R53.83] 03/27/2017 Chronic diastolic heart failure (HCC) [I50.32] 03/28/2017 03/12/2018 Post PTCA [Z98.61] 03/28/2017 Pure hypercholesterolemia [E78.00] 04/27/2017 S/P primary angioplasty with coronary stent [Z9*04/27/2017 SNEHA (obstructive sleep apnea) [G47.33] 09/25/2017 Breast cancer (HCC) [C50.919] 01/12/2018 Breast cancer, left breast (HCC) [C50.912] 02/15/2018 Superficial keratitis of right eye [H16.101] 11/21/2018 Trigger finger [M65.30] 12/06/2018 12/06/2018 Obesity, Class I, BMI 30-34.9 [E66.811] 11/11/2019 Paroxysmal atrial fibrillation (HCC) [I48.0] 09/21/2022 At risk for stroke [Z91.89] 11/18/2022 Encounter Status:Closed by MATY, TREASURE on 10/03/[address] [facility] CBC W Auto Differential pane l (Bld)on 02-12-2024 Basophils (Bld) [#/Vol] 0.04 10*3/uL [facility] Basophils/100 WBC (Bld) 0.6 % [facility] Differential cell count method Nom (Bld) Auto [facility] Eosinophils (Bld) [#/Vol] 0.11 10*3/uL [facility] Eosinophils/100 WBC (Bld) 1.7 % [facility] Erythrocyte distribution width (RBC) [Ratio] 13.2 % 11.5 - 15.0 % [facility] Hematocrit (Bld) [Volume fraction] 35.4 % Low 36.0 - 46.0 % [facility] Hemoglobin (Bld) [Mass/Vol] 11.4 g/dL Low 11.5 - 15.5 g/dL [facility] Immature granulocytes (Bld) [#/Vol] 0.03 10*3/uL [facility] Immature granulocytes/100 WBC (Bld) 0.5 % [facility] Interpretation and review of laboratory results Abnormal [facility] Lymphocytes (Bld) [#/Vol] 2.02 10*3/uL [facility] Lymphocytes/100 WBC (Bld) 31.3 % [facility] MCH (RBC) [Entitic mass] 30.2 pg 26.0 - 34.0 pg [facility] MCHC (RBC) [Mass/Vol] 32.2 g/dL 30.5 - 36.0 g/dL [facility] MCV (RBC) [Entitic vol] 93.7 fL 80.0 - 100.0 fL [facility] Monocytes (Bld) [#/Vol] 0.43 10*3/uL [facility] Monocytes/100 WBC (Bld) 6.7 % [facility] Neutrophils (Bld) [#/Vol] 3.83 10*3/uL [facility] Neutrophils/100 WBC (Bld) 59.2 % [facility] Nucleated RBC (Bld) [#/Vol] [facility] Nucleated RBC/100 WBC (Bld) [Ratio] 0.0 % /100 WBC [facility] Platelet mean volume (Bld) [Entitic vol] 9.4 fL 9.0 - 12.7 fL [facility] Platelets (Bld) [#/Vol] 214 10*3/uL [facility] RBC (Bld) [#/Vol] 3.78 10*6/uL Low 3.90 - 5.2 0 m/uL [facility] WBC (Bld) [#/Vol] 6.46 10*3/uL [facility] Comprehensive metabolic 2000 panelon 02-12-2024 Albumin [Mass/Vol] 4.0 g/dL 3.9 - 4.9 g/dL [facility] ALP [Catalytic activity/Vol] 97 U/L 34 - 123 U/L [facility] ALT [Catalytic activity/Vol] 21 U/L 7 - 38 U/L [facility] Anion gap [Moles/Vol] 10 mmol/L 9 - 18 mmol/L [facility] AST [Catalytic activity/Vol] 26 U/L 13 - 35 U/L [facility] Bilirubin [Mass/Vol] 0.5 mg/dL 0.2 - 1 .3 mg/dL [facility] Calcium [Mass/Vol] 9.2 mg/dL 8.5 - 10. 2 mg/dL [facility] Chloride [Moles/Vol] 101 mmol/L 97 - 10 5 mmol/L [facility] CO2 [Moles/Vol] 25 mmol/L 22 - 30 mmol/L [facility] Creatinine [Mass/Vol] 1.06 mg/dL High 0.58 - 0.96 mg/dL [facility] GFR/1.73 sq M.predicted among non-blacks MDRD (S/P/Bld) [Vol rate/Area] 55 mL/min/{1.73_m2} Low - PINF [facility] Comment on above: Estimated Glomerular Filtration Rate (eGFR) is calculated using the 2020 CKD-EPI creatinine equation. This equation utilizes serum creatinine, sex, and age as parameters. The creatinine assay has traceable calibration to isotope dilution-mass spectrometry. Refer to KDIGO guidelines for clinical interpretation. In patients with unstable renal function, e.g. those with acute kidney injury, the eGFR may not accurately reflect actual GFR. Glucose [Mass/Vol] 116 mg/dL High 74 - 99 mg/dL [facility] Comment on above: The [place] Diab[employer] s Association (ADA) provides guidance for cutoff values for fasting glucose and random glucose. The ADA defines fasting as no caloric intake for at least 8 hours. Fasting plasma glucose results between 100 to 125 mg/dL indicate increased risk for diabetes (prediabetes). Fasting plasma glucose results greater than or equal to 126 mg/dL meet the criteria for diagnosis of diabetes. In the absence of unequivocal hyperglycemia, results should be confirmed by repeat testing. In a patient with classic symptoms of hyperglycemia or hyperglycemic crisis, random plasma glucose results greater than or equal to 200 mg/dL meet the criteria for diagnosis of diabetes. Reference: Standards of Medical Care in Diabetes 2016, [place] [employer] Association. Diabetes Care. 2016.39(Suppl 1). Interpretation and review of laboratory results Abnormal [facility] Potassium [Moles/Vol] 4.4 mmol/L 3.7 - 5.1 mmol/L [facility] Protein [Mass/Vol] 6.6 g/dL 6.3 - 8.0 g/dL [facility] Sodium [Moles/Vol] 136 mmol/L 136 - 144 mmol/L [facility] Urea nitrogen [Mass/Vol] 18 mg/dL 7 - 21 mg/dL [facility] Basophil percentageOrdered B y: Caterina Garcia on 09-21-2023 Bilirubin [Mass/Vol] 0.60 mg/dL 0.20-1.00 [facility] Comment on above: For patients on eltr ombopag therapy, use of Dimension [place] TBIL is not recommended. Chloride [Moles/Vol] 104 mmol/L 98-107 [facility] Glucose [Mass/Vol] 103 mg/dL 74-106 [facility] Comment on above: Fasting Glucose resu lt from 100 to 125 mg/dL suggests IMPAIRED HOMEOSTASIS per A.D.A. criteria. Potassium [Moles/Vol] 4.0 mmol/L 3.5-5.1 [facility] Protein [Mass/Vol] 7.1 g/dL 6.4-8.2 [facility] Sodium [Moles/Vol] 136 mmol/L 136-145 [facility] Laboratory - Chemistry and C hemistry - challengeOrdered By: Caterina Garcia on 09-21-2023 ALP [Catalytic activity/Vol] 101 U/L 45-117 [facility] ALT [Catalytic activity/Vol] 54 U/L 13-56 [facility] CO2 [Moles/Vol] 28.0 mmol/L 21.0-32.0 [facility] Globulin (S) [Mass/Vol] 3.5 g/dL 2.2-4.2 [facility] Urea nitrogen/Creatinine [Mass ratio] 11.0 mg/mg 10-20 [facility] No Panel InformationOrdered By: Caterina Garcia on 09-21-2023 Estimated GFR (MDRD) Amer 57 mL/min >60 [facility] Comment on above: GFR Calc Estimated GFR (MDRD) Non-Af Amer 47 mL/min >60 [facility] Comment on above: Non- GFR Calc Serum or plasma albumin rafat urement (mass/volume)Ordered By: Caterina Garcia on 09-21-2023 Albumin [Mass/Vol] 3.6 g/dL 3.2-5.0 [facility] Serum or plasma albumin/glob ulin mass ratioOrdered By: edel Garcia on 09-21-2023 Albumin/Globulin [Mass ratio] 1.0 {ratio} 0.9-2.4 [facility] Serum or plasma calcium rafat urement (mass/volume)Ordered By: Caterina Garcia on 09-21-2023 Calcium [Mass/Vol] 9.1 mg/dL 8.5-10.1 [facility] Serum or plasma creatinine m easurement (mass/volume)Ordered By: Caterina Garcia on 09-21-2023 Creatinine [Mass/Vol] 1.18 mg/dL 0.55-1.02 [facility] Comment on above: The validity of the calculated GFR & GFRAA in patients over 70 years has not been determined. Clinical correlation is essential. Serum or plasma urea nitroge n measurement (mass/volume)Ordered By: Caterina Garcia on 09-21-2023 Urea nitrogen [Mass/Vol] 13 mg/dL 7-18 [facility] Thin prep Papanicolaou smear with manual screeningOrdered By: Caterina Garcia on 09-21-2023 Thin prep Papanicolaou smear with manual screening 40 U/L 15-37 [facility] Thin prep Papanicolaou smear with manual screening 4 5-15 [facility] Absolute lymphocyte countOrd ered By: Caterina Garcia on 06-14-2023 Lymphocytes Auto (Unsp spec) [#/Vol] 2.18 10*3/uL 0.83-4.51 [facility] Basophil percentageOrdered B y: Caterina Garcia on 06-14-2023 Basophils/100 WBC (Bld) 0.6 % 0-1 [facility] Bilirubin [Mass/Vol] 0.70 mg/dL 0.20-1.00 [facility] Comment on above: For patients on eltr ombopag therapy, use of Dimension [place] TBIL is not recommended. Chloride [Moles/Vol] 104 mmol/L 98-107 [facility] Cholesterol [Mass/Vol] 129 mg/dL <200 [facility] Comment on above: <200 mg/dL Desirable 200-240 mg/dL Borderline >240 mg/dL High Risk Eosinophils/100 WBC (Bld) 1.9 % 0-5 [facility] Glucose [Mass/Vol] 90 mg/dL 74-106 [facility] Neutrophils (Bld) [#/Vol] 4.9 10*3/uL 2.0-7.7 [facility] Neutrophils/100 WBC (Bld) 62.3 % 47-70 [facility] Potassium [Moles/Vol] 3.8 mmol/L 3.5-5.1 [facility] Protein [Mass/Vol] 7.1 g/dL 6.4-8.2 [facility] Sodium [Moles/Vol] 137 mmol/L 136-145 [facility] Triglyceride [Mass/Vol] 74 mg/dL <199 [facility] Comment on above: The drugs N-Acetylcy steine and Metamizole may falsely depress this assay.Serum Triglycerides Reference Interval Normal <150 mg/dL Borderline high 150 - 199 mg/dL High 200 - 499 mg/dL Very High > or = 500 mg/dL WBC (Bld) [#/Vol] 7.8 10*3/uL 4.4-11.0 [facility] Blood erythrocytes count (nu mber/volume)Ordered By: Caterina Garcia on 06-14-2023 RBC (Bld) [#/Vol] 4.00 10*6/uL 4.2-5.4 [facility] Blood hemoglobin measurement (mass/volume)Ordered By: Noahrochesternickie Garcia on 06-14-2023 Hemoglobin (Bld) [Mass/Vol] 12.4 g/dL 12.0-15.0 [facility] Blood lymphocytes/100 leukoc ytesOrdered By: [facility] Garcia on 06-14-2023 Lymphocytes/100 WBC (Bld) 27.9 % 19-41 [facility] Blood monocytes/100 leukocyt esOrdered By: [facility] Garcia on 06-14-2023 Monocytes/100 WBC (Bld) 6.9 % 0-10 [facility] Blood platelet mean volumeOr dered By: [facility] Garcia on 06-14-2023 Platelet mean volume (Bld) [Entitic vol] 10.3 fL 6.2-12.0 [facility] Determination of erythrocyte mean corpuscular volume (MCV)Ordered By: Caterina Garcia on 06-14-2023 MCV (RBC) [Entitic vol] 95.3 fL 81-99 [facility] Hematocrit Auto (Bld) [Volum e fraction]Ordered By: [facility] Garcia on 06-14-2023 Hematocrit (Bld) [Volume fraction] 38.1 % 37-47 [facility] Laboratory - Chemistry and C hemistry - challengeOrdered By: [facility] Garcia on 06-14-2023 ALP [Catalytic activity/Vol] 96 U/L 45-117 [facility] ALT [Catalytic activity/Vol] 92 U/L 13-56 [facility] CO2 [Moles/Vol] 25.0 mmol/L 21.0-32.0 [facility] Cobalamin (Vitamin B12) [Mass/Vol] 327 pg/mL 211-911 [facility] Globulin (S) [Mass/Vol] 3.5 g/dL 2.2-4.2 [facility] Urea nitrogen/Creatinine [Mass ratio] 13.7 mg/mg 10-20 [facility] Laboratory - Hematology and Cell countsOrdered By: Caterina Garcia on 06-14-2023 Erythrocyte distribution width (RBC) [Entitic vol] 48.1 fL 35.1-43.9 [facility] Erythrocyte distribution width (RBC) [Ratio] 13.5 % 11.6-14.6 [facility] Immature granulocytes/100 WBC (Bld) 0.400 % 0.0-0.9 [facility] Comment on above: IG% - Immature Granu locytes (promyelocytes, myelocytes and metamyelocytes) > 1% indicates that a LEFT SHIFT is Present. MCH (RBC) [Entitic mass] 31.0 pg 27.0-32.0 [facility] Nucleated RBC/100 WBC (Bld) [Ratio] 0 % 0-5 [facility] MCHC Auto (RBC) [Mass/Vol]Or dered By: Caterina Garcia on 06-14-2023 MCHC (RBC) [Mass/Vol] 32.5 g/dL 32-36 [facility] No Panel InformationOrdered By: Caterina Garcia on 06-14-2023 Estimated GFR (MDRD) Amer 58 mL/min >60 [facility] Comment on above: GFR Calc Estimated GFR (MDRD) Non-Af Amer 48 mL/min >60 [facility] Comment on above: Non- GFR Calc Thyroid Stimulating Hormone (TSH) 1.28 uIU/mL 0.358-3.74 [facility] Platelets bldOrdered By: Baljit Garcia on 06-14-2023 Platelets (Bld) [#/Vol] 230 10*3/uL 150-450 [facility] Serum or plasma albumin rafat urement (mass/volume)Ordered By: Caterina Garcia on 06-14-2023 Albumin [Mass/Vol] 3.6 g/dL 3.2-5.0 [facility] Serum or plasma albumin/glob ulin mass ratioOrdered By: Caterina Garcia on 06-14-2023 Albumin/Globulin [Mass ratio] 1.0 {ratio} 0.9-2.4 [facility] Serum or plasma calcium rafat urement (mass/volume)Ordered By: Caterina Garcia on 06-14-2023 Calcium [Mass/Vol] 9.0 mg/dL 8.5-10.1 [facility] Serum or plasma cholesterol in HDL measurement (mass/volume)Ordered By: Caterina Garcia on 06-14-2023 Cholesterol in HDL [Mass/Vol] 58 mg/dL >40 [facility] Comment on above: The drugs N-Acetylcy steine and Metamizole may falsely depress this assay. Reference Range HDL <40 mg/dL Low HDL Cholesterol HDL >or= 60 mg/dL High HDL Cholesterol Serum or plasma cholesterol in VLDL measurement (mass/volume)Ordered By: Caterina Garcia on 06-14-2023 Cholesterol in VLDL [Mass/Vol] 15 mg/dL 5-40 [facility] Serum or plasma creatinine m easurement (mass/volume)Ordered By: Caterina Garcia on 06-14-2023 Creatinine [Mass/Vol] 1.17 mg/dL 0.55-1.02 [facility] Comment on above: The validity of the calculated GFR & GFRAA in patients over 70 years has not been determined. Clinical correlation is essential. Serum or plasma low density lipoprotein (LDL) cholesterol measurement (mass/volume)Ordered By: Caterina Garcia on 06-14-2023 Cholesterol in LDL [Mass/Vol] 56 mg/dL 0-130 [facility] Serum or plasma urea nitroge n measurement (mass/volume)Ordered By: Caterina Garcia on 06-14-2023 Urea nitrogen [Mass/Vol] 16 mg/dL 7-18 [facility] Thin prep Papanicolaou smear with manual screeningOrdered By: Caterina Garcia on 06-14-2023 Thin prep Papanicolaou smear with manual screening 61 U/L 15-37 [facility] Thin prep Papanicolaou smear with manual screening 8 5-15 [facility] Basophil percentageOrdered B y: Dr. Garcia on 11-30-2022 Bilirubin [Mass/Vol] 0.70 mg/dL 0.20-1.00 [facility] Comment on above: For patients on eltr ombopag therapy, use of Dimension [place] TBIL is not recommended. Chloride [Moles/Vol] 107 mmol/L 98-107 [facility] Glucose [Mass/Vol] 127 mg/dL 74-106 [facility] Comment on above: Fasting Glucose resu lt greater than or equal to 126 mg/dL suggests DIABETES MELLITUS per A.D.A. criteria. Potassium [Moles/Vol] 4.3 mmol/L 3.5-5.1 [facility] Protein [Mass/Vol] 6.6 g/dL 6.4-8.2 [facility] Sodium [Moles/Vol] 141 mmol/L 136-145 [facility] Laboratory - Chemistry and C hemistry - challengeOrdered By: Dr. Garcia on 11-30-2022 ALP [Catalytic activity/Vol] 99 U/L 45-117 [facility] ALT [Catalytic activity/Vol] 36 U/L 13-56 [facility] CO2 [Moles/Vol] 26.0 mmol/L 21.0-32.0 [facility] Globulin (S) [Mass/Vol] 3.0 g/dL 2.2-4.2 [facility] Urea nitrogen/Creatinine [Mass ratio] 14.7 mg/mg 10-20 [facility] No Panel InformationOrdered By: Dr. Garcia on 11-30-2022 Estimated GFR (MDRD) Amer 68 mL/min >60 [facility] Comment on above: GFR Calc Estimated GFR (MDRD) Non-Af Amer 56 mL/min >60 [facility] Comment on above: Non- GFR Calc Serum or plasma albumin rafat urement (mass/volume)Ordered By: Dr. Garcia on 11-30-2022 Albumin [Mass/Vol] 3.6 g/dL 3.2-5.0 [facility] Serum or plasma albumin/glob ulin mass ratioOrdered By: Dr. Garcia on 11-30-2022 Albumin/Globulin [Mass ratio] 1.2 {ratio} 0.9-2.4 [facility] Serum or plasma calcium rafat urement (mass/volume)Ordered By: Dr. Garcia on 11-30-2022 Calcium [Mass/Vol] 9.2 mg/dL 8.5-10.1 [facility] Serum or plasma creatinine m easurement (mass/volume)Ordered By: Dr. Garcia on 11-30-2022 Creatinine [Mass/Vol] 1.02 mg/dL 0.55-1.02 [facility] Comment on above: The validity of the calculated GFR & GFRAA in patients over 70 years has not been determined. Clinical correlation is essential. Serum or plasma urea nitroge n measurement (mass/volume)Ordered By: Dr. Garcia on 11-30-2022 Urea nitrogen [Mass/Vol] 15 mg/dL 7-18 [facility] Thin prep Papanicolaou smear with manual screeningOrdered By: Dr. Garcia on 11-30-2022 Thin prep Papanicolaou smear with manual screening 29 U/L 15-37 [facility] Thin prep Papanicolaou smear with manual screening 8 5-15 [facility] CNOVon 11-18-2022 CNOV Office Visit (AGCARD POB) -------- MELISSA PERRY ([id number]) 1950 F Date Time Provider Department 11/18/22 10:00 AM JIMI MOONPOPearl During your visit today, we recorded the following information about you: Pulse Respiration Blood pressure Weight 64/minute 18/minute 126/82 83 kg Height 1.626 m Annmarie Bedoya MA 11/18/2022 10:04 AM Signed Patient denies any cardiac issues or symptoms. Jimi Moon APRN.BELT SANDER 11/18/2022 10:29 AM Signed [facility] General Cardiology Electrophysiology PRIMARY CARE PHYSICIAN: Caterina Garcia (Jacquelyn) [address] [place] [address] CHIEF COMPLAINT: History and physical update for PVI on 11/[address] Roy. HISTORY OF PRESENT ILLNESS (copied from Dr. Roy's office note on 09/21/2022): Ms. Perry is a 72 year old female who presents today to establish care with EP clinic at [facility]. 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 Roy. Patient reports overall she has felt quite [...] an ablation. Specifically mentioned she is a [id number] of 3 secondary to age, AL, and gender. Discussed importance of remaining on [...] of postmenopausal HRT 3 years Hx of prison use of blood thinners 2016 on Plavix [place] 03/2017 off 09/26 Hypercholesteremia Hypothyroid Migraine, intractable SNEHA (obstructive sleep apnea) Osteopenia Sleep apnea with use of continuous positive airway pressure (CPAP) Venous insufficiency PAST SURGICAL HISTORY Procedure Laterality Date COLONOSCOPY 2018 no polyps previous one due 2017 but had AL not completed ([place]) LAPAROSCOPIC TUBAL LIGATION/RING/CLIP Bilateral 1980 MAMMOTOME BIOPSY LEFT Left 12/25/2017 MASTECTOMY HX Left 03/19/2018 NEUROPLASTY AND/TRANSPOS MEDIAN NRV CARPAL TUNNE Bilateral 1993 OSTECTOMY CALCANEUS SPUR W/WO PLNTAR FASCIAL RLS Bilateral REVISE MEDIAN N/CARPAL TUNNEL SURG STENT - CORONARY 03/22/2017 100% blockage, w clot visible, cath'd on mar 22. TONSI (more content not included)... Normal [facility] CNPDarshana 11-18-2022 CNPN Telephone (AGCARDPOB ) -------- MELISSA PERRY ([id number]) 1950 F Date Time Provider Department 11/18/22 JIMI MOON AGCARDPOB During your visit today, we recorded the following information about you: Jimi Moon APRN.BELT SANDER 11/18/2022 10:32 AM Signed Please see my note from 11/18/2022. Upon reviewing procedure patient became frustrated upon learning that she would have to remain on her medications including her Eliquis. I attempted to reason. Explained that she is a [id number] of 3 and this warrants oral anticoagulation. [...] requesting a call from attending. Thanks, Jimi Moon APRN.BELT SANDER November 18, 2022 10:31 AM Allergies As of Date: 11/18/2022 Noted Allergy Reaction IODINE 12/15/2017 9 - Itching Date Reviewed: 11/18/2022 Reviewed by: Jimi Moon APRN.BELT SANDER - Fully Assessed Reason for Visit: Appointment [186] Prescriptions as of 11/18/2022 - MULTI-VITAMIN ORAL Take by mouth once daily. - anastrozole (ARIMIDEX) 1 mg tablet Take 1 tablet by mouth once daily. - pantoprazole DR (PROTONIX) 40 mg tablet Take 1 tablet by mouth once daily. - amiodarone (PACERONE) 200 mg tablet Take 200 mg by mouth once daily. - ELIQUIS 5 mg tab(s) Take 5 mg by mouth twice daily. - metoprolol tartrate, short acting, (LOPRESSOR) 25 mg tablet Take 25 mg by mouth twice daily. - ezetimibe (ZETIA) 10 mg tablet Take 1 tablet by mouth once daily. - levothyroxine (SYNTHROID) 100 mcg tablet Take 1 tablet by mouth DAILY (6 AM). - atorvastatin (LIPITOR) 80 mg tablet Take 1 tablet by mouth once daily. - ubidecarenone (COQ-10 ORAL) Take by mouth once daily. - aspirin, enteric coated (ASPIR-LOW) 81 mg EC tablet Take 1 tablet by mouth once daily. Meds Comments as of 03/27/2017: meds given back to spouse Problem List As Of Date 11/18/2022 Noted Resolved Atherosclerosis of [place] coronary artery of na*03/22/2017 SUMMARY 03/22/2017 05/17/2017 Acquired hypothyroidism [E03.9] 03/22/2017 Mixed hyperlipidemia [E78.2] 03/22/2017 NSVT (nonsustained ventricular tachycardia) (HC*03/24/2017 11/20/2017 Fatigue [R53.83] 03/27/2017 Chronic diastolic heart failure (HCC) [I50.32] 03/28/2017 03/12/2018 Post PTCA [Z98.61] 03/28/2017 Pure hypercholesterolemia [E78.00] 04/27/2017 S/P primary angioplasty with coronary stent [Z9*04/27/2017 SNEHA (obstructive sleep apnea) [G47.33] 09/25/2017 Breast cancer (HCC) [C50.919] 01/12/2018 Breast cancer, left breast (HCC) [C50.912] 02/15/2018 Superficial keratitis of right eye [H16.101] 11/21/2018 Trigger finger [M65.30] 12/06/2018 12/06/2018 Obesity, Class I, BMI 30-34.9 [E66.9] 11/11/2019 Paroxysmal atrial fibrillation (HCC) [I48.0] 09/21/2022 At risk for stroke [Z91.89] 11/18/2022 Encounter Status:Closed by JIMI MOON on 11/18/22 Normal [facility] CTA CHEST (GATED) W IVCONon 11-10-2022 CTA CHEST (GATED) W IVCON * * *Final Report* * * DATE OF EXAM: Nov 10 2022 9:22AM [facility] [id number] - CTA CHEST (GATED) W IVCON / PROCEDURE REASON: Paroxysmal atrial fibrillation (HCC) * * * * Physician Interpretation * * * * EXAM TITLE: CT ANGIOGRAM OF THORACIC AND UPPER LUMBAR AORTA W CONTRAST DATE: November 10, 2022 at 9:21 AM COMPARISON: CT scan of the chest from November 05, 2018 CLINICAL INDICATION/HISTORY: The patient is a 72-year-old female with paroxysmal atrial fibrillation being evaluated by electrophysiology service. TECHNIQUE: Helical axial slices were obtained from the thoracic outlet to the upper abdomen after the bolus intravenous administration of contrast. Bolus images were sent to a separate workstation and 3-D multiplanar reconstruction CT angiogram with MIP and shaded surface display imaging was obtained. CT Radiation dose: Integrated dose-length product (DLP) for this visit = 450 mGy*cm. CT Dose Reduction Employed: Automated exposure control (AEC) was used. CONTRAST: IV: 100 ml of Omnipaque 350 FINDINGS: CT THORACIC ANGIOGRAM: The aortic valve is tricuspid. The aortic root has a maximum diameter of 28 mm. The ascending aorta, aortic arch, and descending aorta tapers normally without aneurysm formation, significant vascular stenosis, or dissection. The ascending aorta has a maximum diameter of 30 mm. The left common carotid artery arises off the right brachiocephalic artery. The origins of the 3 great vessels are patent without significant stenosis. There are 2 pulmonary veins on either side. There are scattered coronary artery calcifications. CT LUMBAR ANGIOGRAM: The upper lumbar aorta tapers normally without significant stenosis or aneurysm formation. The origins of the celiac and SMA arteries are patent without stenosis. CT OF THE CHEST: There is a slight pectus excavatum. There are changes of left mastectomy. Heart size is within normal limits. There is some platelike atelectasis in the left lower lobe. The rest of the lungs are clear with no infiltrates or nodules. The mediastinum shows no mass or lymphadenopathy. There are no pleural effusions. No other chest wall abnormalities are noted. CT OF THE ABDOMEN: There is a very small hiatus hernia. There are no focal lesions of the visualized portions of the liver, gallbladder, biliary system, pancreas, spleen, adrenals, kidneys, periaortic region, or visualized bowel. There is no effusion, ascites, or mesenteric inflammation. 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 There are coronary artery calcifications. There are no significant thoracic aorta or upper lumbar aorta abnormalities. There is a small hiatus hernia. The patient is status post left mastectomy. There is slight pectus excavatum. No other nonvascular abnormalities identified on the study. Clinical Resource Coordinator: PSCB Transcribe Date/Time: Nov 21 2022 12:30P Dictated by : KAMI LOPEZ MD This examination was interpreted and the report reviewed and electronically signed by: KAMI LOPEZ MD on Nov 21 2022 12:38PM EST [id number] Normal [facility] Telephone (AGCARDPOB ) -------- MELISSA PERRY ([id number]) 1950 F Date Time Provider Department 11/03/22 HASEEB ROY AGCARDPOB During your visit today, we recorded the following information about you: Oracio Alamo 11/03/2022 9:16 AM Signed Patient is scheduled for a PVAI Ablation on 11/[address] Roy. The hospital will call the day before between 2-5pm with your arrival time. Patient should not eat or drink after midnight the day before the procedure. Patient will need a milk truck driver when released from the hospital. You will stay overnight for observation. Patient should continue to take medications as prescribed the morning of the procedure with just a sip of water unless otherwise instructed. HANDP update on 11/18 at 10am with Jimi Moon. Spoke with patient and she verbalized understanding of all instructions Oracio Bro RN 11/03/2022 9:20 AM Signed Pt's name has been added to waters procedure board. Monique Bro RN Allergies As of Date: 11/03/2022 Noted Allergy Reaction IODINE 12/15/2017 9 - Itching Date Reviewed: 09/21/2022 Reviewed by: Lisbet Johnson MA - Fully Assessed Reason for Visit: Preparations For Procedures [899] Prescriptions as of 11/09/2022 - pantoprazole DR (PROTONIX) 40 mg tablet Take 1 tablet by mouth once daily. - anastrozole (ARIMIDEX) 1 mg tablet Take 1 tablet by mouth once daily. - amiodarone (PACERONE) 200 mg tablet Take 200 mg by mouth once daily. - ELIQUIS 5 mg tab(s) Take 5 mg by mouth twice daily. - metoprolol tartrate, short acting, (LOPRESSOR) 25 mg tablet Take 25 mg by mouth twice daily. - ezetimibe (ZETIA) 10 mg tablet Take 1 tablet by mouth once daily. - levothyroxine (SYNTHROID) 100 mcg tablet Take 1 tablet by mouth DAILY (6 AM). - atorvastatin (LIPITOR) 80 mg tablet Take 1 tablet by mouth once daily. - ubidecarenone (COQ-10 ORAL) Take by mouth once daily. - aspirin, enteric coated (ASPIR-LOW) 81 mg EC tablet Take 1 tablet by mouth once daily. Meds Comments as of 03/27/2017: meds given back to spouse Problem List As Of Date 11/03/2022 Noted Resolved Atherosclerosis of [place] coronary artery of na*03/22/2017 SUMMARY 03/22/2017 05/17/2017 Acquired hypothyroidism [E03.9] 03/22/2017 Mixed hyperlipidemia [E78.2] 03/22/2017 NSVT (nonsustained ventricular tachycardia) (HC*03/24/2017 11/20/2017 Fatigue [R53.83] 03/27/2017 Chronic diastolic heart failure (HCC) [I50.32] 03/28/2017 03/12/2018 Post PTCA [Z98.61] 03/28/2017 Pure hypercholesterolemia [E78.00] 04/27/2017 S/P primary angioplasty with coronary stent [Z9*04/27/2017 SNEHA (obstructive sleep apnea) [G47.33] 09/25/2017 Breast cancer (HCC) [C50.919] 01/12/2018 Breast cancer, left breast (HCC) [C50.912] 02/15/2018 Superficial keratitis of right eye [H16.101] 11/21/2018 Trigger finger [M65.30] 12/06/2018 12/06/2018 Obesity, Class I, BMI 30-34.9 [E66.9] 11/11/2019 Paroxysmal atrial fibrillation (HCC) [I48.0] 09/21/2022 Encounter Status:Closed by ORACIO ALAMO on 11/03/22 [facility] 09-27-2022 JOSE Telephone (AGCARDPOB ) -------- MELISSA PERRY ([id number]) 1950 F Date Time Provider Department 09/27/22 HASEEB ROY During your visit today, we recorded the following information about you: Kathryn Mart 09/27/2022 2:20 PM Signed Patient is scheduled for Complete EPS AND PVI Ablation on 10/13/[address] Roy. The hospital will call the day before between 2-5pm with your arrival time. Patient should not eat or drink after midnight the day before the procedure. Patient will need a milk truck driver when released from the hospital. You will stay overnight for observation. Patient should continue to take medications as prescribed the morning of the procedure with just a sip of water unless otherwise instructed. LVM for patient to return call to confirm. Kathryn Mart 09/27/2022 4:12 PM Addendum Patient needs Chest CT (already ordered) complete prior to procedure. Kathryn Mart Nubia Braxton LPN 09/28/2022 11:47 AM Signed Pt calls, she is unable to do the procedure that day. She is available any other day. Nubia Braxton LPN Kathryn Mart 09/28/2022 12:14 PM Signed LVM for patient letting her know to schedule the CT in the meantime, provided the number for scheduling. Will contact her when new procedure date is available. Kathryn Mart Allergies As of Date: 09/27/2022 Noted Allergy Reaction IODINE 12/15/2017 9 - Itching Date Reviewed: 09/21/2022 Reviewed by: Lisbet Johnson MA - Fully Assessed Reason for Visit: Preparations For Procedures [899] Cmt: Complete EPS AND PVI Ablation Prescriptions as of 09/28/2022 - pantoprazole DR (PROTONIX) 40 mg tablet Take 1 tablet by mouth once daily. - anastrozole (ARIMIDEX) 1 mg tablet Take 1 tablet by mouth once daily. - amiodarone (PACERONE) 200 mg tablet Take 200 mg by mouth once daily. - ELIQUIS 5 mg tab(s) Take 5 mg by mouth twice daily. - metoprolol tartrate, short acting, (LOPRESSOR) 25 mg tablet Take 25 mg by mouth twice daily. - ezetimibe (ZETIA) 10 mg tablet Take 1 tablet by mouth once daily. - levothyroxine (SYNTHROID) 100 mcg tablet Take 1 tablet by mouth DAILY (6 AM). - atorvastatin (LIPITOR) 80 mg tablet Take 1 tablet by mouth once daily. - ubidecarenone (COQ-10 ORAL) Take by mouth once daily. - aspirin, enteric coated (ASPIR-LOW) 81 mg EC tablet Take 1 tablet by mouth once daily. Meds Comments as of 03/27/2017: meds given back to spouse Problem List As Of Date 09/27/2022 Noted Resolved Atherosclerosis of [place] coronary artery of na*03/22/2017 SUMMARY 03/22/2017 05/17/2017 Acquired hypothyroidism [E03.9] 03/22/2017 Mixed hyperlipidemia [E78.2] 03/22/2017 NSVT (nonsustained ventricular tachycardia) (HC*03/24/2017 11/20/2017 Fatigue [R53.83] 03/27/2017 Chronic diastolic heart failure (HCC) [I50.32] 03/28/2017 03/12/2018 Post PTCA [Z98.61] 03/28/2017 Pure hypercholesterolemia [E78.00] 04/27/2017 S/P primary angioplasty with coronary stent [Z9*04/27/2017 SNEHA (obstructive sleep apnea) [G47.33] 09/25/2017 Breast cancer (HCC) [C50.919] 01/12/2018 Breast cancer, left breast (HCC) [C50.912] 02/15/2018 Superficial keratitis of right eye [H16.101] 11/21/2018 Trigger finger [M65.30] 12/06/2018 12/06/2018 Obesity, Class I, BMI 30-34.9 [E66.9] 11/11/2019 Paroxysmal atrial fibrillation (HCC) [I48.0] 09/21/2022 Encounter Status:Closed by KATHRYN MART on 09/27/22 [facility] 09-21-2022 [facility] Office Visit (CHAMP LEAHY) -------- MELISSA PERRY ([id number]) 1950 F Date Time Provider Department 09/21/22 8:20 AM HASEEB ROY AGCARDPOPearl During your visit today, we recorded the following information about you: Pulse Blood pressure Weight Height 63/minute 143/85 80.3 kg 1.626 m Haseeb Roy MD 09/21/2022 4:27 PM Signed PRIMARY CARE PHYSICIAN: To use this Smartlink, specify the provider ID whose address you want to display, e.g., .PROVADDR[1 (where 1 is the provider ID). REFERRING PHYSICIAN: SELF Patient Care Team: Caterina Garcia MD as PCP - General (Internal Medicine) Dwight Vera as Physician (Radiation Oncology) CHIEF COMPLAINT: Paroxysmal AF HISTORY OF PRESENT ILLNESS: Ms. Perry is a 72 year old female who presents today to establish care with EP clinic at [facility]. 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, SNEHA, paroxysmal atrial fibrillation(02/2021) [...] She had a recent discussion with her program manager rn, she has decided to proceed to ablation [...] of postmenopausal HRT 3 years Hx of prison use of blood thinners 2016 on Plavix [place] 03/2017 off 09/26 Hypercholesteremia Hypothyroid Migraine, intractable SNEHA (obstructive sleep apnea) Osteopenia Sleep apnea with use of continuous positive airway pressure (CPAP) Venous insufficiency PAST SURGICAL HISTORY Procedure Laterality Date COLONOSCOPY 2018 no polyps previous one due 2017 but had AL not completed ([place]) LAPAROSCOPIC TUBAL LIGATION/RING/CLIP Bilateral 1980 MAMMOTOME BIOPSY [...] 3VCABG Coronary Artery Disease Brother 47 fatal AL at 47 Alzheimer's Disease Mother age 81 Ischemic Heart Disease Father age 67 (AL) Coronary Artery Disease Brother 47 fatal AL at 47 Cervical Cancer No Family History [...] ORAL) Take by mouth once daily. aspirin, enter (more content not included)... Normal [facility] Absolute lymphocyte counton 05-17-2022 Lymphocytes Auto (Unsp spec) [#/Vol] 1.87 10*3/uL 0.83-4.51 [facility] Work Phone: Basophil percentageon 2021 Basophils/100 WBC (Bld) 0.6 % 0-1 [facility] Work Phone: Bilirubin [Mass/Vol] 0.50 mg/dL 0.20-1.00 [facility] Work Phone: Comment on above: For patients on eltr ombopag therapy, use of Dimension [place] TBIL is not recommended. Chloride [Moles/Vol] 109 mmol/L 98-107 [facility] Work Phone: Cholesterol [Mass/Vol] 154 mg/dL <200 [facility] Work Phone: Comment on above: <200 mg/dL Desirable 200-240 mg/dL Borderline >240 mg/dL High Risk Eosinophils/100 WBC (Bld) 2.7 % 0-5 [facility] Work Phone: Glucose [Mass/Vol] 115 mg/dL 74-106 [facility] Work Phone: Comment on above: Fasting Glucose resu lt from 100 to 125 mg/dL suggests IMPAIRED HOMEOSTASIS per A.D.A. criteria. Neutrophils (Bld) [#/Vol] 5.3 10*3/uL 2.0-7.7 [facility] Work Phone: Neutrophils/100 WBC (Bld) 65.4 % 47-70 [facility] Work Phone: Potassium [Moles/Vol] 4.4 mmol/L 3.5-5.1 [facility] Work Phone: [phone] Protein [Mass/Vol] 6.7 g/dL 6.4-8.2 [facility] Work Phone: [phone] Sodium [Moles/Vol] 139 mmol/L 136-145 [facility] Work Phone: [phone] Triglyceride [Mass/Vol] 49 mg/dL <199 [facility] Work Phone: [phone] Comment on above: The drugs N-Acetylcy steine and Metamizole may falsely depress this assay.Serum Triglycerides Reference Interval Normal <150 mg/dL Borderline high 150 - 199 mg/dL High 200 - 499 mg/dL Very High > or = 500 mg/dL WBC (Bld) [#/Vol] 8.1 10*3/uL 4.4-11.0 [facility] Work Phone: [phone] Blood erythrocytes count (nu mber/volume)on 05-17-2022 RBC (Bld) [#/Vol] 3.86 10*6/uL 4.2-5.4 [facility] Work Phone: [phone] Blood hemoglobin measurement (mass/volume)on 05-17-2022 Hemoglobin (Bld) [Mass/Vol] 12.1 g/dL 12.0-15.0 [facility] Work Phone: [phone] Blood lymphocytes/100 leukoc yteson 05-17-2022 Lymphocytes/100 WBC (Bld) 23.1 % 19-41 [facility] Work Phone: [phone] Blood monocytes/100 leukocyt eson 05-17-2022 Monocytes/100 WBC (Bld) 7.8 % 0-10 [facility] Work Phone: [phone] Blood platelet mean volumeon 05-17-2022 Platelet mean volume (Bld) [Entitic vol] 10.0 fL 6.2-12.0 [facility] Work Phone: [phone] Determination of erythrocyte mean corpuscular volume (MCV)on 05-17-2022 MCV (RBC) [Entitic vol] 95.3 fL 81-99 [facility] Work Phone: [phone] Hematocrit Auto (Bld) [Volum e fraction]on 05-17-2022 Hematocrit (Bld) [Volume fraction] 36.8 % 37-47 [facility] Work Phone: [phone] Laboratory - Chemistry and C hemistry - challengeon 05-17-2022 ALP [Catalytic activity/Vol] 88 U/L 45-117 [facility] Work Phone: [phone] ALT [Catalytic activity/Vol] 36 U/L 13-56 [facility] Work Phone: [phone] CO2 [Moles/Vol] 25.0 mmol/L 21.0-32.0 [facility] Work Phone: [phone] Globulin (S) [Mass/Vol] 3.4 g/dL 2.2-4.2 [facility] Work Phone: [phone] Urea nitrogen/Creatinine [Mass ratio] 11.2 mg/mg 10-20 [facility] Work Phone: [phone] Laboratory - Hematology and Cell countson 05-17-2022 Erythrocyte distribution width (RBC) [Entitic vol] 48.3 fL 35.1-43.9 [facility] Work Phone: [phone] Erythrocyte distribution width (RBC) [Ratio] 13.8 % 11.6-14.6 [facility] Work Phone: [phone] Immature granulocytes/100 WBC (Bld) 0.400 % 0.0-0.9 [facility] Work Phone: [phone] Comment on above: IG% - Immature Granu locytes (promyelocytes, myelocytes and metamyelocytes) > 1% indicates that a LEFT SHIFT is Present. MCH (RBC) [Entitic mass] 31.3 pg 27.0-32.0 [facility] Work Phone: [phone] Nucleated RBC/100 WBC (Bld) [Ratio] 0 % 0-5 [facility] Work Phone: [phone] MCHC Auto (RBC) [Mass/Vol]on 05-17-2022 MCHC (RBC) [Mass/Vol] 32.9 g/dL 32-36 [facility] Work Phone: No Panel Informationon 05-17 Estimated GFR (MDRD) Amer 54 mL/min >60 [facility] Work Phone: Comment on above: GFR Calc Estimated GFR (MDRD) Non-Af Amer 45 mL/min >60 [facility] Work Phone: Comment on above: Non- GFR Calc Thyroid Stimulating Hormone (TSH) 2.46 uIU/mL 0.358-3.74 [facility] Work Phone: Platelets bldon 05-17-2022 Platelets (Bld) [#/Vol] 261 10*3/uL 150-450 [facility] Work Phone: Serum or plasma albumin rafat urement (mass/volume)on 05-17-2022 Albumin [Mass/Vol] 3.3 g/dL 3.2-5.0 [facility] Work Phone: Serum or plasma albumin/glob ulin mass ratioon 05-17-2022 Albumin/Globulin [Mass ratio] 1.0 {ratio} 0.9-2.4 [facility] Work Phone: Serum or plasma calcium rafat urement (mass/volume)on 05-17-2022 Calcium [Mass/Vol] 8.8 mg/dL 8.5-10.1 [facility] Work Phone: [phone] Serum or plasma cholesterol in HDL measurement (mass/volume)on 05-17-2022 Cholesterol in HDL [Mass/Vol] 69 mg/dL >40 [facility] Work Phone: Comment on above: The drugs N-Acetylcy steine and Metamizole may falsely depress this assay. Reference Range HDL <40 mg/dL Low HDL Cholesterol HDL >or= 60 mg/dL High HDL Cholesterol Serum or plasma cholesterol in VLDL measurement (mass/volume)on 05-17-2022 Cholesterol in VLDL [Mass/Vol] 10 mg/dL 5-40 [facility] Work Phone: [phone] Serum or plasma creatinine m easurement (mass/volume)on 05-17-2022 Creatinine [Mass/Vol] 1.25 mg/dL 0.55-1.02 [facility] Work Phone: Comment on above: The validity of the calculated GFR & GFRAA in patients over 70 years has not been determined. Clinical correlation is essential. Serum or plasma low density lipoprotein (LDL) cholesterol measurement (mass/volume)on 05-17-2022 Cholesterol in LDL [Mass/Vol] 75 mg/dL 0-130 [facility] Work Phone: Serum or plasma urea nitroge n measurement (mass/volume)on 05-17-2022 Urea nitrogen [Mass/Vol] 14 mg/dL 7-18 [facility] Work Phone: Thin prep Papanicolaou smear with manual screeningon 05-17-2022 Thin prep Papanicolaou smear with manual screening 22 U/L 15-37 [facility] Work Phone: Thin prep Papanicolaou smear with manual screening 5 5-15 [facility] Work Phone: DEV SCREENING W TOMOon 04-01 [facility] CBC W Auto Differential pane l (Bld)on 12-30-2021 Abs Immature Gran 0.04 k/uL <0.10 k/uL [facility] Basophils (Bld) [#/Vol] 0.05 10*3/uL <0.11 k/uL [facility] Basophils/100 WBC (Bld) 0.7 % [facility] Differential cell count method Nom (Bld) Auto [facility] Eosinophils (Bld) [#/Vol] 0.21 10*3/uL <0.46 k/uL [facility] Eosinophils/100 WBC (Bld) 2.9 % [facility] Erythrocyte distribution width (RBC) [Ratio] 13.3 % 11.5 - 15.0 % [facility] Hematocrit (Bld) [Volume fraction] 36.7 % 36.0 - 46.0 % [facility] Hemoglobin (Bld) [Mass/Vol] 11.8 g/dL 11.5 - 15.5 g/dL [facility] Immature Gran % 0.6 % [facility] Lymphocytes (Bld) [#/Vol] 2.08 10*3/uL 1.00 - 4.00 k/uL [facility] Lymphocytes/100 WBC (Bld) 28.9 % [facility] MCH (RBC) [Entitic mass] 30.6 pg 26.0 - 34.0 pg [facility] MCHC (RBC) [Mass/Vol] 32.2 g/dL 30.5 - 36.0 g/dL [facility] MCV (RBC) [Entitic vol] 95.1 fL 80.0 - 100.0 fL [facility] Monocytes (Bld) [#/Vol] 0.51 10*3/uL <0.87 k/uL [facility] Monocytes/100 WBC (Bld) 7.1 % [facility] Neutrophils (Bld) [#/Vol] 4.31 10*3/uL 1.45 - 7.50 k/uL [facility] Neutrophils/100 WBC (Bld) 59.8 % [facility] Nucleated RBC (Bld) [#/Vol] 10*3/uL <0.01 k/uL [facility] Nucleated RBC/100 WBC (Bld) [Ratio] 0.0 /100 WBC [facility] Platelet mean volume (Bld) [Entitic vol] 9.8 fL 9.0 - 12.7 fL [facility] Platelets (Bld) [#/Vol] 213 10*3/uL 150 - 400 k/uL [facility] RBC (Bld) [#/Vol] 3.86 10*6/uL Low 3.90 - 5.2 0 m/uL [facility] WBC (Bld) [#/Vol] 7.20 10*3/uL 3.70 - 11. 00 k/uL [facility] Comprehensive metabolic 2000 panelon 12-30-2021 Albumin [Mass/Vol] 4.3 g/dL 3.9 - 4.9 g/dL [facility] ALP [Catalytic activity/Vol] 95 U/L 34 - 123 U/L [facility] ALT [Catalytic activity/Vol] 31 U/L 7 - 38 U/L [facility] Anion gap [Moles/Vol] 9 mmol/L 9 - 18 mmol/L [facility] AST [Catalytic activity/Vol] 32 U/L 13 - 35 U/L [facility] Bilirubin [Mass/Vol] 0.5 mg/dL 0.2 - 1 .3 mg/dL [facility] Calcium [Mass/Vol] 9.5 mg/dL 8.5 - 10. 2 mg/dL [facility] Chloride [Moles/Vol] 104 mmol/L 97 - 10 5 mmol/L [facility] CO2 [Moles/Vol] 25 mmol/L 22 - 30 mmol/L [facility] Creatinine [Mass/Vol] 1.06 mg/dL High 0.58 - 0.96 mg/dL [facility] Estimated Glomerular Filtration Rate 56 mL/min/1.73m Low >=60 mL/min/1.73m [facility] Glucose [Mass/Vol] 123 mg/dL High 74 - 99 mg/dL [facility] Potassium [Moles/Vol] 4.4 mmol/L 3.7 - 5.1 mmol/L [facility] Protein [Mass/Vol] 6.8 g/dL 6.3 - 8.0 g/dL [facility] Sodium [Moles/Vol] 138 mmol/L 136 - 144 mmol/L [facility] Urea nitrogen [Mass/Vol] 14 mg/dL 7 - 21 mg/dL [facility] MRI BREAST WO/W IVCON BILon 01-03-2018 MRI BREAST WO/W IVCON GENEVIEVE * * *Final Report* * *DATE OF EXAM: Jan 03 2018 9:25AM [facility] [id number] - MRI BREAST WO/W IVCON GENEVIEVE / REASON: MALIGNANT NEOPLASM OF UPPER OUTER LEFT BREAST * * * * Physician Interpretation * * * * #[id number] - MRI BREAST WO/W IVCON BILBREAST MRI OF BOTH BREASTS : 01/03/2018HISTORY: 67 yo lady with newly diagnosed left breast cancer; s/p stereotactic biopsy of calcifications at [facility] 12/25/17. Multiple asymmetries noted on ultrasound, but biopsy not yet performed. MRI to evaluate for extent of disease.RESULT:Compariso n is made to exams dated: 12/25/2017 stereotactic biopsy, 12/08/2017 mammogram, and 11/28/2017 mammogram - [facility].Interpretation of this MRI was correlated with available mammograms and clinical information. Axial T1 images were obtained. The patient was studied using the Sentin[employer] dedicated breast coil in the Siemens 1.5 Maylin scanner. Initial axial STIR imaging was carried out followed by axial T1-weighted GRE imaging both before and after IV administration of 15 ml of Dotarem. Subsequently, subtraction imaging and 3-D reconstruction were completed on an independent workstation. An additional 4 minute high resolution sequence was performed after the first two 1 minute post-contrast sequences.FINDINGS:Right breast:There is mild enhancement of the background parenchyma. There is no suspicious mass, abnormal enhancement pattern, distortion or other significant abnormality in the right breast.Left breast:There is mild enhancement of the background parenchyma. There are multiple enhancing masses in the superior left breast, described as follows:1. 3:00 middle depth: There is artifact related to the biopsy clip. There is a thin rim of heterogeneous enhancement. There is an irregular mass which enhances in a predominantly persistent pattern along the posteromedial border of the clip artifact. This measures 1.2 (AP) x 0.8 (transverse) x 1.3 (craniocaudal) cm. This is seen best on series # 8, image # 72(AGFA).2. 2:00, middle depth: There is a 1.2 (AP) x 1.0 (transverse) x 1.3 (craniocaudal) cm oval mass with irregular margins which enhances in a predominantly plateau pattern. This is seen best on series # 8, image # 78 (AGFA).3. 11:00, middle depth: There is a 1.0 (AP) x 1.0 (transverse) x 0.9 (craniocaudal) cm irregular mass which enhances in a predominantly plateau pattern. This is seen best on series # 8, image # 81 (AGFA).4. 11:00, anterior depth: There is a 0.7 (AP) x 1.0 (transverse) x 1.0 (craniocaudal) cm oval mass with irregular margins which enhances in a predominantly plateau pattern. This is seen best on series # 8, image # 85 (AGFA).5. 1:00, anterior depth: There is a 0.6 (AP) x 0.6 (transverse) x 0.7 (craniocaudal) cm round mass with irregular margins which enhances in a predominantly plateau pattern. This is seen best on series # 8, image # 88 (AGFA).6. 1:00, middle-posterior depth: There is a 2.5 (AP) x 0.9 (transverse) x 1.0 (craniocaudal) cm area of clumped masses which enhance in a heterogeneous, but predominantly plateau pattern. This is seen best on series # 8, image # 88 (AGFA).There is no abnormal enhancement involving the pectoralis nor muscle. There is a 1.1 cm area of enhancement involving the skin at the biopsy site. This is likely postprocedural, although underlying disease cannot be excluded, particularly considering the close proximity of the lesion to the skin.Incidental note is made of 0.6 x 0.4 cm oval enhancing, T2 hyperintense mass anterior to the liver. This has imaging characteristics suggestie of a lymph node. However, this is suboptimally visualized on this exam, and no prior abdominal imaging is available for comparison.There are no abnormalities seen in the axillary nodes region or internal mammary nodes.IMPRESSION: KNOWN BIOPSY PROVEN MALIGNANCYRight breast - BIRADS 1Negative. No MRI evidence of malignancy in the right breast.Left breast - BIRADS 6Biopsy proven cancer in the 3:00 positions. Multiple enhancing masses scattered throughout the upper left breast as described above. Given the multiplicity of the findings, it is not possible to determine which specifically correlates with the ultrasound findings. These masses are suspicious for additional disease. If the patient is contemplating conservation, I recommend repeat ultrasound of the upper inner quadrant to identify a correlate for the mass at the 11:00 position, anterior depth for biopsy and confirmation of multicentric disease. There is enhancement of the skin overlying the biopsy site, likely postprocedural. However, considering the biopsy proven cancer's close proximity to the skin, underlying disease cannot be excluded.There is no axillary lymphadenopathy.Incident al note made of a probable lymph node anterior to the liver. Considering this is suboptimally visualized on these images and the patient's history, I recommend CT of the abdomen.These results were discussed with Dr. Rodriguez at the time of interpretation.Tess Greenberg/tracy:01/03/2018 11:39:21copy to: DR DOUGLAS ON STAFF, ph: [phone] Technologist: Monique COURTNEY(R), [facility] BI-RADS: 6 Known biopsy proven malignancyTranscriptioni st: PenradTranscribe Date/Time: Jan 03 2018 9:08ADictated by : TESS WILLIS MDThis examination was interpreted and the report reviewed and electronically signed by: TESS WILLIS MD on Jan 03 2018 11:39AM [id number] [facility] NURSING PROGon 01-03-2018 NURSING PROG HNO ID: [id number]: Alma (Rn) KANIKA Cheervice: RadiologyAuthor Type: Registered NurseType: Nursing Progress NoteFiled: 01/03/2018 9:01 AMNote Text: Radiology Service Progress NotePATIENT NAME: Melissa PerryMRN: [id number] OF SERVICE: January 03, 2018TIME: 9:00 AMPATIENT WEIGHT: 136 LBSPATIENT IDENTITY VERIFICATION COMPLETED USING TWO (2) METHODS: Patientconfirmed name verbally, ID Band and Date of .PATIENT GENDER DATA: Female. status: : NoBreastfeeding status: NO.CONTRAST INDUCED NEPHROPATHY RISK FACTORS: Patient age > 60 yearsCREATININE:Creatini neDate Value Ref Range Vakjwd0712/29/2017 0.74 0.58 - 0.96 mg/dL Final04/25/2017 0.87 0.58 - 0.96 mg/dL Final03/28/2017 0.91 0.58 - 0.96 mg/dL Final eGFR-All Other RacesDate Value Ref Range Ehjfqh8912/29/2017 >60 . FinalComment:eGFR (Estimated GFR) Units of measure: mL/min/1.73 meters squaredeGFR is derived from the reexpressed MDRD Study equation using thefollowingparameters: serum creatinine, age, gender and race. The creatinine assayhasbeen calibrated to be traceable to IDMS.An eGFR <60 mL/min/1.73m2 for >3 months is consistent with chronic kidneydisease. Refer to KDOQI guidelines for clinical interpretation.In patients with unstable renal function, e.g. those with acute kidneyinjury,the eGFR may not accurately reflect actual GFR. eGFR-Afric an AmericanDate Value Ref Range Aatcue3412/29/2017 >60 Final P.O.C.T. RESULTS: N/A January 03, 2018TREATMENT: No Hydration needed.ALLERGIES: Reviewed and unchangedCONTRAST ALLERGY: NO.IV SITE: Ambulatory: A peripheral IV was started in the Rightantecubital site with a Angio cath: 22 gauge. DiffusicsIV SITE APPEARANCE: Clean,Dry and IntactSIGNED BY: Alma Che [facility] 9:00 AM [facility] ECG B/O W INTERP (MED OFFICE ) [facility] Vital Signs Date Time Vital Sign Value Performing Clinician Facility 05-06-2025 10:25-0400 Body height 162.[address] Caterina Garcia MD Work Phone: [facility] 05-06-2025 10:25-0400 Body mass index (BMI) [Ratio] 27.4 kg/m2 Dr. Caterina Garcia MD Work Phone: [facility] 05-06-2025 10:25-0400 Body weight 72.[address] Caterina Garcia MD Work Phone: [facility] 05-02-2025 08:30-0400 Body mass index (BMI) [Ratio] 27.47 kg/m2 Richie Knight MD Work Phone: [facility] 05-02-2025 08:30-0400 Body weight 72.6 kg Richie Knight MD Work Phone: [facility] 05-02-2025 08:30-0400 Diastolic blood pressure 67 mm[Hg] Richie Knight MD Work Phone: [facility] 05-02-2025 08:30-0400 Heart rate 53 /min Richie Knight MD Work Phone: [facility] 05-02-2025 08:30-0400 Respiratory rate 20 /min Richie Knight MD Work Phone: [facility] 05-02-2025 08:30-0400 SaO2% (BldA) [Mass fraction] 96 % Richie Knight MD Work Phone: [facility] 05-02-2025 08:30-0400 Systolic blood pressure 124 mm[Hg] Richei Knight MD Work Phone: [facility] 04-16-2025 14:04-0400 Body height 162.[address] Caterina Garcia MD Work Phone: [facility] 04-16-2025 14:04-0400 Body mass index (BMI) [Ratio] 27.1 kg/m2 Dr. Caterina Garcia MD Work Phone: [facility] 04-16-2025 14:04-0400 Body weight 71.[address] Caterina Garcia MD Work Phone: [facility] 03-24-2025 13:10-0400 Body height 162.[address] Caterina Garcia MD Work Phone: [facility] 03-24-2025 13:10-0400 Body mass index (BMI) [Ratio] 27.3 kg/m2 Dr. Caterina Garcia MD Work Phone: [facility] 03-24-2025 13:10-0400 Body temperature 97.9 [degF] Dr. Caterina Garcia MD Work Phone: [facility] 03-24-2025 13:10-0400 Body weight 72.[address] Caterina Garcia MD Work Phone: [facility] 03-24-2025 13:10-0400 Diastolic blood pressure 74 mm[Hg] Dr. Caterina Garcia MD Work Phone: [facility] 03-24-2025 13:10-0400 Heart rate 58 /min Dr. Caterina Garcia MD Work Phone: [facility] 03-24-2025 13:10-0400 Respiratory rate 16 /min Dr. Caterina Garcia MD Work Phone: [facility] 03-24-2025 13:10-0400 SaO2% (BldA) [Mass fraction] 97 % Dr. Caterina Garcia MD Work Phone: [facility] 03-24-2025 13:10-0400 Systolic blood pressure 116 mm[Hg] Dr. Caterina Garcia MD Work Phone: [facility] 12-16-2024 12:39-0400 Body height 162.[address] Caterina Garcia MD Work Phone: [facility] 12-11-2024 12:56-0500 Body mass index (BMI) [Ratio] 27.6 kg/m2 Dr. Caterina Garcia MD Work Phone: [facility] 12-11-2024 12:56-0500 Body temperature 97.6 [degF] Dr. Caterina Garcia MD Work Phone: [facility] 12-11-2024 12:56-0500 Body weight 73.[address] Caterina Garcia MD Work Phone: [facility] 12-11-2024 12:56-0500 Diastolic blood pressure 76 mm[Hg] Dr. Caterina Garcia MD Work Phone: [facility] 12-11-2024 12:56-0500 Heart rate 55 /min Dr. Caterina Garcia MD Work Phone: [facility] 12-11-2024 12:56-0500 Respiratory rate 12 /min Dr. Caterina Garcia MD Work Phone: [facility] 12-11-2024 12:56-0500 SaO2% (BldA) [Mass fraction] 95 % Dr. Caterina Garcia MD Work Phone: [facility] 12-11-2024 12:56-0500 Systolic blood pressure 122 mm[Hg] Dr. Caterina Garcia MD Work Phone: [facility] 10-31-2024 10:31-0500 Body mass index (BMI) [Ratio] 27.6 kg/m2 Dr. Caterina Garcia MD Work Phone: [facility] 10-31-2024 10:31-0500 Body temperature 98.1 [degF] Dr. Caterina Garcia MD Work Phone: [facility] 10-31-2024 10:31-0500 Body weight 73.[address] Caterina Garcia MD Work Phone: [facility] 10-31-2024 10:31-0500 Diastolic blood pressure 66 mm[Hg] Dr. Caterina Garcia MD Work Phone: [facility] 10-31-2024 10:31-0500 Heart rate 60 /min Dr. Caterina Garcia MD Work Phone: [facility] 10-31-2024 10:31-0500 Respiratory rate 16 /min Dr. Caterina Garcia MD Work Phone: [facility] 10-31-2024 10:31-0500 SaO2% (BldA) [Mass fraction] 97 % Dr. Caterina Garcia MD Work Phone: [facility] 10-31-2024 10:31-0500 Systolic blood pressure 118 mm[Hg] Dr. Caterina Garcia MD Work Phone: [facility] 10-29-2024 09:59-0500 Body mass index (BMI) [Ratio] 27.1 kg/m2 Dr. Caterina Garcia MD Work Phone: [facility] 10-29-2024 09:59-0500 Body weight 71.[address] Caterina Garcia MD Work Phone: [facility] 10-29-2024 09:59-0500 Diastolic blood pressure 68 mm[Hg] Dr. Caterina Garcia MD Work Phone: [facility] 10-29-2024 09:59-0500 Heart rate 57 /min Dr. Caterina Garcia MD Work Phone: [facility] 10-29-2024 09:59-0500 Respiratory rate 16 /min Dr. Caterina Garcia MD Work Phone: [facility] 10-29-2024 09:59-0500 Systolic blood pressure 112 mm[Hg] Dr. Caterina Garcia MD Work Phone: [facility] 08-20-2024 15:40-0500 Body mass index (BMI) [Ratio] 27.13 kg/m2 Tanvi Moiz PRODUCT SUPPORT SPECIALIST.[employer] Work Phone: [facility] 08-20-2024 15:40-0500 Body temperature 98.6 [degF] Tanvi Moiz PRODUCT SUPPORT SPECIALIST.[employer] Work Phone: [facility] 08-20-2024 15:40-0500 Body weight 71.7 kg Tanvi Rockwell PRODUCT SUPPORT SPECIALIST.[employer] Work Phone: [facility] 08-20-2024 15:40-0500 Heart rate 60 /min Tanvi Moiz PRODUCT SUPPORT SPECIALIST.[employer] Work Phone: [facility] 08-20-2024 15:40-0500 SaO2% (BldA) [Mass fraction] 98 % Tanvi Moiz PRODUCT SUPPORT SPECIALIST.[employer] Work Phone: [facility] 02-12-2024 13:47-0400 Body mass index (BMI) [Ratio] 25.92 kg/m2 Richie Knight MD Work Phone: [facility] 02-12-2024 13:47-0400 Body weight 68.5 kg Richie Knight MD Work Phone: [facility] 02-12-2024 13:47-0400 Respiratory rate 16 /min Richie Knight MD Work Phone: [facility] 10-24-2023 15:39-0500 Body height 162.[address] Caterina Garcia Work Phone: [facility] 10-24-2023 15:39-0500 Body mass index (BMI) [Ratio] 25.9 kg/m2 Dr. Caterina Garcia Work Phone: [facility] 10-24-2023 15:39-0500 Body weight 68.[address] Caterina Garcia Work Phone: [facility] 10-24-2023 15:39-0500 Diastolic blood pressure 68 mm[Hg] Dr. Caterina Garcia Work Phone: [facility] 10-24-2023 15:39-0500 Heart rate 55 /min Dr. Caterina Garcia Work Phone: [facility] 10-24-2023 15:39-0500 Respiratory rate 14 /min Dr. Caterina Garcia Work Phone: [facility] 10-24-2023 15:39-0500 Systolic blood pressure 113 mm[Hg] Dr. Caterina Garcia Work Phone: [facility] 09-21-2023 13:15-0500 Body height 162.[address] Caterina Garcia Work Phone: [facility] 09-21-2023 13:15-0500 Body mass index (BMI) [Ratio] 26.1 kg/m2 Dr. Caterina Garcia Work Phone: [facility] 09-21-2023 13:15-0500 Body temperature 97.8 [degF] Dr. Caterina Garcia Work Phone: [facility] 09-21-2023 13:15-0500 Body weight [address] Caterina Garcia Work Phone: [facility] 09-21-2023 13:15-0500 Diastolic blood pressure 62 mm[Hg] Dr. Caterina Garcia Work Phone: [facility] 09-21-2023 13:15-0500 Heart rate 82 /min Dr. Caterina Garcia Work Phone: [facility] 09-21-2023 13:15-0500 Respiratory rate 16 /min Dr. Caterina Garcia Work Phone: [facility] 09-21-2023 13:15-0500 SaO2% (BldA) [Mass fraction] 99 % Dr. Caterina Garcia Work Phone: [facility] 09-21-2023 13:15-0500 Systolic blood pressure 120 mm[Hg] Dr. Caterina Garcia Work Phone: [facility] 06-14-2023 14:51-0400 Body mass index (BMI) [Ratio] 27.6 kg/m2 Dr. Caterina Garcia Work Phone: [facility] 06-14-2023 14:51-0400 Body temperature 98.6 [degF] Dr. Caterina Garcia Work Phone: [facility] 06-14-2023 14:51-0400 Body weight 73.[address] Caterina Garcia Work Phone: [facility] 06-14-2023 14:51-0400 Diastolic blood pressure 72 mm[Hg] Dr. Caterina Garcia Work Phone: [facility] 06-14-2023 14:51-0400 Heart rate 63 /min Dr. Caterina Garcia Work Phone: [facility] 06-14-2023 14:51-0400 Respiratory rate 16 /min Dr. Caterina Garcia Work Phone: [facility] 06-14-2023 14:51-0400 SaO2% (BldA) [Mass fraction] 96 % Dr. Caterina Garcia Work Phone: [facility] 06-14-2023 14:51-0400 Systolic blood pressure 112 mm[Hg] Dr. Caterina Garcia Work Phone: [facility] 11-30-2022 09:38-0500 Body height 162.[address] Caterina Garcia Work Phone: [facility] 11-30-2022 09:38-0500 Body mass index (BMI) [Ratio] 31.9 kg/m2 Dr. Caterina Garcia Work Phone: [facility] 11-30-2022 09:38-0500 Body temperature 96.1 [degF] Dr. Caterina Garcia Work Phone: [facility] 11-30-2022 09:38-0500 Body weight 84.[address] Caterina Garcia Work Phone: [facility] 11-30-2022 09:38-0500 Diastolic blood pressure 74 mm[Hg] Dr. Caterina Garcia Work Phone: [facility] 11-30-2022 09:38-0500 Heart rate 59 /min Dr. Caterina Garcia Work Phone: [facility] 11-30-2022 09:38-0500 Respiratory rate 18 /min Dr. Caterina Garcia Work Phone: [facility] 11-30-2022 09:38-0500 SaO2% (BldA) [Mass fraction] 99 % Dr. Caterina Garcia Work Phone: [facility] 11-30-2022 09:38-0500 Systolic blood pressure 116 mm[Hg] Dr. Caterina Garcia Work Phone: [facility] 11-18-2022 09:57-0500 Body height 162.6 cm Jimi Moon APRN.[employer] Work Phone: [facility] 11-18-2022 09:57-0500 Body weight 83.01 kg Jimi Moon APRN.[employer] Work Phone: [facility] 11-18-2022 09:57-0500 Diastolic blood pressure 82 mm[Hg] Jimi Moon APRN.[employer] Work Phone: [facility] 11-18-2022 09:57-0500 Heart rate 64 /min Jimi Moon PRODUCT SUPPORT SPECIALIST.[employer] Work Phone: [facility] 11-18-2022 09:57-0500 Respiratory rate 18 /min Jimi Moon PRODUCT SUPPORT SPECIALIST.[employer] Work Phone: [facility] 11-18-2022 09:57-0500 SaO2% (BldA) [Mass fraction] 98 % Jimi Moon PRODUCT SUPPORT SPECIALIST.[employer] Work Phone: [facility] 11-18-2022 09:57-0500 Systolic blood pressure 126 mm[Hg] Jimi Moon PRODUCT SUPPORT SPECIALIST.[employer] Work Phone: [facility] 11-14-2022 09:43-0500 Body weight 83.46 kg Richie Knight MD Work Phone: [facility] 11-14-2022 09:43-0500 Diastolic blood pressure 80 mm[Hg] Richie Knight MD Work Phone: [facility] 11-14-2022 09:43-0500 Heart rate 66 /min Richie Knight MD Work Phone: [facility] 11-14-2022 09:43-0500 Respiratory rate 18 /min Richie Knight MD Work Phone: [facility] 11-14-2022 09:43-0500 SaO2% (BldA) [Mass fraction] 99 % Richie Knight MD Work Phone: [facility] 11-14-2022 09:43-0500 Systolic blood pressure 133 mm[Hg] Richie Knight MD Work Phone: [facility] 09-21-2022 08:12-0500 Body height 162.6 cm Haseeb Roy MD Work Phone: [facility] 09-21-2022 08:12-0500 Body weight 80.29 kg Haseeb Roy MD Work Phone: [facility] 09-21-2022 08:12-0500 Diastolic blood pressure 85 mm[Hg] Haseeb Roy MD Work Phone: [facility] 09-21-2022 08:12-0500 Heart rate 63 /min Haseeb Roy MD Work Phone: [facility] 09-21-2022 08:12-0500 SaO2% (BldA) [Mass fraction] 96 % Haseeb Roy MD Work Phone: [facility] 09-21-2022 08:12-0500 Systolic blood pressure 143 mm[Hg] Haseeb Roy MD Work Phone: [facility] 09-07-2022 10:40-0500 Body height 162.[address] Caterina Garcia Work Phone: [facility] Work Phone: 09-07-2022 10:40-0500 Diastolic blood pressure 80 mm[Hg] Dr. Caterina Garcia Work Phone: [facility] 09-07-2022 10:40-0500 Heart rate 63 /min Dr. Caterina Garcia Work Phone: [facility] 09-07-2022 10:40-0500 Respiratory rate 18 /min Dr. Caterina Garcia Work Phone: [facility] 09-07-2022 10:40-0500 SaO2% (BldA) [Mass fraction] 96 % Dr. Caterina Garcia Work Phone: [facility] 09-07-2022 10:40-0500 Systolic blood pressure 134 mm[Hg] Dr. Caterina Garcia Work Phone: [facility] 07-13-2022 15:36-0400 Body height 163.[address] Caterina Garcia Work Phone: [facility] Work Phone: 07-13-2022 15:36-0400 Body mass index (BMI) [Ratio] 29.7 kg/m2 Dr. Caterina Garcia Work Phone: [facility] Work Phone: 07-13-2022 15:36-0400 Body temperature 98.1 [degF] Dr. Caterina Garcia Work Phone: [facility] Work Phone: 07-13-2022 15:36-0400 Body weight [address] Caterina Garcia Work Phone: [facility] Work Phone: 07-13-2022 15:36-0400 Diastolic blood pressure 76 mm[Hg] Dr. Caterina Garcia Work Phone: [facility] Work Phone: 07-13-2022 15:36-0400 Heart rate 57 /min Dr. Caterina Garcia Work Phone: [facility] Work Phone: 07-13-2022 15:36-0400 Respiratory rate 16 /min Dr. Caterina Garcia Work Phone: [facility] Work Phone: 07-13-2022 15:36-0400 SaO2% (BldA) [Mass fraction] 99 % Dr. Caterina Garcia Work Phone: [facility] Work Phone: 07-13-2022 15:36-0400 Systolic blood pressure 130 mm[Hg] Dr. Caterina Garcia Work Phone: [facility] Work Phone: 05-17-2022 09:32-0400 Body height 162.[address] Caterina Garcia Work Phone: [facility] Work Phone: 05-17-2022 09:32-0400 Body mass index (BMI) [Ratio] 30.4 kg/m2 Dr. Caterina Garcia Work Phone: [facility] Work Phone: 05-17-2022 09:32-0400 Body temperature 97 [degF] Dr. Caterina Garcia Work Phone: [facility] Work Phone: 05-17-2022 09:32-0400 Body weight 80.[address] Caterina Garcia Work Phone: [facility] Work Phone: 05-17-2022 09:32-0400 Diastolic blood pressure 70 mm[Hg] Dr. Caterina Garcia Work Phone: [facility] Work Phone: 05-17-2022 09:32-0400 Heart rate 60 /min Dr. Caterina Garcia Work Phone: [facility] Work Phone: 05-17-2022 09:32-0400 Respiratory rate 16 /min Dr. Caterina Garcia Work Phone: [facility] Work Phone: 05-17-2022 09:32-0400 SaO2% (BldA) [Mass fraction] 96 % Dr. Caterina Garcia Work Phone: [facility] Work Phone: 05-17-2022 09:32-0400 Systolic blood pressure 124 mm[Hg] Dr. Caterina Garcia Work Phone: [facility] Work Phone: 05-12-2022 08:41-0400 Body weight 78.47 kg Richie Knight MD Work Phone: [facility] 05-12-2022 08:41-0400 Diastolic blood pressure 75 mm[Hg] Richie Knight MD Work Phone: [facility] 05-12-2022 08:41-0400 Heart rate 54 /min Richie Knight MD Work Phone: [facility] 05-12-2022 08:41-0400 Respiratory rate 18 /min Richie Knight MD Work Phone: [facility] 05-12-2022 08:41-0400 SaO2% (BldA) [Mass fraction] 98 % Richie Knight MD Work Phone: [facility] 05-12-2022 08:41-0400 Systolic blood pressure 127 mm[Hg] Richie Knight MD Work Phone: [facility] 03-25-2022 08:59-0400 Body temperature 98.01 [degF] Aleida Roca MD Work Phone: [facility] 03-25-2022 08:59-0400 Body weight 81.65 kg Aleida Roca MD Work Phone: [facility] 03-25-2022 08:59-0400 Diastolic blood pressure 70 mm[Hg] Aleida Roca MD Work Phone: [facility] 03-25-2022 08:59-0400 Heart rate 68 /min Aleida Roca MD Work Phone: [facility] 03-25-2022 08:59-0400 Respiratory rate 18 /min Aleida Roca MD Work Phone: [facility] 03-25-2022 08:59-0400 SaO2% (BldA) [Mass fraction] 99 % Aleida Roca MD Work Phone: [facility] 03-25-2022 08:59-0400 Systolic blood pressure 136 mm[Hg] Aleida Roca MD Work Phone: [facility] 03-08-2022 10:32-0400 Body height 162.[address] Caterina Garcia Work Phone: [facility] Work Phone: 03-08-2022 10:32-0400 Diastolic blood pressure 71 mm[Hg] Dr. Caterina Garcia Work Phone: [facility] Work Phone: 03-08-2022 10:32-0400 Heart rate 57 /min Dr. Caterina Garcia Work Phone: [facility] Work Phone: 03-08-2022 10:32-0400 Respiratory rate 18 /min Dr. Caterina Garcia Work Phone: [facility] Work Phone: 03-08-2022 10:32-0400 SaO2% (BldA) [Mass fraction] 98 % Dr. Caterina Garcia Work Phone: [facility] Work Phone: 03-08-2022 10:32-0400 Systolic blood pressure 136 mm[Hg] Dr. Caterina Garcia Work Phone: [facility] Work Phone: 01-27-2022 10:08-0400 Body mass index (BMI) [Ratio] 32.3 kg/m2 Dr. Caterina Garcia Work Phone: [facility] Work Phone: 01-27-2022 10:08-0400 Body temperature 97.7 [degF] Dr. Caterina Garcia Work Phone: [facility] Work Phone: 01-27-2022 10:08-0400 Body weight 86.[address] Caterina Garcia Work Phone: [facility] Work Phone: 01-27-2022 10:08-0400 Diastolic blood pressure 76 mm[Hg] Dr. Caterina Garcia Work Phone: [facility] Work Phone: 01-27-2022 10:08-0400 Heart rate 58 /min Dr. Caterina Garcia Work Phone: [facility] Work Phone: 01-27-2022 10:08-0400 Respiratory rate 14 /min Dr. Caterina Garcia Work Phone: [facility] Work Phone: 01-27-2022 10:08-0400 SaO2% (BldA) [Mass fraction] 97 % Dr. Caterina Garcia Work Phone: [facility] Work Phone: 01-27-2022 10:08-0400 Systolic blood pressure 128 mm[Hg] Dr. Caterina Garcia Work Phone: [facility] Work Phone: 12-30-2021 11:01-0400 Body temperature 97.59 [degF] Richie Knight MD Work Phone: [facility] 12-30-2021 11:01-0400 Diastolic blood pressure 75 mm[Hg] Richie Knight MD Work Phone: [facility] 12-30-2021 11:01-0400 Heart rate 58 /min Richie Knight MD Work Phone: [facility] 12-30-2021 11:01-0400 Respiratory rate 14 /min Richie Kinght MD Work Phone: [facility] 12-30-2021 11:01-0400 SaO2% (BldA) [Mass fraction] 99 % Richie Knight MD Work Phone: [facility] 12-30-2021 11:01-0400 Systolic blood pressure 125 mm[Hg] Richie Knight MD Work Phone: [facility] 11-30-2021 09:34-0500 Body height 163.[address] Caterina Garcia Work Phone: [facility] Work Phone: 11-30-2021 09:34-0500 Body mass index (BMI) [Ratio] 32.3 kg/m2 Dr. Caterina Garcia Work Phone: [facility] Work Phone: 11-30-2021 09:34-0500 Body temperature 96.4 [degF] Dr. Caterina Garcia Work Phone: [facility] Work Phone: 11-30-2021 09:34-0500 Body weight 86.[address] Caterina Garcia Work Phone: [facility] Work Phone: 11-30-2021 09:34-0500 Diastolic blood pressure 78 mm[Hg] Dr. Caterina Garcia Work Phone: [facility] Work Phone: 11-30-2021 09:34-0500 Heart rate 68 /min Dr. Caterina Garcia Work Phone: [facility] Work Phone: 11-30-2021 09:34-0500 Respiratory rate 16 /min Dr. Caterina Garcia Work Phone: [facility] Work Phone: 11-30-2021 09:34-0500 SaO2% (BldA) [Mass fraction] 99 % Dr. Caterina Garcia Work Phone: [facility] Work Phone: 11-30-2021 09:34-0500 Systolic blood pressure 132 mm[Hg] Dr. Caterina Garcia Work Phone: [facility] Work Phone: 10-21-2021 09:34-0500 Body mass index (BMI) [Ratio] 31.1 kg/m2 Dr. Caterina Garcia Work Phone: [facility] Work Phone: 10-21-2021 09:34-0500 Body weight 83.[address] Caterina Garcia Work Phone: [facility] Work Phone: 10-21-2021 09:34-0500 Diastolic blood pressure 70 mm[Hg] Dr. Caterina Garcia Work Phone: [facility] Work Phone: 10-21-2021 09:34-0500 Systolic blood pressure 120 mm[Hg] Dr. Caterina Garcia Work Phone: [facility] Work Phone: Encounters Encounter Date Encounter Type Care Provider Facility Start: 05-22-2025 ambulatory Caterina Pfeifferi ty:[facility] Start: 05-16-2025 Encounter for other preprocedural examination Carlos [facility] Start: 05-06-2025 End: 05-06-[address] Larry Bai MD -[facility] Work Phone: Start: 05-06-2025 End: 05-06-[address] Caterina Garcia MD Work Phone: -[facility] Start: 05-02-2025 End: 05-02-2025 Patient encounter procedure Richie Knight MD Work Phone: Hematology/Oncology Start: 05-02-2025 End: 05-02-2025 ambulatory Richie Knight MD Work Phone: Hematology/Oncology Comment on above: Malignant neoplasm o f overlapping sites of left breast in female, estrogen receptor positive (HCC); halfway (current) use of aromatase inhibitors Start: 04-22-2025 End: 04-22-[address] Caterina Garcia MD Work Phone: -[facility] Start: 04-22-2025 End: 04-22-2025 Patient encounter procedure Corie Mulligan [place] -[facility] Work Phone: Start: 04-22-2025 End: 04-22-2025 ambulatory TANVI ROCKWELL Facility:[facility] Start: 04-22-2025 End: 04-22-2025 ambulatory Corie Mulligan Facility:[facility] Start: 04-16-2025 End: 04-16-[address] Narendra Triplett MD -[facility] Start: 04-16-2025 End: 04-16-[address] Caterina Garcia MD Work Phone: -[facility] Start: 03-24-2025 End: 03-24-[address] Caterina Garcia MD -[facility] Work Phone: Start: 03-24-2025 End: 03-24-[address] Caterina Garcia MD Work Phone: [facility] Work Phone: Start: 02-26-2025 End: 02-26-2025 ambulatory YISSEL ELLSWORTH Facility:[facility] Start: 01-27-2025 Encounter for antibo dy response examination [facility] Start: 01-22-2025 End: 01-22-[address] Caterina Garcia MD Work Phone: [facility] Work Phone: Start: 01-22-2025 End: 01-22-[address] Caterina Garcia MD -Laboratory, [place] Start: 01-22-2025 End: 01-22-2025 ambulatory [facility] Facility:[facility] Start: 01-21-[address] Jasper Garcia MD Work Phone: [facility] Start: 12-16-2024 End: 12-16-[address] Narendra Triplett MD -[facility] Start: 12-16-2024 End: 12-16-2024 ambulatory [facility] Facility:[facility] Start: 12-11-2024 End: 12-11-2024 Patient encounter procedure Drake SCHWAB -[facility] Work Phone: Start: 12-11-2024 End: 12-11-2024 ambulatory Drake SCHWAB Facility:[facility] Start: 10-31-2024 End: 10-31-2024 Patient encounter procedure Titus SCHWAB -[facility] Work Phone: Start: 10-31-2024 End: 10-31-2024 ambulatory [facility] Facility:[facility] Start: 10-31-2024 End: 10-31-2024 ambulatory [facility] Facility:[facility] Start: 10-29-2024 End: 10-29-[address] Narendra Triplett MD -[facility] Work Phone: Start: 10-29-2024 End: 10-29-2024 ambulatory Narendra Triplett Facility:[facility] Start: 10-21-2024 End: 10-21-2024 Emergency department patient visit URI Cierra WHITTIER Facility:[facility] Start: 09-23-2024 End: 09-23-2024 ambulatory [facility] Facility:[facility] Start: 09-23-2024 End: 09-23-2024 ambulatory [facility] Facility:[facility] Start: 08-23-2024 End: 08-23-2024 ambulatory TANVI ROCKWELL Facility:[facility] Start: 08-23-2024 End: 08-23-2024 Subsequent hospital visit by physician Screen Mammo [facility] Comment on above: Malignant neoplasm o f left breast in female, estrogen receptor positive, unspecified site of breast (HCC) [C50.912, Z17.0] Start: 08-20-2024 End: 08-20-2024 ambulatory Tanvi Rockwell APRN.[employer] Work Phone: Hematology/Oncology Comment on above: Malignant neoplasm o f left breast in female, estrogen receptor positive, unspecified site of breast (HCC) (Primary Dx); Encounter for screening mammogram for malignant neoplasm of breast; Age-related osteoporosis without current pathological fracture Start: 08-20-2024 End: 08-20-2024 Patient encounter procedure Tanvi Rockwell APRN.[employer] Work Phone: Hematology/Oncology Start: 08-12-2024 End: 08-13-2024 Refill Richie Brent Knight MD Work Phone: Hematology/Oncology Comment on above: Refill Request Start: 08-08-2024 End: 10-03-2024 Telephone encounter Richie Knight MD Work Phone: Hematology/Oncology Comment on above: Appointment (Has nakita ointment on 08/15 and would like to change the appointment) Start: 02-12-2024 End: 02-12-2024 ambulatory Richie Knight MD Work Phone: Hematology/Oncology Comment on above: Malignant neoplasm o f nipple of left breast in female, unspecified estrogen receptor status (HCC) (Primary Dx) Start: 02-12-2024 End: 02-12-2024 Patient encounter procedure Richie Knight MD Work Phone: Hematology/Oncology Start: 12-04-2023 Non-patient / Non-visit Dr. Jean Garcia Work Phone: [facility] Start: 12-04-2023 End: 12-04-[address] Caterina Garcia Work Phone: [facility] Work Phone: Start: 12-04-2023 End: 12-04-[address] Caterina Garcia Work Phone: [facility] Work Phone: Start: 10-24-2023 End: 10-24-[address] Caterina Garcia Work Phone: [facility] Work Phone: Start: 09-21-2023 End: 09-21-[address] Caterina Garcia Work Phone: [facility] Work Phone: Start: 09-21-2023 End: 09-21-[address] Caterina Garcia Work Phone: [facility] Internal Medicine Work Phone: Start: 07-26-2023 Documentation procedure Mammog luis Coordinator [facility] Start: 07-26-2023 Letter encounter Mammography Coordinator [facility] Department Start: 07-25-2023 End: 07-25-2023 Subsequent hospital visit by physician Screen/Diagnostic Mammo [facility] Work Phone: Mammography Comment on above: Malignant neoplasm o f left breast in female, estrogen receptor positive, unspecified site of breast (HCC) [C50.912, Z17.0] Start: 06-14-2023 End: 06-14-[address] Caterina Garcia Work Phone: [facility] Internal Medicine Work Phone: Start: 04-09-2023 Refill Richie Brent Knight MD Work Phone: Hematology/Oncology Comment on above: Refill Request Start: 11-30-2022 End: 11-30-[address] Caterina Garcia Work Phone: [facility] Work Phone: Start: 11-30-2022 End: 11-30-[address] Caterina Garcia Work Phone: [facility] Start: 11-18-2022 Telephone encounter Jimi mcgiure APRN.[employer]ER Work Phone: [facility] Cardiology Theresa Comment on above: Appointment Start: 11-18-2022 End: 11-18-2022 ambulatory JIMI MOON Facility:[facility] Start: 11-18-2022 Encounter for preprocedural cardiovascular examination [facility] Start: 11-18-2022 End: 11-18-2022 Patient encounter procedure Jimi Moon APRN.[employer] Work Phone: [facility] Cardiology Theresa Comment on above: Paroxysmal atrial fi brillation (HCC) (Primary Dx); SNEHA (obstructive sleep apnea); Obesity, Class I, BMI 30-34.9; At risk for stroke; Pre-operative cardiovascular examination Start: 11-18-2022 End: 11-18-2022 Patient encounter status Jimi Moon APRN.CNP Work Phone: [facility] Cardiology Theresa Start: 11-14-2022 End: 11-14-2022 ambulatory Richie Knight MD Work Phone: Hematology/Oncology Comment on above: Malignant neoplasm o f left breast in female, estrogen receptor positive, unspecified site of breast (HCC) (Primary Dx); Encounter for screening for osteoporosis; Age-related osteoporosis without current pathological fracture ; Encounter for screening mammogram for malignant neoplasm of breast Start: 11-14-2022 End: 11-14-2022 Patient encounter procedure Richie Knight MD Work Phone: [facility] Start: 11-10-2022 ambulatory HASEEB ROY Facility:Rosamaria [facility] Start: 11-03-2022 Telephone encounter Haseeb arce MD Work Phone: [facility] Cardiology Theresa Comment on above: Preparations For Pro cedures Start: 09-27-2022 Telephone encounter Haseeb arce MD Work Phone: [facility] Cardiology Theresa Comment on above: Preparations For Pro cedures (Complete EPS & PVI Ablation) Start: 09-22-2022 Non-patient / Non-visit Dr. Jean Garcia Work Phone: [facility] Start: 09-22-2022 End: 09-22-[address] Caterina Garcia Work Phone: [facility] Work Phone: Start: 09-22-2022 End: 09-22-[address] Caterina Garcia Work Phone: [facility]-Pulmonary Services/Neurology Start: 09-21-2022 End: 09-21-2022 ambulatory HASEEB ROY Facility:[facility] Start: 09-21-2022 End: 09-21-2022 Patient encounter procedure Haseeb Roy MD Work Phone: [facility] Cardiology Theresa Comment on above: Paroxysmal atrial fi brillation (HCC) (Primary Dx); Atherosclerosis of [place] coronary artery of [place] heart without angina pectoris; Mixed hyperlipidemia; S/P primary angioplasty with coronary stent; SNEHA (obstructive sleep apnea) Start: 09-07-2022 End: 09-07-[address] Caterina Garcia Work Phone: [facility] Start: 07-13-2022 End: 07-13-[address] Caterina Garcia Work Phone: [facility] Start: 05-17-2022 End: 05-17-[address] Caterina Garcia Work Phone: [facility] Start: 05-12-2022 End: 05-12-2022 ambulatory Richie Knight MD Work Phone: Hematology/Oncology Comment on above: Malignant neoplasm o f nipple of left breast in female, unspecified estrogen receptor status (HCC) (Primary Dx) Start: 05-12-2022 End: 05-12-2022 Patient encounter procedure Richie Knight MD Work Phone: [facility] Start: 04-28-2022 Telephone encounter Shanda Zarate RN Hematology/Oncology Comment on above: Results Start: 04-20-2022 End: 04-20-[address] Caterina Garcia Work Phone: [facility]-Radiology, [facility] Start: 04-15-2022 End: 04-15-2022 Subsequent hospital visit by physician Ct [facility] Radiology Comment on above: Malignant neoplasm o f nipple of left breast in female, estrogen receptor positive (HCC) [C50.012, Z17.0] Start: 04-01-2022 Documentation procedure Mammog luis Coordinator [facility] Start: 04-01-2022 Letter encounter Mammography Coordinator [facility] Department Start: 04-01-2022 End: 04-01-2022 Subsequent hospital visit by physician Screen/Diagnostic Mammo 2 [facility] Work Phone: Mammography Comment on above: Malignant neoplasm o f nipple of left breast in female, estrogen receptor positive (HCC) [C50.012, Z17.0] Start: 03-25-2022 End: 03-25-2022 ambulatory Aleida Roca MD Work Phone: Hematology/Oncology Comment on above: Malignant neoplasm o f nipple of left breast in female, estrogen receptor positive (HCC) (Primary Dx); Lump in chest; Lung nodules; 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 Caterina Garcia Work Phone: [facility] Start: 01-27-2022 End: 01-27-[address] Caterina Garcia Work Phone: [facility] Start: 12-30-2021 End: 12-30-2021 ambulatory Richie Knight MD Work Phone: Hematology/Oncology Comment on above: Malignant neoplasm o f nipple of left breast in female, estrogen receptor positive (HCC) (Primary Dx); Encounter for screening mammogram for malignant neoplasm of breast Start: 12-30-2021 End: 12-30-2021 Patient encounter procedure Richie Knight MD Work Phone: [facility] Start: 12-28-2021 End: 12-28-[address] Caterina Garcia Work Phone: [facility] Start: 11-30-2021 End: 11-30-[address] Caterina Garcia Work Phone: [facility] Start: 10-21-2021 End: 10-21-[address] Caterina Garcia Work Phone: [facility] Start: 09-13-[address] Caterina Garcia Work Phone: [facility] Start: 02-06-2018 Ambulatory RADHAMES VELAZQUEZ Facilit y:[facility] Start: 01-12-2018 Ambulatory RADHAMES VELAZQUEZ Facilit y:[facility] Start: 01-03-2018 Ambulatory KEI Blank [facility] Start: 07-18-2017 End: 07-18-2017 Ambulatory RADHAMES CAROLINE Facility:[facility] Procedures Date Procedure Procedure Detail Performing Clinician Start: 05-02-2025 Follow-up visit Follow Up RICHIE KNIGHT Start: 04-22-2025 MRI of lumbar spine Dr. Caterina Garcia MD Work Phone: Start: 04-16-2025 X-ray of lumbosacral spine Dr. Caterina Garcia MD Work Phone: Start: 12-16-2024 X-ray of knee, four or more views Dr. Caterina Garcia MD Work Phone: Start: 12-16-2024 X-ray of lumbar spin e, two or three views Dr. Caterina Garcia MD Work Phone: Start: 10-31-2024 Plain x-ray of pelvi s and lower extremity Dr. Caterina Garcia MD Work Phone: Start: 12-04-2023 Radionuclide imaging of perfusion of myocardium under exercise stress Dr. Caterina Garcia Work Phone: Start: 11-18-2022 Ecg routine ecg w/le ast 12 lds w/i&r Jimi Moon PRODUCT SUPPORT SPECIALIST.[employer]ER Work Phone: Start: 04-20-2022 Plain x-ray of pelvi s and lower extremity Dr. Caterina Garcia Work Phone: Start: 04-15-2022 Ct thorax w/o contra st material [place] Chanelle MD Work Phone: Start: 04-01-2022 DEV SCREENING W MILI Elsa r Brent Knight MD Work Phone: Start: 04-01-2022 Mammography Screen[facility] Work Phone: Start: 03-24-2022 Adult depression screening assessment Screen/Diagnostic Hosp Work Phone: Start: 12-29-2021 Adult depression screening assessment Richie Knight MD Work Phone: Start: 09-13-[address] Jasper Garcia Work Phone: Start: 09-13-[address] Caterina Garcia Work Phone: Start: 03-19-2021 Mammography Richie Knight MD Work Phone: Start: 10-05-2020 Lipid 1996 panel - S maurice or Plasma Screen/Diagnostic Hosp Work Phone: Start: 12-05-2018 Colonoscopy Richie Knight MD Work Phone: Start: 04-27-2017 History of placement of stent for coronary artery disease S/P primary angioplasty with coronary stent Richie Knight MD Work Phone: Start: 03-22-2017 History of placement of stent for coronary artery disease History of coronary artery stent placement Dr. Caterina Garcia Work Phone: Comment on above: PCI-VINI-OM2 with a 3 .0 x 28 mm Synergy Stent H/O: tubal ligation History of t ubal ligation Dr. Caterina Garcia Work Phone: History of decompres milo of median nerve History of carpal tunnel release of both wrists Dr. Caterina Garcia Work Phone: History of placement of stent for coronary artery disease S/P primary angioplasty with coronary stent Haseeb Roy MD Work Phone: Plan of Treatment Date Care Activity Detail Author Start: 10-23-2029 Urine microalbumin profile [facility] Start: 04-22-2028 Diabetes Screening Diabetes Screenin g [facility] Start: 02-11-2027 Diabetes Screening Diabetes Screenin g [facility] Start: 10-05-2025 Lipid 1996 panel - S maurice or Plasma Lipid Screening [facility] Start: 10-05-2025 Lipid panel Lipid Screening [facility] Start: 10-05-2025 LIPID SCREEN LIPID SCREEN [facility] Start: 09-01-2025 End: 09-01-2025 Follow-up encounter 09/01/2025 1:40 PM EST Visit (SP) Office Hematology/Oncology [address] [id number] [place] [address] [place] [address] 6 mo scan follow up Hematology/Oncology Comment on above: 6 mo scan follow up Start: 08-25-2025 End: 08-25-2025 Patient encounter procedure Radiology Comment on above: Age-related osteopor osis without current pathological fracture [M81.0]; 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] Malignant neoplasm o f left breast in female, estrogen receptor positive, unspecified site of breast (HCC) [C50.912, Z17.0]; Encounter for screening mammogram for malignant neoplasm of breast [Z12.31] Start: 06-09-2025 Influenza vaccination Influenza Vacc ine (#1) [facility] Start: 04-16-2025 X-ray of lumbosacral spine L/S Spine Bending Flex/Ext [facility] Start: 04-16-2025 XR Spine Lumbar and Sacrum Views [facility] Start: 02-17-2025 End: 02-17-2025 Follow-up encounter 02/17/2025 12:40 PM EDT Visit (SP) Office Hematology/Oncology [address] [id number] [place] [address] [place], [place] [id number] 6 mo follow up Hematology/Oncology Comment on above: 6 mo follow up Start: 12-30-2024 DIABETES [facility]CREEN [facility] Start: 12-30-2024 Diabetes Screening Diabetes Screenin g [facility] Start: 12-11-2024 Patient referral [facility] Work Phone: Start: 10-09-2024 Advance Directive Discussion Advance Directive Discussion [facility] Start: 08-23-2024 End: 08-23-2024 Patient encounter procedure 08/23/2024 9:30 AM EST Appointment Mammogram [address] [place] [address] Malignant neoplasm of left breast in female, estrogen receptor positive, unspecified site of breast (HCC) [C50.912, Z17.0]; Encounter for screening mammogram for malignant neoplasm of breast [Z12.31] Mammogram Comment on above: Malignant neoplasm o f left breast in female, estrogen receptor positive, unspecified site of breast (HCC) [C50.912, Z17.0]; Encounter for screening mammogram for malignant neoplasm of breast [Z12.31] Start: 08-20-2024 End: 08-20-2024 Follow-up encounter 08/20/2024 3:00 PM EST Visit (SP) Office Hematology/Oncology [address] [address] Tanvi Rockwell APRN.B[employer]T SANDER [address] [place] [address] follow up 6 mo Hematology/Oncology Comment on above: follow up 6 mo Start: 08-15-2024 End: 08-15-2024 Follow-up encounter 08/15/2024 1:40 PM EST Visit (SP) Office Hematology/Oncology [address] [address] [place] [address] [place] [address] follow up 6 mo Hematology/Oncology Comment on above: follow up 6 mo Start: 06-09-2024 Covid-19 Vaccine ( season) Covid-19 Vaccine ( season) [facility] Start: 06-09-2024 Influenza vaccination Influenza Vacc ine (#1) [facility] Start: 04-01-2024 Mammography MAMMOGRAM [facility] Start: 12-01-2023 Covid-19 Vaccine ( season) Covid-19 Vaccine ( season) [facility] Start: 10-09-2023 Advance Directive Discussion Advance Directive Discussion [facility] Start: 10-09-2023 Behavioral Health Screening Behavioral Health Screening [facility] Start: 07-14-2023 End: 09-13-2023 CBC W Auto Differential panel - Blood CBC + DIFF Lab Routine Malignant neoplasm of left breast in female, estrogen receptor positive, unspecified site of breast (HCC) Encounter for screening for osteoporosis Expected: 07/14/2023, Expires: 09/13/2023 [facility] Work Phone: Comment on above: Expected: 07/14/2023 , Expires: 09/13/2023 Start: 07-14-2023 End: 09-13-2023 Comprehensive metabolic 2000 panel - Serum or Plasma COMP METABOLIC PANEL Lab Routine Malignant neoplasm of left breast in female, estrogen receptor positive, unspecified site of breast (HCC) Encounter for screening for osteoporosis Expected: 07/14/2023, Expires: 09/13/2023 [facility] Work Phone: Comment on above: Expected: 07/14/2023 , Expires: 09/13/2023 Start: 07-14-2023 End: 12-14-2023 DXA-AXIAL SKELETON DXA-AXIAL SKELETON Radiology Routine Malignant neoplasm of left breast in female, estrogen receptor positive, unspecified site of breast (HCC) Encounter for screening for osteoporosis Age-related osteoporosis without current pathological fracture Expected: 07/14/2023, Expires: 12/14/2023 [facility] Work Phone: Comment on above: Expected: 07/14/2023 , Expires: 12/14/2023 Start: 07-14-2023 End: 12-14-2023 DEV SCREENING W MILI DEV SCREENING W MILI Radiology Routine Malignant neoplasm of left breast in female, estrogen receptor positive, unspecified site of breast (HCC) Encounter for screening for osteoporosis Encounter for screening mammogram for malignant neoplasm of breast Expected: 07/14/2023, Expires: 12/14/2023 [facility] Work Phone: Comment on above: Expected: 07/14/2023 , Expires: 12/14/2023 Start: 06-14-2023 Patient referral [facility] Work Phone: Start: 06-09-2023 Covid-19 Vaccine () Covid-19 Vaccine () [facility] Start: 06-09-2023 Influenza vaccination INFLUENZA (#1) [facility] Start: 03-24-2023 Adult depression screening assessment DEPRESSION SCREENING [facility] Start: 03-19-2023 Mammography MAMMOGRAM [facility] Start: 12-29-2022 Adult depression screening assessment DEPRESSION SCREENING [facility] Start: 11-11-2022 End: 01-11-2023 CBC W Auto Differential panel - Blood CBC + DIFF Lab STAT Malignant neoplasm of left breast in female, estrogen receptor positive, unspecified site of breast (HCC) Expected: 11/11/2022, Expires: 01/11/2023 [facility] Work Phone: Comment on above: Expected: 11/11/2022 , Expires: 01/11/2023 Start: 11-11-2022 End: 01-11-2023 Comprehensive metabolic 2000 panel - Serum or Plasma COMP METABOLIC PANEL Lab STAT Malignant neoplasm of left breast in female, estrogen receptor positive, unspecified site of breast (HCC) Expected: 11/11/2022, Expires: 01/11/2023 [facility] Work Phone: Comment on above: Expected: 11/11/2022 , Expires: 01/11/2023 Start: 10-09-2022 ADVANCE DIRECTIVE DISCUSSION ADVANCE DIRECTIVE DISCUSSION [facility] Start: 10-09-2022 DEPRESSION ASSESSMENT DEPRESSION ASS ESSMENT [facility] Start: 09-21-2022 End: 11-21-2022 CREATININE BLD CREATININE BLD Lab Routine Paroxysmal atrial fibrillation (HCC) Expected: 09/21/2022, Expires: 11/21/2022 [facility] Work Phone: Comment on above: Expected: 09/21/2022 , Expires: 11/21/2022 Start: 09-07-2022 Patient referral [facility] Work Phone: Start: 06-09-2022 Influenza vaccination INFLUENZA (#1) [facility] Start: 05-29-2022 COVID-19 VACCINE (5 - Booster for Moderna series) COVID-19 VACCINE (5 - Booster for Moderna series) [facility] Start: 05-17-2022 Patient referral [facility] Work Phone: Start: 04-08-2022 End: 04-24-2023 Ct thorax w/o contrast material CT CHEST WO IVCON Radiology Routine Malignant neoplasm of nipple of left breast in female, estrogen receptor positive (HCC) Lump in chest Expected: 04/08/2022, Expires: 04/24/2023 [facility] Work Phone: Comment on above: Expected: 04/08/2022 , Expires: 04/24/2023 Start: 03-24-2022 COVID-19 VACCINE (5 - Booster for Moderna series) COVID-19 VACCINE (5 - Booster for Moderna series) [facility] Start: 12-30-2021 End: 01-29-2023 DEV SCREENING W MILI DEV SCREENING W MILI Radiology Routine Malignant neoplasm of nipple of left breast in female, estrogen receptor positive (HCC) Encounter for screening mammogram for malignant neoplasm of breast Expected: 12/30/2021, Expires: 01/29/2023 [facility] Work Phone: Comment on above: Expected: 12/30/2021 , Expires: 01/29/2023 Start: 12-14-2021 COVID-19 VACCINE (4 - Booster for Moderna series) COVID-19 VACCINE (4 - Booster for Moderna series) [facility] Start: 11-16-2021 COVID-19 VACCINE (4 - Booster for Moderna series) COVID-19 VACCINE (4 - Booster for Moderna series) [facility] Start: 10-09-2021 ADVANCE DIRECTIVE DISCUSSION ADVANCE DIRECTIVE DISCUSSION [facility] Start: 10-09-2021 DEPRESSION ASSESSMENT DEPRESSION ASS ESSMENT [facility] Start: 10-05-2021 Hepatitis B surface antibody level LDL CHOLESTEROL [facility] Start: 10-23-2020 ANNUAL PCP TEAM DIRECTOR DATA ARCHITECTURE VIRGIL DISEASE VISIT ANNUAL PCP TEAM CHRONIC DISEASE VISIT [facility] Start: 12-05-2019 Colonoscopy COLONOSCOPY [facility] Start: 12-05-2019 COLORECTAL CANCER SCREENING COLORECTAL CANCER SCREENING [facility] Start: 12-05-2019 Screening for malign ant neoplasm of colon [facility] Start: 06-09-2013 Medicare Annual Well ness Visit Medicare Annual Wellness Visit [facility] Start: 2008 RSV Vaccine (1 - 1-d ose 60+ series) RSV Vaccine (1 - 1-dose 60+ series) [facility] Start: 1998 SHINGRIX VACCINE (1 of 2) SHINGRIX VACCINE (1 of 2) [facility] Start: 1993 COLOGUARD (FIT-DNA) COLOGUARD (FIT-D NA) [facility] Start: [address] COLONOGRAPHY [facility] Start: 1993 FECAL OCCULT BLOOD FECAL OCCULT BLOO D [facility] Start: 1993 Screening for malign ant neoplasm of colon [facility] Start: 1993 SIGMOIDOSCOPY SIGMOIDOSCOPY [facility] Start: 1967 SHINGRIX VACCINE (1 of 2) SHINGRIX VACCINE (1 of 2) [facility] Start: 1966 Annual PCP Team Cloth 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 Supervisor virgil Disease Visit Annual PCP Team Chronic Disease Visit [facility] Start: 1966 Anxiety Screening Anxiety Screening [facility] Start: 1966 Depression Screening Depression Scre ening [facility] Start: 1966 HEPATITIS C SCREENING HEPATITIS C [facility] Start: 1966 Hepatitis C screening Hepatitis C [facility] End: 08-20-2025 CBC W Auto Differential panel - Blood COMPLETE BLOOD COUNT AND DIFFERENTIAL Lab Routine Malignant neoplasm of left breast in female, estrogen receptor positive, unspecified site of breast (HCC) Every 6 months for 4 Occurrences starting 08/20/2024 until 08/20/2025 [facility] Comment on above: Every 6 months for 4 Occurrences starting 08/20/2024 until 08/20/2025 End: 08-20-2025 Comprehensive metabolic 2000 panel - Serum or Plasma COMPREHENSIVE METABOLIC PANEL Lab Routine Malignant neoplasm of left breast in female, estrogen receptor positive, unspecified site of breast (HCC) Every 6 months for 4 Occurrences starting 08/20/2024 until 08/20/2025 [facility] Comment on above: Every 6 months for 4 Occurrences starting 08/20/2024 until 08/20/2025 End: 10-21-2023 Ct angiography chest w/contrast/noncontrast CTA CHEST (GATED) W IVCON Radiology Routine Paroxysmal atrial fibrillation (HCC) 1 Occurrences starting 09/21/2022 until 10/21/2023 [facility] Work Phone: Comment on above: 1 Occurrences starti ng 09/21/2022 until 10/21/2023 Ct thorax w/o contra st material CT CHEST WO IVCON Radiology Routine Malignant neoplasm of nipple of left breast in female, estrogen receptor positive (HCC) Lump in chest 04/15/2022 8:50 AM EDT [facility] Work Phone: End: 09-19-2025 DBT Breast - bilateral screening DEV SCREENING W MILI Radiology Routine Malignant neoplasm of left breast in female, estrogen receptor positive, unspecified site of breast (HCC) Encounter for screening mammogram for malignant neoplasm of breast 1 Occurrences starting 08/20/2024 until 09/19/2025 [facility] Work Phone: Comment on above: 1 Occurrences starti ng 08/20/2024 until 09/19/2025 DBT Breast - bilater al screening DEV SCREENING W MILI Radiology Routine Malignant neoplasm of left breast in female, estrogen receptor positive, unspecified site of breast (HCC) Encounter for screening mammogram for malignant neoplasm of breast 08/23/2024 9:38 AM EST [facility] Work Phone: ECG B/O W INTERP (ME D OFFICE) ECG B/O W INTERP (MED OFFICE) ECG Routine Paroxysmal atrial fibrillation (HCC) Ordered: 09/21/2022 [facility] Work Phone: Comment on above: Ordered: 09/21/2022 DEV SCREENING W MILI DEV SCREENI NG W MILI Radiology Routine Malignant neoplasm of left breast in female, estrogen receptor positive, unspecified site of breast (HCC) Encounter for screening for osteoporosis Encounter for screening mammogram for malignant neoplasm of breast 07/25/2023 4:07 PM EDT [facility] Work Phone: MR Lumbar spine [facility] Patient referral [facility] Work Phone: [facility] [place] EP LAB [facility] Immunizations Immunization Date Immunization Notes Care Provider Fa naila 07-22-2024 influenza virus vacc ine, unspecified formulation Richie Knight MD Work Phone: [facility] 06-27-2023 influenza virus vacc ine, unspecified formulation Richie Knight MD Work Phone: [facility] 06-14-2021 influenza virus vacc ine, unspecified formulation Richie Knight MD Work Phone: [facility] 06-19-2020 influenza, injectabl e, quadrivalent, contains preservative Richie Knight MD Work Phone: [facility] 10-23-2019 tetanus toxoid, redu gill diphtheria toxoid, and acellular pertussis vaccine, adsorbed Richie Knight MD Work Phone: [facility] 09-27-2017 influenza, high dose seasonal, preservative-free Richie Knight MD Work Phone: [facility] 08-29-2016 influenza, seasonal, injectable, preservative free Richie Knight MD Work Phone: [facility] 08-18-2015 influenza, seasonal, injectable, preservative free Richie Knight MD Work Phone: [facility] 08-18-2015 pneumococcal conjuga te vaccine, 13 valent Richie Knight MD Work Phone: [facility] 08-07-2014 influenza, seasonal, injectable Richie Knight MD Work Phone: [facility] 08-26-2013 pneumococcal polysaccharide vaccine, 23 valent Richie Knight MD Work Phone: [facility] 12-07-2007 tetanus and diphther ia toxoids, adsorbed, preservative free, for adult use (2 Lf of tetanus toxoid and 2 Lf of diphtheria toxoid) Richie Knight MD Work Phone: [facility] Payers Date Payer Category Payer Self-pay [id number] [address] [facility] AARP SUPPLEMENT [id number] 2018-Present [phone] [address] [place] [address] Indemnity [id number] 2018 Private Health Insurance [id number] 2018 Unknown [id number] 2013 Medicare MEDICARE MEDICAR E A AND B [id number] 2013-Present [phone] [address] [address] [place] [address] Medicare [id number] 2013 Medicare [id number] 2012 Medicare [id number] Medicare [id number] Unknown [id number] Unknown [id number] Unknown [id number] Unknown [id number] Unknown [id number] Unknown [id number] Unknown [id number] Unknown [id number] Unknown [id number] Unknown [id number] Unknown [id number] Unknown [id number] Unknown [id number] Unknown [id number] Social History Date Type Detail Facility Start: 03-27-2017 End: 12-16-2024 Tobacco smoking status NHIS Ex-smoker [facility] Start: 03-27-1974 End: 03-27-1989 History of tobacco use Current smoker [facility] Start: 03-27-1974 End: 03-27-1989 History of tobacco use Cigarette Smoker [facility] Start: 03-27-2017 End: 07-25-2023 Cigarettes smoked current (pack per day) - Reported 1 [facility] Start: 03-27-2017 End: 09-21-2022 Tobacco use and exposure Smokeless tobacco non-user [facility] Start: 09-07-2020 End: 11-18-2022 Alcohol intake Current non-drinker of alcohol (finding) [facility] Start: 1950 Sex Assigned At Not on file [facility] Start: 12-20-2021 End: 04-15-2022 Exposure to SARS-CoV-2 (event) Not sure [facility] Start: 11-30-2021 End: 10-24-2023 Tobacco smoking status NVIS Unknown if ever smoked [facility] Start: 1950 Sex Assigned At Female W yumiko [facility] Start: 11-18-2022 End: 07-25-2023 Tobacco use panel [facility] Adult Depression Screening Assessment 0 [facility] Start: 01-27-2025 Sex Female (finding) Lita trinidad [facility] Functional Status Date Assessment Result Facility 03-28-2017 Are you deaf, or do you have serious difficulty hearing No 03/28/2017 2:22 PM EDT Bianca Boone RN No [facility] 03-28-2017 Are you blind, or do you have serious difficulty seeing, even when wearing glasses No 03/28/2017 2:22 PM EDT Bianca Boone RN No [facility] 03-28-2017 Do you have serious difficulty walking or climbing stairs No 03/28/2017 2:22 PM EDT Bianca Boone RN No [facility] 03-28-2017 Do you have difficul ty dressing or bathing No 03/28/2017 2:22 PM EDT Bianca Boone RN No [facility] 03-28-2017 Because of a physica l, mental, or emotional condition, do you have difficulty doing errands alone such as visiting a physician's office or shopping No 03/28/2017 2:22 PM EDT Bianca Boone RN No [facility] Mental Status Date Assessment Result Facility 03-28-2017 Because of a physica l, mental, or emotional condition, do you have serious difficulty concentrating, remembering, or making decisions No 03/28/2017 2:22 PM EDT Bianca Boone RN No [facility] Clinical Notes 12-06-2018 to 05-02-2025 Richie Knight MD - 05/02/2025 3:42 PM EDT Note Date & Type Note Facility 05-02-2025 Note HNO ID: [id number] Author: RICHIE KNIGHT MD Service: ? Author Type: Physician Type: Progress Notes Filed: 05/02/2025 15:45 Note Text: History of Diagnosis: Patient was diagnosed with left-sided breast cancer in 2018. Tumors were ER/MD positive and HER2 negative, with two lesions measuring 2.8 cm and 1 cm. She underwent three months of neoadjuvant aromatase inhibitor therapy, followed by a left-sided mastectomy. Oncotype DX score was 11. Recent History: Patient was initially started on anastrozole but experienced significant vaginal discharge, leading to a switch to tamoxifen. Due to intolerable side effects, she was transitioned back to anastrozole. Four weeks ago, anastrozole was discontinued to assess if it was the cause of severe thigh pain, which subsequently resolved. She is currently taking iron supplements every other day. Recent lab work showed a hemoglobin level of 12 g/dL and a creatinine level of 0.98 mg/dL. Assessment and Plan: 1. Malignant neoplasm of overlapping sites of left breast in female, estrogen receptor positive (HCC) (C50.812) halfway (current) use of aromatase inhibitors (Z79.811) Patient has a history of left-sided breast cancer, T2 disease with two lesions (2.8 cm and 1 cm), both ER/MD positive and HER2 negative. Treated with 3 months of neoadjuvant aromatase inhibitor followed by left-sided mastectomy. Oncotype DX score of 11. Initially on Arimidex, then tamoxifen due to side effects, but returned to Arimidex. Recently experienced severe thigh pain, likely a side effect of Arimidex, which resolved after discontinuation for 4 weeks. - Educated patient on recent studies showing that 7 years of anti-estrogen therapy may be as effective as 10 years. - Advised a 4-week hiatus from Arimidex to ensure complete resolution of symptoms. - Prescribed Aromasin to be started after the 4-week hiatus. - Discussed potential side effects of Aromasin and the importance of maintaining quality of life. - Reviewed recent lab work showing creatinine at 0.98 mg/dL and hemoglobin at 12 g/dL; no evidence of anemia. - Continue current iron supplementation every other day. - Scheduled follow-up appointment in August to assess tolerance to Aromasin and overall progress. Richie Knight MD [facility] 05-02-2025 History of Present illness Narrative History of Diagnosis: Patient was diagnosed with left-sided breast cancer in 2018. Tumors were ER/MD positive and HER2 negative, with two lesions measuring 2.8 cm and 1 cm. She underwent three months of neoadjuvant aromatase inhibitor therapy, followed by a left-sided mastectomy. Oncotype DX score was 11. Recent History: Patient was initially started on anastrozole but experienced significant vaginal discharge, leading to a switch to tamoxifen. Due to intolerable side effects, she was transitioned back to anastrozole. Four weeks ago, anastrozole was discontinued to assess if it was the cause of severe thigh pain, which subsequently resolved. She is currently taking iron supplements every other day. Recent lab work showed a hemoglobin level of 12 g/dL and a creatinine level of 0.98 mg/dL. Assessment and Plan: 1. 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 Treated with 3 months of neoadjuvant aromatase inhibitor followed by left-sided mastectomy. Oncotype DX score of 11. Initially on Arimidex, then tamoxifen due to side effects, but returned to Arimidex. Recently experienced severe thigh pain, likely a side effect of Arimidex, which resolved after discontinuation for 4 weeks. - Educated patient on recent studies showing that 7 years of anti-estrogen therapy may be as effective as 10 years. - Advised a 4-week hiatus from Arimidex to ensure complete resolution of symptoms. - Prescribed Aromasin to be started after the 4-week hiatus. - Discussed potential side effects of Aromasin and the importance of maintaining quality of life. - Reviewed recent lab work showing creatinine at 0.98 mg/dL and hemoglobin at 12 g/dL; no evidence of anemia. - Continue current iron supplementation every other day. - Scheduled follow-up appointment in August to assess tolerance to Aromasin and overall progress. Richie Knight MD documented in this encounter [facility] 03-24-2025 Evaluation note Diagnosis Onset Date Resolution 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 chronic March 24, 2025 1:03pm Chronic low back pain chronic Garcia 2024 1:03pm GERD (gastroesophageal reflux disease) chronic March 24, 2025 1:03pm Hyperlipidemia chronic March 24, 2025 1:03pm Hypothyroidism chronic March 24, 2025 1:03pm [facility] Work Phone: [phone]) 424-749806-16-2025 Evaluation note* Diagnosis Onset Date Resolution Status Admit Date 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 chronic March 24, 2025 1:03pm Chronic low back pain chronic Mar 1:03pm GERD (gastroesophageal reflu x disease) chronic March 24, 2025 1:03pm Hyperlipidemia chronic March 24, 2025 1:03pm Hypothyroidism chronic March 24, 2025 1:03pm Degenerative disc disease (D DD) of lumbar region with discogenic back pain acute April 16, 2025 1 :53pm Low bone density acute April 1:53pm [facility] Work Phone: 1(413) 282-964706-16-2025 Evaluation note* Diagnosis Onset Date Resolution Status Admit Date 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 chronic March 24, 2025 1:03pm Chronic low back pain chronic Mar 1:03pm GERD (gastroesophageal reflu x disease) chronic March 24, 2025 1:03pm Hyperlipidemia chronic March 24, 2025 1:03pm Hypothyroidism chronic March 24, 2025 1:03pm Degenerative disc disease (D DD) of lumbar region with discogenic back pain acute April 16, 2025 1 :53pm Low bone density acute April 1:53pm Foraminal stenosis of lumbar region acute May 06, 2025 10:24am Retrolisthesis acute May 06, 2025 10:24am [facility] Work Phone: [phone] NoteHNO ID: [id number] Author: YISSEL ELLSWORTH APRN.CNP Service: ? Author Type: Nurse Practitioner Type: Progress Notes Filed: 02/26/2025 14:37 Note Text: Chief Complaint: Established patient follow up History of Present Illness: Melissa is a 74 year old female who presents here today for follow up breast cancer Patient feeling well She denies new lumps or bumps, breast pain or drainage, or skin texture changes She is taking arimidex once daily, tolerating well She has occasional vaginal dryness that is relieved with Vitamin E Hematology/Oncology History: - Past medical history is carried forward from previous note: 08/20/2024 with Tanvi Rockwell CNP and updated appropriately Attending: Dr Knight Diagnosis: Left breast cancer Treatment History: - patient diagnosis in 12/2017 with left-sided breast cancer, ER+/MD+/HER2- disease, Oncotype DX score of 11. - She was put on a 3-month course of a aromatase inhibitor as the patient had a repeat myocardial infarction with stent placements, at that time they wanted dual antiplatelet therapy. - She was taken off her antiplatelet therapy and taken for surgery. - s/p left-sided mastectomy on 03/19/2018 and she was noted to have 2 nodules (1.1 cm and 2.8 cm), both lesions were ER+/MD+/HER2- and showed Oncotype DX score of 11 from both of these lesions - she did not receive any adjuvant radiation. 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 - she was switched to Tamoxifen because Arimidex was causing vaginal dryness, however, she could not handle the Tamoxifen because of increased vaginal discharge and she switched back to Arimidex in late 2019 and has been tolerating it relatively well since - she was noticed to have a nodule or a growth along the lower left chest wall area and was evaluated by Dr. Roca, however no abnormality was identified on physical exam. - CT chest on 04/15/2022 showed no abnormality identified both on the subcutaneous plane, as well as, no evidence of any bone lesions to suggest metastasis. - CTA chest on 11/10/2022 showed evidence of any bony destructive lesions, no evidence of any pulmonary nodules, no evidence of any liver metastasis, no intra-abdominal abnormality noted. - patient remains on Anastrazole and she is tolerating it relatively well with plans for 10 years of therapy - Mammogram on 07/25/2023 was negative for any malignancy. - DXA scan on 07/17/2023 showed lowest bone density of -1.6 - Mammogram on 08/23/2024 was negative for any malignancy. Current Treatment: Anastrazole, 1 mg daily - initiated 01/2018 (plan for [address] Knight) Subjective/ Review of Systems: See HPI HEENT- denies any vision/hearing changes or headaches. 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 SKIN- denies new rashes MUSCULAR- no new muscular/skeletal pain or weakness NEURO- denies new neuropathy PAIN- denies acute pain concerns Objective/ Exam: BP 137/81 Pulse (!) 53 Temp 37.2 ?C (99 ?F) (Temporal) Resp 12 Wt 72.4 kg (159 lb 9.8 oz) LMP (LMP Unknown) SpO2 96% BMI 27.40 kg/m? GENERAL: Patient is a well developed, well nourished. Alert, oriented, pleasant and cooperative. NECK: Supple MOUTH - no redness, sores, or white patches BREAST: Right breast with no dominant masses/nodules, no nipple discharge and no adenopathy Left breast s/p mastectomy with surgical changes noted, no nodule, no skin changes, no adenopathy, no pain on exam Tool And Production Planner offered:Patient declines HEART- regular rate and rhythm LUNGS: clear to auscultation ABDOMEN: Abdomen soft, non-tender, + BS LOWER EXTREMITIES: No pitting edema. Recent Testing Reviewed in Epic: - LABS - IMAGING Latest Ref Rng AND Units 07/01/2021 12/30/2021 02/12/2024 CBC WBC 3.70 - 11.00 k/uL 7.76 7.20 6.46 RBC 3.90 - 5.20 m/uL 4.13 3.86 3.78 Hemoglobin 11.5 - 15.5 g/dL 12.3 11.8 11.4 Hematocrit 36.0 - 46.0 % 37.8 36.7 35.4 MCV 80.0 - 100.0 fL 91.5 95.1 93.7 MCH 26.0 - 34.0 pg 29.8 30.6 30.2 MCHC 30.5 - 36.0 g/dL 32.5 32.2 32.2 RDW-CV 11.5 - 15.0 % 14.0 13.3 13.2 Platelet Count 150 - 400 k/uL 229 213 214 MPV 9.0 - 12.7 fL 9.5 9.8 9.4 Baso% % 0.8 0.7 0.6 Abs Neut (ANC) 1.45 - 7.50 k/uL 4.59 4.31 3.83 Abs Lymph 1.00 - 4.00 k/uL 2.31 2.08 2.02 Abs [place] <0.87 k/uL 0.63 0.51 0.43 Abs Eosin <0.46 k/uL 0.15 0.21 0.11 Abs Baso <0.11 k/uL 0.06 0.05 0.04 NRBC /100 WBC 0.0 0.0 Diff Type Auto Diff Latest Ref Rng AND Units 07/01/2021 12/30/2021 02/12/2024 CMP Sodium 136 - 144 mmol/L 139 138 136 Potassium 3.7 - 5.1 mmol/L 4.4 4.4 4.4 Chloride 97 - 105 mmol/L 104 104 101 CO2 22 - 30 mmol/L 23 25 25 (more content not included)...[facility]03-05-2025 Evaluation note* Diagnosis Onset Date Resolution Status Admit Date Greater trochanteric bursiti s of left hip acute December 11, 2024 12:50pm Iliotibial band syndrome, le ft leg acute December 11, 2024 12:50pm Left hip pain acute December 11, 2024 12:50pm Left knee pain acute December 11, 2024 12:50pm Low back pain acute December 11, 2024 12:50pm [facility] Work Phone: [phone]) 620-967401-21-2025 Evaluation note* Diagnosis Onset Date Resolution Status Admit Date Atherosclerotic heart diseas e of [place] coronary artery without angina pectoris chronic October 29, 2024 9:57am Hyperlipidemia chronic October 292024 9:57am Paroxysmal atrial fibrillation March 04, 2021 c hronic October 29, 2024 9:57am Contusion of left hip acute Oct 10:07am Greater trochanteric bursiti s of left hip acute December 11, 2024 12:50pm Iliotibial band syndrome, le ft leg acute December 11, 2024 12:50pm Left hip pain acute December 11, 2024 12:50pm Left knee pain acute December 11, 2024 12:50pm Low back pain acute December 11, 2024 12:50pm [facility] Work Phone: [phone] 224-847711-15-2024 History of Present illness Narrative* Carter Cain Mammo Tech - 08/23/2024 9:30 AM EST Radiology Service Progress Note PATIENT NAME: Melissa Perry DATE OF SERVICE: August 23, 2024 TIME: 10:25 AM PATIENT IDENTITY VERIFICATION COMPLETED USING TWO (2) IDENTIFIERS: Name and Date of confirmedby patient verbally. FALL SCREENING: Has the patient had 2 falls in the last year or 1 fall with injury or currently using an Ambulatory Assistive Device (Walker, Cane, Wheelchair, Crutches, etc.)? No PATIENT GENDER DATA: Female. status: : No status: NO. PATIENT RELEVANT IMPLANT DATA REVIEWED: Not Applicable PATIENT PRESENTS WITH AN IMPLANTABLE OR ATTACHED HONEY GRADER AND BLENDER: No RADIOLOGY DEPARTMENT: Mammography PERIPHERAL IV DATA: Not applicable SIGNED BY: Kirsten Medina August 23, 2024 10:25 AM documented in this encounterC[facility] NoteHNO ID: [id number] Author: CARTER CAIN Mammo Tech Service: ? Author Type: Client Services Vice President Type: Progress Notes Filed: 08/23/2024 10:25 Note Text: Radiology Service Progress Note PATIENT NAME: Melissa Perry DATE OF SERVICE: August 23, 2024 TIME: 10:25 AM PATIENT IDENTITY VERIFICATION COMPLETED USING TWO (2) IDENTIFIERS: Name and Date of confirmed by patient verbally. FALL SCREENING: Has the patient had 2 falls in the last year or 1 fall with injury or currently using an Ambulatory Assistive Device (Walker, Cane, Wheelchair, Crutches, etc.)? No PATIENT GENDER DATA: Female. status: : No status: NO. PATIENT RELEVANT IMPLANT DATA REVIEWED: Not Applicable PATIENT PRESENTS WITH AN IMPLANTABLE OR ATTACHED HONEY GRADER AND BLENDER: No RADIOLOGY DEPARTMENT: Mammography PERIPHERAL IV DATA: Not applicable SIGNED BY: Kirsten Medina August 23, 2024 10:25 [facility]11-12-2024 NoteHNO ID: [id number] Author: TANVI ROCKWELL APRN.BELT SANDER Service: ? Author Type: Nurse Practitioner Type: Progress Notes Filed: 08/20/2024 17:03 Note Text: Chief Complaint: Established patient follow up History of Present Illness: Melissa is a 74 year old female who presents here today for follow up Feeling fatigued But frustrated waiting for her appointment She reports some mild vaginal dryness, but does not feel that she needs a moisturizer No new breast complaints or concerns Denies fevers or chills No sob or chest pain No bleeding or dark stool No urinary complaints No new lumps or bumps No new pains No rash or itching Hematology/Oncology History: Past medical history is carried forward from Dr. Knight's previous note: 02/12/2024 and updated appropriately Attending: Dr Knight Diagnosis: Left breast cancer Treatment History: - patient diagnosis in 12/2017 with left-sided breast cancer, ER+/MD+/HER2- disease, Oncotype DX score of 11. - She was put on a 3-month course of a aromatase inhibitor as the patient had a repeat myocardial infarction with stent placements, at that time they wanted dual antiplatelet therapy. - She was taken off her antiplatelet therapy and taken for surgery. - s/p left-sided mastectomy on 03/19/2018 and she was noted to have 2 nodules (1.1 cm and 2.8 cm), both lesions were ER+/MD+/HER2- and showed Oncotype DX score of 11 from both of these lesions - she did not receive any adjuvant radiation. 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 - she was switched to Tamoxifen because Arimidex was causing vaginal dryness, however, she could not handle the Tamoxifen because of increased vaginal discharge and she switched back to Arimidex in late 2019 and has been tolerating it relatively well since - she was noticed to have a nodule or a growth along the lower left chest wall area and was evaluated by Dr. Roca, however no abnormality was identified on physical exam. - CT chest on 04/15/2022 showed no abnormality identified both on the subcutaneous plane, as well as, no evidence of any bone lesions to suggest metastasis. - CTA chest on 11/10/2022 showed evidence of any bony destructive lesions, no evidence of any pulmonary nodules, no evidence of any liver metastasis, no intra-abdominal abnormality noted. - patient remains on Anastrazole and she is tolerating it relatively well with plans for 10 years of therapy - Mammogram on 07/25/2023 was negative for any malignancy. - DXA scan on 07/17/2023 showed lowest bone density of -1.6 Current Treatment: Anastrazole, 1 mg daily - initiated 01/2018 (plan for [address] Knight) Subjective/ Review of Systems: See HPI HEENT- denies any vision/hearing changes or headaches. 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 No vaginal concerns except mild dryness but does not want to try moisturizers at this time SKIN- denies new rashes MUSCULAR- no new muscular/skeletal pain or weakness NEURO- denies new neuropathy PAIN- denies acute pain concerns Objective/ Exam: Pulse 60 Temp 37 ?C (98.6 ?F) (Temporal) Wt 71.7 kg (158 lb 1.1 oz) LMP (LMP Unknown) SpO2 98% BMI 27.13 kg/m? GENERAL: Patient is a well developed, well nourished. Alert, oriented, pleasant and cooperative. NECK: Supple MOUTH: no redness, sores, or white patches BREAST: Right breast with no dominant masses/nodules, no nipple discharge and no adenopathy Left breast s/p mastectomy with surgical changes noted, no nodule, no skin changes, no adenopathy, no pain on exam Tool And Production Planner offered: Patient declines The sensitive examination was discussed with the Patient or Patient's Authorized Cable Engineer Outside Plant. As applicable, any other physician, advance practice provider, medical student, or other health professional student that will be observing or involved in the sensitive examination for educational or training purposes was discussed with the Patient or Authorized Cable Engineer Outside Plant. The Patient or Authorized Cable Engineer Outside Plant has agreed to proceed with the sensitive examination. (Sensitive examination includes inspection and/or palpation of the breasts, pelvis, prostate and anorectal regions) HEART: regular rate and rhythm LUNGS: clear to auscultation ABDOMEN: Abdomen soft, non-tender, + BS LOWER EXTREMITIES: No pitting edema. Recent Testing Reviewed in Epic: - LABS - IMAGING Latest Ref Rng AND Units 07/01/2021 12/30/2021 02/12/2024 CBC WBC 3.70 - 11.00 k/uL 7.76 7.20 6.46 RBC 3.90 - 5.20 m/uL 4.13 3.86 3.78 Hemoglobin 11.5 - 15.5 g/dL 12.3 11.8 11.4 Hematocrit 36.0 - 46.0 % 37.8 36. (more content not included)...[facility]11-12-2024 History of Present illness Narrative* Tanvi Rockwell APRN.JOAN - 08/20/2024 2:24 PM EST Images from the original note were not included. Chief Complaint: Established patient follow up History of Present Illness: Melissa is a 74 year old female who presents here today for follow up Feeling fatigued But frustrated waiting for her appointment She reports some mild vaginal dryness, but does not feel that she needs a moisturizer No new breast complaints or concerns Denies fevers or chills No sob or chest pain No bleeding or dark stool No urinary complaints No new lumps or bumps No new pains No rash or itching Hematology/Oncology History: Past medical history is carried forward from Dr. Knight's previous note: 02/12/2024 and updated appropriately Attending: Dr Knight Diagnosis: Left breast cancer Treatment History: - patient diagnosis in 12/2017 with left-sided breast cancer, ER+/MD+/HER2- disease, Oncotype DX score of 11. - She was put on a 3-month course of a aromatase inhibitor as the patient had a repeat myocardial infarction with stent placements, at that time they wanted dual antiplatelet therapy. - She was taken off her antiplatelet therapy and taken for surgery. - s/p left-sided mastectomy on 03/19/2018 and she was noted to have 2 nodules (1.1 cm and 2.8 cm), both lesions were ER+/MD+/HER2- and showed Oncotype DX score of 11 from both of these lesions - she did not receive any adjuvant radiation. 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 - she was switched to Tamoxifen because Arimidex was causing vaginal dryness, however, she could not handle the Tamoxifen because of increased vaginal discharge and she switched back to Arimidex in late 2019 and has been tolerating it relatively well since - she was noticed to have a nodule or a growth along the lower left chest wall area and was evaluated by Dr. Roca, however no abnormality was identified on physical exam. - CT chest on 04/15/2022 showed no abnormality identified both on the subcutaneous plane, as well as,no evidence of any bone lesions to suggest metastasis. - CTA chest on 11/10/2022 showed evidence of any bony destructive lesions, no evidence of any pulmonary nodules, no evidence of any liver metastasis, no intra-abdominal abnormality noted. - patient remains on Anastrazole and she is tolerating it relatively well with plans for 10 years of therapy - Mammogram on 07/25/2023 was negative for any malignancy. - DXA scan on 07/17/2023 showed lowest bone density of -1.6 Current Treatment: Anastrazole, 1 mg daily - initiated 01/2018 (plan for [address] Knight) Subjective/ Review of Systems: See HPI HEENT- denies any vision/hearing changes or headaches. 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 No vaginal concerns except mild dryness but does not want to try moisturizers at this time SKIN- denies new rashes MUSCULAR- no new muscular/skeletal pain or weakness NEURO- denies new neuropathy PAIN- denies acute pain concerns Objective/ Exam: Pulse 60 Temp 37 C (98.6 F) (Temporal) Wt 71.7 kg (158 lb 1.1 oz) LMP (LMP Unknown) SpO2 98% BMI 27.13 kg/m GENERAL: Patient is a well developed, well nourished. Alert, oriented, pleasant and cooperative. NECK: Supple MOUTH: no redness, sores, or white patches BREAST: Right breast with no dominant masses/nodules, no nipple discharge and no adenopathy Left breast s/p mastectomy with surgical changes noted, no nodule, no skin changes, no adenopathy, no pain on exam Tool And Production Planner offered: Patient declines The sensitive examination was discussed with the Patient or Patient's Authorized Cable Engineer Outside Plant. Asapplicable, any other physician, advance practice provider, medical student, or other health professional student that will be observing or involved in the sensitive examination for educational or training purposes was discussed with the Patient or Authorized Cable Engineer Outside Plant. The Patient or Authorized Cable Engineer Outside Plant has agreed to proceed with the sensitive examination. (Sensitive examination includes inspection and/or palpation of the breasts, pelvis, prostate and anorectal regions) HEART: regular rate and rhythm LUNGS: clear to auscultation ABDOMEN: Abdomen soft, non-tender, + BS LOWER EXTREMITIES: No pitting edema. Recent Testing Reviewed in Epic: - LABS - IMAGING Latest Ref Rng & Units 07/01/2021 12/30/2021 02/12/2024 CBC WBC 3.70 - 11.00 k/uL 7.76 7.20 6.46 RBC 3.90 - 5.20 m/uL 4.13 3.86 3.78 Hemoglobin 11.5 - 15.5 g/dL 12.3 11.8 11.4 Hematocrit 36.0 - 46.0 % 37.8 36.7 35.4 MCV 80.0 - 100.0 fL 91.5 95.1 93.7 MCH 26.0 - 34.0 pg 29.8 30.6 30.2 MCHC 30.5 - 36.0 g/dL 32.5 32.2 32.2 RDW-CV 11.5 - 15.0 % 14.0 13.3 13.2 Platelet Count 150 - 400 k/uL 229 213 214 MPV 9.0 - 12.7 fL 9.5 9.8 9.4 Baso% % 0.8 0.7 0.6 Abs Neut (ANC) 1.45 - 7.50 k/uL 4.59 4.31 3.83 Abs Lymph 1.00 - 4.00 k/uL 2.31 2.08 2.02 Abs [place] <0.87 k/uL 0.63 0.51 0.43 Abs Eosin <0.46 k/uL 0.15 0.21 0.11 Abs Baso <0.11 k/uL 0.06 0.05 0.04 NRBC /100 WBC 0.0 0.0 Diff Type Auto Diff Latest Ref Rng & Units 07/01/2021 12/30/2021 02/12/2024 CMP Sodium 136 - 144 mmol/L 139 138 136 Potassium 3.7 - 5.1 mmol/L 4.4 4.4 4.4 Chloride 97 - 105 mmol/L 104 104 101 CO2 22 - 30 mmol/L 23 25 25 Glucose 74 - 99 mg/dL 94 123 116 BUN 7 - 21 mg/dL 18 14 18 Creatinine 0.58 - 0.96 mg/dL 1.12 1.06 1.06 EGFR >=60 mL/min/1.73m 56 55 EGFR-All Other Races . 48 EGFR- 58 Protein, Total 6.3 - 8.0 g/dL 7.2 6.8 6.6 Albumin 3.9 - 4.9 g/dL 4.5 4.3 4.0 Calcium 8.5 - 10.2 mg/dL 9.5 9.5 9.2 Bilirubin, Total 0.2 - 1.3 mg/dL 0.9 0.5 0.5 AST 13 - 35 U/L 26 32 26 ALT 7 - 38 U/L 23 31 21 Alkaline Phosphatase 34 - 123 U/L 74 95 97 Assessment and Plan: (C50.912, Z17.0) Malignant neoplasm of left breast in female, estrogen receptor positive, unspecified site of breast (HCC) (primary encounter diagnosis) (Z12.31) Encounter for screening mammogram for malignant neoplasm of breast (M81.0) Age-related osteoporosis without current pathological fracture - feeling fatigued - no new breast changes or concerns - no worrisome findings on clinical breast exam in office today - patient is due for yearly mammogram, order placed - standing lab orders (Q6 months) also placed today - patient will be due for next DXA scan in 07/2025 - continue Anastrazole for total 10 years of AI therapy, until 01/2028 - follow up with Dr. Knight in 6 months with labs - reviewed well care and symptoms to report I spent a total of 30 minutes on the date of the service which included preparing to see the patient, [id number] patient care, completing clinical documentation, obtaining and/or reviewing separately obtained history, performing a medically appropriate examination, counseling and educating the pat ient/family/caregiver, ordering medications, tests, or procedures, communicating with other HCPs (not separately reported), independently interpreting results (not separately reported), communicatingresults to the patient/family/caregiver, and care coordination (not separately reported). Patient verbalized understanding, agrees with plan of care, and denies further questions at this time. Understands to call the office with further concerns/questions. Tanvi Rockwell APRN.BELT SANDER August 20, 2024 documented in this encounterC[facility]11-[facility] Telephone encounter Note * Telephone Encounter - Mirna Rodrigues - 08/13/2024 9:53 AM EST Patient rescheduled with WEB USER EXPERIENCE STRATEGIST. Mirna Gomes [facility]11-[facility] Miscellaneous Notes* Telephone Encounter - Mirna Rodrigues - 08/13/2024 9:53 AM EST Patient rescheduled with WEB USER EXPERIENCE STRATEGIST. Mirna Gomes * Telephone Encounter - Mirna Rodrigues - 08/13/2024 8:54 AM EST Called patient and LVM to call our office back to reschedule appt. Mirna Gomes documented in this encounterC[facility]11-05-2024 Telephone encounter Note * Telephone Encounter - Mirna Rodrigues - 08/13/2024 8:54 AM EST Called patient and LVM to call our office back to reschedule appt. Mirna Gomes [place] [address]-05-2024 Telephone encounter Note* Telephone Encounter - Flora Etienne LPN - 08/13/2024 7:58 AM EST Prescription Refill Information The patient has been identified by name and date of : Yes Caregiver verified no other encounters exist for this prescription request: Yes Caregiver confirmed with patient/requestor that no other refills are due, in the near future, with this provider at this time: Yes The last office visit in the department: 02/12/24 Does the patient have a future office visit with this provider/department: Yes Requested Prescriptions Pending Prescriptions Disp Refills anastrozole (ARIMIDEX) 1 mg tablet 90 tablet 3 Sig: Take 1 tablet by mouth once daily. Flora Etienne LPN August 13, 2024 7:58 AM [facility]-05-[facility] Miscellaneous Notes* Telephone Encounter - Flora Etienne LPN - 08/13/2024 7:58 AM EST Prescription Refill Information The patient has been identified by name and date of : Yes Caregiver verified no other encounters exist for this prescription request: Yes Caregiver confirmed with patient/requestor that no other refills are due, in the near future, with this provider at this time: Yes The last office visit in the department: 02/12/24 Does the patient have a future office visit with this provider/department: Yes Requested Prescriptions Pending Prescriptions Disp Refills anastrozole (ARIMIDEX) 1 mg tablet 90 tablet 3 Sig: Take 1 tablet by mouth once daily. Flora Etienne LPN August 13, 2024 7:58 AM documented in this encounterC[facility]05-06-2024 History of Present illness Narrative* Richie Knight MD - 02/12/2024 4:52 PM EDT Part of this note is carried forward from note dictated: 11/14/22. It is appropriately updated. Melissa Perry is a 73 year old female a diagnosis of left-sided breast cancer. ER MD positive HER-2negative disease. Oncotype DX score of 11. Status [...] cm in size. The lesions were ER MD positive HER-2 negative. Oncotype DX testing from [...] vomiting, dysphagia, abdominal pain,melana or hematochezia. No diahreaorconstipation. No change in the bowel habbits. Genitourinary: [...] systems reviewed and essentially unremarkable. Physical Examination: Resp 16 Wt 68.5 kg (151 lb 0.2 oz) LMP (LMP Unknown) BMI 25.92 kg/m The patient was awake alert oriented. [...] identified. No lymphadenopathy in the left axilla. No supraclavicular lymphadenopathy. Right breast normalinspection palpation without any evidence of palpable mass. No evidence of any right axillary lympha denopathy. Labs: DATA: Diagnostic tests reviewed for today's visit: Most recent labs and imaging results. CBC: WBC (k/uL) Date Value 02/12/2024 6.46 07/01/2021 7.76 RBC (m/uL) Date Value 02/12/2024 3.78 07/01/2021 4.13 Hemoglobin (g/dL) Date Value 02/12/2024 11.4 07/01/2021 12.3 Hematocrit (%) Date Value 02/12/2024 35.4 07/01/2021 37.8 Platelet Count (k/uL) Date Value 02/12/2024 214 07/01/2021 229 MCV (fL) Date Value 02/12/2024 93.7 07/01/2021 91.5 MCH Date Value 02/12/2024 30.2 pg 07/01/2021 29.8 pG MPV (fL) Date Value 02/12/2024 9.4 07/01/2021 9.5 CMP: Sodium (mmol/L) Date Value 02/12/2024 136 07/01/2021 139 Chloride (mmol/L) Date Value 02/12/2024 101 07/01/2021 104 CO2 (mmol/L) Date Value 02/12/2024 25 07/01/2021 23 BUN (mg/dL) Date Value 02/12/2024 18 07/01/2021 18 Creatinine (mg/dL) Date Value 02/12/2024 1.06 07/01/2021 1.12 Glucose (mg/dL) Date Value 02/12/2024 116 07/01/2021 94 Protein, Total (g/dL) Date Value 02/12/2024 6.6 07/01/2021 7.2 Calcium (mg/dL) Date Value 07/01/2021 9.5 Calcium, Total (mg/dL) Date Value 02/12/2024 9.2 Magnesium (mg/dL) Date Value 03/28/2017 2.1 Bilirubin, Total (mg/dL) Date Value 02/12/2024 0.5 07/01/2021 0.9 Alkaline Phosphatase (U/L) Date Value 02/12/2024 97 07/01/2021 74 ALT (U/L) Date Value 02/12/2024 21 07/01/2021 23 AST (U/L) Date Value 02/12/2024 26 07/01/2021 26 Anion Gap (mmol/L) Date Value 02/12/2024 10 07/01/2021 12 Imaging Studies: Mammogram reviewed Assessment: 1. 73 year old female with a diagnosis of a left-sided breast cancer. T2 with the largest tumor being 2.8 cm in size. Total number of 2 tumors. ER/MD positive HER2 negative disease. Oncotype score of11. S/p neoadjuvant aromatase inhibitor for 3 months followed by surgical resection followed by continued antiestrogen therapy. Patient diagnosed in December 2017. On Armidex. Plan to continue for total of 10 years. Bone density from 07/17/2023 reviewed. T score of -1.6. 2. Mild anemia. We will continue to keep a close eye on it. There has been a slight increase in theserum creatinine. Unclear if you are dealing with mild renal failure induced anemia. Repeat blood work and follow-up in 6 months. Mammogram has been ordered for. Richie Knight MD * Yissel Lockett MA - 02/12/2024 3:28 PM EDT Tool And Production Planner present: breast exam Yissel Lockett MA documented in this encounterCleveland [facility]10-18-2023 Miscellaneous Notes* Letter - Coordinator, Mammography - 07/26/2023 9:39 PM EDT July 27, 2023 PID: [id number] Melissa Perry [address] [place] [address] [place] [address] Dear Ms. Perry, We are pleased to inform you that [...] dense breast tissue in addition to other riskfactors. Early detection of cancer is very important. We also understand recommendations regarding breast cancer screening are controversial. Please discuss with your primary care provider which strategy is best for you and whether a mammogram is right for you. Your imaging studies and report will be kept on file at [facility] as part of your permanent medical record and are available for your continuing care. Thank you for allowing us to help in meeting your health care needs. Sincerely, Dr. Gross Interpreting Radiologist [facility] (Normal over 40) documented in this encounterCleveland Clinic Marymount Hospital02-10-2023 NoteHNO ID: [id number] Author: Jimi Moon APRN.BELT SANDER Service: ? Author Type: Nurse Practitioner Type: Progress Notes Filed: 11/18/2022 10:29 AM Note Text: [facility] Electrophysiology PRIMARY CARE PHYSICIAN: Caterina Garcia ([facility]) [address] [place] [address] CHIEF COMPLAINT: History and physical update for PVI on 11/[address] Roy. HISTORY OF PRESENT ILLNESS (copied from Dr. Roy's office note on 09/21/2022): Ms. Perry is a 72 year old female who presents today to establish care with EP clinic at [facility]. 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 Roy. Patient reports overall she has felt quite [...] an ablation. Specifically mentioned she is a [id number] of 3 secondary to age, AL, and gender. Discussed importance of remaining on [...] of postmenopausal HRT 3 years Hx of prison use of blood thinners 2017 on Plavix [place] 03/2017 off 09/26 Hypercholesteremia Hypothyroid Migraine, intractable SNEHA (obstructive sleep apnea) Osteopenia Sleep apnea with use of continuous positive airway pressure (CPAP) Venous insufficiency PAST SURGICAL HISTORY Procedure Laterality Date COLONOSCOPY 2018 no polyps previous one due 2017 but had AL not completed ([facility]) LAPAROSCOPIC TUBAL LIGATION/RING/CLIP Bilateral [...] Relation Age of Onse (more content not included)...[facility]02-10-2023 Miscellaneous Notes* Telephone Encounter - Jimi Moon APRN.CNP - 11/18/2022 10:30 AM EST Please see my note from 11/18/2022. Upon reviewing procedure patient became frustrated upon learningthat she would have to remain on her medications including her Eliquis. I attempted to reason. Explained that she is a [id number] VASc of 3 and this warrants oral anticoagulation. I advised her it is standard protocol to keep patients on their medications post PVI. Advised her the one we would likely stop eventually being amiodarone. Despite several attempts patient became frustrated and voiced thatshe did not want to have the ablation since she could not come off of her medications. She is requesting a call from attending. Thanks, Jimi Moon APRN.CNP November 18, 2022 10:31 AM documented in this encounterCleveland Clinic [facility]02-10-2023 History of Present illness Narrative* Jimi Moon APRN.CNP - 11/18/2022 10:00 AM EST [facility] Cardiology Electrophysiology PRIMARY CARE PHYSICIAN: Caterina Garcia ([facility]) [address] [place] [address] CHIEF COMPLAINT: History and physical update for PVI on 11/[address] Roy. HISTORY OF PRESENT ILLNESS (copied from Dr. Roy's office note on 09/21/2022): Ms. Perry is a 72 year old female who presents today to establish care with EP clinic at [facility]. 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 She wasstarted on eliquis and amiodarone at this time. [...] She had a recent discussion with her program manager rn, she has decided to proceed to ablation [...] prior to PVI on 11/21/[address] Roy. Patient reports overall she has felt quite [...] an ablation. Specifically mentioned she is a [id number] of 3 secondary to age, AL, and gender. Discussed importance of remaining on [...] she no longer wanted to have the proceduredone. She is requesting attending reach out to [...] of postmenopausal HRT 3 years Hx of prison use of blood thinners 2017 on Plavix [place] 03/2017 off 09/26 Hypercholesteremia Hypothyroid Migraine, intractable SNEHA (obstructive sleep apnea) Osteopenia Sleep apnea with use of continuous positive airway pressure (CPAP) Venous insufficiency PAST SURGICAL HISTORY Procedure Laterality Date COLONOSCOPY 2018 no polyps previous one due 2017 but had AL not completed ([facility]) LAPAROSCOPIC TUBAL LIGATION/RING/CLIP Bilateral [...] 3VCABG Coronary Artery Disease Brother 47 fatal AL at 47 Alzheimer's Disease Mother age 81 Ischemic Heart Disease Father age 67 (AL) Coronary Artery Disease Brother 47 fatal AL at 47 Cervical Cancer No Family History [...] for abdominal distention, abdominal pain, constipation, diarrhea, nauseaand vomiting. Genitourinary: Negative for difficulty urinating, dysuria [...] bradycardia with a ventricular rate of 59. MD 208. QRS 90. QT/QTc 452/447. Echo 03/05/2021 Normal LV size. Left ventricular systolic function is normal with an ejection fraction of 60%. Mild tricuspid valve insufficiency. Structurally normal valves. I have personally reviewed the EKG and echo PLAN AND RECOMMENDATIONS: ASSESSMENT/PLAN: 1. Paroxysmal atrial fibrillation (HCC) - ICD9: 427.31, ICD10: I48.0 (primary diagnosis) [id number] of 3 secondary to gender, age, and [...] (around 02/15/2023) for Follow up with Dr. Roy.. Jimi Moon APRN.BELT SANDER documented in this encounterCleveland Clinic [facility]02-10-2023 Nurse Note* Annmarie Bedoya MA - 11/18/2022 9:56 AM EST Patient denies any cardiac issues or symptoms. documented in this encounterCleveland Clinic [facility] Hospital02-06-2023 Instructions* Patient Instructions* Richie Knight MD - 11/14/2022 10:13 AM EST BONE MINERAL DENSITY PATIENT INSTRUCTIONS Bone mineral density testing measures the amount of calcium in certain parts of your bones. This information determines how strong your bones are. The test is used to detect osteoporosis, a disease in which the bone's mineral content and density are low, increasing a person's risk of fractures. Thelumbar spine (lower back) and the hip are [...] your usual activities immediately. documented in this encounterCleveland Clinic [facility] Hospital02-06-2023 History of Present illness Narrative* Richie Knight MD - 11/14/2022 9:51 AM EST Part of this note is carried forward from note dictated: 05/12/22. It is appropriately updated. Melissa Perry is a 70 year old female a diagnosis of left-sided breast cancer. ER MD positive HER-2negative disease. Oncotype DX score of 11. Status [...] cm in size. The lesions were ER MD positive HER-2 negative. Oncotype DX testing from [...] reviewed. No evidence of any bony destructive lesions.No evidence of any pulmonary nodules. No evidence [...] vomiting, dysphagia, abdominal pain,melana or hematochezia. No diahreaorconstipation. No change in the bowel habbits. Genitourinary: [...] size. Total of 2 of them noted. ER/MD positive HER2 negative disease. Oncotype DX score of 11. S/p neoadjuvant aromatase inhibitor for 3 months followed by surgery followed by continuation of a ntiestrogen therapy. 2. The patient doing relatively well. Scans reviewed. No abnormality noted along the ribs. No abnormality within the chest abdomen or pelvis. Repeat bone density and blood work along with a mammogram on her next visit. Richie Knight MD documented in this encounterCleveland Clinic [facility] Hospital01-26-2023 Miscellaneous Notes* Telephone Encounter - Monique Bro RN - 11/03/2022 9:20 AM EST Pt's name has been added to waters procedure board. Monique Bro RN * Telephone Encounter - Oracio Alamo - 11/03/2022 9:11 AM EST Patient is scheduled for a PVAI Ablation on 11/[address] Roy. The hospital will call the day before between 2-5pm with your arrival time. Patient should not eat or drink after midnight the day before the procedure. Patient will need a milk truck driver when released from the hospital. You will stay overnight for observation. Patient should continue to take medications as prescribed the morning of the procedure with just a sip of water unless otherwise instructed. H&P update on 11/18 at 10am with Jimi Moon. Spoke with patient and she verbalized understanding of all instructions Oracio Alamo documented in this encounterCleveland Clinic [facility] Hospital12-20-2022 Miscellaneous Notes* Telephone Encounter - Kathryn Mart - 09/27/2022 4:11 PM EST Patient needs Chest CT (already ordered) complete prior to procedure. Kathryn Mart * Telephone Encounter - Kathryn Mart - 09/27/2022 2:17 PM EST Patient is scheduled for Complete EPS & PVI Ablation on 10/13/[address] Roy. The hospital will call the day before between 2-5pm with your arrival time. Patient should not eat or drink after midnight the day before the procedure. Patient will need a milk truck driver when released from the hospital. Youwill stay overnight for observation. Patient should continue to take medications as prescribed the morning of the procedure with just a sip of water unless otherwise instructed. LVM for patient to return call to confirm. Kathryn Mart documented in this encounterCleveland Clinic [facility]12-14-2022 NoteHNO ID: [id number] Author: Haseeb Roy MD Service: ? Author Type: Physician Type: [...] Paroxysmal AF HISTORY OF PRESENT ILLNESS: Ms. Perry is a 72 year old female who presents today to establish care with EP clinic at [facility]. 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, SNEHA, paroxysmal atrial fibrillation(02/2021) [...] She had a recent discussion with her program manager rn, she has decided to proceed to ablation [...] of postmenopausal HRT 3 years Hx of prison use of blood thinners 2017 on Plavix [place] 03/2017 off 09/26 Hypercholesteremia Hypothyroid Migraine, intractable SNEHA (obstructive sleep apnea) Osteopenia Sleep apnea with use of continuous positive airway pressure (CPAP) Venous insufficiency PAST SURGICAL HISTORY Procedure Laterality Date COLONOSCOPY 2018 no polyps previous one due 2017 but had AL not completed ([facility]) LAPAROSCOPIC TUBAL LIGATION/RING/CLIP Bilateral 1980 MAMMOTOME BIOPSY [...] 3VCABG Coronary Artery Disease Brother 47 fatal AL at 47 Alzheimer's Disease Mother age 81 Ischemic Heart Disease Father age 67 (AL) Coronary Artery Disease Brother 47 fatal AL at 47 Cervical Cancer No Family History [...] OF SYSTEMS: GENERAL: Negati (more content not included)...[facility] 09-21-2022 Instructions* Patient Instructions* Haseeb Roy MD - 09/21/2022 8:50 AM EST Atrial [...] pathways to the upper left atrium and tothe lower chambers of the heart (the ventricles). [...] heart has 4 valves that open and closewith each heartbeat to help blood flow in [...] may help keep you from having so manyspells. If a health problem like a leaky [...] called a catheter to deliver energy to theinside of the heart. The energy (usually radio [...] healthcare provider's instructions for treatment. Developed by [employer]. Published by [employer]. Copyright 2014 [employer] and/or one of its subsidiaries. All rights reserved. documented in this encounterCleveland Clinic Mary[facility] Hospital12-14-2022 History of Present illness Narrative* Haseeb Roy MD - 09/21/2022 8:20 AM EST Images from the original note were not included. PRIMARY CARE PHYSICIAN: To use this Smartlink, specify the provider ID whose address you want to display, e.g., .PROVADDR[1(where 1 is the provider ID). REFERRING PHYSICIAN: SELF Patient Care Team: Caterina Garcia MD as PCP - General (Internal Medicine) Dwight Vera as Physician (Radiation Oncology) CHIEF COMPLAINT: Paroxysmal AF HISTORY OF PRESENT ILLNESS: Ms. Perry is a 72 year old female who presents today to establish care with EP clinic at [facility]. 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 She wasstarted on eliquis and amiodarone at this time. [...] She had a recent discussion with her program manager rn, she has decided to proceed to ablation [...] of postmenopausal HRT 3 years Hx of prison use of blood thinners 2017 on Plavix [place] 03/2017 off 09/26 Hypercholesteremia Hypothyroid Migraine, intractable SNEHA (obstructive sleep apnea) Osteopenia Sleep apnea with use of continuous positive airway pressure (CPAP) Venous insufficiency PAST SURGICAL HISTORY Procedure Laterality Date COLONOSCOPY 2018 no polyps previous one due 2017 but had AL not completed ([facility]) LAPAROSCOPIC TUBAL LIGATION/RING/CLIP Bilateral [...] 3VCABG Coronary Artery Disease Brother 47 fatal AL at 47 Alzheimer's Disease Mother age 81 Ischemic Heart Disease Father age 67 (AL) Coronary Artery Disease Brother 47 fatal AL at 47 Cervical Cancer No Family History [...] Negative for: Weakness, Paralysis, Numbness, Tingling, Tremor, Nervousness,Depressed mood, Memory loss SKIN: Negative for: Rashes, Itching HEMATOLOGICAL/LYMPHATIC: Negative for: Easy bruising , Easy bleeding ENDOCRINE: Negative for: Heat or cold intolerance, Excessive sweating, Frequent urination, Frequentthirst PHYSICAL EXAMINATION: BP 143/85 Pulse 63 Ht 5' 4 (1.63m) Wt 177 lb (80.3kg) SpO2 96% BMI 30.37 kg/(m^2). General: Well appearing, in no acute distress. Skin: No clubbing, no cyanosis. Eyes: Extra ocular movements intact Oropharynx: Teeth in good repair. Neck: No jugular venous distention, no carotid bruits, carotids have a normal upstroke, no palpablethyromegaly. Lungs: Clear to auscultation bilaterally, no wheezing [...] REQUEST - ELECTIVE (05/2020) 2. Atherosclerosis of [place] coronary artery of [place] heart without angina pectoris - ICD9: 414.01, ICD10: I25.10 3. Mixed hyperlipidemia - ICD9: 272.2, ICD10: E78.2 4. S/P primary angioplasty with coronary stent - ICD9: V45.82, ICD10: Z95.5 5. SNEHA (obstructive sleep apnea) - ICD9: 327.23, ICD10: G47.33 6. Hypothyroidism IMPRESSION: Ms. Perry is a 72 year old female with PMH significant for Hypothyroidism, Hyperlipidemia, Inferiorwall AL(02/22), SNEHA, paroxysmal atrial fibrillation(02/2021) on amiodarone and [...] obtained. Return for Afib follow up. Haseeb Roy MD documented in this encounterCleveland Clinic [facility]08-04-2022 History of Present illness Narrative* Richie Knight MD - 05/12/2022 11:26 AM EDT Part of this note is carried forward from note dictated: 07/01/2021. It is appropriately updated. Melissa Perry is a 70 year old female a diagnosis of left-sided breast cancer. ER MD positive HER-2negative disease. Oncotype DX score of 11. Status [...] cm in size. The lesions were ER MD positive HER-2 negative. Oncotype DX testing from both ofthese lesions showed a recurrence score of 11. [...] vomiting, dysphagia, abdominal pain,melana or hematochezia. No diahreaorconstipation. No change in the bowel habbits. Genitourinary: [...] lb) LMP (LMP Unknown) SpO2 98% BMI 29.70kg/m The patient was awake alert oriented. Didn't [...] axilla. The right breast normal inspection palpation withoutany evidence of right axillary lymphadenopathy. Labs: DATA: [...] cm in size both of them being ER/MD positive and HER2 negative. Oncotype DX score [...] inhibitor for a total of 10 years. Richie Knight MD documented in this encounterCleveland Clinic [facility] Hospital07-21-2022 Miscellaneous Notes* Telephone Encounter - Shanda Zarate RN - 04/28/2022 9:19 AM EDT As instructed by Dr Roca, pt was called and a message was left Chanelle had said, On clinicalexam there was no mass: I described as nonspecific nodularity at the rib area under mastectomy scar. CT chest on 04/15/2022 showed no evidence of cancer. Please let her know. Left this message with a phone number to return call if further questions. documented in this encounterCleveland Clinic [facility] Hospital07-08-2022 Miscellaneous Notes* Allied Health - RT Adrianna(R) - 04/15/2022 8:30 AM EDT Radiology Service Progress Note PATIENT NAME: Melissa Perry DATE OF SERVICE: April 15, 2022 TIME: 8:44 AM PATIENT IDENTITY VERIFICATION COMPLETED USING TWO (2) IDENTIFIERS: Name and Date of confirmedby patient verbally and Name and Date of [...] 15, 2022 8:44 AM documented in this encounterCleveland Clinic [facility] Hospital06-24-2022 Miscellaneous Notes* Letter - Mammography Coordinator - 04/01/2022 12:01 PM EDT April 01, 2022 PID: [id number] Melissa Perry [address] [place] [address] [place] [address] Dear Ms. Perry, We are pleased to inform you that [...] dense breast tissue in addition to other riskfactors. Early detection of cancer is very important. We also understand recommendations regarding breast cancer screening are controversial. Please discuss with your primary care provider which strategy is best for you and whether a mammogram is right for you. Your imaging studies and report will be [facility] as part of your permanent medical record and are available for your continuing care. Thank you for allowing us to help in meeting your health care needs. Sincerely, Dr. Cline Interpreting Radiologist [facility] (Normal over 40) documented in this encounterCleveland Clinic [facility] Hospital06-24-2022 History of Present illness Narrative* RT Chiquis(R) - 04/01/2022 10:00 AM EDT Radiology Service Progress Note PATIENT NAME: Melissa Perry DATE OF SERVICE: April 01, 2022 TIME: 10:09 AM PATIENT IDENTITY VERIFICATION COMPLETED USING TWO (2) IDENTIFIERS: Name and Date of confirmedby patient verbally. FALL SCREENING: Has the patient [...] 01, 2022 10:09 AM documented in this encounterCleveland Clinic [facility] Hospital06-17-2022 History of Present illness Narrative* Aleida Roca MD - 03/25/2022 9:21 AM EDT Primary hem/oncologist: Richie Knight MD Presenting complaint: Patient Melissa Perry returns for follow-up on breast cancer. She [...] with grade 1, ER+ status at 95%, MD+ status at 90%, HER2 non amplified status [...] upper lobe changes. There were no abnormalities inabdomen or pelvis. PET/CT on 01/30/2018 showed hypermetabolic left breast nodule, non-hypermetabolic lung nodules and diffuse thyroid update suggestive thyroiditis or abnormal thyroid function. Prior TSH was normal on 03/22/2017. Oncotype DX score was low at 11. Patient began anastrozole on 02/02/2018 as neoadjuvant systemic endocrine therapy. Patient underwent left simple mastectomy with sentinel lymph node biopsy on03/19/2018. 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 Return in about 7 weeks (around 05/12/2022) for follow-up with provider. Follow-up with Dr. Knight on 05/12/2022 Moderate complexity decision making/ counseling/ care I spent 30 minutes in the visit, with more than 50% of the total [id number] time of the visit in counseling / [...] with grade 1, ER+ status at 95%, MD+ status at 90%, HER2 non amplified status [...] upper lobe changes. There were no abnormalities inabdomen or pelvis. PET/CT on 01/30/2018 showed hypermetabolic left breast nodule, non-hypermetabolic lung nodules and diffuse thyroid update suggestive thyroiditis or abnormal thyroid function. Prior TSH was normal on 03/22/2017. Oncotype DX score was low at 11. Patient began anastrozole on 02/02/2018 as neoadjuvant systemic endocrine therapy. Patient underwent left simple mastectomy with sentinel lymph node biopsy on03/19/2018. Pathology revealed multifocal invasive ductal carcinoma with [...] of postmenopausal HRT 3 years Hx of prison use of blood thinners 2016 on Plavix [place] 03/2017 off 09/26 Hypercholesteremia Hypothyroid Sleep apnea with use of continuous positive airway pressure (CPAP) PAST SURGICAL HISTORY Procedure Laterality Date COLONOSCOPY 2018 no polyps previous one due 2017 but had AL not completed ([facility]) LAPAROSCOPIC TUBAL LIGATION/RING/CLIP Bilateral 1980 MAMMOTOME BIOPSY [...] 3VCABG Coronary Artery Disease Brother 47 fatal AL at 47 Alzheimer's Disease Mother age 81 Ischemic Heart Disease Father age 67 (AL) Coronary Artery Disease Brother 47 fatal AL at 47 Cervical Cancer No Family History [...] 12/30/2021 2.08 1.00 - 4.00 k/uL Final [place]% Date Value Ref Range Status 12/30/2021 7.1 % Final Abs [place] Date Value Ref Range Status 12/30/2021 0.51 [...] 31 07/01/2021 23 Aleida Roca MD Cc: Richie Knight MD documented in [facility] encounterC[facility] Miscellaneous Notes* Telephone Encounter - Dwight Montiel - 03/22/2022 3:54 PM EDTSummary: Lump found Sada, Unsure who to get this PT with. She said she found a lump where she had her masectomy and since Aliis out for 3 weeks, what do we do or who do we get her in with? or Chanelle? Thanks, Mikey documented in this encounterC[facility]03-24-[facility]22 History of Present illness Narrative* Richie Knight MD - 12/30/2021 11:24 AM EDT Melissa Perry is a 71 year old female diagnosis of a left-sided breast cancer. ER/MD positive HER-2negative disease. S/p mastectomy. Oncotype DX score of 11. Currently on Arimidex. Patient was changed over back from tamoxifen to Arimidex because of vaginal discharge. Complaining of occasional headaches in the occipital area. Symptoms suggestive of tension headaches. Part of this note is carried forward from note dictated: 07/01/2021. It is appropriately updated. Melissa Perry is a 70 year old female a diagnosis of left-sided breast cancer. ER MD positive HER-2negative disease. Oncotype DX score of 11. Status [...] cm in size. The lesions were ER MD positive HER-2 negative. Oncotype DX testing from both ofthese lesions showed a recurrence score of 11. [...] vomiting, dysphagia, abdominal pain,melana or hematochezia. No diahreaorconstipation. No change in the bowel habbits. Genitourinary: [...] cm in size both of them being ER/MD positive HER-2 negative. Oncotype score of 11 for both of them. The patient underwent neoadjuvant aromatase inhibitors for about 3 months which we continue to her surgery. 2. The patient doing relatively well. 3. Having symptoms of tension headaches which we have educated her about. Richie Knight MD * Richie Knight MD - 12/30/2021 11:15 AM EDT Melissa Perry is a 71 year old female diagnosis of a left-sided breast cancer. ER/MD positive HER-2negative disease Oncotype score of 11. S/p mastectomy. Aromatase inhibitor. Part of this note is carried forward from note dictated: December 31, 2020. It is appropriately updated. Melissa Perry is a 70 year old female a diagnosis of left-sided breast cancer. ER MD positive HER-2negative disease. Oncotype DX score of 11. Status [...] cm in size. The lesions were ER MD positive HER-2 negative. Oncotype DX testing from both ofthese lesions showed a recurrence score of 11. [...] vomiting, dysphagia, abdominal pain,melana or hematochezia. No diahreaorconstipation. No change in the bowel habbits. Genitourinary: [...] 1.1 cm in size both of them ER/MD positive HER-2 negative. Both of them having an Oncotype DX score of 11. She underwent neoadjuvant aromatase inhibitor therapy followed by a mastectomy.She then went on to receive post surgical antiestrogen therapy currently on a aromatase inhibitor. 2. A bone density study was ordered. Shows a T score of -1.4. Continue with the Fosamax. Richie Knight MD documented in this encounterC[facility]05-27-2021 Evaluation note* Diagnosis Onset Date Resolution Status Tension headache, chronic ch ronic Hyperlipidemia chronic Paroxysmal atrial fibrillation March 04, 2021 chronic History of coronary artery stent placement March 22, 2017 resolved [facility] Work Phone: 1(892) 446-802405-27-2021 Evaluation note* Diagnosis Onset Date Resolution Status Tension headache, chronic ch ronic Hyperlipidemia chronic Paroxysmal atrial fibrillation March 04, 2021 chronic History of coronary artery stent placement March 22, 2017 resolved CKD (chronic kidney disease), stage III chronic Hyperlipidemia chronic Hypothyroidism chronic Paroxysmal atrial fibrillation March 04, 2021 chronic Breast cancer resolved [facility] Work Phone: 1(313) 800-172605-27-2021 Evaluation note* Diagnosis Onset Date Resolution Status CKD (chronic kidney disease), stage III chronic Hyperlipidemia chronic Hypothyroidism chronic Paroxysmal atrial fibrillation March 04, 2021 chronic Breast cancer resolved 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 [facility] Work Phone: 1(627) 156-419205-27-2021 Evaluation note* Diagnosis Onset Date Resolution Status 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 chronic Atherosclerotic heart diseas e of [place] coronary artery without angina pectoris chronic Hyperlipidemia chronic Paroxysmal atrial fibrillation March 04, 2021 [facility] Work Phone: 1(552) 153-214105-27-2021 Evaluation note* Diagnosis Onset Date Resolution Status Atherosclerotic heart diseas e of [place] coronary artery without angina pectoris chronic Hyperlipidemia chronic Paroxysmal atrial fibrillation March 04, 2021 chronic CKD (chronic kidney disease), stage III chronic Hyperlipidemia chronic Hypothyroidism chronic Osteopenia with high risk of fracture chronic Paroxysmal atrial fibrillation March 04, 2021 [facility] Work Phone: 1(285) 510-867902-28-2019 History of Past illness Narrative* Problem Noted Date Resolved Date Trigger finger 12/06/2018 12/06/2018 Chronic diastolic heart failure 03/28/2017 03/12/2018 Overview: Recent AL w echo showing normal systolic function and stage I DD. Admitted with fatigue, exertional short of breath but CXR does not suggest decompensated heart failure. NT pro BNP is 1454. Most likely s/p from AL last week. Does not need diuretic Plan: [...] (20 pack years), hypothyroidism who presented to [place] ED with STEMI and was transferred to [facility] for further management documented as of this encounter (statuses as of 12/30/2021) [facility] History of Past illness Narrative* Problem Noted Date Resolved Date Trigger finger 12/06/2018 12/06/2018 Chronic diastolic heart failure 03/28/2017 03/12/2018 Overview: Recent AL w echo showing normal systolic function and stage I DD. Admitted with fatigue, exertional short of breath but CXR does not suggest decompensated heart failure. NT pro BNP is 1454. Most likely s/p from AL last week. Does not need diuretic Plan: [...] (20 pack years), hypothyroidism who presented to [place] ED with STEMI and was transferred to [facility] for further management documented as of this encounter (statuses as of 03/23/2022) [facility] History of Past illness Narrative* Problem Noted Date Resolved Date Trigger finger 12/06/2018 12/06/2018 Chronic diastolic heart failure 03/28/2017 03/12/2018 Overview: Recent AL w echo showing normal systolic function and stage I DD. Admitted with fatigue, exertional short of breath but CXR does not suggest decompensated heart failure. NT pro BNP is 1454. Most likely s/p from AL last week. Does not need diuretic Plan: [...] (20 pack years), hypothyroidism who presented to [place] ED with STEMI and was transferred to [facility] for further management documented as of this encounter (statuses as of 04/02/2022) [facility] of Past illness Narrative* Problem Noted Date Resolved Date Trigger finger 12/06/2018 12/06/2018 Chronic diastolic heart failure 03/28/2017 03/12/2018 Overview: Recent AL w echo showing normal systolic function and stage I DD. Admitted with fatigue, exertional short of breath but CXR does not suggest decompensated heart failure. NT pro BNP is 1454. Most likely s/p from AL last week. Does not need diuretic Plan: [...] (20 pack years), hypothyroidism who presented to [place] ED with STEMI and was transferred to [facility] for further management documented as of this encounter (statuses as of 04/05/2022) [facility] of Past illness Narrative* Problem Noted Date Resolved Date Trigger finger 12/06/2018 12/06/2018 Chronic diastolic heart failure 03/28/2017 03/12/2018 Overview: Recent AL w echo showing normal systolic function and stage I DD. Admitted with fatigue, exertional short of breath but CXR does not suggest decompensated heart failure. NT pro BNP is 1454. Most likely s/p from AL last week. Does not need diuretic Plan: [...] (20 pack years), hypothyroidism who presented to [place] ED with STEMI and was transferred to [facility] for further management documented as of this encounter (statuses as of 04/11/2022) [facility] of Past illness Narrative* Problem Noted Date Resolved Date Trigger finger 12/06/2018 12/06/2018 Chronic diastolic heart failure 03/28/2017 03/12/2018 Overview: Recent AL w echo showing normal systolic function and stage I DD. Admitted with fatigue, exertional short of breath but CXR does not suggest decompensated heart failure. NT pro BNP is 1454. Most likely s/p from AL last week. Does not need diuretic Plan: [...] (20 pack years), hypothyroidism who presented to [place] ED with STEMI and was transferred to [facility] for further management documented as of this encounter (statuses as of 04/16/2022) [facility] of Past illness Narrative* Problem Noted Date Resolved Date Trigger finger 12/06/2018 12/06/2018 Chronic diastolic heart failure 03/28/2017 03/12/2018 Overview: Recent AL w echo showing normal systolic function and stage I DD. Admitted with fatigue, exertional short of breath but CXR does not suggest decompensated heart failure. NT pro BNP is 1454. Most likely s/p from AL last week. Does not need diuretic Plan: [...] (20 pack years), hypothyroidism who presented to [place] ED with STEMI and was transferred to [facility] for further management documented as of this encounter (statuses as of 04/28/2022) [facility] of [facility] illness Narrative* Problem Noted Date Resolved Date Trigger finger 12/06/2018 12/06/2018 Chronic diastolic heart failure 03/28/2017 03/12/2018 Overview: Recent AL w echo showing normal systolic function and stage I DD. Admitted with fatigue, exertional short of breath but CXR does not suggest decompensated heart failure. NT pro BNP is 1454. Most likely s/p from AL last week. Does not need diuretic Plan: [...] (20 pack years), hypothyroidism who presented to [place] ED with STEMI and was transferred to [facility] for further management documented as of this encounter (statuses as of 05/12/2022) [facility] of [facility] Narrative* Problem Noted Date Resolved Date Trigger finger 12/06/2018 12/06/2018 Chronic diastolic heart failure 03/28/2017 03/12/2018 Overview: Recent AL w echo showing normal systolic function and stage I DD. Admitted with fatigue, exertional short of breath but CXR does not suggest decompensated heart failure. NT pro BNP is 1454. Most likely s/p from AL last week. Does not need diuretic Plan: [...] (20 pack years), hypothyroidism who presented to [place] ED with STEMI and was transferred to [facility] for further management documented as of this encounter (statuses as of 09/21/2022) [facility] of Past illness Narrative* Problem Noted Date Resolved Date Trigger finger 12/06/2018 12/06/2018 Chronic diastolic heart failure 03/28/2017 03/12/2018 Overview: Recent AL w echo showing normal systolic function and stage I DD. Admitted with fatigue, exertional short of breath but CXR does not suggest decompensated heart failure. NT pro BNP is 1454. Most likely s/p from AL last week. Does not need diuretic Plan: [...] (20 pack years), hypothyroidism who presented to [place] ED with STEMI and was transferred to [facility] for further management documented as of this encounter (statuses as of 09/27/2022) [facility] of [facility] illness Narrative* Problem Noted Date Resolved Date Trigger finger 12/06/2018 12/06/2018 Chronic diastolic heart failure 03/28/2017 03/12/2018 Overview: Recent AL w echo showing normal systolic function and stage I DD. Admitted with fatigue, exertional short of breath but CXR does not suggest decompensated heart failure. NT pro BNP is 1454. Most likely s/p from AL last week. Does not need diuretic Plan: [...] (20 pack years), hypothyroidism who presented to [place] ED with STEMI and was transferred to [facility] for further management documented as of this encounter (statuses as of 11/03/2022) [facility] of [facility] illness Narrative* Problem Noted Date Resolved Date Trigger finger 12/06/2018 12/06/2018 Chronic diastolic heart failure 03/28/2017 03/12/2018 Overview: Recent AL w echo showing normal systolic function and stage I DD. Admitted with fatigue, exertional short of breath but CXR does not suggest decompensated heart failure. NT pro BNP is 1454. Most likely s/p from AL last week. Does not need diuretic Plan: [...] (20 pack years), hypothyroidism who presented to [place] ED with STEMI and was transferred to [facility] for further management documented as of this encounter (statuses as of 11/14/2022) [facility] of [facility] illness Narrative* Problem Noted Date Resolved Date Trigger finger 12/06/2018 12/06/2018 Chronic diastolic heart failure 03/28/2017 03/12/2018 Overview: Recent AL w echo showing normal systolic function and stage I DD. Admitted with fatigue, exertional short of breath but CXR does not suggest decompensated heart failure. NT pro BNP is 1454. Most likely s/p from AL last week. Does not need diuretic Plan: [...] (20 pack years), hypothyroidism who presented to [place] ED with STEMI and was transferred to [facility] for further management documented as of this encounter (statuses as of 11/18/2022) [facility] of [facility] illness Narrative* Problem Noted Date Resolved Date Trigger finger 12/06/2018 12/06/2018 Chronic diastolic heart failure 03/28/2017 03/12/2018 Overview: Recent AL w echo showing normal systolic function and stage I DD. Admitted with fatigue, exertional short of breath but CXR does not suggest decompensated heart failure. NT pro BNP is 1454. Most likely s/p from AL last week. Does not need diuretic Plan: [...] (20 pack years), hypothyroidism who presented to [place] ED with STEMI and was transferred to [facility] for further management documented as of this encounter (statuses as of 11/18/2022) [facility] of [facility] illness Narrative* Problem Noted Date Resolved Date Trigger finger 12/06/2018 12/06/2018 Chronic diastolic heart failure 03/28/2017 03/12/2018 Overview: Recent AL w echo showing normal systolic function and stage I DD. Admitted with fatigue, exertional short of breath but CXR does not suggest decompensated heart failure. NT pro BNP is 1454. Most likely s/p from AL last week. Does not need diuretic Plan: [...] (20 pack years), hypothyroidism who presented to [place] ED with STEMI and was transferred to [facility] for further management documented as of this encounter (statuses as of 04/10/2023) [facility] of [facility] illness Narrative* Problem Noted Date Diagnosed Date Resolved Date Trigger finger 12/06/2018 12/06/2018 Chronic diastolic heart failure 03/28/2017 03/12/2018 Overview: Recent AL w echo showing normal systolic function and stage I DD. Admitted with fatigue, exertional short of breath but CXR does not suggest decompensated heart failure. NT pro BNP is 1454. Most likely s/p from AL last week. Does not need diuretic Plan: [...] (20 pack years), hypothyroidism who presented to [place] ED with STEMI and was transferred to [facility] for further management documented as of this encounter (statuses as of 07/26/2023) [facility] of [facility] illness Narrative* Problem Noted Date Diagnosed Date Resolved Date Trigger finger 12/06/2018 12/06/2018 Chronic diastolic heart failure 03/28/2017 03/12/2018 Overview: Recent AL w echo showing normal systolic function and stage I DD. Admitted with fatigue, exertional short of breath but CXR does not suggest decompensated heart failure. NT pro BNP is 1454. Most likely s/p from AL last week. Does not need diuretic Plan: [...] (20 pack years), hypothyroidism who presented to [place] ED with STEMI and was transferred to [facility] for further management documented as of this encounter (statuses as of 07/28/2023) [facility] Diagnosis Malignant neoplasm of nipple of left breast in female, estrogen receptor positive (HCC)- Primary Encounter for screening mammogram for malignant neoplasm of breast Other screening mammogram [facility] encounter [facility]* Diagnosis Onset Date Resolution Status Thickened endometrium acute Vaginitis acute Hyperlipidemia chronic Hypothyroidism chronic SNEHA (obstructive sleep apnea) chronic Osteopenia with high risk of fracture chronic Paroxysmal atrial fibrillation March 04, 2021 [facility] Work Phone: Evaluation note* Diagnosis Malignant neoplasm of nipple of left breast in female, estrogen receptor positive (HCC) Encounter for screening mammogram for malignant neoplasm of breast Other screening mammogram [facility]* Diagnosis Malignant neoplasm of nipple of left breast in female, estrogen receptor positive (HCC)- Primary Lump in chest Swelling, mass, or lump in chest Lung nodules 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 [facility] encounter [facility]* Diagnosis Malignant neoplasm of nipple of left breast in female, estrogen receptor positive (HCC) Lump in chest Swelling, mass, or lump in chest [facility] Diagnosis Malignant neoplasm of nipple of left breast in female, unspecified estrogen receptor status (HCC)- Primary [facility] Diagnosis Paroxysmal atrial fibrillation (HCC)- Primary Atrial fibrillation Atherosclerosis of [place] coronary artery of [place] heart without angina pectoris Mixed hyperlipidemia S/P primary angioplasty with coronary stent Postsurgical percutaneous transluminal coronary angioplasty status SNEHA (obstructive sleep apnea) Obstructive sleep apnea (adult) (pediatric) [facility]* Diagnosis Malignant neoplasm of left breast in female, estrogen receptor positive, unspecified site of breast (HCC)- Primary Encounter for screening for osteoporosis Special screening for osteoporosis Age-related osteoporosis without current pathological fracture Senile osteoporosis Encounter for screening mammogram for malignant neoplasm of breast Other screening mammogram Paroxysmal atrial fibrillation (HCC) Atrial fibrillation [facility] Diagnosis Paroxysmal atrial fibrillation (HCC)- Primary Atrial fibrillation SNEHA (obstructive sleep apnea) Obstructive sleep apnea (adult) (pediatric) Obesity, Class I, BMI 30-34.9 Obesity, unspecified At risk for stroke Other specified personal history presenting hazards to health Pre-operative cardiovascular examination documented in this encounter [facility] note* Diagnosis Malignant neoplasm of left breast in female, estrogen receptor positive, unspecified site of breast (HCC) Encounter for screening for osteoporosis Special screening for osteoporosis Encounter for screening mammogram for malignant neoplasm of breast Other screening mammogram [facility]* Diagnosis Onset Date Resolution Status Oral lesion acute Burning sensation of mouth c hronic Hyperlipidemia chronic Hypothyroidism chronic Elevated liver enzymes acute Burning sensation of mouth c hronic Hyperlipidemia chronic Hypothyroidism chronic SNEHA (obstructive sleep apnea) [facility] Work Phone: Evaluation note* Diagnosis Onset Date Resolution Status Elevated liver enzymes acute Burning sensation of mouth c hronic Hyperlipidemia chronic Hypothyroidism chronic SNEHA (obstructive sleep apnea) chronic Atherosclerotic heart diseas e of [place] coronary artery without angina pectoris chronic Hyperlipidemia chronic Paroxysmal atrial fibrillation March 04, 2021 chronic [facility] Work Phone: Evaluation note* Diagnosis Malignant neoplasm of nipple of left breast in female, unspecified estrogen receptor status (HCC)- Primary [facility]* Diagnosis Malignant neoplasm of left breast in female, estrogen receptor positive, unspecified site of breast (HCC)- Primary Encounter for screening mammogram for malignant neoplasm of breast Other screening mammogram Age-related osteoporosis without current pathological fracture Senile osteoporosis [facility]* Diagnosis Malignant neoplasm of left breast in female, estrogen receptor positive, unspecified site of breast (HCC) Encounter for screening mammogram for malignant neoplasm of breast Other screening mammogram [facility] Diagnosis Malignant neoplasm of overlapping sites of left breast in female, estrogen receptor positive (HCC) halfway (current) use of aromatase inhibitors documented in this encounter [facility] for referral (narrative)* Diagnostic Procedure Only (Routine) - Authorized Specialty Diagnoses / Procedures Referred By Jarek t Referred To Contact [facility] Diagnoses Malignant neoplasm of nipple of left breast in female, estrogen receptor positive (HCC) Encounter for screening mammogram for malignant neoplasm of breast Procedures DEV SCREENING W MILI SCREENING DIGITAL BREAST TOMOSYNTHESIS BI SCREENING MAMMOGRAPHY BI 2-VIEW [place] [address] [place] [address] [facility] [address] [address] Referral ID Status Reason Start Date Expiration Date Visits Requested Visits Authorized [id number] Authorized Auto-Generat ed Referral 12/30/2021 01/29/2023 1 1 T [facility] for referral (narrative)* Diagnostic Procedure Only (Routine) - Closed Specialty Diagnoses / Procedures Referred By Jarek quinonez Referred To Contact [facility] Diagnoses Malignant neoplasm of nipple of left breast in female, estrogen receptor positive (HCC) Encounter for screening mammogram for malignant neoplasm of breast Procedures DEV SCREENING W MILI SCREENING DIGITAL BREAST TOMOSYNTHESIS BI SCREENING MAMMOGRAPHY BI 2-VIEW [place] [address] [place] [address] [facility] [address] [address] Referral ID Status Reason Start Date Expiration Date V isits Requested Visits Authorized [id number] Closed Auto-Generate d Referral 12/30/2021 01/29/2023 1 [facility] Diagnostic Procedure Only (Routine) [...] SCREENING MAMMOGRAPHY BI 2-[place] [address] [place] [id number] [facility] [address] [place] [address] Referral ID Status Reason Start Date Expiration Date Visits Requested Visits Authorized [id number] Authorized Auto-Generat ed Referral 07/14/2023 12/14/2023 1 1 [facility] for referral (narrative)* Diagnostic Procedure Only (Routine) - Authorized Specialty Diagnoses / Procedures Referred By Contkey t Referred To Contact [facility] Diagnoses Malignant neoplasm of left breast in female, estrogen receptor positive, unspecified site of breast (HCC) Encounter for screening mammogram for malignant neoplasm of breast Procedures DEV SCREENING W MILI SCREENING DIGITAL BREAST TOMOSYNTHESIS BI SCREENING MAMMOGRAPHY BI 2-VIEW BREAST INC Tanvi Monroy, SUSU [address] [place] [address] [facility] [address] [place] [address] Referral ID Status Reason Start Date Expiration Date Visits Requested Visits Authorized [id number] Authorized Auto-Generat ed Referral 09/19/2025 1 1 [facility] for referral (narrative)No reason for referral information availableSt[facility] Work Phone: Reason for visit Narrative* Diagnostic Procedure Only (Routine) - Closed Specialty Diagnoses / Procedures Referred By Jarek t Referred To Contact [facility] Diagnoses Malignant neoplasm of nipple of left breast in female, estrogen receptor positive (HCC) Encounter for screening mammogram for malignant neoplasm of breast Procedures DEV SCREENING W MILI SCREENING DIGITAL BREAST TOMOSYNTHESIS BI SCREENING MAMMOGRAPHY BI 2-[place] [address] [place] [address] [facility] [address] [place] [address] Referral ID Status Reason Start Date Expiration Date V isits Requested Visits Authorized [id number] Closed Auto-Generate d Referral 12/30/2021 01/29/2023 1 1 [facility] for visit Narrative* Diagnostic Procedure Only (Routine) [...] SCREENING MAMMOGRAPHY BI 2-[place] [address] [id number] [facility] [address] [place] [address] Referral ID Status Reason Start Date Expiration Date V isits Requested Visits Authorized [id number] Closed Auto-Generate d Referral 07/14/2023 12/14/2023 1 1 [facility] for visit Narrative* Diagnostic Procedure Only (Routine) - Closed Specialty Diagnoses / Procedures Referred By Jarek quinonez Referred To Contact BR IMAGING Diagnoses Malignant neoplasm of left breast in female, estrogen receptor positive, unspecified site of breast (HCC) Encounter for screening mammogram for malignant neoplasm of breast Procedures DEV SCREENING W MILI SCREENING DIGITAL BREAST TOMOSYNTHESIS BI SCREENING MAMMOGRAPHY BI 2-VIEW BREAST INC CAD , Tanvi, PRODUCT SUPPORT SPECIALIST.BELT SANDER [address] [place] [address] [facility] [address] [place] [address] Referral ID Status Reason Start Date Expiration Date V isits Requested Visits Authorized [id number] Closed Auto-Generate d Referral 08/20/2024 09/19/2025 1 1 [facility] Summary Purpose Family History No Family History Records Found Relationship Condition Age at Onset Recorded Date/T freda mother Alzheimer's disease Unknown brother Cardiac disease Unknown Myocardial infarction Unknown sister Status post three ve ssel coronary artery bypass Unknown Malignant neoplasm of breast Unknown father Myocardial infarction Unknown Cardiac disease Unknown grandmother Cardiac disease Unknown uncle Myocardial infarction Unknown Not Specified Cardiac disease Unknown Relationship Condition Age at Onset Recorded Date/T freda mother Alzheimer's disease Unknown brother Cardiac disease Unknown Myocardial infarction Unknown sister Status post three ve ssel coronary artery bypass Unknown Malignant neoplasm of breast 80 father Myocardial infarction Unknown Cardiac disease Unknown grandmother Cardiac disease Unknown uncle Myocardial infarction Unknown Not Specified Cardiac disease Unknown Relationship Condition Age at Onset Recorded Date/T freda Not Specified History of coronary artery stent placement Unknown mother Alzheimer's disease Unknown brother Cardiac disease Unknown Myocardial infarction Unknown sister Status post three ve ssel coronary artery bypass Unknown Malignant neoplasm of breast 80 father Myocardial infarction Unknown Cardiac disease Unknown grandmother Cardiac disease Unknown uncle Myocardial infarction Unknown Not Specified Cardiac disease Unknown Relationship Condition Age at Onset Recorded Date/T freda Not Specified History of coronary artery stent placement Unknown mother Alzheimer's disease Unknown brother Cardiac disease Unknown Myocardial infarction Unknown sister Status post three ve ssel coronary artery bypass Unknown Malignant neoplasm of breast 80 father Myocardial infarction Unknown Cardiac disease Unknown grandmother Cardiac disease Unknown uncle Myocardial infarction Unknown unrelated friend Cardiac disease Unknown Advance Directives No Advanced Directives Records FoundDocuments on File Type Date 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 Advance Directive(s) Advance Directive(s) 03/10/2021 8:07 AM Advance Directive(s) 12/06/2018 11:21 AM Advance Directive(s) 09/19/2018 1:45 AM Advance Directive(s) 03/19/2018 7:35 AM Advance Directive(s) 03/28/2017 3:33 PM Advance Directive(s) 03/27/2017 9:19 AM Advance Directive(s) 03/23/2017 2:57 PM Advance Directive(s) 03/22/2017 5:17 PM Advance Directive Response Recorded Date/ Time Living Will Yes September 15 11:09am Power of Governor Assembler Hydraulic Yes September 15, 2021 11:09am Documents on File Type Date 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 Advance Directive(s) Advance Directive(s) 03/10/2021 8:07 AM Advance Directive(s) 12/06/2018 11:21 AM Advance Directive(s) 09/19/2018 1:45 AM Advance Directive(s) 03/19/2018 7:35 AM Advance Directive(s) 03/28/2017 3:33 PM Advance Directive(s) 03/27/2017 9:19 AM Advance Directive(s) 03/23/2017 2:57 PM Advance Directive(s) 03/22/2017 5:17 PM Advance Directive Response Recorded Date/ Time Living Will Yes September 15 10:09am Power of Governor Assembler Hydraulic Yes September 15, 2021 10:09am Advance Directive Response Recorded Date/ Time Living Will Yes September 15 11:09am Do you have a Healthcare Power of Governor Assembler Hydraulic? Yes September 15, 2021 11:09am Chief Complaint and Reason for Visit Chief Complaint vaginitis US results possible D&C 6 M FU SNEHA; LM 12/23 Reason for Visit Thickened endometriu m Vaginitis Hyperlipidemia Hypothyroidism SNEHA (obstructive sleep apnea) Osteopenia with high risk of fracture Paroxysmal atrial fibrillation Chief Complaint SNEHA; LM 12/23 PROLONGED HEADACHES 6 M FU HIP PAIN Reason for Visit Tension headache, ch ronic Hyperlipidemia Paroxysmal atrial fibrillation History of coronary artery stent placement Chief Complaint PROLONGED HEADACHES 6 M FU HIP PAIN 6 M FU Reason for Visit Tension headache, ch ronic Hyperlipidemia Paroxysmal atrial fibrillation History of coronary artery stent placement CKD (chronic kidney disease), stage III Hyperlipidemia Hypothyroidism Paroxysmal atrial fibrillation Breast cancer Chief Complaint HIP PAIN 6 M FU NEW PT - HX OF BREAST CANCER Reason for Visit CKD (chronic kidney disease), stage III Hyperlipidemia Hypothyroidism Paroxysmal atrial fibrillation Breast cancer 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 Chief Complaint NEW PT - HX OF BREAS T CANCER 6 M FU AFIB Atrial fibrillation Reason for Visit Cancer of left femal e breast Atherosclerotic heart disease of [place] coronary artery without angina pectoris Hyperlipidemia Paroxysmal atrial fibrillation Chief Complaint 6 M FU AFIB Atrial fibrillation 6 M FU Reason for Visit Atherosclerotic hear t disease of [place] coronary artery without angina pectoris Hyperlipidemia Paroxysmal atrial fibrillation CKD (chronic kidney disease), stage III Hyperlipidemia Hypothyroidism Osteopenia with high risk of fracture Paroxysmal atrial fibrillation Chief Complaint 6 M FU 3 M FU Reason for Visit Oral lesion Burning sensation of mouth Hyperlipidemia Hypothyroidism Elevated liver enzymes Burning sensation of mouth Hyperlipidemia Hypothyroidism SNEHA (obstructive sleep apnea) Chief Complaint 3 M FU 1 Y FU LEFT ARM PAIN AFIB LEFT ARM PAIN AFIB Reason for Visit Elevated liver enzym es Burning sensation of mouth Hyperlipidemia Hypothyroidism SNEHA (obstructive sleep apnea) Atherosclerotic heart disease of [place] coronary artery without angina pectoris Hyperlipidemia Paroxysmal atrial fibrillation Chief Complaint Admit Date 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 October 29, 2024 9:57am L HIP INJURY FROM FALL 10 DAYS AGO Scot ry 2024 10:07am E-ORDER October 31, 2024 1 0:39am acute - lft hip pain December 11, 2024 12: 50pm XRAY December 16, 2024 12: 40pm Reason for Visit Admit Date Atherosclerotic heart diseas e of [place] coronary artery without angina pectoris October 29, 2024 9:57am Hyperlipidemia October 29, 2024 9 :57am Paroxysmal atrial fibrillation October 102024 9:57am Contusion of left hip October 31, 2024 10:07am Greater trochanteric bursitis of left hi p December 11, 2024 12:50pm Iliotibial band syndrome, left leg December 11, 2024 12:50pm Left hip pain December 11, 2024 12:5 0pm Left knee pain December 11, 2024 12:5 0pm Low back pain December 11, 2024 12:5 0pm Chief Complaint Admit Date acute - lft hip pain December 11, 2024 12: 50pm XRAY December 16, 2024 12: 40pm 6 M FU March 24, 2025 1:03 pm Reason for Visit Admit Date Greater trochanteric bursitis of left hi p December 11, 2024 12:50pm Iliotibial band syndrome, left leg December 11, 2024 12:50pm Left hip pain December 11, 2024 12:5 0pm Left knee pain December 11, 2024 12:5 0pm Low back pain December 11, 2024 12:5 0pm Chief Complaint Admit Date 6 M FU March 24, 2025 1:03 pm LUMBAR SPINE April 16, 2025 1:53p m Room 3 April 16, 2025 2:12p m Reason for Visit Admit Date 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 March 24, 2025 1:03pm Chronic low back pain March 24, 2025 1: 03pm GERD (gastroesophageal reflux disease) J une 2024 1:03pm Hyperlipidemia March 24, 2025 1:03 pm Hypothyroidism March 24, 2025 1:03 pm Chief Complaint Admit Date 6 M FU March 24, 2025 1:03 pm LUMBAR SPINE April 16, 2025 1:53p m Room 3 April 16, 2025 2:12p m DDD, PAIN April 22, 2025 3:25 pm Reason for Visit Admit Date 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 March 24, 2025 1:03pm Chronic low back pain March 24, 2025 1: 03pm GERD (gastroesophageal reflux disease) [facility] 2024 1:03pm Hyperlipidemia March 24, 2025 1:03 pm Hypothyroidism March 24, 2025 1:03 pm Degenerative disc disease (D DD) of lumbar region with discogenic back pain April 16, 2025 1:53pm Low bone density April 16, 2025 1:53p m Chief Complaint Admit Date 6 M FU March 24, 2025 1:03 pm LUMBAR SPINE April 16, 2025 1:53p m Room 3 April 16, 2025 2:12p m DDD, PAIN April 22, 2025 3:25 pm LUMBAR SPINE May 06, 2025 10:2 4am Reason for Visit Admit Date 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 March 24, 2025 1:03pm Chronic low back pain March 24, 2025 1: 03pm GERD (gastroesophageal reflux disease) [facility] 2024 1:03pm Hyperlipidemia March 24, 2025 1:03 pm Hypothyroidism March 24, 2025 1:03 pm Degenerative disc disease (D DD) of lumbar region with discogenic back pain April 16, 2025 1:53pm Low bone density April 16, 2025 1:53p m Foraminal stenosis of lumbar region May 06, 2025 10:24am Retrolisthesis May 06, 2025 10:2 4am Reason for Referral Specialty Diagnoses / Procedures Referred By Contac t Referred To Contact CT IMAGING Diagnoses Malignant neoplasm of nipple of left breast in female, estrogen receptor positive (HCC) Lump in chest Procedures CT CHEST WO IVCON DIAGNOSTIC COMPUTED TOMOGRAPHY THORAX W/[place] [id number] Imaging Referral ID Status Reason Start Date Expiration Date Visits Requested Visits Authorized [id number] Authorized Auto-Generat ed Referral 04/08/2022 04/24/2023 1 1 Referral ID Status Reason Start Date Expiration Date V isits Requested Visits Authorized [id number] Closed Auto-Generate d Referral 04/08/2022 04/24/2023 1 1 Specialty Diagnoses / Procedures Referred By Contac t Referred To Contact CT IMAGING Diagnoses Paroxysmal atrial fibrillation (HCC) Procedures CTA CHEST (GATED) W IVCON CT ANGIOGRAPHY CHEST W/CONTRAST/NONCONTRAST Haseeb Roy MD [address] [place] [address] Ct Imaging Referral ID Status Reason Start Date Expiration Date Visits Requested Visits Authorized [id number] Pending Review Auto-Generat ed Referral 2 10/21/2023 1 1 Additional Source Comments INFORMATION SOURCE (unrecogn ized section and content) DATE CREATED AUTHOR 03/29/2018 [facility] DATE CREATED AUTHOR AUTHOR'S ORGANIZ ATION 03/30/2018 [facility] DATE CREATED AUTHOR AUTHOR'S ORGANIZ ATION 11/22/2022 [facility] DATE CREATED AUTHOR AUTHOR'S ORGANIZ ATION 04/26/2025 [facility] DATE CREATED AUTHOR AUTHOR'S ORGANIZ ATION 05/03/[address] [facility] DATE CREATED AUTHOR AUTHOR'S ORGANIZ ATION 05/16/2025 [facility] Source Comments (unrecognize d section and content) In the event this informatio n is protected by the Federal Confidentiality of Alcohol and Drug Abuse Patient Records regulations: The Federal rules restrict any use of the information to criminally investigate or prosecute any alcohol or drug abuse patient.[facility] the event this information is protected by the Federal Confidentiality of Alcohol and Drug Abuse Patient Records regulations: The Federal rules restrict any use of the information to criminally investigate or prosecute any alcohol or drug abuse patient.[facility] the event this information is protected by the Federal Confidentiality of Alcohol and Drug Abuse Patient Records regulations: The Federal rules restrict any use of the information to criminally investigate or prosecute any alcohol or drug abuse patient.[facility] the event this information is protected by the Federal Confidentiality of Alcohol and Drug Abuse Patient Records regulations: The Federal rules restrict any use of the information to criminally investigate or prosecute any alcohol or drug abuse patient.[facility] the event this information is protected by the Federal Confidentiality of Alcohol and Drug Abuse Patient Records regulations: The Federal rules restrict any use of the information to criminally investigate or prosecute any alcohol or drug abuse patient.[facility] the event this information is protected by the Federal Confidentiality of Alcohol and Drug Abuse Patient Records regulations: The Federal rules restrict any use of the information to criminally investigate or prosecute any alcohol or drug abuse patient.[facility] Hospital[facility] the event this information is protected by the Federal Confidentiality of Alcohol and Drug Abuse Patient Records regulations: The Federal rules restrict any use of the information to criminally investigate or prosecute any alcohol or drug abuse patient.[facility] Hospital[facility] the event this information is protected by the Federal Confidentiality of Alcohol and Drug Abuse Patient Records regulations: The Federal rules restrict any use of the information to criminally investigate or prosecute any alcohol or drug abuse patient.[facility] the event this information is protected by the Federal Confidentiality of Alcohol and Drug Abuse Patient Records regulations: The Federal rules restrict any use of the information to criminally investigate or prosecute any alcohol or drug abuse patient.[facility] the event this information is protected by the Federal Confidentiality of Alcohol and Drug Abuse Patient Records regulations: The Federal rules restrict any use of the information to criminally investigate or prosecute any alcohol or drug abuse patient.[facility] the event this information is protected by the Federal Confidentiality of Alcohol and Drug Abuse Patient Records regulations: The Federal rules restrict any use of the information to criminally investigate or prosecute any alcohol or drug abuse patient.[facility] Hospital[facility] the event this information is protected by the Federal Confidentiality of Alcohol and Drug Abuse Patient Records regulations: The Federal rules restrict any use of the information to criminally investigate or prosecute any alcohol or drug abuse patient.[facility] Hospital[facility] the event this information is protected by the Federal Confidentiality of Alcohol and Drug Abuse Patient Records regulations: The Federal rules restrict any use of the information to criminally investigate or prosecute any alcohol or drug abuse patient.[facility] Hospital[facility] the event this information is protected by the Federal Confidentiality of Alcohol and Drug Abuse Patient Records regulations: The Federal rules restrict any use of the information to criminally investigate or prosecute any alcohol or drug abuse patient.[facility] Hospital[facility] the event this information is protected by the Federal Confidentiality of Alcohol and Drug Abuse Patient Records regulations: The Federal rules restrict any use of the information to criminally investigate or prosecute any alcohol or drug abuse patient.[facility] Hospital[facility] the event this information is protected by the Federal Confidentiality of Alcohol and Drug Abuse Patient Records regulations: The Federal rules restrict any use of the information to criminally investigate or prosecute any alcohol or drug abuse patient.[facility] Hospital[facility] the event this information is protected by the Federal Confidentiality of Alcohol and Drug Abuse Patient Records regulations: The Federal rules restrict any use of the information to criminally investigate or prosecute any alcohol or drug abuse patient.[facility] Hospital[facility] the event this information is protected by the Federal Confidentiality of Alcohol and Drug Abuse Patient Records regulations: The Federal rules restrict any use of the information to criminally investigate or prosecute any alcohol or drug abuse patient.[facility] Hospital[facility] the event this information is protected by the Federal Confidentiality of Alcohol and Drug Abuse Patient Records regulations: The Federal rules restrict any use of the information to criminally investigate or prosecute any alcohol or drug abuse patient.[facility] Hospital[facility] the event this information is protected by the Federal Confidentiality of Alcohol and Drug Abuse Patient Records regulations: The Federal rules restrict any use of the information to criminally investigate or prosecute any alcohol or drug abuse patient.[facility] HospitalIn the event this information is protected by the Federal Confidentiality of Alcohol and Drug Abuse Patient Records regulations: The Federal rules restrict any use of the information to criminally investigate or prosecute any alcohol or drug abuse patient.[facility] HospitalIn the event this information is protected by the Federal Confidentiality of Alcohol and Drug Abuse Patient Records regulations: The Federal rules restrict any use of the information to criminally investigate or prosecute any alcohol or drug abuse patient.[facility] HospitalIn the event this information is protected by the Federal Confidentiality of Alcohol and Drug Abuse Patient Records regulations: The Federal rules restrict any use of the information to criminally investigate or prosecute any alcohol or drug abuse patient.[facility] Reason for Visit (unrecogniz ed section and content) Reason Comments Breast Cancer Reason Comments Lump found at Masectomy Site Reason Comments Breast Cancer Established Patient Specialty Diagnoses / Procedures Referred By Jarek t Referred To Contact CT IMAGING Diagnoses Malignant neoplasm of nipple of left breast in female, estrogen receptor positive (HCC) Lump in chest Procedures CT CHEST WO IVCON DIAGNOSTIC COMPUTED TOMOGRAPHY THORAX W/[place] [address] [place] [address] Ct Imaging Referral ID Status Reason Start Date Expiration Date V isits Requested Visits Authorized [id number] Closed Auto-Generate d Referral 04/08/2022 04/24/2023 1 1 Reason Comments Results Reason Comments Follow Up Reason Comments New Patient Evaluation afib Reason Comments Preparations For Procedures Complete EPS & PVI Ablation Reason Comments Preparations For Procedures Reason Comments Follow Up Reason Comments Cardiology Follow Up PRE OP UDATE Reason Comments Appointment Reason Onset Date Comments Refill Request 04/09/2023 Reason Comments Established Patient Breast follow up Reason Onset Date Comments Refill Request 08/12/2024 Reason Comments New Patient Reason Comments Appointment Has appointment on 10/15 and would like to change the appointment Care Teams (unrecognized sec tion and content) Soaker Helper Relationship Specialty Start Date End Date Christopher Abreu MD [address], [place] [id number] PCP - General Internal Medicine 05/17/17 Dwight Vassil Physician Radiation Oncology 02/07/18 Soaker Helper Relationship Specialty Start Date End Date Dwight Vassil Physician Radiation Oncology 02/07/18 Soaker Helper Relationship Specialty Start Date End Date Dwight Vassil Physician Radiation Oncology 02/07/18 Soaker Helper Relationship Specialty Start Date End Date Dwight Vassil Physician Radiation Oncology 02/07/18 Soaker Helper Relationship Specialty Start Date End Date Dwight Vassil Physician Radiation Oncology 02/07/18 Soaker Helper Relationship Specialty Start Date End Date Dwight Vassil Physician Radiation Oncology 02/07/18 Soaker Helper Relationship Specialty Start Date End Date Dwight Vassil Physician Radiation Oncology 02/07/18 Soaker Helper Relationship Specialty Start Date End Date Caterina Garcia MD [address] [place], [place] [id number] PCP - General Internal Medicine 09/21/22 Dwight Vassil Physician Radiation Oncology 02/07/18 Soaker Helper Relationship Specialty Start Date End Date Caterina Garcia MD [address] [place] [address] PCP - General Internal Medicine 09/21/22 Dwight Vassil Physician Radiation Oncology 02/07/18 Soaker Helper Relationship Specialty Start Date End Date Caterina Garcia MD [address] [place] [address] PCP - General Internal Medicine 09/21/22 Dwight Vassil Physician Radiation Oncology 02/07/18 Soaker Helper Relationship Specialty Start Date End Date Caterina Garcia MD [address] [place] [address] PCP - General Internal Medicine 09/21/22 Dwight Martinezsil Physician Radiation Oncology 02/07/18 Soaker Helper Relationship Specialty Start Date End Date Caterina Garcia MD [address] [place] [address] PCP - General Internal Medicine 09/21/22 Dwight Martinezsil Physician Radiation Oncology 02/07/18 Soaker Helper Relationship Specialty Start Date End Date Caterina Garcia MD [address] [place] [address] PCP - General Internal Medicine 09/21/22 Dwight Vassil Physician Radiation Oncology 02/07/18 Team Status: Active Member Role Status Dates Dr. Kei Escobar MD Family Provider Active Dr. Caterina Garcia MD Primary Care Provider Active Team Status: Inactive Member Role Status Dates Dr. Caterina Garcia MD Primary Care Provider, Refer ring Provider Active Eliane SCHWAB, PA Attending Provider Active Team Status: Inactive Member Role Status Dates Dr. Caterina Garcia MD Primary Care Brannon jain, Attending Provider, Referring Provider Active Team Status: Active Member Role Status Dates Dr. Caterina Garcia MD Primary Care Provider Active Eliane SCHWAB PA Referring Provider, Other Provider Active Dr. Michael Lima DO Attending Provider Active Team Status: Inactive Member Role Status Dates Dr. Caterina Garcia MD Primary Care Provider Active Eliane SCHWAB, PA Attending Provider Active Soaker Helper Relationship Specialty Start Date End Date Caterina Garcia MD [address] [place], [place] [id number] PCP - General Internal Medicine 09/21/22 Dwight Vera Physician Radiation Oncology 02/07/18 Soaker Helper Relationship Specialty Start Date End Date Caterina Garcia MD [address] [place] [address] PCP - General Internal Medicine 09/21/22 Dwight Vera Physician Radiation Oncology 02/07/18 Team Status: Inactive Member Role Status Dates Dr. Caterina Garcia MD Primary Care Provider, Atten ding Provider Active Team Status: Inactive Member Role Status Dates Dr. Caterina Garcia MD Primary Care Provider, Refer ring Provider Active Dr. Narendra Triplett MD Attending Provider Active Team Status: Active Member Role Status Dates Dr. Caterina Garcia MD Primary Care Provider Active Dr. Narendra Triplett MD Attending Provider, Referring Provider, Other Provider Active Team Status: Inactive Member Role Status Dates Dr. Caterina Garcia MD Primary Care Provider Active Dr. Narendra Triplett MD Attending Provider, Referring Pro vider Active Soaker Helper Relationship Specialty Start Date End Date Caterina Garcia MD [address] [place] [address] PCP - General Internal Medicine 09/21/22 Dwight Vassil Physician Radiation Oncology 02/07/18 Soaker Helper Relationship Specialty Start Date End Date Caterina Garcia MD [address] [place] [address] PCP - General Internal Medicine 09/21/22 Dwight Vassil Physician Radiation Oncology 02/07/18 Soaker Helper Relationship Specialty Start Date End Date Caterina Garcia MD [address] [place] [address] PCP - General Internal Medicine 09/21/22 Dwight Vassil Physician Radiation Oncology 02/07/18 Soaker Helper Relationship Specialty Start Date End Date Caterina Garcia MD [address] [place] [address] PCP - General Internal Medicine 09/21/22 Dwight Martinezsil Physician Radiation Oncology 02/07/18 Team Status: Inactive Member Role Status Dates Dr. Caterina Garcia MD Primary Care Provider Active Start: October 29, 2024 End: October 29, 2024 Dr. Caterina Garcia MD Referring Provider Active Start: October 29, 2024 End: October 29, 2024 Dr. Narendra Triplett MD Attending Provider Active S tart: October 29, 2024 End: October 29, 2024 Team Status: Inactive Member Role Status Dates Dr. Caterina Garcia MD Primary Care Provider Active Start: October 31, 2024 End: October 31, 2024 Dr. Caterina Garcia MD Referring Provider Active Start: October 31, 2024 End: October 31, 2024 JOSSELIN Flowers Attending Provider Active Sta rt: October 31, 2024 End: October 31, 2024 Team Status: Inactive Member Role Status Dates Dr. Caterina Garcia MD Primary Care Provider Active Start: October 31, 2024 End: October 31, 2024 JOSSELIN Flowers Attending Provider Active Sta rt: October 31, 2024 End: October 31, 2024 JOSSELIN Flowers Referring Provider Active Sta rt: October 31, 2024 End: October 31, 2024 Team Status: Inactive Member Role Status Dates Dr. Caterina Garcia MD Primary Care Provider Active Start: December 11, 2024 End: December 11, 2024 Dr. Caterina Garcia MD Referring Provider Active Start: December 11, 2024 End: December 11, 2024 JOSSELIN Flores Attending Provider Active St art: December 11, 2024 End: December 11, 2024 Team Status: Inactive Member Role Status Dates Dr. Caterina Garcia MD Primary Care Provider Active Start: December 16, 2024 End: December 16, 2024 Dr. Narendra Triplett MD Attending Provider Active S tart: December 16, 2024 End: December 16, 2024 Team Status: Inactive Member Role Status Dates Dr. Caterina Garcia MD Primary Care Provider Active Start: January 22, 2025 End: January 22, 2025 Dr. Caterina Garcia MD Attending Provider Active Start: January 22, 2025 End: January 22, 2025 Dr. Caterina Garcia MD Referring Provider Active Start: January 22, 2025 End: January 22, 2025 Team Status: Inactive Member Role Status Dates Dr. Caterina Garcia MD Primary Care Provider Active Start: March 24, 2025 End: March 24, 2025 Dr. Caterina Garcia MD Attending Provider Active Start: March 24, 2025 End: March 24, 2025 Dr. Caterina Garcia MD Referring Provider Active Start: March 24, 2025 End: March 24, 2025 Team Status: Active Member Role/Relationship Status Dates Dr. Kei Escobar MD Family Provider Active Dr. Caterina Garcia MD Primary Care Provider Active Team Status: Inactive Member Role/Relationship Status Dates Dr. Caterina Garcia MD Primary Care Provider Active Start: January 22, 2025 End: January 22, 2025 Dr. Caterina Garcia MD Attending Provider Active Start: January 22, 2025 End: January 22, 2025 Dr. Caterina Garcia MD Referring Provider Active Start: January 22, 2025 End: January 22, 2025 Team Status: Inactive Member Role/Relationship Status Dates Dr. Caterina Garcia MD Primary Care Provider Active Start: March 24, 2025 End: March 24, 2025 Dr. Caterina Garcia MD Attending Provider Active Start: March 24, 2025 End: March 24, 2025 Dr. Caterina Garcia MD Referring Provider Active Start: March 24, 2025 End: March 24, 2025 Team Status: Active Member Role/Relationship Status Dates Dr. Caterina Garcia MD Primary Care Provider Active Start: April 16, 2025 Dr. Caterian Garcia MD Referring Provider Active Start: April 16, 2025 JOSSELIN Chambers Attending Provider Active Star t: April 16, 2025 Team Status: Inactive Member Role/Relationship Status Dates Dr. Caterina Garcia MD Primary Care Provider Active Start: April 16, 2025 End: April 16, 2025 Dr. Narendra Triplett MD Attending Provider Active S tart: April 16, 2025 End: April 16, 2025 Team Status: Inactive Member Role/Relationship Status Dates Dr. Caterina Garcia MD Primary Care Provider Active Start: April 16, 2025 End: April 16, 2025 Dr. Caterina Garcia MD Referring Provider Active Start: April 16, 2025 End: April 16, 2025 JOSSELIN Chambers Attending Provider Active Star t: April 16, 2025 End: April 16, 2025 Team Status: Active Member Role/Relationship Status Dates Dr. Caterina Garcia MD Primary Care Provider Active Team Status: Inactive Member Role/Relationship Status Dates Dr. Caterina Garcia MD Primary Care Provider Active Start: April 22, 2025 End: April 22, 2025 JOSSELIN Chambers Attending Provider Active Star t: April 22, 2025 End: April 22, 2025 JOSSELIN Chambers Referring Provider Active Star t: April 22, 2025 End: April 22, 2025 Soaker Helper Relationship Specialty Start Date End Date Caterina Garcia MD [address] [place] [address] PCP - General Internal Medicine 09/21/22 Dwight Vera Physician Radiation Oncology 02/07/18 Team Status: Inactive Member Role/Relationship Status Dates Dr. Caterina Garcia MD Primary Care Provider Active Start: May 06, 2025 End: May 06, 2025 Dr. Caterina Garcia MD Referring Provider Active Start: May 06, 2025 End: May 06, 2025 Dr. Larry Bai MD Attending Provider Active Start: May 06, 2025 End: May 06, 2025 Goals (unrecognized section and content) Goals may be documented in a n alternate sectionGoals may be documented in an alternate sectionGoals may be documented in an alternate sectionGoals may be documented in an alternate sectionGoals may be documented in an alternate sectionGoals may be documented in an alternate sectionGoals may be documented in an alternate sectionGoals may be documented in an alternate sectionGoals may be documented in an alternate sectionGoals may be documented in an alternate sectionGoals may be documented in an alternate sectionGoals may be documented in an alternate sectionGoals may be documented in an alternate sectionGoals may be documented in an alternate section FOR RECORDS PERTAINING TO PATIENTS WHO ARE [...] BE BASED ON THE PRIMARY CLINICAL RECORDS. [facility]. provides no warranty or guarantee of the accuracy or completeness of information in this document.
[2025-05-22 07:24] LABS: Hematocrit 36.2 % (37-47); Hemoglobin 11.9 g/dL (12.0-15.0); Mean Corp Hgb Conc 32.9 g/dL (32-36); Mean Corpuscular Volume 93.5 fL (81-99); Mean Platelet Vol. 9.3 fl (6.2-12.0); Platelet Count 183 K/mm3 (150-450); RBC Distribution Width CV 12.8 % (11.6-14.6); RBC Distribution Width SD 43.9 fl (35.1-43.9); Red Blood Count 3.87 M/mm3 (4.2-5.4); White Blood Count 7.0 K/mm3 (4.4-11.0)
[2025-05-22 07:57] LABS: Anion Gap 10 (5-15); BUN 12 mg/dL (4-19); BUN/Creat Ratio 11.3 RATIO (10-20); Calcium,Total 9.0 mg/dL (7.6-11.0); Carbon Dioxide 23.8 mmol/L (21.0-32.0); Chloride 108 mmol/L (98-108); Glucose 98 mg/dL (70-99); Potassium 4.1 mmol/L (3.3-5.1)
== END | disposition home or self-care (01) ==
LOC: PSN 06:49
PROVIDERS: PCP Internal Medicine; Referring Provider Otolaryngology; Visit Provider Otolaryngology
DX: Z01.812 Encounter for preprocedural laboratory examination (principal); Z01.810 Encounter for preprocedural cardiovascular examination
CPT/HCPCS: 36415; 80048; 85027; 93005

== ENCOUNTER → 2025-06-03 | Outpatient (CLI) | payer MEDICARE, OTHER, SELFPAY ==
--- NOTE | 2025-06-03 11:20 | MASS_PTH ---
PATIENT: MARY ANN MITCHELL [id number] AGE/SX: 74/F ROOM: RE06/03/[address]: Dr. Carlos A Gonzalez MD : 1950 BED: DIS: 06/03/2025 SPEC #: [id number] RECD: 06/03/25 15:44 STATUS: HARPAL SALAZAR #: [id number] RANJITH: 06/03/25 11:[address]: Carlos A Gonzalez DEPT: SURGICAL PATHOLOGY RECD BY: Tj Xavier ENTERED: 06/04/25 10:49 SP TYPE: Mass OTHR DR: Dr. Caterina Garcia MD Tissues: A - Mouth, NOS B - Mouth, NOS Procedures: Surgery Specimen Level IV HEADER OPERATION: Excision oral cavity mass PRE-OP DIAGNOSIS: Neoplasm of uncertain behavior of other specified sites of oral cavity TISSUE SUBMITTED: A- Right gingival mass, B- Right lateral tongue mass MICROSCOPIC DIAGNOSIS A. Gingiva, right, mass, excision: - Lichenoid mucositis, hyperkeratosis - see Comment. B. Tongue, right lateral, mass, excision: - Squamous epithelial inclusion cyst. - Focal lamina propria bland spindle cell proliferation, suggestive of traumatic neuroma. 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 Clinical correlation is necessary. MICROSCOPIC DESCRIPTION Slides are reviewed. GROSS DESCRIPTION Received in 2 formalin containers labeled with the patient's name and date of . Designated as: A. Right gingival mass is a 0.3 x 0.2 x 0.1 cm panchal-white tissue fragment. Entirely submitted in 1 cassette. B. Right lateral tongue mass is a 0.4 x 0.3 x 0.2 cm panchal-white tissue fragment. Entirely submitted in 1 cassette. OK 06/04/2025 CPT:[id number]
== END | disposition home or self-care (01) ==
LOC: LABSPEC 15:12
PROVIDERS: PCP Internal Medicine; Referring Provider Otolaryngology; Visit Provider Otolaryngology
DX: L82.0 Inflamed seborrheic keratosis (principal); L72.0 Epidermal cyst
CPT/HCPCS: 88305